=== PATIENT | female | born 1980 | race African-American/Black ===

== ENCOUNTER 2019-05-26 17:06 | Emergency (ER) | payer MEDICAID ==
[~2019-05-26] VITALS: Ht 160 cm; Wt 50.3 kg
[~2019-05-26 17:06] MED LIST: CLON0.2T PO; LORA-655 PO
[2019-05-26] MEDS ORDERED: cloNIDine HCL 0.1 MG TAB PO ONE ×2 (17:30→22:30)
[2019-05-26] MEDS ORDERED: ONDANSETRON ODT 4 MG TAB PO ONE (17:30)
[2019-05-26 18:54] LABS: Basophils # (auto) 0 10 ^3/uL (0-0.2); Basophils % (auto) 0.3 % (0.0-2.0); Eosinophils # (auto) 0 10 ^3/uL (0-0.8); Eosinophils % (auto) 0.4 % (0.0-7.0); Hematocrit 40.6 % (36.0-46.0); Hemoglobin 13.3 g/dL (12.2-16.2); Lymphocytes # (auto) 1.8 10 ^3/uL (0.4-5.4); Lymphocytes % (auto) 26.8 % (10.0-50.0); Mean Corpuscular Hemoglobin 29.6 pg (28.0-32.0); Mean Corpuscular Hgb Conc. 32.8 g/dL (32.0-36.0); Mean Corpuscular Volume 90.3 fL (80.0-100.0); Monocytes # (auto) 0.2 10 ^3/uL (0-1.3); Monocytes % (auto) 2.7 % (0.0-12.0); Neutrophils # (auto) 4.6 10 ^3/uL (1.6-8.6); Neutrophils % (auto) 69.8 % (37.0-80.0); Nucleated Red Blood Cells % 0.1 %; Platelet Count (auto) 307 10^3/uL (140-450); Red Cell Distribution Width 16.1 % (11.8-14.3); White Blood Cell 6.6 10^3/uL (4.4-10.8)
[2019-05-26] MEDS ORDERED: ONDANSETRON HCL 4 MG/2 ML VIAL IV ONE (19:00)
[2019-05-26] MEDS ORDERED: MORPHINE SULFATE 4 MG/ML SYR/VIAL IV ONE (19:00)
[2019-05-26 19:07] LABS: Albumin 3.1 g/dL (3.4-5.0); Calcium 8.1 mg/dL (8.5-10.1); Potassium 4.2 mmol/L (3.5-5.1)
[2019-05-26 19:10] LABS: BUN/Creatinine Ratio 13.3; Bilirubin, Total 0.2 mg/dL (0.2-1.0); Total Protein 7.5 g/dL (6.4-8.2)
[2019-05-26 19:19] LABS: Amylase 78 U/L (25-115); Lipase 270 U/L (73-393)
[2019-05-26] MEDS ORDERED: IOHEXOL 300 MG/ML 100ML BOTTLE IJ ONE (20:22)
[2019-05-26 21:39] VITALS: BP 175/117
[2019-05-26] MEDS ORDERED: MEPERIDINE HCL (25 MG/ML) 1ML VIAL IV ONE (22:45)
[2019-05-26] MEDS ORDERED: SODIUM CHLORIDE 0.9% 1,000 ML IV ONE (23:00)
== END 2019-05-26 23:29 | disposition home or self-care (01) ==
LOC: ER 17:06
DX: K86.1 Other chronic pancreatitis (principal); R11.2 Nausea with vomiting, unspecified; I10 Essential (primary) hypertension; F17.210 Nicotine dependence, cigarettes, uncomplicated
CPT/HCPCS: 36415; 74176; 74177; 80053; 82150; 82270; 83690; 84702; 85025; 96361; 96374; 96375; 99285; J2175; J2270; J2405; J7030; Q0162; Q9967

== ENCOUNTER → 2019-06-07 | Emergency (ER) | payer MEDICAID ==
[~2019-06-07] VITALS: Ht 160 cm; Wt 52.6 kg
[2019-06-07 07:39] VITALS: BP 211/135
[2019-06-07 08:01] LABS: Urine Bacteria NONE SEEN /hpf (None Seen); Urine Blood Negative /uL (Negative); Urine Mucus FEW (None Seen); Urine Specific Gravity 1.027 (1.001-1.035); Urine WBC 1 /hpf (0 - 5)
[2019-06-07 08:02] LABS: Basophils # (auto) 0 10 ^3/uL (0-0.2); Basophils % (auto) 0.5 % (0.0-2.0); Eosinophils # (auto) 0.1 10 ^3/uL (0-0.8); Eosinophils % (auto) 1.1 % (0.0-7.0); Hematocrit 34.8 % (36.0-46.0); Hemoglobin 11.6 g/dL (12.2-16.2); Lymphocytes # (auto) 1.3 10 ^3/uL (0.4-5.4); Lymphocytes % (auto) 24.4 % (10.0-50.0); Mean Corpuscular Hemoglobin 30.4 pg (28.0-32.0); Mean Corpuscular Hgb Conc. 33.3 g/dL (32.0-36.0); Mean Corpuscular Volume 91.4 fL (80.0-100.0); Monocytes # (auto) 0.3 10 ^3/uL (0-1.3); Monocytes % (auto) 5.2 % (0.0-12.0); Neutrophils # (auto) 3.7 10 ^3/uL (1.6-8.6); Neutrophils % (auto) 68.8 % (37.0-80.0); Platelet Count (auto) 254 10^3/uL (140-450); Red Blood Cells 3.81 10^6/uL (4.0-5.20); Red Cell Distribution Width 16.8 % (11.8-14.3); White Blood Cell 5.3 10^3/uL (4.4-10.8)
[2019-06-07 08:17] LABS: Albumin 2.7 g/dL (3.4-5.0); Calcium 8.1 mg/dL (8.5-10.1); Potassium 3.9 mmol/L (3.5-5.1)
[2019-06-07 08:21] LABS: BUN/Creatinine Ratio 14.5; Bilirubin, Total 0.4 mg/dL (0.2-1.0); Total Protein 7.5 g/dL (6.4-8.2)
== END | disposition home or self-care (01) ==
LOC: ER 07:10
DX: R10.13 Epigastric pain (principal); G89.4 Chronic pain syndrome; F17.210 Nicotine dependence, cigarettes, uncomplicated; I10 Essential (primary) hypertension; Z90.49 Acquired absence of other specified parts of digestive tract
CPT/HCPCS: 36415; 80053; 81001; 81025; 82150; 83690; 85025

== ENCOUNTER 2019-06-12 21:33 | Emergency (ER) | payer MEDICAID ==
[~2019-06-12] VITALS: Ht 160 cm; Wt 57.2 kg
[2019-06-12] MEDS ORDERED: LORazepam 2MG/ML-1ML VIAL IV ONE (22:30)
[2019-06-12] MEDS ORDERED: fentaNYL CITRATE 100 MCG/2 ML VL IV ONE (22:30)
[2019-06-12 22:44] LABS: Basophils # (auto) 0 10 ^3/uL (0-0.2); Basophils % (auto) 0.8 % (0.0-2.0); Eosinophils # (auto) 0 10 ^3/uL (0-0.8); Eosinophils % (auto) 0.7 % (0.0-7.0); Hematocrit 37.7 % (36.0-46.0); Hemoglobin 12.3 g/dL (12.2-16.2); Lymphocytes # (auto) 2.4 10 ^3/uL (0.4-5.4); Lymphocytes % (auto) 37.3 % (10.0-50.0); Mean Corpuscular Hemoglobin 29.9 pg (28.0-32.0); Mean Corpuscular Hgb Conc. 32.6 g/dL (32.0-36.0); Monocytes # (auto) 0.5 10 ^3/uL (0-1.3); Monocytes % (auto) 7.6 % (0.0-12.0); Neutrophils # (auto) 3.4 10 ^3/uL (1.6-8.6); Neutrophils % (auto) 53.6 % (37.0-80.0); Nucleated Red Blood Cells % 0.2 %; Platelet Count (auto) 295 10^3/uL (140-450); Red Cell Distribution Width 17.2 % (11.8-14.3); White Blood Cell 6.3 10^3/uL (4.4-10.8)
[2019-06-12 22:54] LABS: Albumin 3.1 g/dL (3.4-5.0); Calcium 8.6 mg/dL (8.5-10.1); Magnesium 2.3 mg/dL (1.6-2.6); Potassium 3.8 mmol/L (3.5-5.1)
[2019-06-12 22:57] LABS: Bilirubin, Total 0.2 mg/dL (0.2-1.0); Total Protein 7.8 g/dL (6.4-8.2)
[2019-06-12] MEDS ORDERED: IOHEXOL 300 MG/ML 100ML BOTTLE IJ ONE (23:16)
[2019-06-13 01:00] VITALS: BP 140/100
[2019-06-13] MEDS ORDERED: HYDROmorphone HCL 2 MG/ML VL IV ONE (01:30)
[2019-06-13] MEDS ORDERED: ONDANSETRON HCL 4 MG/2 ML VIAL IV ONE (01:30)
[2019-06-13] MEDS ORDERED: LORazepam 2MG/ML-1ML VIAL IV ONE (01:30)
== END 2019-06-13 01:45 | disposition home or self-care (01) ==
LOC: ER 21:33
DX: K57.32 Diverticulitis of large intestine without perforation or abscess without bleeding (principal); K86.1 Other chronic pancreatitis; R11.2 Nausea with vomiting, unspecified
CPT/HCPCS: 36415; 74177; 80053; 80320; 82150; 83690; 83735; 84702; 85025; 96374; 96375; 96376; 99284; J2060; J3010; Q9967

== ENCOUNTER 2019-10-19 17:16 | Emergency (ER) | payer MEDICAID ==
[~2019-10-19] VITALS: Ht 160 cm; Wt 52.2 kg
[2019-10-19] MEDS ORDERED: SODIUM CHLORIDE 0.9% 1,000 ML IVB ONE (17:29)
[2019-10-19] MEDS ORDERED: PANTOPRAZOLE 40 MG/10 ML VIAL INJ IV STA (17:29)
[2019-10-19] MEDS ORDERED: MORPHINE SULFATE 4 MG/ML SYR/VIAL IV ONE ×2 (17:30)
[2019-10-19 18:37] LABS: Basophils # (auto) 0 10 ^3/uL (0-0.2); Eosinophils # (auto) 0 10 ^3/uL (0-0.8); Lymphocytes # (auto) 1.8 10 ^3/uL (0.4-5.4); Monocytes # (auto) 0.6 10 ^3/uL (0-1.3); Nucleated Red Blood Cells % 0.1 %
[2019-10-19 18:39] LABS: Basophils % (auto) 0.3 % (0.0-2.0); Hematocrit 35.9 % (36.0-46.0); Hemoglobin 11.6 g/dL (12.2-16.2); Lymphocytes % (auto) 27.6 % (10.0-50.0); Mean Corpuscular Hemoglobin 27.6 pg (28.0-32.0); Mean Corpuscular Hgb Conc. 32.2 g/dL (32.0-36.0); Mean Corpuscular Volume 85.6 fL (80.0-100.0); Monocytes % (auto) 9.3 % (0.0-12.0); Neutrophils % (auto) 62.8 % (37.0-80.0); Platelet Count (auto) 305 10^3/uL (140-450); Red Cell Distribution Width 17.1 % (11.8-14.3); White Blood Cell 6.3 10^3/uL (4.4-10.8)
[2019-10-19] MEDS ORDERED: diphenhdrAMINE HCL 50 MG/1 ML VL IV ONE (18:45)
[2019-10-19] MEDS ORDERED: diphenhdrAMINE HCL 50 MG/1 ML VL ONE (18:47)
[2019-10-19 18:51] LABS: Albumin 3.7 g/dL (3.4-5.0); Calcium 9.2 mg/dL (8.5-10.1); Potassium 3.2 mmol/L (3.5-5.1)
[2019-10-19 18:55] LABS: BUN/Creatinine Ratio 15.3; Bilirubin, Total 0.2 mg/dL (0.2-1.0)
[2019-10-19 19:40] VITALS: BP 99/76
== END 2019-10-19 19:14 | disposition home or self-care (01) ==
LOC: EDBD 17:16 → ER 17:16
DX: G89.4 Chronic pain syndrome (principal); R11.2 Nausea with vomiting, unspecified; R10.13 Epigastric pain; I10 Essential (primary) hypertension; F17.210 Nicotine dependence, cigarettes, uncomplicated
CPT/HCPCS: 36415; 74176; 80053; 83690; 85025; 96361; 96374; 96375; 99284; C9113; J1200; J2270; J7030

== ENCOUNTER 2019-11-18 04:44 | Emergency (ER) | payer MEDICAID ==
[~2019-11-18] VITALS: Ht 160 cm; Wt 55.3 kg
[2019-11-18] MEDS ORDERED: cloNIDine HCL 0.1 MG TAB ONE (05:06)
[2019-11-18] MEDS ORDERED: ONDANSETRON ODT 4 MG TAB PO ONE ×2 (05:06→05:15)
[2019-11-18] MEDS ORDERED: cloNIDine HCL 0.1 MG TAB PO ONE (05:15)
[2019-11-18 07:23] LABS: Basophils # (auto) 0 10 ^3/uL (0-0.2); Basophils % (auto) 0.3 % (0.0-2.0); Eosinophils # (auto) 0.1 10 ^3/uL (0-0.8); Eosinophils % (auto) 1.5 % (0.0-7.0); Hemoglobin 11.1 g/dL (12.2-16.2); Lymphocytes # (auto) 0.8 10 ^3/uL (0.4-5.4); Lymphocytes % (auto) 12.2 % (10.0-50.0); Mean Corpuscular Hemoglobin 27.3 pg (28.0-32.0); Mean Corpuscular Hgb Conc. 31.8 g/dL (32.0-36.0); Mean Corpuscular Volume 85.6 fL (80.0-100.0); Monocytes # (auto) 0.2 10 ^3/uL (0-1.3); Monocytes % (auto) 2.8 % (0.0-12.0); Neutrophils # (auto) 5.5 10 ^3/uL (1.6-8.6); Neutrophils % (auto) 83.2 % (37.0-80.0); Platelet Count (auto) 186 10^3/uL (140-450); Red Blood Cells 4.09 10^6/uL (4.0-5.20); Red Cell Distribution Width 17.6 % (11.8-14.3); White Blood Cell 6.6 10^3/uL (4.4-10.8)
[2019-11-18] MEDS ORDERED: MORPHINE SULFATE 4 MG/ML SYR/VIAL IV ONE (07:30)
[2019-11-18] MEDS ORDERED: SODIUM CHLORIDE 0.9% 1,000 ML IV ONE ×2 (07:35)
[2019-11-18 07:36] LABS: Albumin 2.9 g/dL (3.4-5.0); BUN/Creatinine Ratio 24.6; Calcium 7.6 mg/dL (8.5-10.1); Potassium 3.5 mmol/L (3.5-5.1)
[2019-11-18 07:39] LABS: Bilirubin, Total 0.3 mg/dL (0.2-1.0); Total Protein 6.7 g/dL (6.4-8.2)
[2019-11-18] MEDS ORDERED: KETOROLAC TROMETH 30 MG/ML 1ML VIAL IV ONE (09:30)
[2019-11-18 09:31] VITALS: BP 141/79
[2019-11-18] MEDS ORDERED: MORPHINE SULF INJ 2 MG/ML SYRINGE 1ML IV ONE (09:45)
[2019-11-18] MEDS ORDERED: LABETALOL HCL 5 MG/ML 4ML SYRINGE IV ONE (10:30)
== END 2019-11-18 11:03 | disposition home or self-care (01) ==
LOC: ER 04:44
DX: K85.90 Acute pancreatitis without necrosis or infection, unspecified (principal); E86.0 Dehydration; I10 Essential (primary) hypertension
CPT/HCPCS: 36415; 71045; 74176; 80053; 82150; 83690; 85025; 96361; 96374; 96375; 96376; 99285; J2270; J3490; J7030; Q0162; J1885

== ENCOUNTER 2019-11-25 07:26 | Emergency (ER) | payer MEDICAID ==
[~2019-11-25] VITALS: Ht 160 cm; Wt 55.3 kg
[2019-11-25] MEDS ORDERED: LABETALOL HCL 5 MG/ML 4ML SYRINGE IV ONE (08:15)
[2019-11-25] MEDS ORDERED: KETOROLAC TROMETH 30 MG/ML 1ML VIAL IV ONE (08:15)
[2019-11-25] MEDS ORDERED: LORazepam 2MG/ML-1ML VIAL IV ONE (08:15)
[2019-11-25 08:36] LABS: Basophils # (auto) 0 10 ^3/uL (0-0.2); Basophils % (auto) 0.5 % (0.0-2.0); Eosinophils # (auto) 0 10 ^3/uL (0-0.8); Eosinophils % (auto) 0.9 % (0.0-7.0); Hematocrit 37.9 % (36.0-46.0); Hemoglobin 12.4 g/dL (12.2-16.2); Lymphocytes # (auto) 1.2 10 ^3/uL (0.4-5.4); Lymphocytes % (auto) 26.9 % (10.0-50.0); Mean Corpuscular Hemoglobin 27.6 pg (28.0-32.0); Mean Corpuscular Hgb Conc. 32.8 g/dL (32.0-36.0); Mean Corpuscular Volume 84.1 fL (80.0-100.0); Monocytes # (auto) 0.1 10 ^3/uL (0-1.3); Monocytes % (auto) 3.3 % (0.0-12.0); Neutrophils # (auto) 3.1 10 ^3/uL (1.6-8.6); Neutrophils % (auto) 68.4 % (37.0-80.0); Nucleated Red Blood Cells % 0.3 %; Platelet Count (auto) 222 10^3/uL (140-450); Red Blood Cells 4.51 10^6/uL (4.0-5.20); Red Cell Distribution Width 17.9 % (11.8-14.3); White Blood Cell 4.6 10^3/uL (4.4-10.8)
[2019-11-25 08:50] LABS: Albumin 3.4 g/dL (3.4-5.0); Amylase 42 U/L (25-115); Anion Gap 12 (5-15); Blood Urea Nitrogen 6 mg/dL (7-18); Calcium 8.9 mg/dL (8.5-10.1); Carbon Dioxide 18 mmol/L (21-32); Chloride 105 mmol/L (98-107); Glucose 69 mg/dL (74-106); Lipase 94 U/L (73-393); Potassium 3.1 mmol/L (3.5-5.1); Sodium 135 mmol/L (136-145)
[2019-11-25] MEDS ORDERED: diphenhdrAMINE HCL 50 MG/1 ML VL ONE (08:53)
[2019-11-25] MEDS ORDERED: amLODIPine BESYLATE 5 MG TAB ONE (08:53)
[2019-11-25 08:58] LABS: Alanine Aminotransferase 18 U/L (13-56); Alkaline Phosphatase 167 U/L (45-117); Aspartate Aminotransferase 31 U/L (15-37); Bilirubin, Total 0.8 mg/dL (0.2-1.0); GFR African American 176 mL/min; GFR Non-African American 145 mL/min; Total Protein 7.8 g/dL (6.4-8.2)
[2019-11-25] MEDS ORDERED: diphenhdrAMINE HCL 50 MG/1 ML VL IV ONE (09:00)
[2019-11-25] MEDS ORDERED: amLODIPine BESYLATE 5 MG TAB PO ONE (09:00)
[2019-11-25] MEDS ORDERED: POTASSIUM EFFERVESENT TAB 25 MEQ PO ONE (09:15)
[2019-11-25] MEDS ORDERED: MORPHINE SULFATE 4 MG/ML SYR/VIAL IV ONE (09:15)
[2019-11-25] MEDS ORDERED: PROMETHAZINE HCL 25 MG/ML 1ML IV ONE (09:15)
[2019-11-25] MEDS ORDERED: HYDR50TA15 PO (09:34)
[2019-11-25] MEDS ORDERED: PANT40T PO (09:34)
[2019-11-25] MEDS ORDERED: NIFE1TAB30 (09:34)
[2019-11-25 12:00] VITALS: BP 126/84
== END 2019-11-25 14:03 | disposition left against medical advice (07) ==
LOC: ER 07:26
DX: G89.4 Chronic pain syndrome (principal); I16.0 Hypertensive urgency; E87.6 Hypokalemia; F17.210 Nicotine dependence, cigarettes, uncomplicated; Z90.49 Acquired absence of other specified parts of digestive tract; Z53.29 Procedure and treatment not carried out because of patient's decision for other reasons
CPT/HCPCS: 36415; 70450; 74176; 80053; 80320; 82150; 83690; 83735; 84484; 84702; 85025; 93005; 96365; 96366; 96375; 99285; J1200; J1885; J2060; J2270; J2550; J3490; J7030; 36410; 96374

== ENCOUNTER 2020-04-01 02:22 | Emergency (ER) | payer MEDICAID ==
[~2020-04-01] VITALS: Ht 160 cm; Wt 50.3 kg
[~2020-04-01 02:22] MED LIST changes: +HYDR50TA15 PO; +NIFE1TAB30; +PANT40T PO
[2020-04-01] MEDS ORDERED: cloNIDine HCL 0.1 MG TAB ONE (03:25)
[2020-04-01] MEDS ORDERED: EPINEPHrine HCL 1 MG/1 ML AMP IM ONE (03:30)
[2020-04-01 04:00] LABS: Basophils # (auto) 0.1 10 ^3/uL (0-0.2); Basophils % (auto) 0.9 % (0.0-2.0); Eosinophils # (auto) 0.1 10 ^3/uL (0-0.8); Eosinophils % (auto) 1.9 % (0.0-7.0); Lymphocytes # (auto) 1.7 10 ^3/uL (0.4-5.4); Lymphocytes % (auto) 22.5 % (10.0-50.0); Mean Corpuscular Hemoglobin 28.2 pg (28.0-32.0); Mean Corpuscular Hgb Conc. 32.2 g/dL (32.0-36.0); Mean Corpuscular Volume 87.6 fL (80.0-100.0); Monocytes # (auto) 0.8 10 ^3/uL (0-1.3); Monocytes % (auto) 10.2 % (0.0-12.0); Neutrophils % (auto) 64.5 % (37.0-80.0); Nucleated Red Blood Cells % 0.1 %; Red Blood Cells 3.54 10^6/uL (4.0-5.20); White Blood Cell 7.8 10^3/uL (4.4-10.8)
[2020-04-01 04:01] LABS: Red Cell Distribution Width 21.1 % (11.8-14.3)
[2020-04-01 04:19] LABS: Albumin 3.6 g/dL (3.4-5.0); Calcium 8.2 mg/dL (8.5-10.1); Magnesium 2.4 mg/dL (1.6-2.6)
[2020-04-01 04:23] LABS: BUN/Creatinine Ratio 21.3; Bilirubin, Total 0.2 mg/dL (0.2-1.0); Total Protein 8.2 g/dL (6.4-8.2)
[2020-04-01 04:23] LABS: Lactic Acid w/Reflex 3.1 mmol/L (0.4-2.0)
[2020-04-01 04:26] LABS: INR 1.11 (0.9-1.15)
[2020-04-01] MEDS ORDERED: SODIUM CHLORIDE 0.9% 1,000 ML IV ONE (04:30)
[2020-04-01] MEDS ORDERED: HYDROmorphone HCL 2 MG/ML VL IV ONE ×2 (04:30→08:30)
[2020-04-01] MEDS ORDERED: ONDANSETRON HCL 4 MG/2 ML VIAL IV ONE (05:15)
[2020-04-01] MEDS ORDERED: IOHEXOL 300 MG/ML 100ML BOTTLE IJ ONE (07:57)
[2020-04-01] MEDS ORDERED: HYDROmorphone HCL 2 MG/ML VL ONE (07:58)
[2020-04-01 08:00] VITALS: BP 181/105
== END 2020-04-01 11:43 | disposition home or self-care (01) ==
LOC: EDBD 02:22 → ER 02:22
DX: K86.1 Other chronic pancreatitis (principal); G89.29 Other chronic pain; I10 Essential (primary) hypertension; F17.210 Nicotine dependence, cigarettes, uncomplicated; Z79.899 Other long term (current) drug therapy; Z90.49 Acquired absence of other specified parts of digestive tract
CPT/HCPCS: 36415; 74177; 80053; 83605; 83690; 83735; 84100; 85025; 85610; 96361; 96372; 96374; 96376; 99285; J0171; J1170; Q9967

== ENCOUNTER 2020-06-06 12:05 | Inpatient (IN) | payer MEDICAID ==
[~2020-06-06] VITALS: Ht 160 cm; Wt 38.1 kg
[2020-06-06] MEDS ORDERED: PANTOPRAZOLE 40 MG/10 ML VIAL INJ IV STA (12:08)
[2020-06-06] MEDS ORDERED: SODIUM CHLORIDE 0.9% 500 ML IVB ONE (12:15)
[2020-06-06] MEDS ORDERED: MORPHINE SULFATE 4 MG/ML SYR/VIAL IV ONE (12:15)
[2020-06-06] MEDS ORDERED: PROCHLORPERAZINE EDISYLATE 5 MG/ML 2ML VIAL IV ONE (12:15)
[2020-06-06 12:38] LABS: Basophils # (auto) 0.1 10 ^3/uL (0-0.2); Basophils % (auto) 1.1 % (0.0-2.0); Eosinophils # (auto) 0.1 10 ^3/uL (0-0.8); Eosinophils % (auto) 1.1 % (0.0-7.0); Hemoglobin 11.7 g/dL (12.2-16.2); Lymphocytes % (auto) 37.9 % (10.0-50.0); Mean Corpuscular Hemoglobin 27.3 pg (28.0-32.0); Mean Corpuscular Hgb Conc. 32.6 g/dL (32.0-36.0); Mean Corpuscular Volume 83.7 fL (80.0-100.0); Monocytes # (auto) 0.3 10 ^3/uL (0-1.3); Monocytes % (auto) 5.2 % (0.0-12.0); Neutrophils % (auto) 54.7 % (37.0-80.0); Nucleated Red Blood Cells % 0.1 %; Platelet Count (auto) 351 10^3/uL (140-450); Red Cell Distribution Width 20.5 % (11.8-14.3); White Blood Cell 5.4 10^3/uL (4.4-10.8)
[2020-06-06] MEDS ORDERED: cloNIDine HCL 0.1 MG TAB PO ONE ×2 (13:00→19:00)
[2020-06-06 13:09] LABS: Albumin 3.4 g/dL (3.4-5.0); Calcium 8.6 mg/dL (8.5-10.1); Potassium 3.3 mmol/L (3.5-5.1)
[2020-06-06 13:13] LABS: BUN/Creatinine Ratio 11.9; Bilirubin, Total 0.3 mg/dL (0.2-1.0); Total Protein 8.1 g/dL (6.4-8.2)
[2020-06-06] MEDS ORDERED: ONDANSETRON HCL 4 MG/2 ML VIAL IV PRN (13:45)
[2020-06-06] MEDS ORDERED: FOLIC ACID 1 MG, MULTIPLE VITAMIN 10 ML, MAGNESIUM SULF SDV 50% 8 MEQ, THIAMINE INJ 100... INJ SCH ×5 (13:45)
[2020-06-06] MEDS ORDERED: LABETALOL HCL 5 MG/ML 4ML SYRINGE IV PRN (13:45)
[2020-06-06] MEDS ORDERED: POTASSIUM CHLORIDE 40 MEQ, LIDOCAINE 1% (LOCAL ANESTH.) 4 ML in SODIUM CHL 0.9% 250 ML IV ONE (13:45)
[2020-06-06] MEDS ORDERED: diphenhdrAMINE HCL 50 MG/1 ML VL IV ONE (14:00)
[2020-06-06] MEDS ORDERED: diphenhdrAMINE-ZINC ACETATE 1 APPLIC APPL TOP PRN (14:00)
[2020-06-06] MEDS: MORPHINE SULF INJ 2 MG/ML SYRINGE 1ML IV PRN ×3 (16:59→23:21)
[2020-06-06 17:00] VITALS: BP 160/121
[2020-06-06 17:17] VITALS: BP 160/121
[2020-06-06] MEDS ORDERED: hydrALAZINE HCL 20 MG/ML VL IV ONE (19:00)
[2020-06-06 22:00] VITALS: BP_SYST 130; BP_SYST 171; BP_DIAS 108; BP_DIAS 81
[2020-06-07] MEDS: MORPHINE SULF INJ 2 MG/ML SYRINGE 1ML IV PRN ×3 (02:26→08:37)
[2020-06-07 05:00] VITALS: BP 160/107
[2020-06-07 07:35] LABS: Albumin 3.1 g/dL (3.4-5.0); Calcium 8.4 mg/dL (8.5-10.1); Potassium 3.3 mmol/L (3.5-5.1)
[2020-06-07 07:50] LABS: BUN/Creatinine Ratio 6.3; Bilirubin, Total 0.4 mg/dL (0.2-1.0); Total Protein 6.7 g/dL (6.4-8.2)
[2020-06-07] MEDS ORDERED: cefTRIAXone 1GM/50ML D5W 50 ML IV SCH (09:00)
[2020-06-07 09:06] VITALS: BP 201/131
[2020-06-07] MEDS ORDERED: LOSARTAN POTASSIUM 25 MG TAB PO ONE (09:15)
[2020-06-07] MEDS ORDERED: LABETALOL HCL 5 MG/ML 4ML SYRINGE IV ONE (09:15)
[2020-06-07] MEDS ORDERED: LOSARTAN POTASSIUM 25 MG TAB PO SCH (10:00)
[2020-06-07] MEDS ORDERED: PANTOPRAZOLE 40 MG TAB PO SCH (10:00)
[2020-06-07] MEDS ORDERED: amLODIPine BESYLATE 5 MG TAB PO SCH (10:00)
[2020-06-07] MEDS ORDERED: cloNIDine HCL 0.1 MG TAB PO SCH (14:00)
[2020-06-07] MEDS ORDERED: metroNIDAZOLE 500MG/100ML 100 ML IV SCH (14:00)
== END 2020-06-07 09:55 | disposition left against medical advice (07) | DRG 251 ==
LOC: ER 12:05 → TELE 12:06 → TELE-CENTR 16:07
PROVIDERS: ADMIT Nurse Practitioner Acute Care; ATTEND Internal Medicine Nephrology
DX: R10.9 Unspecified abdominal pain (principal); R64 Cachexia; K86.1 Other chronic pancreatitis; Z20.822 Contact with and (suspected) exposure to COVID-19; I10 Essential (primary) hypertension; G89.4 Chronic pain syndrome; F10.20 Alcohol dependence, uncomplicated; E87.6 Hypokalemia; Z72.0 Tobacco use; Z82.49 Family history of ischemic heart disease and other diseases of the circulatory system; Z83.3 Family history of diabetes mellitus; Z68.1 Body mass index [BMI] 19.9 or less, adult; Z90.49 Acquired absence of other specified parts of digestive tract; Z53.29 Procedure and treatment not carried out because of patient's decision for other reasons
CPT/HCPCS: 36415; 74176; 80053; 82150; 83690; 84702; 85025; 87426; 96361; 96365; 96375; C9113; G0378; J0696; J2001; J2405; J3490

== ENCOUNTER 2020-06-25 19:09 | Inpatient (IN) | payer MEDICAID ==
[~2020-06-25] VITALS: Ht 160 cm; Wt 38.4 kg
[2020-06-25 19:58] LABS: Basophils # (auto) 0.1 10 ^3/uL (0-0.2); Basophils % (auto) 1.6 % (0.0-2.0); Eosinophils # (auto) 0.1 10 ^3/uL (0-0.8); Eosinophils % (auto) 1.5 % (0.0-7.0); Hematocrit 34.8 % (36.0-46.0); Hemoglobin 11.2 g/dL (12.2-16.2); Lymphocytes # (auto) 1.4 10 ^3/uL (0.4-5.4); Lymphocytes % (auto) 26.4 % (10.0-50.0); Mean Corpuscular Hemoglobin 28.2 pg (28.0-32.0); Mean Corpuscular Hgb Conc. 32.2 g/dL (32.0-36.0); Mean Corpuscular Volume 87.7 fL (80.0-100.0); Monocytes # (auto) 0.3 10 ^3/uL (0-1.3); Monocytes % (auto) 5.5 % (0.0-12.0); Neutrophils # (auto) 3.4 10 ^3/uL (1.6-8.6); Nucleated Red Blood Cells % 0.1 %; Platelet Count (auto) 303 10^3/uL (140-450); Red Blood Cells 3.97 10^6/uL (4.0-5.20); Red Cell Distribution Width 23.3 % (11.8-14.3); White Blood Cell 5.3 10^3/uL (4.4-10.8)
[2020-06-25 20:16] LABS: Amylase 74 U/L (25-115); Anion Gap 12 (5-15); Blood Urea Nitrogen 6 mg/dL (7-18); Calcium 8.3 mg/dL (8.5-10.1); Carbon Dioxide 20 mmol/L (21-32); Chloride 110 mmol/L (98-107); Glucose 89 mg/dL (74-106); Lipase 187 U/L (73-393); Potassium 3.5 mmol/L (3.5-5.1); Sodium 142 mmol/L (136-145)
[2020-06-25 20:21] LABS: BUN/Creatinine Ratio 11.1; GFR African American 160 mL/min; GFR Non-African American 132 mL/min
[2020-06-25 22:07] LABS: Basophils # (auto) 0 10 ^3/uL (0-0.2); Basophils % (auto) 0.7 % (0.0-2.0); Eosinophils # (auto) 0.1 10 ^3/uL (0-0.8); Eosinophils % (auto) 1.7 % (0.0-7.0); Hematocrit 33.6 % (36.0-46.0); Hemoglobin 10.6 g/dL (12.2-16.2); Lymphocytes # (auto) 1.6 10 ^3/uL (0.4-5.4); Lymphocytes % (auto) 31.5 % (10.0-50.0); Mean Corpuscular Hgb Conc. 31.6 g/dL (32.0-36.0); Mean Corpuscular Volume 88.8 fL (80.0-100.0); Monocytes # (auto) 0.2 10 ^3/uL (0-1.3); Monocytes % (auto) 3.7 % (0.0-12.0); Neutrophils # (auto) 3.2 10 ^3/uL (1.6-8.6); Neutrophils % (auto) 62.4 % (37.0-80.0); Nucleated Red Blood Cells % 0.1 %; Platelet Count (auto) 299 10^3/uL (140-450); Red Blood Cells 3.78 10^6/uL (4.0-5.20); Red Cell Distribution Width 23.5 % (11.8-14.3); White Blood Cell 5.1 10^3/uL (4.4-10.8)
[2020-06-25 22:15] LABS: Albumin 2.9 g/dL (3.4-5.0); Anion Gap 12 (5-15); Blood Urea Nitrogen 7 mg/dL (7-18); Calcium 8.1 mg/dL (8.5-10.1); Carbon Dioxide 19 mmol/L (21-32); Chloride 111 mmol/L (98-107); Glucose 78 mg/dL (74-106); Potassium 3.6 mmol/L (3.5-5.1); Sodium 142 mmol/L (136-145)
[2020-06-25] MEDS ORDERED: HYDROmorphone HCL 2 MG/ML VL IV ONE (22:15)
[2020-06-25] MEDS ORDERED: SODIUM CHLORIDE 0.9% 1,000 ML IV ONE (22:15)
[2020-06-25] MEDS ORDERED: PANTOPRAZOLE 40 MG/10 ML VIAL INJ IV ONE (22:15)
[2020-06-25] MEDS ORDERED: ONDANSETRON HCL 4 MG/2 ML VIAL IV ONE (22:15)
[2020-06-25] MEDS ORDERED: IOHEXOL 300 MG/ML 100ML BOTTLE IJ ONE (22:23)
[2020-06-25 22:24] LABS: Alanine Aminotransferase 22 U/L (13-56); Alkaline Phosphatase 110 U/L (45-117); Aspartate Aminotransferase 43 U/L (15-37); Bilirubin, Total 0.2 mg/dL (0.2-1.0); GFR African American 160 mL/min; GFR Non-African American 132 mL/min; Total Protein 7.1 g/dL (6.4-8.2)
[2020-06-25] MEDS ORDERED: diphenhdrAMINE HCL 50 MG/1 ML VL ONE (23:51)
[2020-06-26] MEDS ORDERED: HYDROmorphone HCL 2 MG/ML VL IV ONE (00:45)
[2020-06-26] MEDS ORDERED: SODIUM CHLORIDE 0.9% 1,000 ML IV SCH (02:30)
[2020-06-26] MEDS ORDERED: MORPHINE SULF INJ 2 MG/ML SYRINGE 1ML IV PRN (02:30)
[2020-06-26] MEDS ORDERED: hydrALAZINE HCL 20 MG/ML VL IV PRN (02:30)
[2020-06-26] MEDS ORDERED: ONDANSETRON HCL 4 MG/2 ML VIAL IV PRN (02:30)
[2020-06-26] MEDS ORDERED: NITROGLYCERIN 0.4 MG SL TAB SL PRN (02:30)
[2020-06-26 02:49] LABS: Urine Bacteria FEW /hpf (None Seen); Urine Blood Negative /uL (Negative); Urine Specific Gravity > 1.050 (1.001-1.035); Urine WBC 4 /hpf (0 - 5)
[2020-06-26 03:14] LABS: INR 1.11 (0.9-1.15); Partial Thromboplastin Time 27.9 sec (23.0-31.2)
[2020-06-26] MEDS ORDERED: diphenhdrAMINE HCL 50 MG/1 ML VL ONE (03:19)
[2020-06-26] MEDS: MORPHINE SULFATE 4 MG/ML SYR/VIAL IV PRN ×4 (04:34→21:13)
[2020-06-26] MEDS ORDERED: HYDROcodone-ACET 10/325MG TAB PO ONE (06:00)
[2020-06-26] MEDS: LABETALOL HCL 5 MG/ML 4ML SYRINGE IV PRN (08:35)
[2020-06-26] MEDS: diphenhdrAMINE HCL 50 MG/1 ML VL IV PRN ×4 (08:35→23:44)
[2020-06-26] MEDS ORDERED: LORazepam 2MG/ML-1ML VIAL IV PRN ×2 (08:45→21:00)
[2020-06-26] MEDS: levoFLOXacin 500MG 100 ML IV SCH (10:16)
[2020-06-26] MEDS: PANTOPRAZOLE 40 MG/10 ML VIAL INJ IV SCH ×2 (10:16→21:37)
[2020-06-26 10:51] LABS: Amphetamine Screen, Urine NEGATIVE (NEGATIVE); Barbiturate Scree,Urine NEGATIVE (NEGATIVE); Benzodiazephine Screen, Urine NEGATIVE (NEGATIVE); Cannabinoid Screen, Urine NEGATIVE (NEGATIVE); Cocaine Screen, Urine NEGATIVE (NEGATIVE); Opiate Scree,Urine POSITIVE (NEGATIVE); Phencyclidine Screen, Urine NEGATIVE (NEGATIVE)
[2020-06-26] MEDS: FOLIC ACID 1 MG, MULTIPLE VITAMIN 10 ML, MAGNESIUM SULF SDV 50% 8 MEQ, THIAMINE INJ 100... INJ SCH ×5 (11:57)
[2020-06-26] MEDS: cloNIDine 0.1 mg/24hr 7 DAY PATCH TD SCH ×2 (12:45→20:36)
[2020-06-26] MEDS ORDERED: cloNIDine 0.1 mg/24hr 7 DAY PATCH TD ONE (12:45)
[2020-06-26] MEDS: metroNIDAZOLE 500MG/100ML 100 ML IV SCH ×2 (14:01→21:37)
[2020-06-26] MEDS: SUCRALFATE 1 GM/10 ML ORAL SUSP PO SCH ×2 (17:11→21:37)
[2020-06-26] MEDS ORDERED: chlordiazePOXIDE HCL 25 MG CAP PO PRN (21:00)
[2020-06-27] MEDS: MORPHINE SULFATE 4 MG/ML SYR/VIAL IV PRN ×2 (01:17→05:36)
[2020-06-27] MEDS: LABETALOL HCL 5 MG/ML 4ML SYRINGE IV PRN ×7 (01:23→21:03)
[2020-06-27] MEDS: diphenhdrAMINE HCL 50 MG/1 ML VL IV PRN ×3 (03:45→21:26)
[2020-06-27] MEDS: metroNIDAZOLE 500MG/100ML 100 ML IV SCH ×3 (05:36→21:02)
[2020-06-27] MEDS: SUCRALFATE 1 GM/10 ML ORAL SUSP PO SCH ×4 (06:48→21:02)
[2020-06-27 07:21] LABS: Basophils # (auto) 0 10 ^3/uL (0-0.2); Basophils % (auto) 0.7 % (0.0-2.0); Eosinophils # (auto) 0.1 10 ^3/uL (0-0.8); Eosinophils % (auto) 2.5 % (0.0-7.0); Hematocrit 30.6 % (36.0-46.0); Hemoglobin 9.8 g/dL (12.2-16.2); Lymphocytes # (auto) 0.8 10 ^3/uL (0.4-5.4); Lymphocytes % (auto) 22.2 % (10.0-50.0); Mean Corpuscular Hemoglobin 27.9 pg (28.0-32.0); Mean Corpuscular Volume 87.2 fL (80.0-100.0); Monocytes # (auto) 0.2 10 ^3/uL (0-1.3); Monocytes % (auto) 4.8 % (0.0-12.0); Neutrophils # (auto) 2.5 10 ^3/uL (1.6-8.6); Neutrophils % (auto) 69.8 % (37.0-80.0); Nucleated Red Blood Cells % 0.2 %; Platelet Count (auto) 233 10^3/uL (140-450); Red Blood Cells 3.51 10^6/uL (4.0-5.20); White Blood Cell 3.7 10^3/uL (4.4-10.8)
[2020-06-27 07:23] LABS: Red Cell Distribution Width 23.5 % (11.8-14.3)
[2020-06-27 07:40] LABS: Albumin 2.7 g/dL (3.4-5.0); Calcium 8.7 mg/dL (8.5-10.1); Potassium 3.2 mmol/L (3.5-5.1)
[2020-06-27 07:43] LABS: BUN/Creatinine Ratio 4.1; Bilirubin, Total 0.4 mg/dL (0.2-1.0); Total Protein 6.5 g/dL (6.4-8.2)
[2020-06-27] MEDS ORDERED: LIDOCAINE VISCOUS 2% 15ML UD ONE (08:55)
[2020-06-27] MEDS ORDERED: MIDAZOLAM HCL 5 MG/ML-1ML VIAL ONE (08:56)
[2020-06-27] MEDS ORDERED: fentaNYL CITRATE 100 MCG/2 ML VL ONE ×3 (08:56→12:19)
[2020-06-27] MEDS ORDERED: diphenhdrAMINE HCL 50 MG/1 ML VL ONE (08:56)
[2020-06-27 09:00] VITALS: BP 156/105
[2020-06-27] MEDS: levoFLOXacin 500MG 100 ML IV SCH (10:00)
[2020-06-27] MEDS ORDERED: MIDAZOLAM HCL 5 MG/ML-1ML VIAL IV ONE (10:24)
[2020-06-27] MEDS ORDERED: MIDAZOLAM HCL 1MG/1ML-2 ML VIAL ONE (11:01)
[2020-06-27] MEDS ORDERED: SODIUM CHLORIDE LOCK 10 ML ONE (11:01)
[2020-06-27] MEDS ORDERED: PROPOFOL 10 MG/ML 20 ML IV ONE ×2 (11:01→12:19)
[2020-06-27] MEDS: FOLIC ACID 1 MG, MULTIPLE VITAMIN 10 ML, MAGNESIUM SULF SDV 50% 8 MEQ, THIAMINE INJ 100... INJ SCH ×5 (12:00)
[2020-06-27] MEDS ORDERED: LIDOCAINE 2% (LOCAL ANESTH.) PF 5ml SDV ONE (12:19)
[2020-06-27] MEDS ORDERED: ONDANSETRON HCL 4 MG/2 ML VIAL IV PRN (13:00)
[2020-06-27] MEDS ORDERED: POTASSIUM CHL 20 Meq TABLET PO ONE (14:00)
[2020-06-27 14:34] VITALS: BP 163/113
[2020-06-27] MEDS: HCTZ 25 MG TAB PO SCH (14:50)
[2020-06-27] MEDS: amLODIPine BESYLATE 5 MG TAB PO SCH (14:51)
[2020-06-27 17:00] VITALS: BP 157/102
[2020-06-27] MEDS: MORPHINE SULF INJ 2 MG/ML SYRINGE 1ML IV PRN (20:42)
[2020-06-27] MEDS: PANTOPRAZOLE 40 MG TAB PO SCH (21:03)
[2020-06-27 21:15] VITALS: BP 181/102
[2020-06-27 22:00] VITALS: BP 171/107
[2020-06-27] MEDS ORDERED: hydrALAZINE HCL 20 MG/ML VL IV ONE (22:30)
[2020-06-27 23:45] VITALS: BP 140/83
[2020-06-28] MEDS: MORPHINE SULF INJ 2 MG/ML SYRINGE 1ML IV PRN ×2 (00:02→04:04)
[2020-06-28] MEDS: diphenhdrAMINE HCL 50 MG/1 ML VL IV PRN ×2 (01:26→05:37)
[2020-06-28 05:00] VITALS: BP 196/105
[2020-06-28] MEDS: metroNIDAZOLE 500MG/100ML 100 ML IV SCH (05:37)
[2020-06-28] MEDS: LABETALOL HCL 5 MG/ML 4ML SYRINGE IV PRN (05:39)
[2020-06-28] MEDS: SUCRALFATE 1 GM/10 ML ORAL SUSP PO SCH ×2 (05:53→11:30)
[2020-06-28 05:54] VITALS: BP 158/113
[2020-06-28 06:12] LABS: Basophils # (auto) 0 10 ^3/uL (0-0.2); Basophils % (auto) 0.6 % (0.0-2.0); Eosinophils # (auto) 0.1 10 ^3/uL (0-0.8); Eosinophils % (auto) 2.6 % (0.0-7.0); Hematocrit 32.3 % (36.0-46.0); Hemoglobin 10.1 g/dL (12.2-16.2); Lymphocytes # (auto) 0.9 10 ^3/uL (0.4-5.4); Lymphocytes % (auto) 20.8 % (10.0-50.0); Mean Corpuscular Hemoglobin 28.8 pg (28.0-32.0); Mean Corpuscular Hgb Conc. 31.4 g/dL (32.0-36.0); Mean Corpuscular Volume 91.9 fL (80.0-100.0); Monocytes # (auto) 0.2 10 ^3/uL (0-1.3); Monocytes % (auto) 4.7 % (0.0-12.0); Neutrophils # (auto) 3.2 10 ^3/uL (1.6-8.6); Neutrophils % (auto) 71.3 % (37.0-80.0); Nucleated Red Blood Cells % 0.3 %; Platelet Count (auto) 202 10^3/uL (140-450); Red Blood Cells 3.51 10^6/uL (4.0-5.20); Red Cell Distribution Width 23.8 % (11.8-14.3); White Blood Cell 4.6 10^3/uL (4.4-10.8)
[2020-06-28 06:34] LABS: Potassium 3.8 mmol/L (3.5-5.1)
[2020-06-28 06:42] LABS: BUN/Creatinine Ratio 5.9; Calcium 8.9 mg/dL (8.5-10.1)
[2020-06-28] MEDS ORDERED: MIDAZOLAM HCL 1MG/1ML-2 ML VIAL ONE ×2 (08:26→09:06)
[2020-06-28] MEDS ORDERED: fentaNYL CITRATE 100 MCG/2 ML VL ONE ×2 (08:26→09:06)
[2020-06-28] MEDS ORDERED: IOHEXOL 350 MG/ML 100ML IJ ONE (08:30)
[2020-06-28] MEDS ORDERED: LIDOCAINE 2%HCL (LOCAL ANESTH.) INJ 20ML MDV ONE (08:30)
[2020-06-28] MEDS ORDERED: diphenhdrAMINE HCL 50 MG/1 ML VL ONE (08:54)
[2020-06-28 08:55] LABS: INR 1.04 (0.9-1.15); Partial Thromboplastin Time 29.3 sec (23.0-31.2)
[2020-06-28 09:00] VITALS: BP 161/109
[2020-06-28] MEDS ORDERED: SODIUM CHL 0.9% 50 ML ONE (09:15)
[2020-06-28] MEDS ORDERED: ANGIOMAX 250 MG VIAL IV ONE (09:15)
[2020-06-28] MEDS ORDERED: CLOPIDOGREL 300 MG TAB ONE (09:27)
[2020-06-28] MEDS ORDERED: ASPirin 325 MG TAB ONE (09:27)
[2020-06-28] MEDS ORDERED: POTASSIUM CHL 20 Meq TABLET PO SCH (10:00)
[2020-06-28] MEDS ORDERED: LORazepam 2MG/ML-1ML VIAL IV ONE (10:15)
[2020-06-28] MEDS: HCTZ 25 MG TAB PO SCH (11:46)
[2020-06-28] MEDS: amLODIPine BESYLATE 5 MG TAB PO SCH (11:47)
[2020-06-28] MEDS: PANTOPRAZOLE 40 MG TAB PO SCH (11:47)
[2020-06-28] MEDS ORDERED: LORazepam 2MG/ML-1ML VIAL IV PRN (12:00)
[2020-06-28 13:00] VITALS: BP 140/72
[2020-06-28] MEDS ORDERED: ESOM40CA39 PO (13:33)
[2020-06-28] MEDS ORDERED: POTA10TA51 PO (13:33)
[2020-06-28] MEDS ORDERED: AML5T PO (13:33)
[2020-06-28] MEDS ORDERED: ASPI-543 PO (13:33)
[2020-06-28] MEDS ORDERED: HYDR25TA5 PO (13:33)
[2020-06-28] MEDS ORDERED: SUCR1TAB22 PO (13:33)
[2020-06-28 15:03] VITALS: BP 140/72
[2020-06-29] MEDS ORDERED: ASPirin-EC 81 mg tab PO SCH (10:00)
[2020-06-29] MEDS ORDERED: CLOPIDOGREL BISULFATE 75 MG TAB PO SCH (10:00)
== END 2020-06-28 16:00 | disposition home or self-care (01) | DRG 182 ==
LOC: EDBD 19:09 → ER 19:12 → TELE 06-26 02:29 → TELE-WESTW 06-27 09:15
PROVIDERS: ADMIT Nurse Practitioner; ATTEND Internal Medicine
PROC: 0DB68ZZ Excision of Stomach, Via Natural or Artificial Opening Endoscopic (ICD-10-PCS; principal; 2020-06-27 10:15)
PROC: 047A34Z Dilation of Left Renal Artery with Drug-eluting Intraluminal Device, Percutaneous Approach (ICD-10-PCS; 2020-06-28)
PROC: B4181ZZ Fluoroscopy of Bilateral Renal Arteries using Low Osmolar Contrast (ICD-10-PCS; 2020-06-28)
DX: I70.1 Atherosclerosis of renal artery (principal); I67.83 Posterior reversible encephalopathy syndrome; K29.71 Gastritis, unspecified, with bleeding; E44.0 Moderate protein-calorie malnutrition; I67.4 Hypertensive encephalopathy; K56.7 Ileus, unspecified; K86.1 Other chronic pancreatitis; F11.20 Opioid dependence, uncomplicated; I16.1 Hypertensive emergency; G40.909 Epilepsy, unspecified, not intractable, without status epilepticus; K52.9 Noninfective gastroenteritis and colitis, unspecified; E87.6 Hypokalemia; Z20.822 Contact with and (suspected) exposure to COVID-19; D64.9 Anemia, unspecified; F17.200 Nicotine dependence, unspecified, uncomplicated; G89.29 Other chronic pain; I10 Essential (primary) hypertension; Z79.899 Other long term (current) drug therapy; Z82.49 Family history of ischemic heart disease and other diseases of the circulatory system; Z83.3 Family history of diabetes mellitus; Z90.49 Acquired absence of other specified parts of digestive tract; Z68.1 Body mass index [BMI] 19.9 or less, adult
CPT/HCPCS: 36415; 37236; 43239; 70450; 70551; 71045; 74177; 80048; 80053; 80307; 81001; 82150; 82533; 83690; 83735; 83880; 84443; 84484; 84702; 85025; 85610; 85730; 86850; 86900; 86901; 87426; 93005; 93306; 93976; 96361; 96374; 96375; 99152; 99153; A4565; C1874; C9113; G0378; J1956; J2001; J2250; J2405; J2704; J3490

== ENCOUNTER 2020-06-30 07:58 | Inpatient (IN) | payer MEDICAID ==
[~2020-06-30] VITALS: Ht 160 cm; Wt 39.3 kg
[~2020-06-30 07:58] MED LIST changes: +AML5T PO; +ASPI-543 PO; +ESOM40CA39 PO; +HYDR25TA5 PO; -HYDR50TA15 PO; -NIFE1TAB30; -PANT40T PO; +POTA10TA51 PO; +SUCR1TAB22 PO
[2020-06-30] MEDS ORDERED: SODIUM CHLORIDE 0.9% 1,000 ML IV ONE ×2 (08:15)
[2020-06-30] MEDS ORDERED: KETOROLAC TROMETH 30 MG/ML 1ML VIAL IV ONE (08:15)
[2020-06-30] MEDS ORDERED: ONDANSETRON HCL 4 MG/2 ML VIAL IV ONE (08:15)
[2020-06-30] MEDS ORDERED: MORPHINE SULFATE 4 MG/ML SYR/VIAL IV ONE (09:00)
[2020-06-30] MEDS ORDERED: diphenhdrAMINE HCL 25 MG CAP PO ONE (09:15)
[2020-06-30] MEDS ORDERED: HYDROmorphone HCL 2 MG/ML VL IV ONE (10:30)
[2020-06-30 10:46] LABS: Basophils # (auto) 0 10 ^3/uL (0-0.2); Basophils % (auto) 0.5 % (0.0-2.0); Eosinophils # (auto) 0 10 ^3/uL (0-0.8); Eosinophils % (auto) 0.6 % (0.0-7.0); Hemoglobin 10.3 g/dL (12.2-16.2); Lymphocytes # (auto) 1.2 10 ^3/uL (0.4-5.4); Lymphocytes % (auto) 15.8 % (10.0-50.0); Mean Corpuscular Hemoglobin 28.5 pg (28.0-32.0); Mean Corpuscular Hgb Conc. 32.2 g/dL (32.0-36.0); Mean Corpuscular Volume 88.5 fL (80.0-100.0); Monocytes # (auto) 0.4 10 ^3/uL (0-1.3); Monocytes % (auto) 6.1 % (0.0-12.0); Neutrophils # (auto) 5.7 10 ^3/uL (1.6-8.6); Platelet Count (auto) 257 10^3/uL (140-450); Red Blood Cells 3.62 10^6/uL (4.0-5.20); White Blood Cell 7.4 10^3/uL (4.4-10.8)
[2020-06-30 10:50] LABS: Albumin 3.4 g/dL (3.4-5.0); Calcium 8.6 mg/dL (8.5-10.1); Potassium 3.7 mmol/L (3.5-5.1)
[2020-06-30 10:51] LABS: Red Cell Distribution Width 24.1 % (11.8-14.3)
[2020-06-30 10:53] LABS: BUN/Creatinine Ratio 11.1; Bilirubin, Total 0.3 mg/dL (0.2-1.0); Total Protein 7.6 g/dL (6.4-8.2)
[2020-06-30] MEDS ORDERED: NITROGLYCERIN 0.4 MG SL TAB SL PRN (15:00)
[2020-06-30] MEDS ORDERED: LABETALOL HCL 5 MG/ML 4ML SYRINGE IV PRN (15:00)
[2020-06-30] MEDS ORDERED: MORPHINE SULF INJ 2 MG/ML SYRINGE 1ML IV PRN (15:00)
[2020-06-30] MEDS ORDERED: GASTROGRAFIN 120 ML SOL ONE ×2 (15:21→16:20)
[2020-06-30] MEDS: HYDROmorphone HCL 2 MG/ML VL IV PRN ×2 (16:30→20:49)
[2020-06-30] MEDS: SODIUM CHLORIDE 0.9% 1,000 ML IV SCH ×2 (20:16→23:00)
[2020-06-30 20:36] LABS: Hemoglobin 9.1 g/dL (12.2-16.2)
[2020-06-30 21:27] VITALS: BP 186/107
[2020-06-30] MEDS ORDERED: HYDROcodone-ACET 5/325MG TAB PO ONE (21:30)
[2020-06-30] MEDS: hydrALAZINE HCL 20 MG/ML VL IV PRN (22:04)
[2020-06-30] MEDS: LORazepam 2MG/ML-1ML VIAL IV PRN (22:43)
[2020-06-30 22:56] LABS: Hematocrit 30.2 % (36.0-46.0); Hemoglobin 9.4 g/dL (12.2-16.2)
[2020-06-30 23:00] VITALS: BP 141/75
[2020-06-30 23:18] LABS: Urine Bacteria NONE SEEN /hpf (None Seen); Urine Blood Negative /uL (Negative); Urine Mucus FEW (None Seen); Urine Specific Gravity 1.032 (1.001-1.035); Urine WBC 1 /hpf (0 - 5)
[2020-06-30 23:39] VITALS: BP 145/75
[2020-06-30] MEDS ORDERED: DICY10CA12 PO (23:48)
[2020-07-01] MEDS: HYDROmorphone HCL 2 MG/ML VL IV PRN ×6 (00:44→22:42)
[2020-07-01] MEDS: SODIUM CHLORIDE 0.9% 1,000 ML IV SCH ×3 (00:44→23:04)
[2020-07-01] MEDS: ONDANSETRON HCL 4 MG/2 ML VIAL IV PRN ×2 (03:23→10:14)
[2020-07-01 04:39] LABS: Hemoglobin 8.4 g/dL (12.2-16.2)
[2020-07-01] MEDS: hydrALAZINE HCL 20 MG/ML VL IV PRN (05:52)
[2020-07-01 05:59] VITALS: BP 155/97
[2020-07-01 08:00] VITALS: BP 155/97
[2020-07-01 08:02] LABS: Basophils # (auto) 0 10 ^3/uL (0-0.2); Basophils % (auto) 0.5 % (0.0-2.0); Eosinophils # (auto) 0.1 10 ^3/uL (0-0.8); Hematocrit 27.3 % (36.0-46.0); Hemoglobin 8.7 g/dL (12.2-16.2); Lymphocytes % (auto) 23.7 % (10.0-50.0); Mean Corpuscular Hemoglobin 29.4 pg (28.0-32.0); Mean Corpuscular Hgb Conc. 31.9 g/dL (32.0-36.0); Monocytes # (auto) 0.3 10 ^3/uL (0-1.3); Monocytes % (auto) 6.5 % (0.0-12.0); Neutrophils # (auto) 2.7 10 ^3/uL (1.6-8.6); Neutrophils % (auto) 67.3 % (37.0-80.0); Platelet Count (auto) 199 10^3/uL (140-450); Red Blood Cells 2.97 10^6/uL (4.0-5.20); White Blood Cell 4.1 10^3/uL (4.4-10.8)
[2020-07-01] MEDS: diphenhdrAMINE HCL 50 MG/1 ML VL IV PRN ×3 (08:04→23:33)
[2020-07-01 08:09] LABS: Red Cell Distribution Width 23.9 % (11.8-14.3)
[2020-07-01 08:20] LABS: INR 1.14 (0.9-1.15)
[2020-07-01 08:34] LABS: Potassium 3.3 mmol/L (3.5-5.1)
[2020-07-01 08:41] LABS: Albumin 2.5 g/dL (3.4-5.0); BUN/Creatinine Ratio 15.4; Bilirubin, Total 0.4 mg/dL (0.2-1.0); Calcium 7.6 mg/dL (8.5-10.1); Total Protein 5.7 g/dL (6.4-8.2)
[2020-07-01 08:58] VITALS: BP 161/99
[2020-07-01] MEDS ORDERED: amLODIPine BESYLATE 5 MG TAB PO ONE (10:30)
[2020-07-01] MEDS ORDERED: HCTZ 25 MG TAB PO ONE (10:30)
[2020-07-01] MEDS: ESOMEPRAZOLE 40 MG/5ml VIAL INJ IV SCH (11:42)
[2020-07-01 13:00] VITALS: BP 159/96
[2020-07-01 15:17] LABS: Hemoglobin 8.2 g/dL (12.2-16.2)
[2020-07-01 17:00] VITALS: BP 167/101
[2020-07-01] MEDS: cloNIDine HCL 0.1 MG TAB PO PRN (17:45)
[2020-07-01] MEDS: LORazepam 2MG/ML-1ML VIAL IV PRN (20:51)
[2020-07-01 22:00] VITALS: BP 109/67
[2020-07-01 22:17] LABS: Hemoglobin 8.3 g/dL (12.2-16.2)
[2020-07-01 22:19] LABS: Hematocrit 25.9 % (36.0-46.0)
[2020-07-02] MEDS: HYDROmorphone HCL 2 MG/ML VL IV PRN ×6 (02:42→23:41)
[2020-07-02 04:52] VITALS: BP 121/79
[2020-07-02] MEDS: diphenhdrAMINE HCL 50 MG/1 ML VL IV PRN ×3 (06:02→18:46)
[2020-07-02] MEDS: SODIUM CHLORIDE 0.9% 1,000 ML IV SCH ×3 (06:31→23:03)
[2020-07-02 08:00] VITALS: BP 109/67
[2020-07-02] MEDS: HCTZ 25 MG TAB PO SCH (08:50)
[2020-07-02] MEDS: amLODIPine BESYLATE 5 MG TAB PO SCH (08:51)
[2020-07-02 09:07] VITALS: BP 149/51
[2020-07-02] MEDS: cloNIDine HCL 0.1 MG TAB PO PRN (09:07)
[2020-07-02] MEDS: ESOMEPRAZOLE 40 MG/5ml VIAL INJ IV SCH (09:51)
[2020-07-02 13:00] VITALS: BP 145/94
[2020-07-02 17:00] VITALS: BP 153/93
[2020-07-02] MEDS: LORazepam 2MG/ML-1ML VIAL IV PRN (20:40)
[2020-07-02 22:00] VITALS: BP 147/93
[2020-07-03] MEDS: diphenhdrAMINE HCL 50 MG/1 ML VL IV PRN ×3 (00:46→12:16)
[2020-07-03] MEDS: HYDROmorphone HCL 2 MG/ML VL IV PRN ×3 (03:43→12:17)
[2020-07-03 05:00] VITALS: BP 137/97
[2020-07-03] MEDS: SODIUM CHLORIDE 0.9% 1,000 ML IV SCH (06:26)
[2020-07-03 08:00] VITALS: BP 145/94
[2020-07-03 09:00] VITALS: BP 146/91
[2020-07-03] MEDS: amLODIPine BESYLATE 5 MG TAB PO SCH (10:00)
[2020-07-03] MEDS: HCTZ 25 MG TAB PO SCH (10:00)
[2020-07-03] MEDS: ESOMEPRAZOLE 40 MG/5ml VIAL INJ IV SCH (10:03)
[2020-07-03] MEDS: cloNIDine HCL 0.1 MG TAB PO PRN (10:04)
[2020-07-03 12:17] VITALS: BP 146/91
[2020-07-03 13:00] VITALS: BP 159/103
== END 2020-07-03 14:15 | disposition home or self-care (01) | DRG 241 ==
LOC: EDBD 07:58 → ER 07:58 → EDUNIT# 07:58 → TELE 14:58 → TELE-CENTR 20:15
PROVIDERS: ADMIT Family Medicine; ATTEND Family Medicine
DX: K29.70 Gastritis, unspecified, without bleeding (principal); R56.9 Unspecified convulsions; I70.1 Atherosclerosis of renal artery; K86.1 Other chronic pancreatitis; D64.9 Anemia, unspecified; I10 Essential (primary) hypertension; F17.210 Nicotine dependence, cigarettes, uncomplicated; G89.4 Chronic pain syndrome; F11.10 Opioid abuse, uncomplicated; Z20.822 Contact with and (suspected) exposure to COVID-19; Z82.49 Family history of ischemic heart disease and other diseases of the circulatory system; Z83.3 Family history of diabetes mellitus; Z90.49 Acquired absence of other specified parts of digestive tract; I16.9 Hypertensive crisis, unspecified
CPT/HCPCS: 36415; 71045; 74176; 74250; 80053; 81001; 82270; 83690; 84443; 85014; 85018; 85025; 85610; 87081; 87426; 93005; 96361; 96374; 96375; 96376; G0378; J1885; J2405; J3490

== ENCOUNTER 2020-07-22 01:22 | Emergency (ER) | payer MEDICAID ==
[~2020-07-22] VITALS: Ht 160 cm; Wt 53.5 kg
[~2020-07-22 01:22] MED LIST changes: +DICY10CA12 PO
[2020-07-22 01:37] VITALS: BP 160/100
== END 2020-07-22 02:28 | disposition left against medical advice (07) ==
LOC: EDBD 01:22 → ER 01:22
DX: R10.12 Left upper quadrant pain (principal); Z53.21 Procedure and treatment not carried out due to patient leaving prior to being seen by health care provider

== ENCOUNTER 2020-08-13 17:43 | Inpatient (IN) | payer MEDICAID ==
[~2020-08-13] VITALS: Ht 160 cm; Wt 40.7 kg
[2020-08-13 19:15] LABS: Basophils # (auto) 0.1 10 ^3/uL (0-0.2); Eosinophils # (auto) 0.1 10 ^3/uL (0-0.8); Hematocrit 30.4 % (36.0-46.0); Hemoglobin 9.8 g/dL (12.2-16.2); Lymphocytes # (auto) 1.5 10 ^3/uL (0.4-5.4); Lymphocytes % (auto) 21.8 % (10.0-50.0); Mean Corpuscular Hemoglobin 28.4 pg (28.0-32.0); Mean Corpuscular Hgb Conc. 32.2 g/dL (32.0-36.0); Mean Corpuscular Volume 88.1 fL (80.0-100.0); Monocytes # (auto) 0.6 10 ^3/uL (0-1.3); Monocytes % (auto) 8.6 % (0.0-12.0); Neutrophils # (auto) 4.6 10 ^3/uL (1.6-8.6); Neutrophils % (auto) 66.6 % (37.0-80.0); Nucleated Red Blood Cells % 0.1 %; Platelet Count (auto) 321 10^3/uL (140-450); Red Blood Cells 3.45 10^6/uL (4.0-5.20); Red Cell Distribution Width 17.3 % (11.8-14.3)
[2020-08-13 19:21] LABS: Urine Bacteria NONE SEEN /hpf (None Seen); Urine Blood Negative /uL (Negative); Urine Mucus FEW (None Seen); Urine Specific Gravity 1.024 (1.001-1.035); Urine WBC 7 /hpf (0 - 5)
[2020-08-13 19:23] LABS: Potassium 3.7 mmol/L (3.5-5.1)
[2020-08-13 19:24] LABS: Albumin 3.7 g/dL (3.4-5.0); BUN/Creatinine Ratio 12.1; Calcium 9.3 mg/dL (8.5-10.1)
[2020-08-13 19:28] LABS: Magnesium 2.3 mg/dL (1.6-2.6)
[2020-08-13 19:30] LABS: Bilirubin, Total 0.2 mg/dL (0.2-1.0); Total Protein 8.1 g/dL (6.4-8.2)
[2020-08-13] MEDS ORDERED: HYDROmorphone HCL 2 MG/ML VL IV ONE (20:45)
[2020-08-13] MEDS ORDERED: ONDANSETRON HCL 4 MG/2 ML VIAL IV ONE (20:45)
[2020-08-13] MEDS ORDERED: SODIUM CHLORIDE 0.9% 1,000 ML IV ONE (20:45)
[2020-08-13] MEDS ORDERED: diphenhdrAMINE HCL 50 MG/1 ML VL IV ONE (23:00)
[2020-08-14] VITALS (8 sets, daily range): BP systolic 138–164; BP diastolic 77–103
[2020-08-14] MEDS ORDERED: SODIUM CHLORIDE 0.9% 1,000 ML IV ONE (00:30)
[2020-08-14] MEDS ORDERED: SODIUM CHLORIDE 0.9% 1,000 ML IV SCH (01:00)
[2020-08-14] MEDS: MORPHINE SULFATE 4 MG/ML SYR/VIAL IV PRN ×6 (02:58→23:53)
[2020-08-14] MEDS: ONDANSETRON HCL 4 MG/2 ML VIAL IV PRN ×4 (02:58→14:41)
[2020-08-14] MEDS ORDERED: DIPH25CA66 PO (03:57)
[2020-08-14] MEDS ORDERED: diphenhdrAMINE HCL 25 MG CAP PO ONE (05:15)
[2020-08-14 10:30] LABS: Barbiturate Scree,Urine NEGATIVE (NEGATIVE); Benzodiazephine Screen, Urine NEGATIVE (NEGATIVE); Cannabinoid Screen, Urine NEGATIVE (NEGATIVE); Cocaine Screen, Urine NEGATIVE (NEGATIVE); Opiate Scree,Urine POSITIVE (NEGATIVE); Phencyclidine Screen, Urine NEGATIVE (NEGATIVE)
[2020-08-14 10:38] LABS: Amphetamine Screen, Urine NEGATIVE (NEGATIVE)
[2020-08-14] MEDS: LACTATED RINGER'S 1,000 ML IV SCH (11:18)
[2020-08-14] MEDS: PANTOPRAZOLE 40 MG/10 ML VIAL INJ IV SCH (11:18)
[2020-08-14] MEDS: hydrALAZINE HCL 20 MG/ML VL IV PRN (11:19)
[2020-08-14] MEDS: HYDROcodone-ACET 5/325MG TAB PO PRN ×3 (14:39→21:41)
[2020-08-14] MEDS: SUCRALFATE 1 GM/10 ML ORAL SUSP PO SCH ×2 (17:28→21:40)
[2020-08-14] MEDS ORDERED: ENALAPRILAT 1.25 MG/ML-1ML VIAL IV ONE (23:15)
[2020-08-15] MEDS: LACTATED RINGER'S 1,000 ML IV SCH ×2 (00:59→16:52)
[2020-08-15] MEDS: MORPHINE SULFATE 4 MG/ML SYR/VIAL IV PRN ×6 (02:10→23:20)
[2020-08-15 03:04] VITALS: BP 142/89
[2020-08-15] MEDS: HYDROcodone-ACET 5/325MG TAB PO PRN ×5 (03:04→21:44)
[2020-08-15 05:00] VITALS: BP 165/100
[2020-08-15] MEDS: hydrALAZINE HCL 20 MG/ML VL IV PRN (05:17)
[2020-08-15 05:30] LABS: Basophils # (auto) 0 10 ^3/uL (0-0.2); Basophils % (auto) 0.8 % (0.0-2.0); Eosinophils # (auto) 0.2 10 ^3/uL (0-0.8); Eosinophils % (auto) 4.1 % (0.0-7.0); Hemoglobin 9.6 g/dL (12.2-16.2); Lymphocytes % (auto) 37.4 % (10.0-50.0); Mean Corpuscular Hemoglobin 27.9 pg (28.0-32.0); Mean Corpuscular Volume 90.1 fL (80.0-100.0); Monocytes # (auto) 0.9 10 ^3/uL (0-1.3); Monocytes % (auto) 16.8 % (0.0-12.0); Neutrophils # (auto) 2.2 10 ^3/uL (1.6-8.6); Neutrophils % (auto) 40.9 % (37.0-80.0); Nucleated Red Blood Cells % 0.2 %; Platelet Count (auto) 296 10^3/uL (140-450); Red Blood Cells 3.45 10^6/uL (4.0-5.20); Red Cell Distribution Width 17.4 % (11.8-14.3); White Blood Cell 5.3 10^3/uL (4.4-10.8)
[2020-08-15 05:54] LABS: Potassium 4.2 mmol/L (3.5-5.1)
[2020-08-15 06:05] LABS: Albumin 2.9 g/dL (3.4-5.0); BUN/Creatinine Ratio 8.6; Bilirubin, Total 0.2 mg/dL (0.2-1.0); Phosphorus 4.8 mg/dL (2.5-4.90); Total Protein 6.9 g/dL (6.4-8.2)
[2020-08-15] MEDS: SUCRALFATE 1 GM/10 ML ORAL SUSP PO SCH ×4 (07:00→21:43)
[2020-08-15] MEDS ORDERED: ACETAMINOPHEN 325 MG TAB PO PRN (08:30)
[2020-08-15] MEDS: PANTOPRAZOLE 40 MG/10 ML VIAL INJ IV SCH (09:28)
[2020-08-15] MEDS: cloNIDine HCL 0.1 MG TAB PO SCH ×2 (11:44→21:44)
[2020-08-15 12:55] VITALS: BP 188/108
[2020-08-15 17:00] VITALS: BP 137/91
[2020-08-15] MEDS ORDERED: diphenhdrAMINE HCL 25 MG CAP PO ONE ×2 (21:00→21:23)
[2020-08-15 22:00] VITALS: BP 150/95
[2020-08-16] MEDS: LACTATED RINGER'S 1,000 ML IV SCH (02:00)
[2020-08-16 04:27] VITALS: BP 126/44
[2020-08-16 04:38] VITALS: BP 144/98
[2020-08-16] MEDS: MORPHINE SULFATE 4 MG/ML SYR/VIAL IV PRN (05:23)
[2020-08-16] MEDS: HYDROcodone-ACET 5/325MG TAB PO PRN (06:29)
[2020-08-16] MEDS: SUCRALFATE 1 GM/10 ML ORAL SUSP PO SCH (06:29)
[2020-08-16] MEDS ORDERED: PANCREATIC ENZYMES 4200 UNIT CAP PO SCH (08:00)
== END 2020-08-16 08:26 | disposition left against medical advice (07) | DRG 282 ==
LOC: ER 17:43 → OVERFLOW 08-14 00:56 → CENTRAL 08-14 02:14
PROVIDERS: ADMIT Nurse Practitioner; ATTEND Internal Medicine
DX: K85.90 Acute pancreatitis without necrosis or infection, unspecified (principal); K31.6 Fistula of stomach and duodenum; I10 Essential (primary) hypertension; F17.210 Nicotine dependence, cigarettes, uncomplicated; G89.4 Chronic pain syndrome; K86.1 Other chronic pancreatitis; K76.0 Fatty (change of) liver, not elsewhere classified; K76.89 Other specified diseases of liver; F41.9 Anxiety disorder, unspecified; K83.8 Other specified diseases of biliary tract; Z20.822 Contact with and (suspected) exposure to COVID-19; Z82.49 Family history of ischemic heart disease and other diseases of the circulatory system; Z83.3 Family history of diabetes mellitus; Z90.49 Acquired absence of other specified parts of digestive tract
CPT/HCPCS: 36415; 74177; 80053; 80307; 81001; 83036; 83605; 83690; 83735; 84100; 84484; 85025; 86301; 87040; 87081; 87426; 93005; 96361; 96374; 96375; 96376; C9113; G0378; J2405

== ENCOUNTER 2021-03-28 20:14 | Emergency (ER) | payer MEDICAID, OTHER ==
[~2021-03-28] VITALS: Ht 160 cm; Wt 55.8 kg
[~2021-03-28 20:14] MED LIST changes: -DICY10CA12 PO; +DIPH25CA66 PO; -LORA-655 PO
[2021-03-28 21:14] LABS: Basophils # (auto) 0 10 ^3/uL (0-0.2); Basophils % (auto) 0.3 % (0.0-2.0); Eosinophils # (auto) 0.1 10 ^3/uL (0-0.8); Eosinophils % (auto) 2.5 % (0.0-7.0); Hematocrit 32.1 % (36.0-46.0); Hemoglobin 10.4 g/dL (12.2-16.2); Lymphocytes # (auto) 1.6 10 ^3/uL (0.4-5.4); Mean Corpuscular Hemoglobin 27.2 pg (28.0-32.0); Mean Corpuscular Hgb Conc. 32.3 g/dL (32.0-36.0); Mean Corpuscular Volume 84.2 fL (80.0-100.0); Monocytes # (auto) 0.4 10 ^3/uL (0-1.3); Monocytes % (auto) 7.3 % (0.0-12.0); Neutrophils # (auto) 3.3 10 ^3/uL (1.6-8.6); Neutrophils % (auto) 60.9 % (37.0-80.0); Nucleated Red Blood Cells % 0.1 %; Red Blood Cells 3.81 10^6/uL (4.0-5.20); Red Cell Distribution Width 17.7 % (11.8-14.3); White Blood Cell 5.5 10^3/uL (4.4-10.8)
[2021-03-28 21:28] LABS: Albumin 3.3 g/dL (3.4-5.0); BUN/Creatinine Ratio 13.2; Calcium 8.7 mg/dL (8.5-10.1); Potassium 4.1 mmol/L (3.5-5.1)
[2021-03-28 21:31] LABS: Bilirubin, Total 0.2 mg/dL (0.2-1.0); Total Protein 6.9 g/dL (6.4-8.2)
[2021-03-28] MEDS ORDERED: MORPHINE SULFATE 4 MG/ML SYR/VIAL IV ONE (23:00)
[2021-03-28 23:22] LABS: Urine Bacteria NONE SEEN /hpf (None Seen); Urine Blood 2+ /uL (Negative); Urine Hyaline Cast FEW /lpf (0 - 2); Urine Mucus FEW (None Seen); Urine Specific Gravity 1.036 (1.001-1.035); Urine WBC 2 /hpf (0 - 5)
[2021-03-28] MEDS ORDERED: ONDANSETRON HCL 4 MG/2 ML VIAL IV ONE (23:45)
[2021-03-28] MEDS ORDERED: MORPHINE SULFATE INJECTION 2 MG/ML SYRG IV ONE (23:45)
[2021-03-29] MEDS ORDERED: LORazepam 2MG/ML-1ML VIAL IV ONE (02:00)
[2021-03-29 02:31] VITALS: BP 141/44
== END 2021-03-29 02:06 | disposition home or self-care (01) ==
LOC: ER 20:16
DX: R10.84 Generalized abdominal pain (principal); R11.2 Nausea with vomiting, unspecified; I10 Essential (primary) hypertension; F17.210 Nicotine dependence, cigarettes, uncomplicated; Z90.49 Acquired absence of other specified parts of digestive tract; Z79.82 Long term (current) use of aspirin; Z79.899 Other long term (current) drug therapy
CPT/HCPCS: 36415; 74176; 80053; 81001; 83605; 83690; 84702; 85025; 96374; 96375; 96376; 99284; J2060; J2270; J2405

== ENCOUNTER 2021-06-03 16:48 | Inpatient (IN) | payer OTHER ==
[~2021-06-03] VITALS: Ht 165.1 cm; Wt 49.5 kg
[2021-06-03] MEDS ORDERED: ONDANSETRON HCL 4 MG/2 ML VIAL IV ONE ×2 (17:15→20:45)
[2021-06-03] MEDS ORDERED: HYDROmorphone HCL 2 MG/ML VL IV ONE ×2 (17:15→20:45)
[2021-06-03] MEDS ORDERED: PANTOPRAZOLE 40 MG/10 ML VIAL INJ IV ONE (17:15)
[2021-06-03] MEDS ORDERED: SODIUM CHLORIDE 0.9% 500 ML IVB ONE (17:15)
[2021-06-03] MEDS ORDERED: hydrALAZINE HCL 20 MG/ML VL IV ONE (17:30)
[2021-06-03] MEDS ORDERED: diphenhdrAMINE HCL 50 MG/1 ML VL IV ONE ×2 (18:00→23:15)
[2021-06-03] MEDS ORDERED: diphenhdrAMINE HCL 50 MG/1 ML VL ONE (18:00)
[2021-06-03 18:25] LABS: Basophils # (auto) 0.1 10 ^3/uL (0-0.2); Basophils % (auto) 0.9 % (0.0-2.0); Eosinophils # (auto) 0 10 ^3/uL (0-0.8); Eosinophils % (auto) 0.8 % (0.0-7.0); Hemoglobin 13.2 g/dL (12.2-16.2); Lymphocytes # (auto) 1.6 10 ^3/uL (0.4-5.4); Mean Corpuscular Hemoglobin 27.9 pg (28.0-32.0); Mean Corpuscular Volume 84.6 fL (80.0-100.0); Monocytes # (auto) 0.4 10 ^3/uL (0-1.3); Monocytes % (auto) 6.1 % (0.0-12.0); Neutrophils % (auto) 66.2 % (37.0-80.0); Nucleated Red Blood Cells % 0.2 %; Red Blood Cells 4.73 10^6/uL (4.0-5.20); Red Cell Distribution Width 16.7 % (11.8-14.3); White Blood Cell 6.1 10^3/uL (4.4-10.8)
[2021-06-03 18:39] LABS: INR 1.2 (0.9-1.15); Partial Thromboplastin Time 32.5 sec (23.6-33.0)
[2021-06-03 18:41] LABS: Magnesium 2.1 mg/dL (1.6-2.6); Potassium 3.8 mmol/L (3.5-5.1)
[2021-06-03 18:47] LABS: Albumin 4.1 g/dL (3.4-5.0); BUN/Creatinine Ratio 12.2; Bilirubin, Total 0.4 mg/dL (0.2-1.0); Total Protein 8.3 g/dL (6.4-8.2)
[2021-06-03] MEDS ORDERED: cloNIDine HCL 0.1 MG TAB PO ONE (22:15)
[2021-06-03] MEDS ORDERED: ONDANSETRON HCL 4 MG/2 ML VIAL IV PRN (22:45)
[2021-06-03] MEDS ORDERED: hydrALAZINE HCL 20 MG/ML VL IV PRN (22:45)
[2021-06-03] MEDS ORDERED: ACETAMINOPHEN 325 MG TAB PO PRN (22:45)
[2021-06-03] MEDS: cloNIDine HCL 0.1 MG TAB PO SCH (22:45)
[2021-06-03] MEDS ORDERED: LACTATED RINGER'S 1,000 ML IV ONE (23:15)
[2021-06-03] MEDS: SODIUM CHLORIDE 0.9% 1,000 ML IV SCH (23:21)
[2021-06-03] MEDS ORDERED: ALUM & MAG HYDROX-SIMETH LIQ(MAALOX) 30 ML PO PRN (23:30)
[2021-06-03 23:44] LABS: Urine Bacteria NONE SEEN /hpf (None Seen); Urine Blood Negative /uL (Negative); Urine Hyaline Cast MOD /lpf (0 - 2); Urine Mucus FEW (None Seen); Urine WBC 4 /hpf (0 - 5)
[2021-06-03 23:53] LABS: Amphetamine Screen, Urine NEGATIVE (NEGATIVE); Barbiturate Scree,Urine NEGATIVE (NEGATIVE); Benzodiazephine Screen, Urine NEGATIVE (NEGATIVE); Cannabinoid Screen, Urine NEGATIVE (NEGATIVE); Cocaine Screen, Urine NEGATIVE (NEGATIVE); Opiate Scree,Urine POSITIVE (NEGATIVE); Phencyclidine Screen, Urine NEGATIVE (NEGATIVE)
[2021-06-04] VITALS (8 sets, daily range): BP systolic 116–144; BP diastolic 74–93
[2021-06-04] MEDS: HYDROcodone-ACET 5/325MG TAB PO PRN ×2 (00:48→06:39)
[2021-06-04] MEDS: MORPHINE SULFATE 4 MG/ML SYR/VIAL IV PRN ×2 (03:02→08:30)
[2021-06-04 04:41] LABS: Basophils # (auto) 0.1 10 ^3/uL (0-0.2); Basophils % (auto) 0.8 % (0.0-2.0); Eosinophils # (auto) 0.1 10 ^3/uL (0-0.8); Eosinophils % (auto) 1.7 % (0.0-7.0); Hemoglobin 10.4 g/dL (12.2-16.2); Lymphocytes % (auto) 31.6 % (10.0-50.0); Mean Corpuscular Hemoglobin 27.7 pg (28.0-32.0); Mean Corpuscular Hgb Conc. 32.6 g/dL (32.0-36.0); Monocytes # (auto) 0.3 10 ^3/uL (0-1.3); Monocytes % (auto) 5.3 % (0.0-12.0); Neutrophils # (auto) 3.8 10 ^3/uL (1.6-8.6); Neutrophils % (auto) 60.6 % (37.0-80.0); Nucleated Red Blood Cells % 0.2 %; Red Blood Cells 3.77 10^6/uL (4.0-5.20); Red Cell Distribution Width 16.8 % (11.8-14.3); White Blood Cell 6.3 10^3/uL (4.4-10.8)
[2021-06-04 05:03] LABS: Potassium 4.5 mmol/L (3.5-5.1)
[2021-06-04 05:08] LABS: Albumin 3.2 g/dL (3.4-5.0); Calcium 8.2 mg/dL (8.5-10.1)
[2021-06-04 05:10] LABS: Bilirubin, Total 0.5 mg/dL (0.2-1.0); Total Protein 6.3 g/dL (6.4-8.2)
[2021-06-04] MEDS: SODIUM CHLORIDE 0.9% 1,000 ML IV SCH ×4 (06:38→21:15)
[2021-06-04] MEDS ORDERED: PANTOPRAZOLE 40 MG TAB PO SCH (10:00)
[2021-06-04] MEDS ORDERED: ENOXAPARIN SOD 40 MG/0.4 ML SYRINGE SC SCH (10:00)
[2021-06-04] MEDS: cloNIDine HCL 0.1 MG TAB PO SCH ×4 (10:41→22:33)
[2021-06-04] MEDS: amLODIPine BESYLATE 5 MG TAB PO SCH (10:42)
[2021-06-04] MEDS: PANCREATIC ENZYMES 4200 UNIT CAP PO SCH ×3 (10:42→17:26)
[2021-06-04] MEDS: HYDROmorphone HCL 2 MG/ML VL IV PRN ×3 (12:35→22:36)
[2021-06-04] MEDS: HYDROcodone-ACET 7.5/325MG TAB PO PRN (15:05)
[2021-06-04 15:24] LABS: Basophils # (auto) 0 10 ^3/uL (0-0.2); Basophils % (auto) 0.5 % (0.0-2.0); Eosinophils # (auto) 0.2 10 ^3/uL (0-0.8); Eosinophils % (auto) 5.1 % (0.0-7.0); Hematocrit 30.8 % (36.0-46.0); Lymphocytes # (auto) 1.4 10 ^3/uL (0.4-5.4); Lymphocytes % (auto) 33.6 % (10.0-50.0); Mean Corpuscular Hemoglobin 28.1 pg (28.0-32.0); Mean Corpuscular Hgb Conc. 32.5 g/dL (32.0-36.0); Mean Corpuscular Volume 86.5 fL (80.0-100.0); Monocytes # (auto) 0.3 10 ^3/uL (0-1.3); Monocytes % (auto) 6.6 % (0.0-12.0); Neutrophils # (auto) 2.2 10 ^3/uL (1.6-8.6); Neutrophils % (auto) 54.2 % (37.0-80.0); Nucleated Red Blood Cells % 0.1 %; Red Blood Cells 3.56 10^6/uL (4.0-5.20); Red Cell Distribution Width 16.7 % (11.8-14.3); White Blood Cell 4.1 10^3/uL (4.4-10.8)
[2021-06-04] MEDS: SUCRALFATE 1 GM/10 ML ORAL SUSP PO SCH ×2 (17:26→22:34)
[2021-06-04] MEDS: PANTOPRAZOLE 40 MG/10 ML VIAL INJ IV SCH (22:34)
[2021-06-04 23:09] LABS: Basophils # (auto) 0.1 10 ^3/uL (0-0.2); Basophils % (auto) 1.5 % (0.0-2.0); Eosinophils # (auto) 0.2 10 ^3/uL (0-0.8); Eosinophils % (auto) 4.4 % (0.0-7.0); Hematocrit 30.5 % (36.0-46.0); Hemoglobin 9.9 g/dL (12.2-16.2); Lymphocytes # (auto) 1.8 10 ^3/uL (0.4-5.4); Lymphocytes % (auto) 41.1 % (10.0-50.0); Mean Corpuscular Hemoglobin 28.4 pg (28.0-32.0); Mean Corpuscular Hgb Conc. 32.5 g/dL (32.0-36.0); Mean Corpuscular Volume 87.3 fL (80.0-100.0); Monocytes # (auto) 0.2 10 ^3/uL (0-1.3); Monocytes % (auto) 5.1 % (0.0-12.0); Neutrophils # (auto) 2.1 10 ^3/uL (1.6-8.6); Neutrophils % (auto) 47.9 % (37.0-80.0); Nucleated Red Blood Cells % 0.2 %; Red Blood Cells 3.49 10^6/uL (4.0-5.20); Red Cell Distribution Width 16.9 % (11.8-14.3); White Blood Cell 4.3 10^3/uL (4.4-10.8)
[2021-06-05] MEDS: HYDROmorphone HCL 2 MG/ML VL IV PRN ×4 (02:39→16:54)
[2021-06-05] MEDS: SODIUM CHLORIDE 0.9% 1,000 ML IV SCH (02:40)
[2021-06-05 05:31] VITALS: BP 140/80
[2021-06-05] MEDS: cloNIDine HCL 0.1 MG TAB PO SCH ×3 (06:13→22:04)
[2021-06-05] MEDS: SUCRALFATE 1 GM/10 ML ORAL SUSP PO SCH ×4 (06:14→22:03)
[2021-06-05 06:40] LABS: Basophils # (auto) 0 10 ^3/uL (0-0.2); Basophils % (auto) 0.7 % (0.0-2.0); Eosinophils # (auto) 0.2 10 ^3/uL (0-0.8); Eosinophils % (auto) 5.8 % (0.0-7.0); Hematocrit 28.3 % (36.0-46.0); Hemoglobin 9.1 g/dL (12.2-16.2); Lymphocytes # (auto) 1.3 10 ^3/uL (0.4-5.4); Lymphocytes % (auto) 33.9 % (10.0-50.0); Mean Corpuscular Hgb Conc. 32.3 g/dL (32.0-36.0); Mean Corpuscular Volume 86.6 fL (80.0-100.0); Monocytes # (auto) 0.2 10 ^3/uL (0-1.3); Monocytes % (auto) 6.5 % (0.0-12.0); Neutrophils % (auto) 53.1 % (37.0-80.0); Nucleated Red Blood Cells % 0.1 %; Red Blood Cells 3.26 10^6/uL (4.0-5.20); Red Cell Distribution Width 16.8 % (11.8-14.3); White Blood Cell 3.8 10^3/uL (4.4-10.8)
[2021-06-05 07:01] LABS: Potassium 4.5 mmol/L (3.5-5.1)
[2021-06-05 07:25] LABS: Albumin 2.5 g/dL (3.4-5.0); BUN/Creatinine Ratio 3.4; Calcium 7.9 mg/dL (8.5-10.1); Total Protein 5.3 g/dL (6.4-8.2)
[2021-06-05 07:29] LABS: Bilirubin, Total 0.2 mg/dL (0.2-1.0)
[2021-06-05 09:00] VITALS: BP 130/97
[2021-06-05] MEDS ORDERED: fentaNYL CITRATE 100 MCG/2 ML VL IV PRN (09:30)
[2021-06-05] MEDS ORDERED: METOCLOPRAMIDE HCL 5MG/ml INJ 2ml VIAL IV PRN (09:30)
[2021-06-05] MEDS ORDERED: ONDANSETRON HCL 4 MG/2 ML VIAL IV PRN (09:30)
[2021-06-05] MEDS: amLODIPine BESYLATE 5 MG TAB PO SCH (10:00)
[2021-06-05] MEDS: PANCREATIC ENZYMES 4200 UNIT CAP PO SCH ×3 (10:41→16:52)
[2021-06-05] MEDS: LACTATED RINGER'S 1,000 ML IV SCH ×2 (10:41→16:52)
[2021-06-05] MEDS: PANTOPRAZOLE 40 MG/10 ML VIAL INJ IV SCH ×2 (10:42→22:03)
[2021-06-05 13:00] VITALS: BP 133/88
[2021-06-05] MEDS: HYDROcodone-ACET 7.5/325MG TAB PO PRN (13:46)
[2021-06-05] MEDS: ENSURE CLEAR Apple 8oz Carton PO SCH (16:52)
[2021-06-05 16:53] VITALS: BP 133/97
[2021-06-05] MEDS: LORazepam 2MG/ML-1ML VIAL IV PRN (20:09)
[2021-06-05 22:00] VITALS: BP 158/90
[2021-06-05] MEDS ORDERED: diphenhdrAMINE HCL 25 MG CAP PO ONE (22:00)
[2021-06-06] MEDS: HYDROmorphone HCL 2 MG/ML VL IV PRN ×4 (02:25→21:52)
[2021-06-06 05:00] VITALS: BP 160/97
[2021-06-06] MEDS: cloNIDine HCL 0.1 MG TAB PO SCH ×3 (05:05→22:04)
[2021-06-06] MEDS: HYDROcodone-ACET 7.5/325MG TAB PO PRN ×2 (05:06→18:03)
[2021-06-06 05:42] LABS: Basophils # (auto) 0 10 ^3/uL (0-0.2); Basophils % (auto) 0.4 % (0.0-2.0); Eosinophils # (auto) 0.2 10 ^3/uL (0-0.8); Eosinophils % (auto) 5.7 % (0.0-7.0); Hemoglobin 9.4 g/dL (12.2-16.2); Lymphocytes # (auto) 1.2 10 ^3/uL (0.4-5.4); Lymphocytes % (auto) 29.5 % (10.0-50.0); Mean Corpuscular Hemoglobin 28.8 pg (28.0-32.0); Mean Corpuscular Hgb Conc. 33.5 g/dL (32.0-36.0); Monocytes # (auto) 0.2 10 ^3/uL (0-1.3); Monocytes % (auto) 4.8 % (0.0-12.0); Neutrophils # (auto) 2.5 10 ^3/uL (1.6-8.6); Neutrophils % (auto) 59.6 % (37.0-80.0); Nucleated Red Blood Cells % 0.1 %; Red Blood Cells 3.25 10^6/uL (4.0-5.20); Red Cell Distribution Width 17.3 % (11.8-14.3); White Blood Cell 4.1 10^3/uL (4.4-10.8)
[2021-06-06 05:54] LABS: BUN/Creatinine Ratio 5.7; Calcium 8.3 mg/dL (8.5-10.1); Potassium 4.4 mmol/L (3.5-5.1)
[2021-06-06] MEDS: SUCRALFATE 1 GM/10 ML ORAL SUSP PO SCH ×4 (05:59→20:28)
[2021-06-06] MEDS: ENSURE CLEAR Apple 8oz Carton PO SCH ×2 (08:27→17:55)
[2021-06-06] MEDS: PANCREATIC ENZYMES 4200 UNIT CAP PO SCH ×3 (08:27→17:55)
[2021-06-06] MEDS: PANTOPRAZOLE 40 MG/10 ML VIAL INJ IV SCH ×2 (08:29→20:28)
[2021-06-06] MEDS: amLODIPine BESYLATE 5 MG TAB PO SCH (08:29)
[2021-06-06 09:17] VITALS: BP 140/101
[2021-06-06] MEDS: LORazepam 2MG/ML-1ML VIAL IV PRN ×2 (10:19→20:29)
[2021-06-06] MEDS ORDERED: POTASSIUM CHLORIDE 40 MEQ in SOD CHL 0.45% 1,000 ML IV SCH (11:00)
[2021-06-06] MEDS: ONDANSETRON HCL 4 MG/2 ML VIAL IV SCH ×3 (12:00→17:55)
[2021-06-06] MEDS: D5W/SOD CHL 0.45% 1,000 ML IV SCH (12:11)
[2021-06-06 13:00] VITALS: BP 140/101
[2021-06-06 16:41] VITALS: BP 159/103
[2021-06-06 20:00] VITALS: BP 152/72
[2021-06-06 22:40] VITALS: BP 171/103
[2021-06-07] MEDS: D5W/SOD CHL 0.45% 1,000 ML IV SCH ×2 (00:50→13:42)
[2021-06-07] MEDS: HYDROcodone-ACET 7.5/325MG TAB PO PRN ×3 (01:59→21:57)
[2021-06-07] MEDS: HYDROmorphone HCL 2 MG/ML VL IV PRN ×3 (03:10→18:43)
[2021-06-07 05:00] VITALS: BP 155/98
[2021-06-07] MEDS: SUCRALFATE 1 GM/10 ML ORAL SUSP PO SCH ×4 (06:28→22:00)
[2021-06-07] MEDS: ONDANSETRON HCL 4 MG/2 ML VIAL IV SCH ×4 (06:28→17:33)
[2021-06-07] MEDS: cloNIDine HCL 0.1 MG TAB PO SCH ×3 (06:30→23:51)
[2021-06-07] MEDS: ENSURE CLEAR Apple 8oz Carton PO SCH ×2 (08:00→17:25)
[2021-06-07] MEDS: PANCREATIC ENZYMES 4200 UNIT CAP PO SCH ×3 (08:00→17:25)
[2021-06-07] MEDS ORDERED: cloNIDine HCL 0.1 MG TAB PO ONE (09:15)
[2021-06-07] MEDS ORDERED: IOHEXOL 300 MG/ML 100ML BOTTLE IJ ONE (09:45)
[2021-06-07] MEDS: PANTOPRAZOLE 40 MG/10 ML VIAL INJ IV SCH ×2 (09:52→23:50)
[2021-06-07] MEDS: PROMETHAZINE HCL 25 MG/ML 1ML IV PRN ×2 (09:52)
[2021-06-07] MEDS: LORazepam 2MG/ML-1ML VIAL IV PRN ×3 (09:52→20:39)
[2021-06-07] MEDS: amLODIPine BESYLATE 5 MG TAB PO SCH (10:12)
[2021-06-07 17:00] VITALS: BP 191/100
[2021-06-07 17:50] VITALS: BP 156/103
[2021-06-07 22:00] VITALS: BP 186/107
[2021-06-07] MEDS: hydrALAZINE HCL 20 MG/ML VL IV PRN (23:51)
[2021-06-08] MEDS: HYDROmorphone HCL 2 MG/ML VL IV PRN ×4 (00:44→23:42)
[2021-06-08] MEDS: LORazepam 2MG/ML-1ML VIAL IV PRN ×2 (02:38→17:45)
[2021-06-08] MEDS: D5W/SOD CHL 0.45% 1,000 ML IV SCH ×3 (03:30→20:39)
[2021-06-08 05:00] VITALS: BP 127/78
[2021-06-08] MEDS: ONDANSETRON HCL 4 MG/2 ML VIAL IV SCH ×4 (06:09→18:42)
[2021-06-08] MEDS: cloNIDine HCL 0.1 MG TAB PO SCH ×3 (06:09→22:06)
[2021-06-08] MEDS: HYDROcodone-ACET 7.5/325MG TAB PO PRN ×3 (06:10→20:41)
[2021-06-08 06:52] LABS: Basophils # (auto) 0 10 ^3/uL (0-0.2); Basophils % (auto) 0.3 % (0.0-2.0); Eosinophils # (auto) 0.3 10 ^3/uL (0-0.8); Eosinophils % (auto) 6.2 % (0.0-7.0); Hematocrit 29.7 % (36.0-46.0); Hemoglobin 9.7 g/dL (12.2-16.2); Lymphocytes % (auto) 24.2 % (10.0-50.0); Mean Corpuscular Hemoglobin 28.6 pg (28.0-32.0); Mean Corpuscular Hgb Conc. 32.8 g/dL (32.0-36.0); Mean Corpuscular Volume 87.4 fL (80.0-100.0); Monocytes # (auto) 0.3 10 ^3/uL (0-1.3); Monocytes % (auto) 7.9 % (0.0-12.0); Neutrophils # (auto) 2.5 10 ^3/uL (1.6-8.6); Neutrophils % (auto) 61.4 % (37.0-80.0); Red Cell Distribution Width 16.9 % (11.8-14.3); White Blood Cell 4.1 10^3/uL (4.4-10.8)
[2021-06-08] MEDS: SUCRALFATE 1 GM/10 ML ORAL SUSP PO SCH ×4 (07:00→22:15)
[2021-06-08 07:05] LABS: Albumin 2.7 g/dL (3.4-5.0); Calcium 8.5 mg/dL (8.5-10.1); Potassium 4.1 mmol/L (3.5-5.1)
[2021-06-08 07:07] LABS: BUN/Creatinine Ratio 3.7
[2021-06-08 07:11] LABS: Bilirubin, Total 0.2 mg/dL (0.2-1.0); Total Protein 6.1 g/dL (6.4-8.2)
[2021-06-08] MEDS: PANCREATIC ENZYMES 4200 UNIT CAP PO SCH ×3 (08:00→18:42)
[2021-06-08] MEDS: ENSURE CLEAR Apple 8oz Carton PO SCH ×2 (08:00→18:42)
[2021-06-08 08:20] VITALS: BP 133/83
[2021-06-08] MEDS: PANTOPRAZOLE 40 MG/10 ML VIAL INJ IV SCH ×2 (08:29→22:16)
[2021-06-08] MEDS: amLODIPine BESYLATE 5 MG TAB PO SCH (08:40)
[2021-06-08 12:15] VITALS: BP 187/103
[2021-06-08 16:20] VITALS: BP 158/98
[2021-06-08 22:00] VITALS: BP 165/97
[2021-06-09] MEDS: ONDANSETRON HCL 4 MG/2 ML VIAL IV SCH ×4 (00:30→17:36)
[2021-06-09] MEDS: LORazepam 2MG/ML-1ML VIAL IV PRN ×3 (02:57→22:15)
[2021-06-09] MEDS: hydrALAZINE HCL 20 MG/ML VL IV PRN (04:40)
[2021-06-09 04:43] VITALS: BP 180/103
[2021-06-09] MEDS: cloNIDine HCL 0.1 MG TAB PO SCH ×3 (06:31→22:11)
[2021-06-09] MEDS: SUCRALFATE 1 GM/10 ML ORAL SUSP PO SCH ×4 (06:32→22:00)
[2021-06-09] MEDS: HYDROcodone-ACET 7.5/325MG TAB PO PRN ×3 (07:02→22:14)
[2021-06-09 09:00] VITALS: BP 127/78
[2021-06-09] MEDS: PANCREATIC ENZYMES 4200 UNIT CAP PO SCH ×3 (09:13→17:36)
[2021-06-09] MEDS: amLODIPine BESYLATE 5 MG TAB PO SCH (09:13)
[2021-06-09] MEDS: PANTOPRAZOLE 40 MG/10 ML VIAL INJ IV SCH ×2 (09:13→22:00)
[2021-06-09] MEDS: HYDROmorphone HCL 2 MG/ML VL IV PRN ×2 (09:15→17:39)
[2021-06-09] MEDS: ENSURE CLEAR Apple 8oz Carton PO SCH ×2 (09:15→17:36)
[2021-06-09] MEDS: D5W/SOD CHL 0.45% 1,000 ML IV SCH (11:32)
[2021-06-09] MEDS: NICOTINE 21MG/24 HR TOPICAL PATCH TD SCH (11:35)
[2021-06-09] MEDS: HCTZ 25 MG TAB PO SCH (11:35)
[2021-06-09 12:52] VITALS: BP 143/85
[2021-06-09 17:25] VITALS: BP 151/95
[2021-06-09 22:00] VITALS: BP 164/97
[2021-06-10] MEDS: HYDROmorphone HCL 2 MG/ML VL IV PRN ×3 (02:06→18:06)
[2021-06-10 04:56] VITALS: BP 134/83
[2021-06-10] MEDS: D5W/SOD CHL 0.45% 1,000 ML IV SCH (05:15)
[2021-06-10 05:21] LABS: Basophils # (auto) 0 10 ^3/uL (0-0.2); Basophils % (auto) 0.3 % (0.0-2.0); Eosinophils # (auto) 0.2 10 ^3/uL (0-0.8); Eosinophils % (auto) 7.7 % (0.0-7.0); Hematocrit 28.5 % (36.0-46.0); Hemoglobin 9.3 g/dL (12.2-16.2); Lymphocytes # (auto) 0.9 10 ^3/uL (0.4-5.4); Lymphocytes % (auto) 29.1 % (10.0-50.0); Mean Corpuscular Hemoglobin 28.4 pg (28.0-32.0); Mean Corpuscular Hgb Conc. 32.4 g/dL (32.0-36.0); Mean Corpuscular Volume 87.8 fL (80.0-100.0); Monocytes # (auto) 0.4 10 ^3/uL (0-1.3); Neutrophils # (auto) 1.7 10 ^3/uL (1.6-8.6); Neutrophils % (auto) 51.9 % (37.0-80.0); Nucleated Red Blood Cells % 0.2 %; Red Blood Cells 3.25 10^6/uL (4.0-5.20); Red Cell Distribution Width 17.2 % (11.8-14.3); White Blood Cell 3.2 10^3/uL (4.4-10.8)
[2021-06-10 05:35] LABS: Albumin 2.6 g/dL (3.4-5.0); Calcium 8.3 mg/dL (8.5-10.1); Potassium 4.5 mmol/L (3.5-5.1)
[2021-06-10 05:38] LABS: BUN/Creatinine Ratio 4.7
[2021-06-10 05:40] LABS: Bilirubin, Total 0.2 mg/dL (0.2-1.0); Total Protein 6.1 g/dL (6.4-8.2)
[2021-06-10] MEDS: ONDANSETRON HCL 4 MG/2 ML VIAL IV SCH ×4 (06:00→17:48)
[2021-06-10] MEDS: cloNIDine HCL 0.1 MG TAB PO SCH ×3 (06:00→22:34)
[2021-06-10] MEDS: LORazepam 2MG/ML-1ML VIAL IV PRN ×3 (06:43→22:41)
[2021-06-10] MEDS: SUCRALFATE 1 GM/10 ML ORAL SUSP PO SCH ×4 (07:00→22:32)
[2021-06-10] MEDS: PANCREATIC ENZYMES 4200 UNIT CAP PO SCH ×3 (08:00→18:28)
[2021-06-10] MEDS: ENSURE CLEAR Apple 8oz Carton PO SCH ×2 (08:00→17:49)
[2021-06-10 09:00] VITALS: BP 161/97
[2021-06-10] MEDS: HCTZ 25 MG TAB PO SCH (10:00)
[2021-06-10] MEDS: amLODIPine BESYLATE 5 MG TAB PO SCH (10:00)
[2021-06-10] MEDS: NICOTINE 21MG/24 HR TOPICAL PATCH TD SCH (10:00)
[2021-06-10] MEDS: PANTOPRAZOLE 40 MG/10 ML VIAL INJ IV SCH ×2 (10:00→22:34)
[2021-06-10] MEDS: diphenhdrAMINE HCL 50 MG/1 ML VL IV PRN ×2 (11:31→19:53)
[2021-06-10] MEDS: HYDROcodone-ACET 7.5/325MG TAB PO PRN ×3 (11:32→23:48)
[2021-06-10 13:00] VITALS: BP 156/100
[2021-06-10 17:00] VITALS: BP 159/108
[2021-06-10 20:00] VITALS: BP 140/93
[2021-06-10 22:00] VITALS: BP 140/93
[2021-06-11] MEDS: HYDROmorphone HCL 2 MG/ML VL IV PRN ×2 (02:04→11:23)
[2021-06-11] MEDS: diphenhdrAMINE HCL 50 MG/1 ML VL IV PRN ×2 (03:25→11:24)
[2021-06-11 05:00] VITALS: BP 133/80
[2021-06-11] MEDS: cloNIDine HCL 0.1 MG TAB PO SCH (06:28)
[2021-06-11] MEDS: ONDANSETRON HCL 4 MG/2 ML VIAL IV SCH ×2 (06:28)
[2021-06-11] MEDS: SUCRALFATE 1 GM/10 ML ORAL SUSP PO SCH (06:29)
[2021-06-11] MEDS: HYDROcodone-ACET 7.5/325MG TAB PO PRN ×2 (06:39→07:17)
[2021-06-11] MEDS: ENSURE CLEAR Apple 8oz Carton PO SCH (08:00)
[2021-06-11] MEDS: LORazepam 2MG/ML-1ML VIAL IV PRN (08:25)
[2021-06-11] MEDS: PANCREATIC ENZYMES 4200 UNIT CAP PO SCH (09:59)
[2021-06-11] MEDS: HCTZ 25 MG TAB PO SCH (09:59)
[2021-06-11] MEDS: amLODIPine BESYLATE 5 MG TAB PO SCH (10:00)
[2021-06-11] MEDS: PANTOPRAZOLE 40 MG/10 ML VIAL INJ IV SCH (10:00)
[2021-06-11] MEDS: NICOTINE 21MG/24 HR TOPICAL PATCH TD SCH (10:00)
[2021-06-11 12:19] VITALS: BP 151/93
[2021-06-11 12:25] VITALS: BP 150/94
[2021-06-11] MEDS ORDERED: FAMOTIDINE 20 MG TAB PO SCH (18:00)
== END 2021-06-11 13:40 | disposition home or self-care (01) | DRG 281 ==
LOC: ER 16:48 → EDBD 16:48 → OVERFLOW 22:34 → WEST WING 23:32
PROVIDERS: ADMIT Internal Medicine; ATTEND Internal Medicine Pulmonary Disease
PROC: 0DJ08ZZ Inspection of Upper Intestinal Tract, Via Natural or Artificial Opening Endoscopic (ICD-10-PCS; principal; 2021-06-05 09:04)
DX: C25.9 Malignant neoplasm of pancreas, unspecified (principal); K85.90 Acute pancreatitis without necrosis or infection, unspecified; K29.71 Gastritis, unspecified, with bleeding; N17.9 Acute kidney failure, unspecified; E86.0 Dehydration; F17.210 Nicotine dependence, cigarettes, uncomplicated; G89.29 Other chronic pain; K86.3 Pseudocyst of pancreas; I10 Essential (primary) hypertension; K29.50 Unspecified chronic gastritis without bleeding; Z88.0 Allergy status to penicillin; Z90.49 Acquired absence of other specified parts of digestive tract; Z88.8 Allergy status to other drugs, medicaments and biological substances; Z20.822 Contact with and (suspected) exposure to COVID-19; K86.1 Other chronic pancreatitis
CPT/HCPCS: 36415; 74176; 74177; 74181; 80048; 80053; 80307; 81001; 82150; 82270; 82378; 83690; 83735; 84702; 85025; 85610; 85730; 86300; 86301; 86304; 86850; 86900; 86901; 93005; 96361; 96374; 96375; 96376; C9113; G0378; J2405

== ENCOUNTER 2021-07-11 18:28 | Inpatient (IN) | payer OTHER ==
[~2021-07-11] VITALS: Ht 160 cm; Wt 47.5 kg
[2021-07-11] MEDS ORDERED: cloNIDine HCL 0.1 MG TAB PO ONE (19:30)
[2021-07-11] MEDS ORDERED: SODIUM CHLORIDE 0.9% 1,000 ML IV ONE (19:30)
[2021-07-11] MEDS ORDERED: HYDROmorphone HCL 2 MG/ML VL/or syr IV ONE ×2 (19:30→23:15)
[2021-07-11] MEDS ORDERED: METOCLOPRAMIDE HCL 5MG/ml INJ 2ml VIAL IV ONE (19:30)
[2021-07-11] MEDS ORDERED: IOHEXOL 300 MG/ML 100ML BOTTLE IJ ONE (20:29)
[2021-07-11 21:54] LABS: Basophils # (auto) 0.1 10 ^3/uL (0-0.2); Basophils % (auto) 0.8 % (0.0-2.0); Eosinophils # (auto) 0 10 ^3/uL (0-0.8); Eosinophils % (auto) 0.6 % (0.0-7.0); Hematocrit 33.2 % (36.0-46.0); Hemoglobin 10.8 g/dL (12.2-16.2); Lymphocytes # (auto) 1.6 10 ^3/uL (0.4-5.4); Lymphocytes % (auto) 21.6 % (10.0-50.0); Mean Corpuscular Hemoglobin 27.9 pg (28.0-32.0); Mean Corpuscular Hgb Conc. 32.4 g/dL (32.0-36.0); Mean Corpuscular Volume 85.9 fL (80.0-100.0); Monocytes # (auto) 0.4 10 ^3/uL (0-1.3); Monocytes % (auto) 5.9 % (0.0-12.0); Neutrophils # (auto) 5.3 10 ^3/uL (1.6-8.6); Neutrophils % (auto) 71.1 % (37.0-80.0); Nucleated Red Blood Cells % 0.1 %; Red Blood Cells 3.86 10^6/uL (4.0-5.20); Red Cell Distribution Width 16.1 % (11.8-14.3); White Blood Cell 7.5 10^3/uL (4.4-10.8)
[2021-07-11 22:12] LABS: Albumin 3.6 g/dL (3.4-5.0); BUN/Creatinine Ratio 11.4; Calcium 8.4 mg/dL (8.5-10.1); INR 1.12 (0.9-1.15); Magnesium 2.2 mg/dL (1.6-2.6); Partial Thromboplastin Time 28.5 sec (23.6-33.0); Potassium 3.8 mmol/L (3.5-5.1)
[2021-07-11 22:14] LABS: Bilirubin, Total 0.3 mg/dL (0.2-1.0); Total Protein 7.3 g/dL (6.4-8.2)
[2021-07-11 22:56] LABS: Urine Bacteria NONE SEEN /hpf (None Seen); Urine Blood 3+ /uL (Negative); Urine WBC 1 /hpf (0 - 5)
[2021-07-11 23:05] LABS: Urine Specific Gravity > 1.050 (1.001-1.035)
[2021-07-12] VITALS (7 sets, daily range): BP systolic 132–191; BP diastolic 76–117
[2021-07-12] MEDS ORDERED: hydrALAZINE HCL 20 MG/ML VL IV ONE (01:15)
[2021-07-12] MEDS ORDERED: MORPHINE SULFATE INJECTION 2 MG/ML SYRG IV ONE (02:45)
[2021-07-12] MEDS ORDERED: DEXTROSE (50%) 50ML SYRG IV PRN (03:00)
[2021-07-12] MEDS ORDERED: ACETAMINOPHEN 325 MG TAB PO PRN (03:00)
[2021-07-12] MEDS ORDERED: DOCUSATE SOD 100 MG CAP PO PRN (03:00)
[2021-07-12] MEDS ORDERED: ONDANSETRON HCL 4 MG/2 ML VIAL IV PRN (03:00)
[2021-07-12] MEDS: MORPHINE SULFATE INJECTION 2 MG/ML SYRG IV PRN ×4 (05:36→14:17)
[2021-07-12] MEDS: hydrALAZINE HCL 20 MG/ML VL IV PRN ×3 (05:39→23:52)
[2021-07-12] MEDS: SODIUM CHLOR 0.9% PF (SALINE LOCK) 10ML VIAL/SYR IV SCH ×3 (06:00→22:31)
[2021-07-12] MEDS: ACCU-CHEK COMFORT CURVE STRIP VI SCH ×2 (06:56→11:30)
[2021-07-12] MEDS: InsuLIN REG 1unit/0.01ml Soln (100units/ml) SC SCH ×2 (06:57→11:30)
[2021-07-12 09:36] LABS: % Iron Saturation 10.8 % (15-50)
[2021-07-12] MEDS: HYDROcodone-ACET 5/325MG TAB PO PRN ×2 (11:41→20:52)
[2021-07-12] MEDS ORDERED: cloNIDine HCL 0.1 MG TAB PO ONE (15:00)
[2021-07-12] MEDS ORDERED: amLODIPine BESYLATE 5 MG TAB PO ONE (15:00)
[2021-07-12] MEDS ORDERED: LORazepam 0.5 MG TAB PO PRN (15:00)
[2021-07-12 16:01] LABS: Follicle Stimulating Hormone 10.38 IU/L (SEE BELOW); Leuteinizing Hormone 1.5 IU/L
[2021-07-12] MEDS: cloNIDine HCL 0.1 MG TAB PO SCH (22:30)
[2021-07-12] MEDS: HYDROmorphone HCL 2 MG/ML VL/or syr IV PRN (23:06)
[2021-07-13] MEDS ORDERED: LABETALOL HCL 5 MG/ML 4ML SYRINGE IV ONE (00:30)
[2021-07-13] MEDS: HYDROcodone-ACET 5/325MG TAB PO PRN ×5 (00:58→23:26)
[2021-07-13] MEDS: HYDROmorphone HCL 2 MG/ML VL/or syr IV PRN ×5 (03:12→22:06)
[2021-07-13 05:00] VITALS: BP 141/89
[2021-07-13] MEDS: SODIUM CHLOR 0.9% PF (SALINE LOCK) 10ML VIAL/SYR IV SCH ×3 (05:43→22:05)
[2021-07-13 08:00] VITALS: BP 172/103
[2021-07-13] MEDS ORDERED: amLODIPine BESYLATE 5 MG TAB PO SCH (10:00)
[2021-07-13] MEDS ORDERED: HCTZ 25 MG TAB PO SCH (10:00)
[2021-07-13] MEDS: cloNIDine HCL 0.1 MG TAB PO SCH ×3 (11:08→22:06)
[2021-07-13] MEDS: diphenhdrAMINE HCL 50 MG/1 ML VL IV PRN ×2 (11:28→19:52)
[2021-07-13 12:00] VITALS: BP 199/120
[2021-07-13 16:56] VITALS: BP 120/86
[2021-07-13 22:00] VITALS: BP 122/78
[2021-07-14] MEDS: diphenhdrAMINE HCL 50 MG/1 ML VL IV PRN ×4 (01:57→20:31)
[2021-07-14] MEDS: HYDROmorphone HCL 2 MG/ML VL/or syr IV PRN ×5 (01:58→20:25)
[2021-07-14 04:53] VITALS: BP 131/82
[2021-07-14] MEDS: SODIUM CHLOR 0.9% PF (SALINE LOCK) 10ML VIAL/SYR IV SCH ×3 (06:02→22:13)
[2021-07-14] MEDS: cloNIDine HCL 0.1 MG TAB PO SCH ×3 (06:04→22:14)
[2021-07-14] MEDS: HYDROcodone-ACET 5/325MG TAB PO PRN ×4 (08:05→22:19)
[2021-07-14 09:00] VITALS: BP 137/86
[2021-07-14 13:00] VITALS: BP 139/94
[2021-07-14 17:00] VITALS: BP 125/88
[2021-07-14 22:00] VITALS: BP 153/96
[2021-07-15] MEDS: HYDROmorphone HCL 2 MG/ML VL/or syr IV PRN ×4 (00:16→13:31)
[2021-07-15] MEDS: HYDROcodone-ACET 5/325MG TAB PO PRN ×3 (02:27→11:41)
[2021-07-15] MEDS: diphenhdrAMINE HCL 50 MG/1 ML VL IV PRN ×2 (02:28→09:24)
[2021-07-15 05:00] VITALS: BP 145/86
[2021-07-15] MEDS: SODIUM CHLOR 0.9% PF (SALINE LOCK) 10ML VIAL/SYR IV SCH ×2 (05:00→13:31)
[2021-07-15] MEDS: cloNIDine HCL 0.1 MG TAB PO SCH ×2 (05:01→11:41)
[2021-07-15 08:05] VITALS: BP 155/85
[2021-07-15 12:15] VITALS: BP 153/98
[2021-07-15 13:31] VITALS: BP 153/98
== END 2021-07-15 13:57 | disposition short-term general hospital (02) | DRG 282 ==
LOC: EDBD 18:28 → ER 18:31 → OVERFLOW 07-12 02:49 → WEST WING 07-12 04:01
PROVIDERS: ADMIT Internal Medicine; ATTEND Internal Medicine
DX: K86.1 Other chronic pancreatitis (principal); K76.89 Other specified diseases of liver; I50.9 Heart failure, unspecified; D25.9 Leiomyoma of uterus, unspecified; F11.20 Opioid dependence, uncomplicated; F17.210 Nicotine dependence, cigarettes, uncomplicated; D50.9 Iron deficiency anemia, unspecified; I11.0 Hypertensive heart disease with heart failure; N93.9 Abnormal uterine and vaginal bleeding, unspecified; G89.4 Chronic pain syndrome; I16.1 Hypertensive emergency; Z20.822 Contact with and (suspected) exposure to COVID-19; F41.9 Anxiety disorder, unspecified; K21.9 Gastro-esophageal reflux disease without esophagitis; Z82.49 Family history of ischemic heart disease and other diseases of the circulatory system; Z87.11 Personal history of peptic ulcer disease; Z87.19 Personal history of other diseases of the digestive system; Z88.0 Allergy status to penicillin; Z88.8 Allergy status to other drugs, medicaments and biological substances; Z90.49 Acquired absence of other specified parts of digestive tract
CPT/HCPCS: 36415; 71045; 74177; 76856; 80053; 81001; 82271; 82670; 82728; 82962; 83001; 83002; 83540; 83550; 83735; 84702; 85025; 85610; 85730; 93005; 96361; 96374; 96375; 96376; G0378

== ENCOUNTER 2021-08-10 05:33 | Inpatient (IN) | payer OTHER ==
[~2021-08-10] VITALS: Ht 160 cm; Wt 45.0 kg
[2021-08-10] MEDS ORDERED: MORPHINE SULFATE INJ 2 MG/ml SYRG IV ONE (05:45)
[2021-08-10] MEDS ORDERED: LABETALOL HCL 5 MG/ML 4ML SYRINGE IV ONE (05:45)
[2021-08-10] MEDS ORDERED: diphenhdrAMINE HCL 50 MG/1 ML VL ONE (06:09)
[2021-08-10] MEDS ORDERED: diphenhdrAMINE HCL 50 MG/1 ML VL IV ONE ×3 (06:15→20:15)
[2021-08-10] MEDS ORDERED: hydrALAZINE HCL 20 MG/ML VL IV ONE (06:45)
[2021-08-10] MEDS ORDERED: ONDANSETRON HCL 4 MG/2 ML VIAL IV ONE (06:45)
[2021-08-10] MEDS ORDERED: HYDROmorphone HCL 2 MG/ML VL/or syr IV ONE ×3 (06:45→12:00)
[2021-08-10 07:08] LABS: Basophils # (auto) 0 10 ^3/uL (0-0.2); Basophils % (auto) 0.8 % (0.0-2.0); Eosinophils # (auto) 0.1 10 ^3/uL (0-0.8); Eosinophils % (auto) 2.6 % (0.0-7.0); Hematocrit 36.1 % (36.0-46.0); Hemoglobin 11.9 g/dL (12.2-16.2); Lymphocytes # (auto) 1.4 10 ^3/uL (0.4-5.4); Mean Corpuscular Hgb Conc. 32.8 g/dL (32.0-36.0); Mean Corpuscular Volume 85.2 fL (80.0-100.0); Monocytes # (auto) 0.3 10 ^3/uL (0-1.3); Monocytes % (auto) 7.1 % (0.0-12.0); Neutrophils # (auto) 2.5 10 ^3/uL (1.6-8.6); Neutrophils % (auto) 57.5 % (37.0-80.0); Nucleated Red Blood Cells % 0.1 %; Red Blood Cells 4.24 10^6/uL (4.0-5.20); Red Cell Distribution Width 16.4 % (11.8-14.3); White Blood Cell 4.3 10^3/uL (4.4-10.8)
[2021-08-10 07:22] LABS: Albumin 3.2 g/dL (3.4-5.0); Calcium 8.3 mg/dL (8.5-10.1); Magnesium 2.3 mg/dL (1.6-2.6); Potassium 3.8 mmol/L (3.5-5.1)
[2021-08-10 07:22] LABS: Urine Bacteria NONE SEEN /hpf (None Seen); Urine Blood Negative /uL (Negative); Urine Mucus FEW (None Seen); Urine Specific Gravity 1.014 (1.001-1.035); Urine WBC <1 /hpf (0 - 5)
[2021-08-10 07:28] LABS: BUN/Creatinine Ratio 17.1; Bilirubin, Total 0.4 mg/dL (0.2-1.0); Total Protein 7.6 g/dL (6.4-8.2)
[2021-08-10] MEDS ORDERED: ONDANSETRON HCL 4 MG/2 ML VIAL IV PRN (10:45)
[2021-08-10] MEDS ORDERED: cloNIDine HCL 0.1 MG TAB PO ONE (10:45)
[2021-08-10] MEDS ORDERED: MORPHINE SULFATE INJ 2 MG/ml SYRG IV PRN (10:45)
[2021-08-10] MEDS ORDERED: NICOTINE 7MG/24HR TOPICAL PATCH TD ONE (11:00)
[2021-08-10 11:52] LABS: Cholesterol 134 mg/dL (< 200); Triglycerides 551 mg/dL (< 150)
[2021-08-10 11:55] LABS: HDL Cholesterol 32 mg/dL (40-59)
[2021-08-10] MEDS: hydrALAZINE HCL 20 MG/ML VL IV PRN (12:18)
[2021-08-10] MEDS ORDERED: LACTATED RINGER'S 1,000 ML IV ONE (15:15)
[2021-08-10] MEDS ORDERED: GOLYTELY 4L KIT PO ONE (17:00)
[2021-08-10] MEDS ORDERED: HYDROmorphone HCL 2 MG/ML VL/or syr ONE (17:51)
[2021-08-10 20:31] LABS: Albumin 2.9 g/dL (3.4-5.0); Calcium 8.1 mg/dL (8.5-10.1); Potassium 3.6 mmol/L (3.5-5.1)
[2021-08-10 20:37] LABS: BUN/Creatinine Ratio 6.7; Bilirubin, Total 0.3 mg/dL (0.2-1.0)
[2021-08-10] MEDS: HYDROmorphone HCL 2 MG/ML VL/or syr IV PRN (20:51)
[2021-08-10 20:57] VITALS: BP 169/107
[2021-08-10 21:49] VITALS: BP 169/107
[2021-08-10 22:12] LABS: Hematocrit 33.3 % (36.0-46.0)
[2021-08-10] MEDS: cloNIDine HCL 0.1 MG TAB PO SCH (22:32)
[2021-08-11] VITALS (7 sets, daily range): BP systolic 108–177; BP diastolic 67–96
[2021-08-11] MEDS: HYDROmorphone HCL 2 MG/ML VL/or syr IV PRN ×5 (01:44→20:53)
[2021-08-11] MEDS: HCTZ 25 MG TAB PO SCH ×2 (10:00→10:28)
[2021-08-11] MEDS: NICOTINE 7MG/24HR TOPICAL PATCH TD SCH (10:00)
[2021-08-11] MEDS ORDERED: amLODIPine BESYLATE 5 MG TAB PO SCH (10:00)
[2021-08-11] MEDS: cloNIDine HCL 0.1 MG TAB PO SCH ×2 (10:28→22:21)
[2021-08-11 11:37] LABS: Basophils # (auto) 0 10 ^3/uL (0-0.2); Basophils % (auto) 0.5 % (0.0-2.0); Eosinophils # (auto) 0.1 10 ^3/uL (0-0.8); Eosinophils % (auto) 3.9 % (0.0-7.0); Hematocrit 31.6 % (36.0-46.0); Hemoglobin 10.3 g/dL (12.2-16.2); Lymphocytes # (auto) 1.2 10 ^3/uL (0.4-5.4); Mean Corpuscular Hemoglobin 27.4 pg (28.0-32.0); Mean Corpuscular Hgb Conc. 32.6 g/dL (32.0-36.0); Mean Corpuscular Volume 84.1 fL (80.0-100.0); Monocytes # (auto) 0.3 10 ^3/uL (0-1.3); Monocytes % (auto) 7.8 % (0.0-12.0); Neutrophils # (auto) 1.9 10 ^3/uL (1.6-8.6); Neutrophils % (auto) 53.8 % (37.0-80.0); Nucleated Red Blood Cells % 0.1 %; Red Blood Cells 3.76 10^6/uL (4.0-5.20); Red Cell Distribution Width 16.1 % (11.8-14.3); White Blood Cell 3.6 10^3/uL (4.4-10.8)
[2021-08-11 11:57] LABS: Albumin 2.7 g/dL (3.4-5.0); Calcium 8.2 mg/dL (8.5-10.1)
[2021-08-11 12:01] LABS: BUN/Creatinine Ratio 8.7; Bilirubin, Total 0.4 mg/dL (0.2-1.0); Total Protein 6.2 g/dL (6.4-8.2)
[2021-08-11 12:04] LABS: INR 1.08 (0.9-1.15); Partial Thromboplastin Time 28.1 sec (23.6-33.0)
[2021-08-11] MEDS ORDERED: SUCCINYLCHOLINE CHLORIDE 20 MG/ML 10ML VIAL IV ONE (14:19)
[2021-08-11] MEDS ORDERED: METOCLOPRAMIDE HCL 5MG/ml INJ 2ml VIAL IV PRN (15:15)
[2021-08-11] MEDS ORDERED: fentaNYL CITRATE 100 MCG/2 ML VL IV PRN (15:15)
[2021-08-11] MEDS ORDERED: ONDANSETRON HCL 4 MG/2 ML VIAL IV PRN (15:15)
[2021-08-11] MEDS ORDERED: diphenhdrAMINE HCL 50 MG/1 ML VL IV ONE (18:45)
[2021-08-12] VITALS (7 sets, daily range): BP systolic 138–171; BP diastolic 72–97
[2021-08-12] MEDS: HYDROmorphone HCL 2 MG/ML VL/or syr IV PRN ×5 (03:06→20:04)
[2021-08-12] MEDS: diphenhdrAMINE HCL 50 MG/1 ML VL IV PRN ×3 (05:38→18:08)
[2021-08-12] MEDS: NICOTINE 7MG/24HR TOPICAL PATCH TD SCH (10:00)
[2021-08-12 11:12] LABS: Basophils # (auto) 0.1 10 ^3/uL (0-0.2); Basophils % (auto) 2.8 % (0.0-2.0); Eosinophils # (auto) 0.2 10 ^3/uL (0-0.8); Eosinophils % (auto) 4.3 % (0.0-7.0); Hematocrit 30.5 % (36.0-46.0); Hemoglobin 9.6 g/dL (12.2-16.2); Lymphocytes % (auto) 27.5 % (10.0-50.0); Mean Corpuscular Hemoglobin 27.5 pg (28.0-32.0); Mean Corpuscular Hgb Conc. 31.5 g/dL (32.0-36.0); Mean Corpuscular Volume 87.5 fL (80.0-100.0); Monocytes # (auto) 0.2 10 ^3/uL (0-1.3); Monocytes % (auto) 5.6 % (0.0-12.0); Neutrophils # (auto) 2.2 10 ^3/uL (1.6-8.6); Neutrophils % (auto) 59.8 % (37.0-80.0); Nucleated Red Blood Cells % 0.1 %; Red Blood Cells 3.48 10^6/uL (4.0-5.20); Red Cell Distribution Width 16.4 % (11.8-14.3); White Blood Cell 3.7 10^3/uL (4.4-10.8)
[2021-08-12] MEDS ORDERED: HYDROCORTISONE ACET 25 MG RECTAL SUPP PR ONE (11:15)
[2021-08-12] MEDS: cloNIDine HCL 0.1 MG TAB PO SCH ×2 (11:17→22:29)
[2021-08-12] MEDS: hydrALAZINE HCL 20 MG/ML VL IV PRN (16:47)
[2021-08-12] MEDS: HYDROCORTISONE ACET 25 MG RECTAL SUPP PR SCH ×2 (22:00→22:28)
[2021-08-13] MEDS: HYDROmorphone HCL 2 MG/ML VL/or syr IV PRN ×3 (00:05→09:01)
[2021-08-13] MEDS: diphenhdrAMINE HCL 50 MG/1 ML VL IV PRN ×2 (00:45→09:01)
[2021-08-13 05:00] VITALS: BP 152/92
[2021-08-13 05:11] LABS: Basophils # (auto) 0 10 ^3/uL (0-0.2); Basophils % (auto) 0.4 % (0.0-2.0); Eosinophils # (auto) 0.1 10 ^3/uL (0-0.8); Eosinophils % (auto) 4.1 % (0.0-7.0); Hematocrit 29.7 % (36.0-46.0); Hemoglobin 9.3 g/dL (12.2-16.2); Lymphocytes # (auto) 1.3 10 ^3/uL (0.4-5.4); Mean Corpuscular Hgb Conc. 31.2 g/dL (32.0-36.0); Mean Corpuscular Volume 86.5 fL (80.0-100.0); Monocytes # (auto) 0.4 10 ^3/uL (0-1.3); Neutrophils # (auto) 1.8 10 ^3/uL (1.6-8.6); Neutrophils % (auto) 50.5 % (37.0-80.0); Red Blood Cells 3.44 10^6/uL (4.0-5.20); Red Cell Distribution Width 16.4 % (11.8-14.3); White Blood Cell 3.7 10^3/uL (4.4-10.8)
[2021-08-13 09:00] VITALS: BP 177/103
[2021-08-13] MEDS: HYDROCORTISONE ACET 25 MG RECTAL SUPP PR SCH (09:02)
[2021-08-13] MEDS: NICOTINE 7MG/24HR TOPICAL PATCH TD SCH (09:02)
[2021-08-13] MEDS: cloNIDine HCL 0.1 MG TAB PO SCH (09:02)
[2021-08-13 09:31] VITALS: BP 177/103
[2021-08-13] MEDS ORDERED: HYDR2.5C39 TOP (10:41)
== END 2021-08-13 11:30 | disposition left against medical advice (07) | DRG 244 ==
LOC: ER 05:33 → TELE 10:35 → TELE-WESTW 20:10
PROVIDERS: ADMIT Registered Nurse; ATTEND Family Medicine
PROC: 0DJD8ZZ Inspection of Lower Intestinal Tract, Via Natural or Artificial Opening Endoscopic (ICD-10-PCS; principal; 2021-08-11 14:20)
DX: K57.91 Diverticulosis of intestine, part unspecified, without perforation or abscess with bleeding (principal); I11.0 Hypertensive heart disease with heart failure; I50.9 Heart failure, unspecified; G89.29 Other chronic pain; I16.1 Hypertensive emergency; K86.1 Other chronic pancreatitis; K21.9 Gastro-esophageal reflux disease without esophagitis; Z53.29 Procedure and treatment not carried out because of patient's decision for other reasons; K27.9 Peptic ulcer, site unspecified, unspecified as acute or chronic, without hemorrhage or perforation; Z96.89 Presence of other specified functional implants; K64.8 Other hemorrhoids; Z88.0 Allergy status to penicillin; Z88.8 Allergy status to other drugs, medicaments and biological substances; Z87.11 Personal history of peptic ulcer disease; Z90.49 Acquired absence of other specified parts of digestive tract; Z72.0 Tobacco use; Z71.6 Tobacco abuse counseling
CPT/HCPCS: 36415; 74176; 80053; 80061; 81001; 81025; 83036; 83690; 83735; 83880; 84484; 85014; 85018; 85025; 85610; 85730; 86850; 86900; 86901; 87081; 93005; 96374; 96375; 99291; G0378; J0330; J2405; J3490

== ENCOUNTER 2021-10-29 07:28 | Emergency (ER) | payer OTHER ==
[~2021-10-29] VITALS: Ht 160 cm; Wt 49.5 kg
[~2021-10-29 07:28] MED LIST changes: +HYDR2.5C39 TOP
[2021-10-29 08:11] LABS: Urine Bacteria FEW /hpf (None Seen); Urine Blood Negative /uL (Negative); Urine Mucus FEW (None Seen); Urine Specific Gravity 1.017 (1.001-1.035); Urine WBC 20 /hpf (0 - 5)
[2021-10-29] MEDS ORDERED: cloNIDine HCL 0.1 MG TAB PO ONE (08:30)
[2021-10-29] MEDS ORDERED: KETOROLAC TROMETH 30 MG/ML 1ML VIAL IV ONE (08:45)
[2021-10-29] MEDS ORDERED: SODIUM CHLORIDE 0.9% 1,000 ML IV ONE ×2 (08:45)
[2021-10-29] MEDS ORDERED: MORPHINE SULFATE 4 MG/ML SYR/VIAL IV ONE (11:00)
[2021-10-29] MEDS ORDERED: ONDANSETRON HCL 4 MG/2 ML VIAL IV ONE (11:00)
[2021-10-29 11:03] VITALS: BP 149/102
[2021-10-29 11:38] LABS: Basophils # (auto) 0 10 ^3/uL (0-0.2); Basophils % (auto) 0.4 % (0.0-2.0); Eosinophils # (auto) 0 10 ^3/uL (0-0.8); Eosinophils % (auto) 0.7 % (0.0-7.0); Hematocrit 39.7 % (36.0-46.0); Hemoglobin 12.6 g/dL (12.2-16.2); Lymphocytes # (auto) 1.1 10 ^3/uL (0.4-5.4); Lymphocytes % (auto) 23.3 % (10.0-50.0); Mean Corpuscular Hemoglobin 28.3 pg (28.0-32.0); Mean Corpuscular Hgb Conc. 31.8 g/dL (32.0-36.0); Mean Corpuscular Volume 88.9 fL (80.0-100.0); Monocytes # (auto) 0.2 10 ^3/uL (0-1.3); Monocytes % (auto) 4.7 % (0.0-12.0); Neutrophils # (auto) 3.4 10 ^3/uL (1.6-8.6); Neutrophils % (auto) 70.9 % (37.0-80.0); Nucleated Red Blood Cells % 0.1 %; Red Blood Cells 4.47 10^6/uL (4.0-5.20); Red Cell Distribution Width 16.4 % (11.8-14.3); White Blood Cell 4.8 10^3/uL (4.4-10.8)
[2021-10-29 11:39] LABS: Calcium 8.2 mg/dL (8.5-10.1); Potassium 3.6 mmol/L (3.5-5.1)
[2021-10-29 11:42] LABS: BUN/Creatinine Ratio 10.6; Bilirubin, Total 0.3 mg/dL (0.2-1.0); Total Protein 6.2 g/dL (6.4-8.2)
[2021-10-29] MEDS ORDERED: diphenhdrAMINE HCL 50 MG/1 ML VL ONE (11:54)
== END 2021-10-29 14:03 | disposition left against medical advice (07) ==
LOC: ER 07:28
DX: N39.0 Urinary tract infection, site not specified (principal); I16.1 Hypertensive emergency; I11.0 Hypertensive heart disease with heart failure; K21.9 Gastro-esophageal reflux disease without esophagitis; Z90.49 Acquired absence of other specified parts of digestive tract; Z88.0 Allergy status to penicillin; Z88.8 Allergy status to other drugs, medicaments and biological substances
CPT/HCPCS: 36415; 74176; 80053; 81001; 83690; 84702; 85025; 96361; 96374; 96375; 99284; J1200; J2270; J2405; J7030; J1885

== ENCOUNTER 2021-11-21 18:00 | Emergency (ER) | payer OTHER ==
[~2021-11-21] VITALS: Ht 160 cm; Wt 52.6 kg
[~2021-11-21 18:00] MED LIST changes: +HYDR-4902 PO; +ONDA-144 PO
[2021-11-21] MEDS ORDERED: SODIUM CHLORIDE 0.9% 1,000 ML IV ONE (18:45)
[2021-11-21] MEDS: HALOPERIDOL LACTATE 5 MG/ML INJ VIAL IM ONE ×2 (19:03→19:10)
[2021-11-21 19:34] LABS: Basophils # (auto) 0 10 ^3/uL (0-0.2); Basophils % (auto) 0.7 % (0.0-2.0); Eosinophils # (auto) 0 10 ^3/uL (0-0.8); Eosinophils % (auto) 0.8 % (0.0-7.0); Hematocrit 37.5 % (36.0-46.0); Hemoglobin 11.9 g/dL (12.2-16.2); Lymphocytes # (auto) 1.6 10 ^3/uL (0.4-5.4); Lymphocytes % (auto) 35.9 % (10.0-50.0); Mean Corpuscular Hemoglobin 28.3 pg (28.0-32.0); Mean Corpuscular Hgb Conc. 31.7 g/dL (32.0-36.0); Mean Corpuscular Volume 89.4 fL (80.0-100.0); Monocytes # (auto) 0.2 10 ^3/uL (0-1.3); Monocytes % (auto) 4.7 % (0.0-12.0); Neutrophils # (auto) 2.7 10 ^3/uL (1.6-8.6); Neutrophils % (auto) 57.9 % (37.0-80.0); Nucleated Red Blood Cells % 0.2 %; Red Cell Distribution Width 14.9 % (11.8-14.3); White Blood Cell 4.6 10^3/uL (4.4-10.8)
[2021-11-21 19:48] LABS: Albumin 3.3 g/dL (3.4-5.0); BUN/Creatinine Ratio 7.1; Calcium 8.6 mg/dL (8.5-10.1); Potassium 3.4 mmol/L (3.5-5.1)
[2021-11-21 19:51] LABS: Bilirubin, Total 0.3 mg/dL (0.2-1.0); Total Protein 6.5 g/dL (6.4-8.2)
[2021-11-21] MEDS ORDERED: MORPHINE SULFATE 4 MG/ML SYR/VIAL IV ONE (20:00)
[2021-11-21] MEDS ORDERED: ONDANSETRON HCL 4 MG/2 ML VIAL IV ONE (20:00)
[2021-11-21] MEDS ORDERED: diphenhdrAMINE HCL 25 MG CAP PO ONE (20:15)
[2021-11-21] MEDS ORDERED: IODIXANOL 320MG/ML 100ML BTL IV ONE (20:55)
[2021-11-21] MEDS ORDERED: HYDROcodone-ACET 5/325MG TAB PO ONE (22:15)
[2021-11-21] MEDS ORDERED: MORPHINE SULFATE INJ 2 MG/ml SYRG IV PRN (22:15)
[2021-11-21 23:14] VITALS: BP 192/132
== END 2021-11-21 23:30 | disposition short-term general hospital (02) ==
LOC: ER 18:00
DX: K86.1 Other chronic pancreatitis (principal); J69.8 Pneumonitis due to inhalation of other solids and liquids; I11.0 Hypertensive heart disease with heart failure; I50.9 Heart failure, unspecified; K21.9 Gastro-esophageal reflux disease without esophagitis; F17.210 Nicotine dependence, cigarettes, uncomplicated; Z90.49 Acquired absence of other specified parts of digestive tract; Z79.899 Other long term (current) drug therapy; Z79.82 Long term (current) use of aspirin; Z88.0 Allergy status to penicillin; Z88.8 Allergy status to other drugs, medicaments and biological substances
CPT/HCPCS: 36415; 74177; 80053; 83605; 83690; 83735; 84702; 85025; 87040; 96361; 96374; 96375; 96376; 99285; J1630; J2270; J2405; J7030; Q9967; 80307; 81001

== ENCOUNTER 2021-11-30 14:25 | Inpatient (IN) | payer OTHER ==
[~2021-11-30] VITALS: Ht 160 cm; Wt 42.5 kg
[2021-11-30 15:20] LABS: Basophils # (auto) 0 10 ^3/uL (0-0.2); Basophils % (auto) 0.4 % (0.0-2.0); Eosinophils # (auto) 0 10 ^3/uL (0-0.8); Hematocrit 36.7 % (36.0-46.0); Hemoglobin 11.8 g/dL (12.2-16.2); Lymphocytes % (auto) 24.5 % (10.0-50.0); Mean Corpuscular Hemoglobin 29.5 pg (28.0-32.0); Mean Corpuscular Hgb Conc. 32.2 g/dL (32.0-36.0); Mean Corpuscular Volume 91.6 fL (80.0-100.0); Monocytes # (auto) 0.3 10 ^3/uL (0-1.3); Monocytes % (auto) 7.3 % (0.0-12.0); Neutrophils # (auto) 2.8 10 ^3/uL (1.6-8.6); Neutrophils % (auto) 66.8 % (37.0-80.0); Red Blood Cells 4.01 10^6/uL (4.0-5.20); Red Cell Distribution Width 14.9 % (11.8-14.3); White Blood Cell 4.2 10^3/uL (4.4-10.8)
[2021-11-30 15:35] LABS: Albumin 3.4 g/dL (3.4-5.0); BUN/Creatinine Ratio 12.8; Calcium 8.5 mg/dL (8.5-10.1); Potassium 4.4 mmol/L (3.5-5.1)
[2021-11-30 15:39] LABS: Bilirubin, Total 0.2 mg/dL (0.2-1.0)
[2021-11-30] MEDS ORDERED: MORPHINE SULFATE 4 MG/ML SYR/VIAL IV ONE (16:30)
[2021-11-30] MEDS ORDERED: SODIUM CHLORIDE 0.9% 1,000 ML IV ONE ×2 (16:30)
[2021-11-30] MEDS ORDERED: ONDANSETRON HCL 4 MG/2 ML VIAL IV ONE (16:30)
[2021-11-30] MEDS ORDERED: GASTROGRAFIN 120 ML SOL ONE (16:31)
[2021-11-30] MEDS ORDERED: DOCUSATE SOD 100 MG CAP PO PRN (17:30)
[2021-11-30] MEDS: hydrALAZINE HCL 20 MG/ML VL IV SCH ×2 (21:30→22:27)
[2021-11-30] MEDS: SODIUM CHLORIDE 0.9% 1,000 ML IV SCH (22:27)
[2021-11-30] MEDS ORDERED: diphenhdrAMINE HCL 50 MG/1 ML VL IV PRN (23:15)
[2021-12-01] MEDS ORDERED: HYDROmorphone HCL 2 MG/ML VL/or syr IV ONE (01:30)
[2021-12-01] MEDS: SODIUM CHLORIDE 0.9% 1,000 ML IV SCH ×3 (01:50→20:16)
[2021-12-01 02:46] LABS: Urine Bacteria NONE SEEN /hpf (None Seen); Urine Blood Negative /uL (Negative); Urine Hyaline Cast MOD /lpf (0 - 2); Urine Mucus FEW (None Seen); Urine Specific Gravity 1.029 (1.001-1.035); Urine WBC 6 /hpf (0 - 5)
[2021-12-01] MEDS: hydrALAZINE HCL 20 MG/ML VL IV SCH ×5 (02:49→20:08)
[2021-12-01 03:00] LABS: Alcohol, Urine < 3.0 mg/dL (0-10); Amphetamine Screen, Urine NEGATIVE (NEGATIVE); Barbiturate Scree,Urine NEGATIVE (NEGATIVE); Benzodiazephine Screen, Urine NEGATIVE (NEGATIVE); Cannabinoid Screen, Urine NEGATIVE (NEGATIVE); Cocaine Screen, Urine NEGATIVE (NEGATIVE); Opiate Scree,Urine POSITIVE (NEGATIVE); Phencyclidine Screen, Urine NEGATIVE (NEGATIVE)
[2021-12-01] MEDS: MORPHINE SULFATE INJ 2 MG/ml SYRG IV PRN ×2 (04:07→09:41)
[2021-12-01] MEDS: diphenhdrAMINE HCL 50 MG/1 ML VL IV PRN ×3 (05:11→22:11)
[2021-12-01] MEDS ORDERED: LORazepam 2MG/ML-1ML VIAL IV ONE (07:15)
[2021-12-01 08:51] LABS: Basophils # (auto) 0 10 ^3/uL (0-0.2); Basophils % (auto) 0.5 % (0.0-2.0); Eosinophils # (auto) 0.1 10 ^3/uL (0-0.8); Eosinophils % (auto) 1.5 % (0.0-7.0); Hematocrit 35.1 % (36.0-46.0); Hemoglobin 11.5 g/dL (12.2-16.2); Lymphocytes # (auto) 1.6 10 ^3/uL (0.4-5.4); Lymphocytes % (auto) 31.5 % (10.0-50.0); Mean Corpuscular Hemoglobin 30.4 pg (28.0-32.0); Mean Corpuscular Hgb Conc. 32.9 g/dL (32.0-36.0); Mean Corpuscular Volume 92.5 fL (80.0-100.0); Monocytes # (auto) 0.5 10 ^3/uL (0-1.3); Monocytes % (auto) 9.3 % (0.0-12.0); Neutrophils # (auto) 2.9 10 ^3/uL (1.6-8.6); Neutrophils % (auto) 57.2 % (37.0-80.0); Nucleated Red Blood Cells % 0.2 %; Red Cell Distribution Width 14.7 % (11.8-14.3); White Blood Cell 5.1 10^3/uL (4.4-10.8)
[2021-12-01 09:05] LABS: BUN/Creatinine Ratio 12.2; Bilirubin, Total 0.4 mg/dL (0.2-1.0); Calcium 8.3 mg/dL (8.5-10.1); Total Protein 6.4 g/dL (6.4-8.2)
[2021-12-01] MEDS ORDERED: ENOXAPARIN SOD 40 MG/0.4 ML SYRINGE SC SCH (10:00)
[2021-12-01 22:00] VITALS: BP 162/90
[2021-12-01] MEDS: HYDROcodone-ACET 5/325MG TAB PO PRN (23:28)
[2021-12-02] MEDS: hydrALAZINE HCL 20 MG/ML VL IV SCH ×4 (00:51→08:00)
[2021-12-02] MEDS: diphenhdrAMINE HCL 50 MG/1 ML VL IV PRN ×2 (02:49→06:50)
[2021-12-02 05:00] VITALS: BP 190/115
[2021-12-02] MEDS: SODIUM CHLORIDE 0.9% 1,000 ML IV SCH (06:20)
[2021-12-02] MEDS: HYDROcodone-ACET 5/325MG TAB PO PRN (06:42)
[2021-12-02 08:00] VITALS: BP 184/111
== END 2021-12-02 09:15 | disposition left against medical advice (07) | DRG 247 ==
LOC: ER 14:25 → OVERFLOW 17:28 → WEST WING 12-01 16:33
PROVIDERS: ADMIT Internal Medicine; ATTEND Family Medicine
DX: K56.609 Unspecified intestinal obstruction, unspecified as to partial versus complete obstruction (principal); I11.0 Hypertensive heart disease with heart failure; I50.9 Heart failure, unspecified; D72.819 Decreased white blood cell count, unspecified; Z20.822 Contact with and (suspected) exposure to COVID-19; F17.210 Nicotine dependence, cigarettes, uncomplicated; K21.9 Gastro-esophageal reflux disease without esophagitis; Z53.29 Procedure and treatment not carried out because of patient's decision for other reasons; I16.0 Hypertensive urgency; E86.0 Dehydration; K86.1 Other chronic pancreatitis; Z79.899 Other long term (current) drug therapy; Z88.0 Allergy status to penicillin; Z88.8 Allergy status to other drugs, medicaments and biological substances; Z87.11 Personal history of peptic ulcer disease; Z91.19 Patient's noncompliance with other medical treatment and regimen
CPT/HCPCS: 36415; 71045; 74018; 74176; 74250; 80053; 80307; 81001; 81025; 83690; 85025; 87081; 96361; 96372; 96374; 96375; 96376; G0378; J2405

== ENCOUNTER 2022-01-20 11:36 | Inpatient (IN) | payer OTHER ==
[~2022-01-20] VITALS: Ht 160 cm; Wt 46.4 kg
[2022-01-20] MEDS ORDERED: SODIUM CHLORIDE 0.9% 1,000 ML IV ONE (12:15)
[2022-01-20] MEDS ORDERED: METOCLOPRAMIDE HCL 5MG/ml INJ 2ml VIAL IV ONE (12:15)
[2022-01-20] MEDS ORDERED: SODIUM CHLORIDE 0.9% 500 ML IVB ONE (12:15)
[2022-01-20] MEDS ORDERED: HYDROmorphone HCL 2 MG/ML VL/or syr IV ONE (12:15)
[2022-01-20 12:43] LABS: Basophils # (auto) 0 10 ^3/uL (0-0.2); Basophils % (auto) 0.7 % (0.0-2.0); Eosinophils # (auto) 0.1 10 ^3/uL (0-0.8); Eosinophils % (auto) 1.4 % (0.0-7.0); Hematocrit 40.4 % (36.0-46.0); Hemoglobin 13.1 g/dL (12.2-16.2); Lymphocytes # (auto) 1.7 10 ^3/uL (0.4-5.4); Lymphocytes % (auto) 28.7 % (10.0-50.0); Mean Corpuscular Hemoglobin 29.9 pg (28.0-32.0); Mean Corpuscular Hgb Conc. 32.4 g/dL (32.0-36.0); Mean Corpuscular Volume 92.2 fL (80.0-100.0); Monocytes # (auto) 0.3 10 ^3/uL (0-1.3); Monocytes % (auto) 5.3 % (0.0-12.0); Neutrophils # (auto) 3.8 10 ^3/uL (1.6-8.6); Neutrophils % (auto) 63.9 % (37.0-80.0); Nucleated Red Blood Cells % 0.2 %; Red Blood Cells 4.39 10^6/uL (4.0-5.20); Red Cell Distribution Width 13.1 % (11.8-14.3); White Blood Cell 5.9 10^3/uL (4.4-10.8)
[2022-01-20 13:03] LABS: Albumin 3.7 g/dL (3.4-5.0); Magnesium 2.4 mg/dL (1.6-2.6); Potassium 3.9 mmol/L (3.5-5.1)
[2022-01-20 13:06] LABS: BUN/Creatinine Ratio 16.5; Bilirubin, Total 0.3 mg/dL (0.2-1.0)
[2022-01-20 14:52] LABS: Urine Bacteria NONE SEEN /hpf (None Seen); Urine Blood Negative /uL (Negative); Urine Specific Gravity 1.041 (1.001-1.035); Urine WBC 2 /hpf (0 - 5)
[2022-01-20] MEDS ORDERED: NITROGLYCERIN 0.4 MG SL TAB SL PRN (18:30)
[2022-01-20] MEDS ORDERED: diphenhdrAMINE HCL 50 MG/1 ML VL IV ONE (18:30)
[2022-01-20] MEDS ORDERED: hydrALAZINE HCL 20 MG/ML VL IV ONE (18:45)
[2022-01-20] MEDS ORDERED: cloNIDine HCL 0.1 MG TAB PO ONE (18:45)
[2022-01-20] MEDS ORDERED: amLODIPine BESYLATE 5 MG TAB PO ONE (19:00)
[2022-01-20] MEDS ORDERED: diphenhdrAMINE HCL 50 MG/1 ML VL ONE (19:02)
[2022-01-20] MEDS: MORPHINE SULFATE INJ 2 MG/ml SYRG IV PRN ×2 (19:49→22:52)
[2022-01-20 20:29] LABS: Cholesterol 120 mg/dL (< 200); Triglycerides 277 mg/dL (< 150)
[2022-01-20 20:30] LABS: HDL Cholesterol 37 mg/dL (40-59); LDL Cholesterol 50 mg/dL (< 100)
[2022-01-20] MEDS: metroNIDAZOLE 500MG/100ML 100 ML IV SCH (21:41)
[2022-01-20] MEDS: PANTOPRAZOLE 40 MG/10 ML VIAL INJ IV SCH (21:41)
[2022-01-20] MEDS ORDERED: SUCRALFATE 1 GM/10 ML ORAL SUSP ONE (21:51)
[2022-01-20] MEDS: cloNIDine HCL 0.1 MG TAB PO SCH (21:51)
[2022-01-20] MEDS ORDERED: SUCRALFATE 1 GM TAB PO SCH (22:00)
[2022-01-20] MEDS: SUCRALFATE 1 GM TAB PO SCH (22:00)
[2022-01-21] MEDS ORDERED: KETOROLAC TROMETH 30 MG/ML 1ML VIAL IV ONE (01:30)
[2022-01-21] MEDS ORDERED: HYDROcodone-ACET 7.5/325MG TAB PO PRN (01:30)
[2022-01-21] MEDS: MORPHINE SULFATE INJ 2 MG/ml SYRG IV PRN ×4 (03:18→13:37)
[2022-01-21] MEDS ORDERED: diphenhdrAMINE HCL 50 MG/1 ML VL IV ONE ×2 (03:30→16:30)
[2022-01-21] MEDS: metroNIDAZOLE 500MG/100ML 100 ML IV SCH ×2 (06:06→14:37)
[2022-01-21] MEDS: cloNIDine HCL 0.1 MG TAB PO SCH ×3 (06:08→22:00)
[2022-01-21] MEDS: SUCRALFATE 1 GM TAB PO SCH ×4 (07:15→22:00)
[2022-01-21 07:39] LABS: Basophils # (auto) 0 10 ^3/uL (0-0.2); Basophils % (auto) 0.9 % (0.0-2.0); Eosinophils # (auto) 0.1 10 ^3/uL (0-0.8); Eosinophils % (auto) 3.1 % (0.0-7.0); Hematocrit 31.3 % (36.0-46.0); Hemoglobin 10.2 g/dL (12.2-16.2); Lymphocytes # (auto) 1.1 10 ^3/uL (0.4-5.4); Lymphocytes % (auto) 28.9 % (10.0-50.0); Mean Corpuscular Hemoglobin 30.9 pg (28.0-32.0); Mean Corpuscular Hgb Conc. 32.6 g/dL (32.0-36.0); Mean Corpuscular Volume 94.8 fL (80.0-100.0); Monocytes # (auto) 0.3 10 ^3/uL (0-1.3); Monocytes % (auto) 6.7 % (0.0-12.0); Neutrophils # (auto) 2.3 10 ^3/uL (1.6-8.6); Neutrophils % (auto) 60.4 % (37.0-80.0); Nucleated Red Blood Cells % 0.1 %; Red Cell Distribution Width 13.2 % (11.8-14.3); White Blood Cell 3.8 10^3/uL (4.4-10.8)
[2022-01-21 08:41] LABS: BUN/Creatinine Ratio 12.8; Potassium 3.8 mmol/L (3.5-5.1)
[2022-01-21] MEDS ORDERED: amLODIPine BESYLATE 5 MG TAB PO SCH (10:00)
[2022-01-21] MEDS: NICOTINE 7MG/24HR TOPICAL PATCH TD SCH (10:00)
[2022-01-21] MEDS: amLODIPine BESYLATE 5 MG TAB PO SCH (10:07)
[2022-01-21] MEDS: PANTOPRAZOLE 40 MG/10 ML VIAL INJ IV SCH ×2 (10:07→22:24)
[2022-01-21] MEDS ORDERED: diphenhdrAMINE HCL 25 MG CAP PO ONE (10:30)
[2022-01-21] MEDS: ONDANSETRON HCL 4 MG/2 ML VIAL IV PRN ×3 (12:29→23:33)
[2022-01-21 16:15] VITALS: BP 121/95
[2022-01-21 17:00] VITALS: BP 139/85
[2022-01-21] MEDS: HYDROmorphone HCL 2 MG/ML VL/or syr IV PRN ×3 (17:23→23:33)
[2022-01-21] MEDS: LACTATED RINGER'S 1,000 ML IV SCH (17:51)
[2022-01-21 19:39] LABS: Urine Bacteria NONE SEEN /hpf (None Seen); Urine Blood Negative /uL (Negative); Urine Specific Gravity 1.018 (1.001-1.035); Urine WBC 5 /hpf (0 - 5)
[2022-01-21 19:53] LABS: Alcohol, Urine < 3.0 mg/dL (0-10); Amphetamine Screen, Urine NEGATIVE (NEGATIVE); Barbiturate Scree,Urine NEGATIVE (NEGATIVE); Benzodiazephine Screen, Urine NEGATIVE (NEGATIVE); Cannabinoid Screen, Urine NEGATIVE (NEGATIVE); Cocaine Screen, Urine NEGATIVE (NEGATIVE); Opiate Scree,Urine POSITIVE (NEGATIVE); Phencyclidine Screen, Urine NEGATIVE (NEGATIVE)
[2022-01-21 23:28] VITALS: BP 131/80
[2022-01-22] MEDS: LACTATED RINGER'S 1,000 ML IV SCH ×3 (01:45→17:00)
[2022-01-22] MEDS: ONDANSETRON HCL 4 MG/2 ML VIAL IV PRN ×2 (03:05→06:59)
[2022-01-22] MEDS: HYDROmorphone HCL 2 MG/ML VL/or syr IV PRN ×7 (03:06→21:48)
[2022-01-22] MEDS ORDERED: diphenhdrAMINE HCL 25 MG CAP PO ONE ×2 (03:15→10:15)
[2022-01-22 05:00] VITALS: BP 139/88
[2022-01-22] MEDS: cloNIDine HCL 0.1 MG TAB PO SCH ×3 (06:05→21:47)
[2022-01-22] MEDS: SUCRALFATE 1 GM TAB PO SCH ×4 (06:31→21:47)
[2022-01-22 08:00] VITALS: BP 160/96
[2022-01-22 08:22] LABS: Albumin 3.2 g/dL (3.4-5.0); BUN/Creatinine Ratio 6.6; Bilirubin, Total 0.3 mg/dL (0.2-1.0); Calcium 8.5 mg/dL (8.5-10.1); Potassium 4.4 mmol/L (3.5-5.1); Total Protein 6.7 g/dL (6.4-8.2)
[2022-01-22] MEDS: NICOTINE 7MG/24HR TOPICAL PATCH TD SCH (09:06)
[2022-01-22 09:18] LABS: Basophils # (auto) 0 10 ^3/uL (0-0.2); Basophils % (auto) 0.5 % (0.0-2.0); Eosinophils # (auto) 0.2 10 ^3/uL (0-0.8); Eosinophils % (auto) 5.4 % (0.0-7.0); Hematocrit 34.3 % (36.0-46.0); Hemoglobin 10.9 g/dL (12.2-16.2); Lymphocytes # (auto) 1.5 10 ^3/uL (0.4-5.4); Lymphocytes % (auto) 35.6 % (10.0-50.0); Mean Corpuscular Hemoglobin 31.3 pg (28.0-32.0); Mean Corpuscular Hgb Conc. 31.9 g/dL (32.0-36.0); Mean Corpuscular Volume 98.4 fL (80.0-100.0); Monocytes # (auto) 0.3 10 ^3/uL (0-1.3); Monocytes % (auto) 8.5 % (0.0-12.0); Nucleated Red Blood Cells % 0.2 %; Red Blood Cells 3.48 10^6/uL (4.0-5.20); Red Cell Distribution Width 13.4 % (11.8-14.3); White Blood Cell 4.1 10^3/uL (4.4-10.8)
[2022-01-22] MEDS: PANTOPRAZOLE 40 MG/10 ML VIAL INJ IV SCH (09:23)
[2022-01-22] MEDS: amLODIPine BESYLATE 5 MG TAB PO SCH (09:25)
[2022-01-22] MEDS ORDERED: CLON0.1T PO (10:40)
[2022-01-22] MEDS ORDERED: CLON0.2T TD (10:40)
[2022-01-22 12:00] VITALS: BP 139/83
[2022-01-22 16:45] VITALS: BP 182/110
[2022-01-22] MEDS: cloNIDine HCL 0.1 MG TAB PO PRN (17:13)
[2022-01-22 22:00] VITALS: BP 149/90
[2022-01-23] MEDS: HYDROmorphone HCL 2 MG/ML VL/or syr IV PRN ×7 (00:55→23:22)
[2022-01-23] MEDS: LACTATED RINGER'S 1,000 ML IV SCH ×2 (01:00→03:00)
[2022-01-23 05:00] VITALS: BP 168/97
[2022-01-23] MEDS: cloNIDine HCL 0.1 MG TAB PO SCH ×3 (05:47→22:01)
[2022-01-23 07:25] LABS: Hematocrit 36.2 % (36.0-46.0); Hemoglobin 11.8 g/dL (12.2-16.2); Mean Corpuscular Hemoglobin 30.1 pg (28.0-32.0); Mean Corpuscular Hgb Conc. 32.5 g/dL (32.0-36.0); Mean Corpuscular Volume 92.9 fL (80.0-100.0); Red Cell Distribution Width 12.9 % (11.8-14.3)
[2022-01-23 07:34] LABS: White Blood Cell 1.7 10^3/uL (4.4-10.8)
[2022-01-23 07:35] LABS: Basophils % (manual) 0 (0.0-2.0); Blast Cells 0; Metamyelocytes % 0; Monocytes % (manual) 0 (0-12); Myelocytes % 0; Promyelocytes % 0; Reactive Lymphocytes 0
[2022-01-23] MEDS: SUCRALFATE 1 GM TAB PO SCH ×4 (08:28→22:00)
[2022-01-23] MEDS: cloNIDine HCL 0.1 MG TAB PO PRN (08:33)
[2022-01-23 08:51] LABS: Band Neutrophils % (manual) 1; Eosinophils % (manual) 13 (0-7); Lymphocytes % (manual) 66 (10.0-50.0)
[2022-01-23 09:00] VITALS: BP 152/103
[2022-01-23] MEDS ORDERED: LOSARTAN POTASSIUM 50 MG TAB PO ONE (09:45)
[2022-01-23 09:46] LABS: Potassium 4.9 mmol/L (3.5-5.1)
[2022-01-23 09:47] LABS: Albumin 2.8 g/dL (3.4-5.0); BUN/Creatinine Ratio 10.7; Bilirubin, Total 0.3 mg/dL (0.2-1.0); Calcium 8.2 mg/dL (8.5-10.1); Total Protein 6.1 g/dL (6.4-8.2)
[2022-01-23] MEDS: NICOTINE 7MG/24HR TOPICAL PATCH TD SCH (10:00)
[2022-01-23 10:36] LABS: INR 1.1 (0.9-1.15)
[2022-01-23] MEDS: LOSARTAN POTASSIUM 50 MG TAB PO SCH ×2 (10:39→22:00)
[2022-01-23 13:00] VITALS: BP 150/90
[2022-01-23] MEDS ORDERED: DOCUSATE SOD 100 MG CAP PO PRN (16:45)
[2022-01-23 17:00] VITALS: BP 155/88
[2022-01-23] MEDS ORDERED: HYDROcodone-ACET 7.5/325MG TAB PO PRN (17:15)
[2022-01-23] MEDS: ACETAMINOPHEN 325 MG TAB PO PRN (17:49)
[2022-01-23 22:00] VITALS: BP 112/68
[2022-01-24] MEDS: HYDROmorphone HCL 2 MG/ML VL/or syr IV PRN ×2 (02:53→06:27)
[2022-01-24 04:58] VITALS: BP 100/62
[2022-01-24] MEDS: SUCRALFATE 1 GM TAB PO SCH ×4 (06:27→21:42)
[2022-01-24] MEDS: cloNIDine HCL 0.1 MG TAB PO SCH ×3 (06:27→22:00)
[2022-01-24 08:30] VITALS: BP 139/81
[2022-01-24 08:49] LABS: Hematocrit 34.4 % (36.0-46.0); Hemoglobin 11.2 g/dL (12.2-16.2); Mean Corpuscular Hgb Conc. 32.5 g/dL (32.0-36.0); Mean Corpuscular Volume 92.4 fL (80.0-100.0); Red Blood Cells 3.72 10^6/uL (4.0-5.20); White Blood Cell 3.8 10^3/uL (4.4-10.8)
[2022-01-24 08:51] LABS: Basophils % (manual) 0 (0.0-2.0); Blast Cells 0; Eosinophils % (manual) 0 (0-7); Metamyelocytes % 0; Myelocytes % 0; Promyelocytes % 0; Reactive Lymphocytes 0
[2022-01-24 09:07] LABS: Albumin 2.8 g/dL (3.4-5.0); Calcium 8.2 mg/dL (8.5-10.1); Potassium 4.1 mmol/L (3.5-5.1)
[2022-01-24 09:10] LABS: BUN/Creatinine Ratio 14.9; Bilirubin, Total 0.3 mg/dL (0.2-1.0); Total Protein 6.1 g/dL (6.4-8.2)
[2022-01-24] MEDS: NICOTINE 7MG/24HR TOPICAL PATCH TD SCH (09:28)
[2022-01-24] MEDS: ONDANSETRON HCL 4 MG/2 ML VIAL IV PRN (09:28)
[2022-01-24] MEDS ORDERED: cefTRIAXone 1GM/50ML D5W 50 ML IV ONE (10:00)
[2022-01-24] MEDS ORDERED: LOSARTAN POTASSIUM 50 MG TAB PO SCH (10:00)
[2022-01-24] MEDS: HYDROcodone-ACET 7.5/325MG TAB PO PRN ×2 (11:09→15:17)
[2022-01-24 12:30] VITALS: BP 150/88
[2022-01-24] MEDS: MORPHINE SULFATE INJ 2 MG/ml SYRG IV PRN ×2 (12:45→22:06)
[2022-01-24 13:20] LABS: Band Neutrophils % (manual) 3; Lymphocytes % (manual) 7 (10.0-50.0); Monocytes % (manual) 6 (0-12)
[2022-01-24] MEDS: ACETAMINOPHEN 325 MG TAB PO PRN (17:00)
[2022-01-24] MEDS: Ensure Enlive Strawberry 8oz Bottle PO SCH (17:07)
[2022-01-24] MEDS ORDERED: LORazepam 2MG/ML-1ML VIAL IV ONE (17:15)
[2022-01-24] MEDS ORDERED: VANCOMYCIN PER PHARMACY 0 MG IV SCH (17:45)
[2022-01-24 18:03] VITALS: BP 170/99
[2022-01-24] MEDS: cloNIDine HCL 0.1 MG TAB PO PRN (18:21)
[2022-01-24 20:00] VITALS: BP 100/66
[2022-01-24] MEDS: VANCOMYCIN 750mg/250ml 250 ML IV SCH ×3 (21:42→23:18)
[2022-01-24] MEDS: CEFEPIME 2 GM in SODIUM CHL 0.9% 50 ML IV SCH (23:18)
[2022-01-25] VITALS (7 sets, daily range): BP systolic 96–124; BP diastolic 61–78
[2022-01-25] MEDS: cloNIDine HCL 0.1 MG TAB PO PRN (00:23)
[2022-01-25] MEDS ORDERED: LORazepam 2MG/ML-1ML VIAL IV ONE (01:00)
[2022-01-25] MEDS: diphenhdrAMINE HCL 25 MG CAP PO PRN ×3 (01:15→22:08)
[2022-01-25] MEDS: MORPHINE SULFATE INJ 2 MG/ml SYRG IV PRN ×5 (03:15→22:40)
[2022-01-25] MEDS: cloNIDine HCL 0.1 MG TAB PO SCH ×4 (06:00→22:00)
[2022-01-25] MEDS: CEFEPIME 2 GM in SODIUM CHL 0.9% 50 ML IV SCH (06:06)
[2022-01-25] MEDS: SUCRALFATE 1 GM TAB PO SCH ×4 (06:06→22:06)
[2022-01-25] MEDS ORDERED: cefTRIAXone 1GM/50ML D5W 50 ML IV SCH (09:00)
[2022-01-25] MEDS: Ensure Enlive Strawberry 8oz Bottle PO SCH ×2 (09:38→17:56)
[2022-01-25] MEDS: NICOTINE 7MG/24HR TOPICAL PATCH TD SCH (09:39)
[2022-01-25 10:23] LABS: Hematocrit 32.5 % (36.0-46.0); Hemoglobin 10.6 g/dL (12.2-16.2); Mean Corpuscular Hemoglobin 30.3 pg (28.0-32.0); Mean Corpuscular Hgb Conc. 32.5 g/dL (32.0-36.0); Mean Corpuscular Volume 93.3 fL (80.0-100.0); Red Blood Cells 3.48 10^6/uL (4.0-5.20); Red Cell Distribution Width 13.1 % (11.8-14.3); White Blood Cell 8.1 10^3/uL (4.4-10.8)
[2022-01-25 10:44] LABS: Albumin 2.4 g/dL (3.4-5.0); Calcium 7.8 mg/dL (8.5-10.1); Potassium 4.3 mmol/L (3.5-5.1)
[2022-01-25 10:50] LABS: Bilirubin, Total 0.4 mg/dL (0.2-1.0); Total Protein 5.9 g/dL (6.4-8.2)
[2022-01-25 10:55] LABS: Basophils % (manual) 0 (0.0-2.0); Blast Cells 0; Eosinophils % (manual) 0 (0-7); Metamyelocytes % 0; Promyelocytes % 0; Reactive Lymphocytes 0
[2022-01-25] MEDS: LORazepam 0.5 MG TAB PO PRN ×2 (11:45→22:41)
[2022-01-25 14:39] LABS: Band Neutrophils % (manual) 6; Lymphocytes % (manual) 9 (10.0-50.0); Monocytes % (manual) 2 (0-12); Myelocytes % 1
[2022-01-26] MEDS: HYDROcodone-ACET 7.5/325MG TAB PO PRN (01:03)
[2022-01-26] MEDS: MORPHINE SULFATE INJ 2 MG/ml SYRG IV PRN ×2 (03:40→09:50)
[2022-01-26 05:00] VITALS: BP 109/65
[2022-01-26] MEDS: cloNIDine HCL 0.1 MG TAB PO SCH (06:00)
[2022-01-26] MEDS: SUCRALFATE 1 GM TAB PO SCH (06:37)
[2022-01-26 06:48] LABS: Hematocrit 33.9 % (36.0-46.0); Hemoglobin 11.3 g/dL (12.2-16.2); Mean Corpuscular Hemoglobin 30.4 pg (28.0-32.0); Mean Corpuscular Hgb Conc. 33.2 g/dL (32.0-36.0); Mean Corpuscular Volume 91.7 fL (80.0-100.0); White Blood Cell 5.6 10^3/uL (4.4-10.8)
[2022-01-26 06:54] LABS: Basophils % (manual) 0 (0.0-2.0); Blast Cells 0; Metamyelocytes % 0; Myelocytes % 0; Promyelocytes % 0; Reactive Lymphocytes 0
[2022-01-26 07:02] LABS: Albumin 2.7 g/dL (3.4-5.0); BUN/Creatinine Ratio 20.3; Bilirubin, Total 0.4 mg/dL (0.2-1.0); Calcium 8.5 mg/dL (8.5-10.1); Potassium 4.8 mmol/L (3.5-5.1); Total Protein 6.2 g/dL (6.4-8.2)
[2022-01-26] MEDS: Ensure Enlive Strawberry 8oz Bottle PO SCH (07:57)
[2022-01-26 08:00] VITALS: BP 142/89
[2022-01-26 08:06] LABS: Band Neutrophils % (manual) 1; Eosinophils % (manual) 8 (0-7); Lymphocytes % (manual) 27 (10.0-50.0); Monocytes % (manual) 7 (0-12)
[2022-01-26] MEDS ORDERED: cefTRIAXone 1GM/50ML D5W 50 ML IV SCH (09:00)
[2022-01-26 09:50] VITALS: BP 142/89
[2022-01-26] MEDS: NICOTINE 7MG/24HR TOPICAL PATCH TD SCH (09:50)
== END 2022-01-26 10:02 | disposition left against medical advice (07) | DRG 253 ==
LOC: ER 11:36 → TELE 18:59 → TELE-WESTW 01-21 21:46
PROVIDERS: ADMIT Registered Nurse; ATTEND Student in an Organized Health Care Education/Training Program
PROC: 05HA33Z Insertion of Infusion Device into Left Brachial Vein, Percutaneous Approach (ICD-10-PCS; principal; 2022-01-21)
PROC: B54NZZA Ultrasonography of Left Upper Extremity Veins, Guidance (ICD-10-PCS; 2022-01-21)
DX: K92.2 Gastrointestinal hemorrhage, unspecified (principal); I11.0 Hypertensive heart disease with heart failure; I50.9 Heart failure, unspecified; I95.9 Hypotension, unspecified; F17.210 Nicotine dependence, cigarettes, uncomplicated; K86.1 Other chronic pancreatitis; I16.0 Hypertensive urgency; F41.9 Anxiety disorder, unspecified; Z20.822 Contact with and (suspected) exposure to COVID-19; K21.9 Gastro-esophageal reflux disease without esophagitis; Z88.8 Allergy status to other drugs, medicaments and biological substances; Z53.29 Procedure and treatment not carried out because of patient's decision for other reasons; G89.4 Chronic pain syndrome; K64.8 Other hemorrhoids; Z87.11 Personal history of peptic ulcer disease; K64.4 Residual hemorrhoidal skin tags; Z82.49 Family history of ischemic heart disease and other diseases of the circulatory system; Z90.49 Acquired absence of other specified parts of digestive tract; Z88.0 Allergy status to penicillin
CPT/HCPCS: 36415; 71046; 74176; 78278; 80048; 80053; 80061; 80307; 80320; 81001; 82270; 82962; 83036; 83690; 83735; 83880; 84443; 85007; 85025; 85027; 85610; 86141; 86606; 86612; 86635; 86698; 87040; 87045; 87077; 87086; 87186; 87426; 87427; 87493; 87804; 93005; 96361; 96374; 96375; A9560; C9113; G0378; J0696; J2405; J3490

== ENCOUNTER 2022-02-21 13:07 | Emergency (ER) | payer OTHER ==
[~2022-02-21] VITALS: Ht 160 cm; Wt 40.4 kg
[~2022-02-21 13:07] MED LIST changes: -AML5T PO; +CLON0.1T PO; +CLON0.2T TD
[2022-02-21 13:16] VITALS: BP 171/125
[2022-02-21 13:49] LABS: Basophils # (auto) 0 10 ^3/uL (0-0.2); Basophils % (auto) 0.6 % (0.0-2.0); Eosinophils # (auto) 0.1 10 ^3/uL (0-0.8); Eosinophils % (auto) 1.4 % (0.0-7.0); Hematocrit 44.3 % (36.0-46.0); Hemoglobin 14.7 g/dL (12.2-16.2); Lymphocytes # (auto) 0.9 10 ^3/uL (0.4-5.4); Lymphocytes % (auto) 23.6 % (10.0-50.0); Mean Corpuscular Hemoglobin 30.2 pg (28.0-32.0); Mean Corpuscular Hgb Conc. 33.2 g/dL (32.0-36.0); Mean Corpuscular Volume 90.9 fL (80.0-100.0); Monocytes # (auto) 0.3 10 ^3/uL (0-1.3); Monocytes % (auto) 7.1 % (0.0-12.0); Neutrophils # (auto) 2.4 10 ^3/uL (1.6-8.6); Neutrophils % (auto) 67.3 % (37.0-80.0); Nucleated Red Blood Cells % 0.2 %; Red Blood Cells 4.87 10^6/uL (4.0-5.20); Red Cell Distribution Width 13.7 % (11.8-14.3); White Blood Cell 3.6 10^3/uL (4.4-10.8)
[2022-02-21 14:05] LABS: Albumin 3.2 g/dL (3.4-5.0); Calcium 8.7 mg/dL (8.5-10.1)
[2022-02-21 14:08] LABS: BUN/Creatinine Ratio 6.9; Bilirubin, Total 0.4 mg/dL (0.2-1.0); Total Protein 7.5 g/dL (6.4-8.2)
[2022-02-21] MEDS ORDERED: HYDROcodone-ACET 10/325MG TAB PO ONE (14:45)
[2022-02-21] MEDS ORDERED: ONDA-144 PO (16:21)
[2022-02-21] MEDS ORDERED: TRAM-297 PO (16:21)
== END 2022-02-21 16:43 | disposition home or self-care (01) ==
LOC: ER 13:07
DX: K86.1 Other chronic pancreatitis (principal); R10.30 Lower abdominal pain, unspecified; I11.0 Hypertensive heart disease with heart failure; I50.9 Heart failure, unspecified; K21.9 Gastro-esophageal reflux disease without esophagitis; F17.210 Nicotine dependence, cigarettes, uncomplicated; Z90.49 Acquired absence of other specified parts of digestive tract; Z88.0 Allergy status to penicillin; Z88.8 Allergy status to other drugs, medicaments and biological substances; Z79.899 Other long term (current) drug therapy; Z98.890 Other specified postprocedural states
CPT/HCPCS: 36415; 74176; 80053; 82150; 83690; 83735; 85025; 93005

== ENCOUNTER 2022-03-10 21:04 | Emergency (ER) | payer OTHER ==
[~2022-03-10] VITALS: Ht 160 cm; Wt 50.4 kg
[~2022-03-10 21:04] MED LIST changes: +TRAM-297 PO
[2022-03-10 23:06] LABS: Basophils # (auto) 0 10 ^3/uL (0-0.2); Basophils % (auto) 0.3 % (0.0-2.0); Eosinophils # (auto) 0 10 ^3/uL (0-0.8); Eosinophils % (auto) 0.5 % (0.0-7.0); Hematocrit 46.6 % (36.0-46.0); Hemoglobin 15.4 g/dL (12.2-16.2); Lymphocytes # (auto) 1.4 10 ^3/uL (0.4-5.4); Lymphocytes % (auto) 16.2 % (10.0-50.0); Mean Corpuscular Hemoglobin 29.9 pg (28.0-32.0); Mean Corpuscular Hgb Conc. 33.1 g/dL (32.0-36.0); Mean Corpuscular Volume 90.6 fL (80.0-100.0); Monocytes # (auto) 0.4 10 ^3/uL (0-1.3); Monocytes % (auto) 4.6 % (0.0-12.0); Neutrophils % (auto) 78.4 % (37.0-80.0); Nucleated Red Blood Cells % 0.2 %; Red Blood Cells 5.15 10^6/uL (4.0-5.20); Red Cell Distribution Width 13.9 % (11.8-14.3); White Blood Cell 8.9 10^3/uL (4.4-10.8)
[2022-03-10 23:21] LABS: Albumin 3.9 g/dL (3.4-5.0); BUN/Creatinine Ratio 7.6; Calcium 9.5 mg/dL (8.5-10.1); Potassium 3.6 mmol/L (3.5-5.1)
[2022-03-10 23:24] LABS: Bilirubin, Total 0.4 mg/dL (0.2-1.0); Total Protein 8.9 g/dL (6.4-8.2)
[2022-03-11] MEDS ORDERED: PROCHLORPERAZINE MALEATE 10 MG TAB PO ONE (01:15)
[2022-03-11] MEDS ORDERED: SODIUM CHLORIDE 0.9% 1,000 ML IV ONE (01:45)
[2022-03-11] MEDS ORDERED: diphenhdrAMINE HCL 50 MG/1 ML VL IV ONE (04:45)
[2022-03-11] MEDS ORDERED: KETOROLAC TROMETH 30 MG/ML 1ML VIAL IV ONE (06:00)
[2022-03-11 06:09] VITALS: BP 160/79
== END 2022-03-11 06:23 | disposition home or self-care (01) ==
LOC: EDBD 21:04 → ER 21:08
DX: K64.4 Residual hemorrhoidal skin tags (principal); K64.8 Other hemorrhoids; I11.0 Hypertensive heart disease with heart failure; I50.9 Heart failure, unspecified; K21.9 Gastro-esophageal reflux disease without esophagitis; F17.210 Nicotine dependence, cigarettes, uncomplicated; Z90.49 Acquired absence of other specified parts of digestive tract; Z88.0 Allergy status to penicillin; Z88.6 Allergy status to analgesic agent
CPT/HCPCS: 36415; 74176; 80053; 83690; 84702; 85025; 96361; 96374; 96375; 99284; J1200; J1885; J7030; Q0164

== ENCOUNTER 2022-03-23 07:43 | Inpatient (IN) | payer OTHER ==
[~2022-03-23] VITALS: Ht 160 cm; Wt 42.2 kg
[2022-03-23] MEDS ORDERED: cloNIDine HCL 0.1 MG TAB PO ONE (08:15)
[2022-03-23] MEDS ORDERED: ASPirin 81 mg TAB PO ONE (08:15)
[2022-03-23] MEDS ORDERED: HYDROmorphone HCL 2 MG/ML VL/or syr IV ONE ×3 (08:30→19:45)
[2022-03-23] MEDS ORDERED: METOCLOPRAMIDE HCL 5MG/ml INJ 2ml VIAL IV ONE (08:30)
[2022-03-23] MEDS ORDERED: SODIUM CHLORIDE 0.9% 1,000 ML IV ONE (08:30)
[2022-03-23 09:13] LABS: Albumin 3.5 g/dL (3.4-5.0); Calcium 8.9 mg/dL (8.5-10.1); Magnesium 2.4 mg/dL (1.6-2.6); Potassium 3.7 mmol/L (3.5-5.1)
[2022-03-23 09:14] LABS: Basophils # (auto) 0 10 ^3/uL (0-0.2); Basophils % (auto) 0.3 % (0.0-2.0); Eosinophils # (auto) 0.1 10 ^3/uL (0-0.8); Eosinophils % (auto) 0.9 % (0.0-7.0); Hematocrit 43.9 % (36.0-46.0); Hemoglobin 14.4 g/dL (12.2-16.2); Lymphocytes # (auto) 1.2 10 ^3/uL (0.4-5.4); Lymphocytes % (auto) 17.7 % (10.0-50.0); Mean Corpuscular Hemoglobin 30.2 pg (28.0-32.0); Mean Corpuscular Hgb Conc. 32.9 g/dL (32.0-36.0); Mean Corpuscular Volume 91.6 fL (80.0-100.0); Monocytes # (auto) 0.2 10 ^3/uL (0-1.3); Monocytes % (auto) 3.2 % (0.0-12.0); Neutrophils # (auto) 5.5 10 ^3/uL (1.6-8.6); Neutrophils % (auto) 77.9 % (37.0-80.0); Nucleated Red Blood Cells % 0.1 %; Red Blood Cells 4.79 10^6/uL (4.0-5.20); Red Cell Distribution Width 14.6 % (11.8-14.3)
[2022-03-23 09:16] LABS: BUN/Creatinine Ratio 9.1; Bilirubin, Total 0.2 mg/dL (0.2-1.0); Total Protein 7.2 g/dL (6.4-8.2)
[2022-03-23 09:20] LABS: INR 0.99 (0.9-1.15); Partial Thromboplastin Time 28.8 sec (24.6-33.4)
[2022-03-23] MEDS ORDERED: diphenhdrAMINE HCL 50 MG/1 ML VL IV ONE ×2 (10:00→16:30)
[2022-03-23 15:36] LABS: Urine Bacteria NONE SEEN /hpf (None Seen); Urine Blood Negative /uL (Negative); Urine Mucus FEW (None Seen); Urine Specific Gravity 1.026 (1.001-1.035); Urine WBC 2 /hpf (0 - 5)
[2022-03-23 16:27] LABS: Alcohol, Urine < 3.0 mg/dL (0-10); Amphetamine Screen, Urine NEGATIVE (NEGATIVE); Barbiturate Scree,Urine NEGATIVE (NEGATIVE); Benzodiazephine Screen, Urine NEGATIVE (NEGATIVE); Cannabinoid Screen, Urine NEGATIVE (NEGATIVE); Cocaine Screen, Urine NEGATIVE (NEGATIVE); Opiate Scree,Urine POSITIVE (NEGATIVE); Phencyclidine Screen, Urine NEGATIVE (NEGATIVE)
[2022-03-23] MEDS ORDERED: ONDANSETRON HCL 4 MG/2 ML VIAL IV PRN (19:45)
[2022-03-23] MEDS ORDERED: ACETAMINOPHEN 325 MG TAB PO PRN (19:45)
[2022-03-23] MEDS ORDERED: DOCUSATE SOD 100 MG CAP PO PRN (19:45)
[2022-03-23 20:12] LABS: Cholesterol 127 mg/dL (< 200)
[2022-03-23 20:15] LABS: HDL Cholesterol 66 mg/dL (40-59); LDL Cholesterol 52 mg/dL (< 100); Triglycerides 140 mg/dL (< 150)
[2022-03-23] MEDS: cefTRIAXone 1GM/50ML D5W 50 ML IV SCH (20:45)
[2022-03-23] MEDS: SODIUM CHLOR 0.9% PF (SALINE LOCK) 10ML VIAL/SYR IV SCH (22:05)
[2022-03-23] MEDS: PANTOPRAZOLE 40 MG/10 ML VIAL INJ IV SCH (22:05)
[2022-03-23] MEDS: diphenhdrAMINE HCL 50 MG/1 ML VL IV PRN (22:34)
[2022-03-24] VITALS (7 sets, daily range): BP systolic 132–198; BP diastolic 90–121
[2022-03-24] MEDS: HYDROmorphone HCL 2 MG/ML VL/or syr IV PRN ×6 (00:01→21:29)
[2022-03-24] MEDS ORDERED: cloNIDine HCL 0.1 MG TAB PO PRN (01:15)
[2022-03-24] MEDS: HYDROcodone-ACET 5/325MG TAB PO PRN ×2 (03:14→18:16)
[2022-03-24] MEDS: diphenhdrAMINE HCL 50 MG/1 ML VL IV PRN ×4 (04:59→21:28)
[2022-03-24] MEDS: SODIUM CHLOR 0.9% PF (SALINE LOCK) 10ML VIAL/SYR IV SCH ×3 (05:32→21:27)
[2022-03-24] MEDS: PANTOPRAZOLE 40 MG/10 ML VIAL INJ IV SCH ×2 (08:19→21:26)
[2022-03-24] MEDS ORDERED: hydrALAZINE HCL 20 MG/ML VL IV PRN (11:15)
[2022-03-24] MEDS: SODIUM CHLORIDE 0.9% 1,000 ML IV SCH ×2 (12:13→21:27)
[2022-03-24] MEDS ORDERED: LISINOPRIL 20 MG TAB PO ONE (20:15)
[2022-03-24] MEDS ORDERED: amLODIPine BESYLATE 5 MG TAB PO ONE (20:30)
[2022-03-24] MEDS: cefTRIAXone 1GM/50ML D5W 50 ML IV SCH (21:26)
[2022-03-24] MEDS: hydrALAZINE HCL 20 MG/ML VL IV PRN (21:27)
[2022-03-24] MEDS ORDERED: cloNIDine HCL 0.1 MG TAB PO SCH (22:00)
[2022-03-25] MEDS: HYDROcodone-ACET 5/325MG TAB PO PRN ×6 (00:38→23:42)
[2022-03-25] MEDS: HYDROmorphone HCL 2 MG/ML VL/or syr IV PRN ×6 (01:06→19:50)
[2022-03-25] MEDS: diphenhdrAMINE HCL 50 MG/1 ML VL IV PRN ×4 (04:38→22:59)
[2022-03-25 05:00] VITALS: BP 152/93
[2022-03-25] MEDS: SODIUM CHLOR 0.9% PF (SALINE LOCK) 10ML VIAL/SYR IV SCH ×3 (06:22→22:04)
[2022-03-25 06:24] LABS: Basophils # (auto) 0 10 ^3/uL (0-0.2); Basophils % (auto) 0.4 % (0.0-2.0); Eosinophils # (auto) 0.1 10 ^3/uL (0-0.8); Eosinophils % (auto) 3.3 % (0.0-7.0); Hematocrit 36.1 % (36.0-46.0); Hemoglobin 11.7 g/dL (12.2-16.2); Lymphocytes % (auto) 26.5 % (10.0-50.0); Mean Corpuscular Hgb Conc. 32.5 g/dL (32.0-36.0); Mean Corpuscular Volume 92.3 fL (80.0-100.0); Monocytes # (auto) 0.3 10 ^3/uL (0-1.3); Neutrophils # (auto) 2.3 10 ^3/uL (1.6-8.6); Neutrophils % (auto) 62.8 % (37.0-80.0); Nucleated Red Blood Cells % 0.2 %; Red Blood Cells 3.91 10^6/uL (4.0-5.20); Red Cell Distribution Width 14.7 % (11.8-14.3); White Blood Cell 3.7 10^3/uL (4.4-10.8)
[2022-03-25 06:25] LABS: Albumin 2.5 g/dL (3.4-5.0); Calcium 8.1 mg/dL (8.5-10.1); Potassium 4.1 mmol/L (3.5-5.1)
[2022-03-25 06:28] LABS: BUN/Creatinine Ratio 8.2
[2022-03-25 06:31] LABS: Bilirubin, Total 0.3 mg/dL (0.2-1.0); Total Protein 5.5 g/dL (6.4-8.2)
[2022-03-25 09:41] VITALS: BP 164/96
[2022-03-25] MEDS ORDERED: LISINOPRIL 20 MG TAB PO SCH (10:00)
[2022-03-25] MEDS ORDERED: amLODIPine BESYLATE 5 MG TAB PO SCH (10:00)
[2022-03-25] MEDS: PANTOPRAZOLE 40 MG/10 ML VIAL INJ IV SCH ×2 (10:38→22:00)
[2022-03-25 12:39] VITALS: BP 167/94
[2022-03-25] MEDS: hydrALAZINE HCL 20 MG/ML VL IV PRN (15:22)
[2022-03-25 16:40] VITALS: BP 157/114
[2022-03-25 22:00] VITALS: BP 173/94
[2022-03-25] MEDS: cefTRIAXone 1GM/50ML D5W 50 ML IV SCH (22:00)
[2022-03-25] MEDS: cloNIDine HCL 0.1 MG TAB PO SCH (22:03)
[2022-03-25] MEDS ORDERED: LORazepam 2MG/ML-1ML VIAL IV ONE (23:00)
[2022-03-26] MEDS: HYDROmorphone HCL 2 MG/ML VL/or syr IV PRN ×5 (02:45→21:54)
[2022-03-26] MEDS: SODIUM CHLORIDE 0.9% 1,000 ML IV SCH ×2 (03:15→21:59)
[2022-03-26 05:00] VITALS: BP 143/92
[2022-03-26] MEDS: SODIUM CHLOR 0.9% PF (SALINE LOCK) 10ML VIAL/SYR IV SCH ×3 (06:22→21:58)
[2022-03-26 06:23] LABS: Basophils # (auto) 0 10 ^3/uL (0-0.2); Basophils % (auto) 0.7 % (0.0-2.0); Eosinophils # (auto) 0.2 10 ^3/uL (0-0.8); Eosinophils % (auto) 5.7 % (0.0-7.0); Hematocrit 34.7 % (36.0-46.0); Hemoglobin 11.3 g/dL (12.2-16.2); Lymphocytes # (auto) 1.2 10 ^3/uL (0.4-5.4); Mean Corpuscular Hemoglobin 30.1 pg (28.0-32.0); Mean Corpuscular Hgb Conc. 32.6 g/dL (32.0-36.0); Mean Corpuscular Volume 92.3 fL (80.0-100.0); Monocytes # (auto) 0.4 10 ^3/uL (0-1.3); Monocytes % (auto) 12.4 % (0.0-12.0); Neutrophils # (auto) 1.2 10 ^3/uL (1.6-8.6); Neutrophils % (auto) 41.2 % (37.0-80.0); Nucleated Red Blood Cells % 0.5 %; Red Blood Cells 3.76 10^6/uL (4.0-5.20); Red Cell Distribution Width 14.7 % (11.8-14.3); White Blood Cell 2.9 10^3/uL (4.4-10.8)
[2022-03-26 06:46] LABS: Potassium 4.4 mmol/L (3.5-5.1)
[2022-03-26 06:55] LABS: Albumin 2.5 g/dL (3.4-5.0); BUN/Creatinine Ratio 9.1; Bilirubin, Total 0.4 mg/dL (0.2-1.0); Calcium 8.3 mg/dL (8.5-10.1); Total Protein 5.2 g/dL (6.4-8.2)
[2022-03-26] MEDS: diphenhdrAMINE HCL 50 MG/1 ML VL IV PRN ×3 (07:27→19:58)
[2022-03-26] MEDS: PANTOPRAZOLE 40 MG/10 ML VIAL INJ IV SCH ×2 (09:07→21:44)
[2022-03-26] MEDS: cloNIDine HCL 0.1 MG TAB PO SCH ×2 (09:07→21:44)
[2022-03-26 09:32] VITALS: BP 149/95
[2022-03-26] MEDS ORDERED: LIDOCAINE VISCOUS 2% 15ML UD ONE (11:30)
[2022-03-26] MEDS ORDERED: fentaNYL CITRATE 100 MCG/2 ML VL ONE (11:42)
[2022-03-26] MEDS ORDERED: MIDAZOLAM HCL 2MG/2ML 2ml VIAL (1mg/ml) ONE (11:42)
[2022-03-26] MEDS ORDERED: PROPOFOL 10 MG/ML 20 ML IV ONE (11:51)
[2022-03-26] MEDS ORDERED: DexAMETHasone SOD PHOS 10MG/1ML VIAL INJ ONE (11:51)
[2022-03-26] MEDS: hydrALAZINE HCL 20 MG/ML VL IV PRN (16:06)
[2022-03-26 16:39] VITALS: BP 184/105
[2022-03-26] MEDS: HYDROcodone-ACET 5/325MG TAB PO PRN (19:58)
[2022-03-26] MEDS: cefTRIAXone 1GM/50ML D5W 50 ML IV SCH (21:59)
[2022-03-26 22:00] VITALS: BP 138/79
[2022-03-27] MEDS: HYDROmorphone HCL 2 MG/ML VL/or syr IV PRN ×5 (02:52→21:00)
[2022-03-27] MEDS: diphenhdrAMINE HCL 50 MG/1 ML VL IV PRN ×4 (02:53→22:24)
[2022-03-27] MEDS: HYDROcodone-ACET 5/325MG TAB PO PRN ×4 (04:07→23:57)
[2022-03-27 05:00] VITALS: BP 195/100
[2022-03-27] MEDS: SODIUM CHLOR 0.9% PF (SALINE LOCK) 10ML VIAL/SYR IV SCH ×3 (05:46→21:47)
[2022-03-27 06:18] LABS: Basophils # (auto) 0 10 ^3/uL (0-0.2); Basophils % (auto) 0.3 % (0.0-2.0); Eosinophils # (auto) 0 10 ^3/uL (0-0.8); Eosinophils % (auto) 0.1 % (0.0-7.0); Hematocrit 33.3 % (36.0-46.0); Hemoglobin 11.1 g/dL (12.2-16.2); Lymphocytes # (auto) 0.7 10 ^3/uL (0.4-5.4); Lymphocytes % (auto) 15.2 % (10.0-50.0); Mean Corpuscular Hemoglobin 30.7 pg (28.0-32.0); Mean Corpuscular Hgb Conc. 33.3 g/dL (32.0-36.0); Mean Corpuscular Volume 92.2 fL (80.0-100.0); Monocytes # (auto) 0.4 10 ^3/uL (0-1.3); Monocytes % (auto) 9.8 % (0.0-12.0); Neutrophils # (auto) 3.4 10 ^3/uL (1.6-8.6); Neutrophils % (auto) 74.6 % (37.0-80.0); Nucleated Red Blood Cells % 0.1 %; Red Blood Cells 3.61 10^6/uL (4.0-5.20); Red Cell Distribution Width 14.7 % (11.8-14.3); White Blood Cell 4.6 10^3/uL (4.4-10.8)
[2022-03-27 06:34] LABS: Albumin 2.6 g/dL (3.4-5.0); BUN/Creatinine Ratio 11.5; Bilirubin, Total 0.2 mg/dL (0.2-1.0); Calcium 8.4 mg/dL (8.5-10.1); Total Protein 5.5 g/dL (6.4-8.2)
[2022-03-27] MEDS: hydrALAZINE HCL 20 MG/ML VL IV PRN (06:37)
[2022-03-27 09:00] VITALS: BP 131/75
[2022-03-27] MEDS: PANTOPRAZOLE 40 MG/10 ML VIAL INJ IV SCH ×2 (10:31→21:47)
[2022-03-27] MEDS: cloNIDine HCL 0.1 MG TAB PO SCH ×2 (10:31→21:46)
[2022-03-27 13:00] VITALS: BP 112/71
[2022-03-27 16:48] VITALS: BP 124/75
[2022-03-27] MEDS: SODIUM CHLORIDE 0.9% 1,000 ML IV SCH (19:15)
[2022-03-27] MEDS: cefTRIAXone 1GM/50ML D5W 50 ML IV SCH (21:53)
[2022-03-28 00:13] VITALS: BP 129/84
[2022-03-28] MEDS: HYDROmorphone HCL 2 MG/ML VL/or syr IV PRN ×3 (01:44→09:36)
[2022-03-28] MEDS: diphenhdrAMINE HCL 50 MG/1 ML VL IV PRN (04:27)
[2022-03-28 05:00] VITALS: BP 115/73
[2022-03-28] MEDS: SODIUM CHLOR 0.9% PF (SALINE LOCK) 10ML VIAL/SYR IV SCH (05:45)
[2022-03-28 06:11] LABS: Basophils # (auto) 0.1 10 ^3/uL (0-0.2); Basophils % (auto) 1.2 % (0.0-2.0); Eosinophils # (auto) 0.1 10 ^3/uL (0-0.8); Eosinophils % (auto) 3.2 % (0.0-7.0); Hematocrit 33.2 % (36.0-46.0); Hemoglobin 10.8 g/dL (12.2-16.2); Lymphocytes # (auto) 1.8 10 ^3/uL (0.4-5.4); Lymphocytes % (auto) 39.7 % (10.0-50.0); Mean Corpuscular Hgb Conc. 32.4 g/dL (32.0-36.0); Mean Corpuscular Volume 92.6 fL (80.0-100.0); Monocytes # (auto) 0.4 10 ^3/uL (0-1.3); Monocytes % (auto) 8.6 % (0.0-12.0); Neutrophils # (auto) 2.1 10 ^3/uL (1.6-8.6); Neutrophils % (auto) 47.3 % (37.0-80.0); Nucleated Red Blood Cells % 0.3 %; Red Blood Cells 3.59 10^6/uL (4.0-5.20); Red Cell Distribution Width 14.5 % (11.8-14.3); White Blood Cell 4.5 10^3/uL (4.4-10.8)
[2022-03-28 06:31] LABS: Potassium 4.6 mmol/L (3.5-5.1)
[2022-03-28 06:38] LABS: Albumin 2.4 g/dL (3.4-5.0); BUN/Creatinine Ratio 12.7; Bilirubin, Total 1.2 mg/dL (0.2-1.0); Calcium 7.8 mg/dL (8.5-10.1)
[2022-03-28] MEDS: HYDROcodone-ACET 5/325MG TAB PO PRN (06:54)
[2022-03-28] MEDS ORDERED: PANT40T PO (08:47)
[2022-03-28] MEDS ORDERED: HYDR-4902 PO (08:47)
[2022-03-28 09:00] VITALS: BP 153/95
[2022-03-28] MEDS: PANTOPRAZOLE 40 MG/10 ML VIAL INJ IV SCH (09:34)
[2022-03-28] MEDS: cloNIDine HCL 0.1 MG TAB PO SCH (09:35)
[2022-03-28 11:07] VITALS: BP 137/85
== END 2022-03-28 11:50 | disposition home or self-care (01) | DRG 813 ==
LOC: ER 07:43 → TELE 19:40 → TELE-EAST 03-24 07:49
PROVIDERS: ADMIT Internal Medicine; ATTEND Family Medicine
PROC: 0DB68ZX Excision of Stomach, Via Natural or Artificial Opening Endoscopic, Diagnostic (ICD-10-PCS; 2022-03-26)
PROC: 0DB98ZX Excision of Duodenum, Via Natural or Artificial Opening Endoscopic, Diagnostic (ICD-10-PCS; principal; 2022-03-26 11:34)
DX: T85.590A Other mechanical complication of bile duct prosthesis, initial encounter (principal); K85.90 Acute pancreatitis without necrosis or infection, unspecified; K29.61 Other gastritis with bleeding; I50.9 Heart failure, unspecified; I11.0 Hypertensive heart disease with heart failure; G89.4 Chronic pain syndrome; K86.1 Other chronic pancreatitis; K21.9 Gastro-esophageal reflux disease without esophagitis; Z20.822 Contact with and (suspected) exposure to COVID-19; F41.9 Anxiety disorder, unspecified; R07.9 Chest pain, unspecified; M54.50 Low back pain, unspecified; E87.5 Hyperkalemia; F17.210 Nicotine dependence, cigarettes, uncomplicated; Z82.49 Family history of ischemic heart disease and other diseases of the circulatory system; Z83.3 Family history of diabetes mellitus; Z87.11 Personal history of peptic ulcer disease; Z87.442 Personal history of urinary calculi; Z88.0 Allergy status to penicillin; Z90.49 Acquired absence of other specified parts of digestive tract
CPT/HCPCS: 36415; 71045; 74176; 80053; 80061; 80307; 80320; 81001; 83690; 83735; 84484; 84702; 85025; 85610; 85730; 87426; 93005; 96361; 96374; 96375; 96376; C9113; G0378; J0696; J1100; J2250; J2405; J2704

== ENCOUNTER 2022-04-07 11:22 | Emergency (ER) | payer OTHER ==
[~2022-04-07] VITALS: Ht 160 cm; Wt 50.3 kg
[~2022-04-07 11:22] MED LIST changes: +PANT40T PO
[2022-04-07] MEDS ORDERED: PANTOPRAZOLE 40 MG/10 ML VIAL INJ IV ONE (11:45)
[2022-04-07] MEDS ORDERED: MORPHINE SULFATE 4 MG/ML SYR/VIAL IV ONE ×2 (11:45→17:30)
[2022-04-07] MEDS ORDERED: ONDANSETRON HCL 4 MG/2 ML VIAL IV ONE (11:45)
[2022-04-07] MEDS ORDERED: SODIUM CHLORIDE 0.9% 1,000 ML IVB ONE (11:45)
[2022-04-07] MEDS ORDERED: IOHEXOL 300 MG/ML 100ML BOTTLE IJ ONE (12:26)
[2022-04-07 12:30] LABS: Basophils # (auto) 0 10 ^3/uL (0-0.2); Basophils % (auto) 0.3 % (0.0-2.0); Eosinophils # (auto) 0.2 10 ^3/uL (0-0.8); Eosinophils % (auto) 3.4 % (0.0-7.0); Hematocrit 43.3 % (36.0-46.0); Hemoglobin 13.6 g/dL (12.2-16.2); Lymphocytes # (auto) 0.9 10 ^3/uL (0.4-5.4); Lymphocytes % (auto) 16.3 % (10.0-50.0); Mean Corpuscular Hemoglobin 29.2 pg (28.0-32.0); Mean Corpuscular Hgb Conc. 31.5 g/dL (32.0-36.0); Mean Corpuscular Volume 92.9 fL (80.0-100.0); Monocytes # (auto) 0.3 10 ^3/uL (0-1.3); Monocytes % (auto) 6.3 % (0.0-12.0); Neutrophils % (auto) 73.7 % (37.0-80.0); Nucleated Red Blood Cells % 0.1 %; Red Blood Cells 4.66 10^6/uL (4.0-5.20); Red Cell Distribution Width 14.9 % (11.8-14.3); White Blood Cell 5.4 10^3/uL (4.4-10.8)
[2022-04-07 12:33] LABS: Urine Bacteria None Seen /hpf (None Seen); Urine WBC None Seen /hpf (0 - 5)
[2022-04-07 12:50] LABS: Albumin 3.2 g/dL (3.4-5.0); Magnesium 2.4 mg/dL (1.6-2.6); Potassium 4.2 mmol/L (3.5-5.1)
[2022-04-07 12:54] LABS: BUN/Creatinine Ratio 13.6; Bilirubin, Total 0.4 mg/dL (0.2-1.0); Total Protein 7.7 g/dL (6.4-8.2)
[2022-04-07 13:33] LABS: Urine Blood Negative /uL (Negative); Urine Specific Gravity 1.018 (1.001-1.035)
[2022-04-07] MEDS ORDERED: diphenhdrAMINE HCL 50 MG/1 ML VL IV ONE (15:30)
[2022-04-07] MEDS ORDERED: PROCHLORPERAZINE EDISYLATE 5 MG/ML 2ML VIAL IV ONE (17:30)
[2022-04-07 22:40] VITALS: BP 159/70
== END 2022-04-07 22:46 | disposition home or self-care (01) ==
LOC: ER 11:22
DX: G89.4 Chronic pain syndrome (principal); K86.9 Disease of pancreas, unspecified; I11.0 Hypertensive heart disease with heart failure; I50.9 Heart failure, unspecified; K21.9 Gastro-esophageal reflux disease without esophagitis; F17.210 Nicotine dependence, cigarettes, uncomplicated; Z90.49 Acquired absence of other specified parts of digestive tract; Z79.82 Long term (current) use of aspirin; Z79.899 Other long term (current) drug therapy; Z88.8 Allergy status to other drugs, medicaments and biological substances; Z88.0 Allergy status to penicillin; Z20.822 Contact with and (suspected) exposure to COVID-19
CPT/HCPCS: 36415; 74177; 80053; 81001; 83690; 83735; 85025; 87426; 96361; 96374; 96375; 96376; 99285; C9113; J0780; J1200; J2270; J2405; J7030; Q9967

== ENCOUNTER 2022-05-10 10:57 | Emergency (ER) | payer OTHER ==
[~2022-05-10] VITALS: Ht 160 cm; Wt 40.8 kg
[2022-05-10] MEDS ORDERED: ONDANSETRON HCL 4 MG/2 ML VIAL IM ONE (11:30)
[2022-05-10] MEDS ORDERED: HYDROmorphone HCL 2 MG/ML VL/or syr IM ONE (11:30)
[2022-05-10 12:13] LABS: Basophils # (auto) 0 10 ^3/uL (0-0.2); Basophils % (auto) 0.8 % (0.0-2.0); Eosinophils # (auto) 0.2 10 ^3/uL (0-0.8); Eosinophils % (auto) 2.8 % (0.0-7.0); Hematocrit 37.7 % (36.0-46.0); Hemoglobin 12.2 g/dL (12.2-16.2); Lymphocytes # (auto) 1.4 10 ^3/uL (0.4-5.4); Mean Corpuscular Hemoglobin 30.1 pg (28.0-32.0); Mean Corpuscular Hgb Conc. 32.4 g/dL (32.0-36.0); Mean Corpuscular Volume 93.1 fL (80.0-100.0); Monocytes # (auto) 0.4 10 ^3/uL (0-1.3); Monocytes % (auto) 6.9 % (0.0-12.0); Neutrophils # (auto) 3.5 10 ^3/uL (1.6-8.6); Neutrophils % (auto) 63.5 % (37.0-80.0); Nucleated Red Blood Cells % 0.2 %; Red Blood Cells 4.05 10^6/uL (4.0-5.20); Red Cell Distribution Width 14.5 % (11.8-14.3); White Blood Cell 5.5 10^3/uL (4.4-10.8)
[2022-05-10 12:19] LABS: Albumin 3.1 g/dL (3.4-5.0); Calcium 8.5 mg/dL (8.5-10.1)
[2022-05-10 12:19] LABS: Urine WBC None Seen /hpf (0 - 5)
[2022-05-10 12:24] LABS: BUN/Creatinine Ratio 11.9; Bilirubin, Total 0.1 mg/dL (0.2-1.0); Total Protein 7.4 g/dL (6.4-8.2)
[2022-05-10 12:49] LABS: Urine Bacteria FEW /hpf (None Seen); Urine Blood Negative /uL (Negative); Urine Specific Gravity 1.021 (1.001-1.035)
[2022-05-10 13:54] VITALS: BP 166/115
== END 2022-05-10 13:55 | disposition home or self-care (01) ==
LOC: ER 10:57
DX: R10.11 Right upper quadrant pain (principal); F17.210 Nicotine dependence, cigarettes, uncomplicated; K21.9 Gastro-esophageal reflux disease without esophagitis; I11.0 Hypertensive heart disease with heart failure; I50.9 Heart failure, unspecified; Z88.0 Allergy status to penicillin; Z88.8 Allergy status to other drugs, medicaments and biological substances; Z79.899 Other long term (current) drug therapy; Z79.82 Long term (current) use of aspirin; Z87.442 Personal history of urinary calculi; Z90.49 Acquired absence of other specified parts of digestive tract; Z98.890 Other specified postprocedural states
CPT/HCPCS: 36415; 80053; 81001; 83690; 85025; 96372; 99284; J1170; J2405

== ENCOUNTER 2022-05-18 13:11 | Emergency (ER) | payer OTHER ==
[~2022-05-18] VITALS: Ht 157.5 cm; Wt 42.2 kg
[2022-05-18 13:52] LABS: Basophils # (auto) 0 10 ^3/uL (0-0.2); Basophils % (auto) 0.8 % (0.0-2.0); Eosinophils # (auto) 0.2 10 ^3/uL (0-0.8); Eosinophils % (auto) 5.1 % (0.0-7.0); Hematocrit 41.4 % (36.0-46.0); Hemoglobin 13.4 g/dL (12.2-16.2); Lymphocytes # (auto) 1.9 10 ^3/uL (0.4-5.4); Lymphocytes % (auto) 42.1 % (10.0-50.0); Mean Corpuscular Hemoglobin 29.5 pg (28.0-32.0); Mean Corpuscular Hgb Conc. 32.5 g/dL (32.0-36.0); Mean Corpuscular Volume 90.7 fL (80.0-100.0); Monocytes # (auto) 0.4 10 ^3/uL (0-1.3); Monocytes % (auto) 7.9 % (0.0-12.0); Neutrophils % (auto) 44.1 % (37.0-80.0); Nucleated Red Blood Cells % 0.3 %; Red Blood Cells 4.56 10^6/uL (4.0-5.20); Red Cell Distribution Width 14.2 % (11.8-14.3); White Blood Cell 4.5 10^3/uL (4.4-10.8)
[2022-05-18] MEDS ORDERED: LACTATED RINGER'S 1,000 ML IV ONE (14:00)
[2022-05-18] MEDS ORDERED: diphenhdrAMINE HCL 50 MG/1 ML VL IV ONE (14:00)
[2022-05-18] MEDS ORDERED: ONDANSETRON HCL 4 MG/2 ML VIAL IV ONE (14:00)
[2022-05-18 14:08] LABS: Potassium 3.8 mmol/L (3.5-5.1)
[2022-05-18 14:09] LABS: Albumin 3.2 g/dL (3.4-5.0); BUN/Creatinine Ratio 10.2; Calcium 8.7 mg/dL (8.5-10.1)
[2022-05-18 14:12] LABS: Bilirubin, Total 0.2 mg/dL (0.2-1.0); Total Protein 7.7 g/dL (6.4-8.2)
[2022-05-18 14:42] LABS: Urine WBC None Seen /hpf (0 - 5)
[2022-05-18 14:59] LABS: Urine Bacteria NONE SEEN /hpf (None Seen); Urine Blood Negative /uL (Negative); Urine Specific Gravity 1.022 (1.001-1.035)
[2022-05-18] MEDS ORDERED: HYDROcodone-ACET 5/325MG TAB PO ONE (16:45)
[2022-05-18 17:09] VITALS: BP 176/113
== END 2022-05-18 17:38 | disposition left against medical advice (07) ==
LOC: ER 13:11
DX: L30.8 Other specified dermatitis (principal); R11.2 Nausea with vomiting, unspecified; R19.7 Diarrhea, unspecified; R10.11 Right upper quadrant pain; I11.0 Hypertensive heart disease with heart failure; I50.9 Heart failure, unspecified; K21.9 Gastro-esophageal reflux disease without esophagitis; F17.210 Nicotine dependence, cigarettes, uncomplicated; Z90.49 Acquired absence of other specified parts of digestive tract; Z79.899 Other long term (current) drug therapy; Z79.82 Long term (current) use of aspirin; Z88.0 Allergy status to penicillin; Z88.8 Allergy status to other drugs, medicaments and biological substances
CPT/HCPCS: 36415; 80053; 81001; 81025; 83690; 85025; 96361; 96374; 96375; 99284; J1200; J2405

== ENCOUNTER 2022-05-23 10:16 | Emergency (ER) | payer OTHER ==
[~2022-05-23] VITALS: Ht 160 cm; Wt 57.2 kg
[2022-05-23 10:27] VITALS: BP 155/55
== END 2022-05-23 14:35 | disposition left against medical advice (07) ==
LOC: ER 10:16
DX: R10.12 Left upper quadrant pain (principal); R19.7 Diarrhea, unspecified; Z53.21 Procedure and treatment not carried out due to patient leaving prior to being seen by health care provider

== ENCOUNTER 2022-06-18 12:40 | Emergency (ER) | payer OTHER ==
[~2022-06-18] VITALS: Ht 157.5 cm; Wt 42.3 kg
[2022-06-18] MEDS ORDERED: amLODIPine BESYLATE 5 MG TAB PO ONE (13:00)
[2022-06-18] MEDS ORDERED: ONDANSETRON HCL 4 MG/2 ML VIAL IM ONE (13:00)
[2022-06-18 13:08] LABS: Basophils # (auto) 0.1 10 ^3/uL (0-0.2); Basophils % (auto) 0.8 % (0.0-2.0); Eosinophils # (auto) 0.2 10 ^3/uL (0-0.8); Eosinophils % (auto) 3.1 % (0.0-7.0); Hematocrit 40.5 % (36.0-46.0); Hemoglobin 13.4 g/dL (12.2-16.2); Lymphocytes # (auto) 2.4 10 ^3/uL (0.4-5.4); Lymphocytes % (auto) 35.9 % (10.0-50.0); Mean Corpuscular Hgb Conc. 33.1 g/dL (32.0-36.0); Mean Corpuscular Volume 87.5 fL (80.0-100.0); Monocytes # (auto) 0.4 10 ^3/uL (0-1.3); Monocytes % (auto) 5.4 % (0.0-12.0); Neutrophils # (auto) 3.7 10 ^3/uL (1.6-8.6); Neutrophils % (auto) 54.8 % (37.0-80.0); Nucleated Red Blood Cells % 0.1 %; Red Blood Cells 4.63 10^6/uL (4.0-5.20); Red Cell Distribution Width 13.9 % (11.8-14.3); White Blood Cell 6.7 10^3/uL (4.4-10.8)
[2022-06-18 13:42] LABS: Albumin 3.5 g/dL (3.4-5.0); Potassium 4.3 mmol/L (3.5-5.1)
[2022-06-18 13:46] LABS: BUN/Creatinine Ratio 9.4 (10.0-20.0); Bilirubin, Total 0.2 mg/dL (0.2-1.0); Total Protein 7.5 g/dL (6.4-8.2)
[2022-06-18 14:40] LABS: Urine Bacteria NONE SEEN /hpf (None Seen); Urine Blood Negative /uL (Negative); Urine Hyaline Cast FEW /lpf (0 - 2); Urine Mucus FEW (None Seen); Urine Specific Gravity 1.023 (1.001-1.035); Urine WBC 1 /hpf (0 - 5)
[2022-06-18] MEDS ORDERED: SODIUM CHLORIDE 0.9% 1,000 ML IVB ONE (15:15)
[2022-06-18] MEDS ORDERED: PROMETHAZINE HCL 25 MG/ML 1ML IV ONE (15:15)
[2022-06-18 16:02] LABS: Amphetamine Screen, Urine NEGATIVE (NEGATIVE); Barbiturate Scree,Urine NEGATIVE (NEGATIVE); Benzodiazephine Screen, Urine NEGATIVE (NEGATIVE); Cannabinoid Screen, Urine NEGATIVE (NEGATIVE); Cocaine Screen, Urine NEGATIVE (NEGATIVE); Opiate Scree,Urine POSITIVE (NEGATIVE); Phencyclidine Screen, Urine NEGATIVE (NEGATIVE)
[2022-06-18] MEDS ORDERED: ONDA-144 PO (16:38)
[2022-06-18] MEDS ORDERED: THIAMINE 100mg/ml INJ (200mg/2ml VIAL) IV ONE (16:45)
[2022-06-18 17:10] VITALS: BP 133/90
== END 2022-06-18 17:41 | disposition home or self-care (01) ==
LOC: ER 12:40
DX: K29.70 Gastritis, unspecified, without bleeding (principal); I11.0 Hypertensive heart disease with heart failure; I50.9 Heart failure, unspecified; K21.9 Gastro-esophageal reflux disease without esophagitis; F17.210 Nicotine dependence, cigarettes, uncomplicated; Z90.49 Acquired absence of other specified parts of digestive tract; Z79.01 Long term (current) use of anticoagulants; Z79.82 Long term (current) use of aspirin; Z79.899 Other long term (current) drug therapy; Z88.0 Allergy status to penicillin; Z88.8 Allergy status to other drugs, medicaments and biological substances
CPT/HCPCS: 36415; 80053; 80307; 81001; 83690; 85025; 96361; 96372; 96374; 96375; 99284; J2405; J2550; J3411

== ENCOUNTER 2022-07-10 10:11 | Inpatient (IN) | payer OTHER ==
[~2022-07-10] VITALS: Ht 160 cm; Wt 43.9 kg
[2022-07-10 10:57] LABS: Urine Bacteria FEW /hpf (None Seen); Urine Blood 3+ /uL (Negative); Urine Mucus FEW (None Seen); Urine Specific Gravity 1.022 (1.001-1.035); Urine WBC 3 /hpf (0 - 5)
[2022-07-10 11:21] LABS: Basophils # (auto) 0 10 ^3/uL (0-0.2); Basophils % (auto) 0.6 % (0.0-2.0); Eosinophils # (auto) 0.1 10 ^3/uL (0-0.8); Eosinophils % (auto) 1.3 % (0.0-7.0); Hematocrit 34.4 % (36.0-46.0); Hemoglobin 11.1 g/dL (12.2-16.2); Lymphocytes % (auto) 19.3 % (10.0-50.0); Mean Corpuscular Hemoglobin 28.9 pg (28.0-32.0); Mean Corpuscular Hgb Conc. 32.1 g/dL (32.0-36.0); Mean Corpuscular Volume 89.9 fL (80.0-100.0); Monocytes # (auto) 0.3 10 ^3/uL (0-1.3); Monocytes % (auto) 5.6 % (0.0-12.0); Neutrophils # (auto) 3.8 10 ^3/uL (1.6-8.6); Neutrophils % (auto) 73.2 % (37.0-80.0); Nucleated Red Blood Cells % 0.1 %; Red Blood Cells 3.83 10^6/uL (4.0-5.20); Red Cell Distribution Width 14.3 % (11.8-14.3); White Blood Cell 5.1 10^3/uL (4.4-10.8)
[2022-07-10 11:24] LABS: Calcium 8.5 mg/dL (8.5-10.1); Potassium 3.8 mmol/L (3.5-5.1)
[2022-07-10 11:28] LABS: BUN/Creatinine Ratio 7.4 (10.0-20.0); Bilirubin, Total 0.2 mg/dL (0.2-1.0); Total Protein 6.6 g/dL (6.4-8.2)
[2022-07-10] MEDS ORDERED: SODIUM CHLORIDE 0.9% 1,000 ML IV ONE (11:30)
[2022-07-10] MEDS ORDERED: PANTOPRAZOLE 40 MG/10 ML VIAL INJ IV ONE ×2 (11:30→15:30)
[2022-07-10 13:44] LABS: Partial Thromboplastin Time 30.7 sec (24.6-33.4)
[2022-07-10] MEDS ORDERED: fentaNYL CITRATE 100 MCG/2 ML VL IM ONE (14:00)
[2022-07-10 14:31] LABS: Basophils # (auto) 0 10 ^3/uL (0-0.2); Basophils % (auto) 0.4 % (0.0-2.0); Eosinophils # (auto) 0.1 10 ^3/uL (0-0.8); Eosinophils % (auto) 1.4 % (0.0-7.0); Hematocrit 32.8 % (36.0-46.0); Hemoglobin 10.4 g/dL (12.2-16.2); Lymphocytes # (auto) 1.1 10 ^3/uL (0.4-5.4); Mean Corpuscular Hemoglobin 28.6 pg (28.0-32.0); Mean Corpuscular Hgb Conc. 31.8 g/dL (32.0-36.0); Mean Corpuscular Volume 89.7 fL (80.0-100.0); Monocytes # (auto) 0.4 10 ^3/uL (0-1.3); Monocytes % (auto) 6.9 % (0.0-12.0); Neutrophils # (auto) 4.7 10 ^3/uL (1.6-8.6); Neutrophils % (auto) 74.3 % (37.0-80.0); Nucleated Red Blood Cells % 0.1 %; Red Blood Cells 3.65 10^6/uL (4.0-5.20); Red Cell Distribution Width 14.1 % (11.8-14.3); White Blood Cell 6.3 10^3/uL (4.4-10.8)
[2022-07-10] MEDS ORDERED: cloNIDine HCL 0.1 MG TAB PO ONE (15:30)
[2022-07-10] MEDS ORDERED: NITROGLYCERIN 0.4 MG SL TAB SL PRN (15:30)
[2022-07-10] MEDS ORDERED: ACETAMINOPHEN 325 MG TAB PO PRN (15:30)
[2022-07-10] MEDS ORDERED: LISINOPRIL 10 MG TAB PO ONE (16:00)
[2022-07-10 16:55] LABS: Barbiturate Scree,Urine NEGATIVE (NEGATIVE); Benzodiazephine Screen, Urine NEGATIVE (NEGATIVE); Cannabinoid Screen, Urine NEGATIVE (NEGATIVE)
[2022-07-10 17:03] LABS: Amphetamine Screen, Urine NEGATIVE (NEGATIVE); Cocaine Screen, Urine NEGATIVE (NEGATIVE); Opiate Scree,Urine POSITIVE (NEGATIVE); Phencyclidine Screen, Urine NEGATIVE (NEGATIVE)
[2022-07-10] MEDS: ONDANSETRON HCL 4 MG/2 ML VIAL IV PRN (18:27)
[2022-07-10] MEDS: MORPHINE SULFATE INJ 2 MG/ml SYRG IV PRN (18:28)
[2022-07-11] MEDS: MORPHINE SULFATE INJ 2 MG/ml SYRG IV PRN ×5 (00:40→19:04)
[2022-07-11] MEDS: ONDANSETRON HCL 4 MG/2 ML VIAL IV PRN (00:41)
[2022-07-11] MEDS: PANTOPRAZOLE 40 MG/10 ML VIAL INJ IV SCH ×2 (00:42→10:28)
[2022-07-11] MEDS: LACTATED RINGER'S 1,000 ML IV SCH ×2 (02:34→02:41)
[2022-07-11] MEDS: ACETAMINOPHEN 325 MG TAB PO PRN ×2 (05:26→16:36)
[2022-07-11] MEDS: cloNIDine HCL 0.1 MG TAB PO PRN ×2 (05:26→11:30)
[2022-07-11 05:36] VITALS: BP 165/96
[2022-07-11 05:54] LABS: Basophils # (auto) 0 10 ^3/uL (0-0.2); Basophils % (auto) 0.5 % (0.0-2.0); Eosinophils # (auto) 0.1 10 ^3/uL (0-0.8); Eosinophils % (auto) 0.8 % (0.0-7.0); Hematocrit 31.6 % (36.0-46.0); Hemoglobin 10.1 g/dL (12.2-16.2); Lymphocytes % (auto) 14.9 % (10.0-50.0); Mean Corpuscular Hemoglobin 29.4 pg (28.0-32.0); Mean Corpuscular Volume 91.8 fL (80.0-100.0); Monocytes # (auto) 0.5 10 ^3/uL (0-1.3); Monocytes % (auto) 7.2 % (0.0-12.0); Neutrophils # (auto) 4.9 10 ^3/uL (1.6-8.6); Neutrophils % (auto) 76.6 % (37.0-80.0); Nucleated Red Blood Cells % 0.1 %; Red Blood Cells 3.44 10^6/uL (4.0-5.20); Red Cell Distribution Width 14.2 % (11.8-14.3); White Blood Cell 6.4 10^3/uL (4.4-10.8)
[2022-07-11 06:15] LABS: Potassium 3.9 mmol/L (3.5-5.1)
[2022-07-11 06:27] LABS: Albumin 2.5 g/dL (3.4-5.0); BUN/Creatinine Ratio 8.8 (10.0-20.0); Bilirubin, Total 0.2 mg/dL (0.2-1.0); Total Protein 5.9 g/dL (6.4-8.2)
[2022-07-11 08:59] VITALS: BP 127/69
[2022-07-11 17:11] VITALS: BP 190/112
[2022-07-11] MEDS ORDERED: hydrALAZINE HCL 20 MG/ML VL IV PRN (17:15)
[2022-07-11 19:04] VITALS: BP 142/90
== END 2022-07-11 19:18 | disposition left against medical advice (07) | DRG 861 ==
LOC: ER 10:11 → TELE 15:51 → TELE-WESTW 07-11 04:50
PROVIDERS: ADMIT Nurse Practitioner Family; ATTEND Internal Medicine
PROC: 05HB33Z Insertion of Infusion Device into Right Basilic Vein, Percutaneous Approach (ICD-10-PCS; principal; 2022-07-10)
PROC: B54MZZA Ultrasonography of Right Upper Extremity Veins, Guidance (ICD-10-PCS; 2022-07-10)
DX: G89.4 Chronic pain syndrome (principal); I11.0 Hypertensive heart disease with heart failure; E44.0 Moderate protein-calorie malnutrition; I50.9 Heart failure, unspecified; R71.0 Precipitous drop in hematocrit; K92.1 Melena; F17.210 Nicotine dependence, cigarettes, uncomplicated; K86.1 Other chronic pancreatitis; K21.9 Gastro-esophageal reflux disease without esophagitis; Z53.29 Procedure and treatment not carried out because of patient's decision for other reasons; R31.9 Hematuria, unspecified; Z87.11 Personal history of peptic ulcer disease; Z87.442 Personal history of urinary calculi; Z88.0 Allergy status to penicillin; Z90.49 Acquired absence of other specified parts of digestive tract; Z88.8 Allergy status to other drugs, medicaments and biological substances; Z83.3 Family history of diabetes mellitus; Z82.49 Family history of ischemic heart disease and other diseases of the circulatory system; Z68.1 Body mass index [BMI] 19.9 or less, adult; Z76.5 Malingerer [conscious simulation]
CPT/HCPCS: 36415; 74176; 76856; 80053; 80307; 81001; 81025; 83605; 85025; 85610; 85730; 86850; 86900; 86901; 87040; 96372; C9113; G0378; J2405

== ENCOUNTER 2022-08-21 22:05 | Inpatient (IN) | payer OTHER ==
[~2022-08-21] VITALS: Ht 160 cm; Wt 46.3 kg
[2022-08-22 00:06] LABS: Basophils # (auto) 0 10 ^3/uL (0-0.2); Basophils % (auto) 0.5 % (0.0-2.0); Eosinophils # (auto) 0.1 10 ^3/uL (0-0.8); Hematocrit 41.9 % (36.0-46.0); Hemoglobin 13.7 g/dL (12.2-16.2); Lymphocytes # (auto) 2.6 10 ^3/uL (0.4-5.4); Lymphocytes % (auto) 37.4 % (10.0-50.0); Mean Corpuscular Hemoglobin 30.1 pg (28.0-32.0); Mean Corpuscular Hgb Conc. 32.7 g/dL (32.0-36.0); Mean Corpuscular Volume 92.2 fL (80.0-100.0); Monocytes # (auto) 0.2 10 ^3/uL (0-1.3); Monocytes % (auto) 3.3 % (0.0-12.0); Neutrophils # (auto) 3.9 10 ^3/uL (1.6-8.6); Neutrophils % (auto) 56.8 % (37.0-80.0); Nucleated Red Blood Cells % 0.1 %; Red Blood Cells 4.54 10^6/uL (4.0-5.20); Red Cell Distribution Width 17.4 % (11.8-14.3); White Blood Cell 6.9 10^3/uL (4.4-10.8)
[2022-08-22 00:12] LABS: Albumin 3.9 g/dL (3.4-5.0); BUN/Creatinine Ratio 12.5 (10.0-20.0); Calcium 9.4 mg/dL (8.5-10.1); Potassium 3.9 mmol/L (3.5-5.1)
[2022-08-22 00:15] LABS: Bilirubin, Total 0.4 mg/dL (0.2-1.0); Total Protein 8.7 g/dL (6.4-8.2)
[2022-08-22] MEDS ORDERED: amLODIPine BESYLATE 5 MG TAB PO ONE (01:00)
[2022-08-22] MEDS ORDERED: HYDROmorphone HCL 2 MG/ML VL/or syr IV ONE ×2 (01:15→05:15)
[2022-08-22] MEDS ORDERED: hydrALAZINE HCL 20 MG/ML VL IV ONE (01:15)
[2022-08-22] MEDS ORDERED: ONDANSETRON HCL 4 MG/2 ML VIAL IV ONE ×2 (01:15→05:15)
[2022-08-22] MEDS ORDERED: diphenhdrAMINE HCL 50 MG/1 ML VL IV ONE ×2 (03:00→07:15)
[2022-08-22] MEDS ORDERED: SODIUM CHLORIDE 0.9% 500 ML IV ONE (05:00)
[2022-08-22] MEDS ORDERED: CIPROFLOXACIN 400MG/200ML 200 ML IV ONE (05:00)
[2022-08-22] MEDS ORDERED: metroNIDAZOLE 500MG/100ML 100 ML IV ONE (05:00)
[2022-08-22] MEDS ORDERED: hydrALAZINE HCL 20 MG/ML VL IV PRN (08:15)
[2022-08-22] MEDS ORDERED: MORPHINE SULFATE INJ 2 MG/ml SYRG IV PRN (08:15)
[2022-08-22] MEDS ORDERED: ONDANSETRON HCL 4 MG/2 ML VIAL IV PRN (08:15)
[2022-08-22] MEDS ORDERED: NITROGLYCERIN 0.4 MG SL TAB SL PRN (08:15)
[2022-08-22] MEDS: ATORVASTATIN 20 MG TAB PO SCH (10:00)
[2022-08-22] MEDS: METOPROLOL TARTRATE 50 MG TAB PO SCH ×2 (10:00→22:00)
[2022-08-22] MEDS: SUCRALFATE 1 GM TAB PO SCH ×2 (10:07→22:00)
[2022-08-22] MEDS: PANTOPRAZOLE 40 MG/10 ML VIAL INJ IV SCH ×2 (10:07→23:27)
[2022-08-22] MEDS: amLODIPine BESYLATE 5 MG TAB PO SCH (10:09)
[2022-08-22] MEDS: MORPHINE SULFATE INJ 2 MG/ml SYRG IV PRN ×3 (10:12→20:10)
[2022-08-22] MEDS: diphenhdrAMINE HCL 50 MG/1 ML VL IV PRN ×2 (15:32→23:28)
[2022-08-22] MEDS: SODIUM CHLORIDE 0.9% 1,000 ML IV SCH ×2 (15:37→22:45)
[2022-08-22] MEDS: PIPERACILLIN-TAZOB 3.375GM 100 ML IV SCH (15:39)
[2022-08-23] VITALS (8 sets, daily range): BP systolic 100–168; BP diastolic 64–111
[2022-08-23] MEDS ORDERED: cloNIDine HCL 0.1 MG TAB PO ONE (00:15)
[2022-08-23] MEDS: MORPHINE SULFATE INJ 2 MG/ml SYRG IV PRN (00:18)
[2022-08-23] MEDS: PIPERACILLIN-TAZOB 3.375GM 100 ML IV SCH ×4 (00:19→22:00)
[2022-08-23] MEDS: HYDROmorphone HCL 2 MG/ML VL/or syr IV PRN ×4 (04:00→19:05)
[2022-08-23] MEDS: diphenhdrAMINE HCL 50 MG/1 ML VL IV PRN ×4 (05:33→23:30)
[2022-08-23 05:55] LABS: Albumin 2.9 g/dL (3.4-5.0); Potassium 3.8 mmol/L (3.5-5.1)
[2022-08-23 06:00] LABS: Bilirubin, Total 0.3 mg/dL (0.2-1.0)
[2022-08-23] MEDS ORDERED: PANC3000 PO (06:11)
[2022-08-23 06:18] LABS: Basophils # (auto) 0 10 ^3/uL (0-0.2); Basophils % (auto) 0.4 % (0.0-2.0); Eosinophils # (auto) 0.1 10 ^3/uL (0-0.8); Eosinophils % (auto) 2.4 % (0.0-7.0); Hematocrit 33.8 % (36.0-46.0); Hemoglobin 11.1 g/dL (12.2-16.2); Lymphocytes # (auto) 0.9 10 ^3/uL (0.4-5.4); Lymphocytes % (auto) 22.2 % (10.0-50.0); Mean Corpuscular Hemoglobin 29.8 pg (28.0-32.0); Mean Corpuscular Hgb Conc. 32.8 g/dL (32.0-36.0); Mean Corpuscular Volume 90.8 fL (80.0-100.0); Monocytes # (auto) 0.2 10 ^3/uL (0-1.3); Neutrophils # (auto) 2.9 10 ^3/uL (1.6-8.6); Nucleated Red Blood Cells % 0.2 %; Red Blood Cells 3.72 10^6/uL (4.0-5.20); Red Cell Distribution Width 17.7 % (11.8-14.3); White Blood Cell 4.2 10^3/uL (4.4-10.8)
[2022-08-23] MEDS: SODIUM CHLORIDE 0.9% 1,000 ML IV SCH ×3 (06:45→22:45)
[2022-08-23] MEDS: cloNIDine HCL 0.1 MG TAB PO SCH ×3 (06:56→22:39)
[2022-08-23] MEDS: SUCRALFATE 1 GM TAB PO SCH ×2 (10:00→22:00)
[2022-08-23] MEDS: METOPROLOL TARTRATE 50 MG TAB PO SCH ×2 (10:00→22:00)
[2022-08-23] MEDS: LACTULOSE 20Gm/30ML SOLN PO SCH (10:00)
[2022-08-23] MEDS: amLODIPine BESYLATE 5 MG TAB PO SCH (10:00)
[2022-08-23] MEDS: ATORVASTATIN 20 MG TAB PO SCH (10:00)
[2022-08-23] MEDS: PANTOPRAZOLE 40 MG/10 ML VIAL INJ IV SCH ×2 (11:06→22:38)
[2022-08-23] MEDS ORDERED: PROMETHAZINE HCL 25 MG/ML 1ML IV PRN ×3 (13:15→13:30)
[2022-08-23] MEDS: METOCLOPRAMIDE HCL 5MG/ml INJ 2ml VIAL IV SCH ×2 (14:00→22:00)
[2022-08-23] MEDS: HYDROcodone-ACET 10/325MG TAB PO PRN ×2 (15:20→21:02)
[2022-08-23] MEDS: PANCREATIC ENZYMES 4200 UNIT CAP PO SCH (18:00)
[2022-08-24] MEDS: HYDROmorphone HCL 2 MG/ML VL/or syr IV PRN ×4 (01:16→21:38)
[2022-08-24] MEDS: HYDROcodone-ACET 10/325MG TAB PO PRN ×3 (03:44→17:31)
[2022-08-24 05:00] VITALS: BP 129/85
[2022-08-24] MEDS: cloNIDine HCL 0.1 MG TAB PO SCH ×3 (05:33→22:54)
[2022-08-24] MEDS: diphenhdrAMINE HCL 50 MG/1 ML VL IV PRN ×3 (05:34→18:12)
[2022-08-24] MEDS: METOCLOPRAMIDE HCL 5MG/ml INJ 2ml VIAL IV SCH ×3 (06:00→22:00)
[2022-08-24] MEDS: PIPERACILLIN-TAZOB 3.375GM 100 ML IV SCH ×3 (06:00→22:54)
[2022-08-24] MEDS: SODIUM CHLORIDE 0.9% 1,000 ML IV SCH ×3 (06:45→22:45)
[2022-08-24] MEDS: PANCREATIC ENZYMES 4200 UNIT CAP PO SCH ×3 (08:33→18:19)
[2022-08-24 09:00] VITALS: BP 141/83
[2022-08-24] MEDS: ATORVASTATIN 20 MG TAB PO SCH (09:43)
[2022-08-24] MEDS: METOPROLOL TARTRATE 50 MG TAB PO SCH ×2 (09:43→22:00)
[2022-08-24] MEDS: PANTOPRAZOLE 40 MG/10 ML VIAL INJ IV SCH ×2 (09:47→22:54)
[2022-08-24] MEDS: SUCRALFATE 1 GM TAB PO SCH ×3 (09:49→23:11)
[2022-08-24] MEDS: LACTULOSE 20Gm/30ML SOLN PO SCH (09:50)
[2022-08-24] MEDS: amLODIPine BESYLATE 5 MG TAB PO SCH (09:50)
[2022-08-24 13:00] VITALS: BP 177/108
[2022-08-24 17:00] VITALS: BP 134/87
[2022-08-24 22:00] VITALS: BP 129/84
[2022-08-25] MEDS: diphenhdrAMINE HCL 50 MG/1 ML VL IV PRN ×2 (01:32→07:53)
[2022-08-25] MEDS: HYDROcodone-ACET 10/325MG TAB PO PRN ×2 (01:33→07:53)
[2022-08-25] MEDS: HYDROmorphone HCL 2 MG/ML VL/or syr IV PRN (04:48)
[2022-08-25] MEDS: METOCLOPRAMIDE HCL 5MG/ml INJ 2ml VIAL IV SCH (06:00)
[2022-08-25] MEDS: SODIUM CHLORIDE 0.9% 1,000 ML IV SCH (06:45)
[2022-08-25] MEDS: cloNIDine HCL 0.1 MG TAB PO SCH (07:52)
[2022-08-25] MEDS: PIPERACILLIN-TAZOB 3.375GM 100 ML IV SCH (07:53)
[2022-08-25] MEDS: PANCREATIC ENZYMES 4200 UNIT CAP PO SCH (07:59)
[2022-08-25 08:00] VITALS: BP 148/85
[2022-08-25] MEDS ORDERED: MET50T PO (08:42)
[2022-08-25] MEDS ORDERED: PANC1CAP48 PO (08:42)
[2022-08-25] MEDS ORDERED: AML5T PO ×2 (08:42)
[2022-08-25] MEDS ORDERED: PANT40TA2 PO (08:42)
[2022-08-25 09:00] VITALS: BP 148/85
[2022-08-25] MEDS: amLODIPine BESYLATE 5 MG TAB PO SCH (10:00)
[2022-08-25] MEDS: ATORVASTATIN 20 MG TAB PO SCH (10:00)
[2022-08-25] MEDS: METOPROLOL TARTRATE 50 MG TAB PO SCH (10:00)
[2022-08-25] MEDS: LACTULOSE 20Gm/30ML SOLN PO SCH (10:00)
[2022-08-25] MEDS: PANTOPRAZOLE 40 MG/10 ML VIAL INJ IV SCH (10:46)
[2022-08-26 09:11] LABS: Hepatitis B Surface Antibody Positive (Negative)
[2022-08-26 09:26] LABS: Hepatitis A Total Antibody Negative (Negative)
[2022-08-26 12:36] LABS: Hepatitis C Antibody Negative (Negative)
== END 2022-08-25 12:00 | disposition home or self-care (01) | DRG 199 ==
LOC: ER 22:09 → TELE 08-22 08:13 → TELE-EAST 08-22 21:57
PROVIDERS: ADMIT Nurse Practitioner; ATTEND Nurse Practitioner
DX: I16.0 Hypertensive urgency (principal); I50.9 Heart failure, unspecified; F17.210 Nicotine dependence, cigarettes, uncomplicated; K64.8 Other hemorrhoids; I11.0 Hypertensive heart disease with heart failure; K64.4 Residual hemorrhoidal skin tags; K57.32 Diverticulitis of large intestine without perforation or abscess without bleeding; K27.9 Peptic ulcer, site unspecified, unspecified as acute or chronic, without hemorrhage or perforation; K86.1 Other chronic pancreatitis; G89.4 Chronic pain syndrome; K21.9 Gastro-esophageal reflux disease without esophagitis; Z82.49 Family history of ischemic heart disease and other diseases of the circulatory system; Z83.3 Family history of diabetes mellitus; Z87.442 Personal history of urinary calculi; Z88.0 Allergy status to penicillin; Z90.49 Acquired absence of other specified parts of digestive tract; Z88.8 Allergy status to other drugs, medicaments and biological substances; K29.50 Unspecified chronic gastritis without bleeding
CPT/HCPCS: 36415; 74176; 80053; 82140; 83690; 84702; 85025; 86704; 86706; 86708; 86803; 86850; 86900; 86901; 87081; 87340; 96365; 96375; 99291; C9113; G0378; J2405; J2543; J3490

== ENCOUNTER 2022-09-07 19:04 | Emergency (ER) | payer OTHER ==
[~2022-09-07] VITALS: Ht 160 cm; Wt 46.8 kg
[~2022-09-07 19:04] MED LIST changes: -CLON0.1T PO; -CLON0.2T TD; -HYDR-4902 PO; +MET50T PO; +PANC1CAP48 PO; -PANT40T PO; +PANT40TA2 PO
[2022-09-07 19:25] VITALS: BP 195/103
[2022-09-07] MEDS ORDERED: diphenhdrAMINE HCL 50 MG/1 ML VL IM ONE (19:45)
== END 2022-09-08 03:37 | disposition left against medical advice (07) ==
LOC: ER 19:04
DX: R10.12 Left upper quadrant pain (principal); R11.2 Nausea with vomiting, unspecified; Z53.21 Procedure and treatment not carried out due to patient leaving prior to being seen by health care provider
CPT/HCPCS: 96372; 99281; J1200

== ENCOUNTER 2022-09-09 16:04 | Emergency (ER) | payer OTHER ==
[~2022-09-09] VITALS: Ht 160 cm; Wt 41.0 kg
[2022-09-09 17:25] LABS: Basophils # (auto) 0 10 ^3/uL (0-0.2); Basophils % (auto) 0.4 % (0.0-2.0); Eosinophils # (auto) 0.1 10 ^3/uL (0-0.8); Eosinophils % (auto) 1.5 % (0.0-7.0); Hematocrit 39.2 % (36.0-46.0); Hemoglobin 12.5 g/dL (12.2-16.2); Lymphocytes # (auto) 1.6 10 ^3/uL (0.4-5.4); Lymphocytes % (auto) 31.8 % (10.0-50.0); Mean Corpuscular Hemoglobin 29.4 pg (28.0-32.0); Mean Corpuscular Hgb Conc. 31.9 g/dL (32.0-36.0); Mean Corpuscular Volume 92.1 fL (80.0-100.0); Monocytes # (auto) 0.4 10 ^3/uL (0-1.3); Monocytes % (auto) 7.3 % (0.0-12.0); Nucleated Red Blood Cells % 0.1 %; Red Blood Cells 4.25 10^6/uL (4.0-5.20); Red Cell Distribution Width 17.4 % (11.8-14.3); White Blood Cell 5.2 10^3/uL (4.4-10.8)
[2022-09-09] MEDS ORDERED: SODIUM CHLORIDE 0.9% 1,000 ML IVB ONE (17:30)
[2022-09-09] MEDS ORDERED: HYDROmorphone HCL 2 MG/ML VL/or syr IV ONE (17:30)
[2022-09-09] MEDS ORDERED: ONDANSETRON HCL 4 MG/2 ML VIAL IV ONE (17:30)
[2022-09-09] MEDS ORDERED: PANTOPRAZOLE 40 MG/10 ML VIAL INJ IV ONE (17:30)
[2022-09-09 17:42] LABS: Albumin 3.7 g/dL (3.4-5.0); Calcium 8.9 mg/dL (8.5-10.1)
[2022-09-09 17:54] LABS: BUN/Creatinine Ratio 11.1 (10.0-20.0); Bilirubin, Total 0.2 mg/dL (0.2-1.0); Total Protein 8.1 g/dL (6.4-8.2)
[2022-09-09] MEDS ORDERED: diphenhdrAMINE HCL 50 MG/1 ML VL ONE (22:18)
[2022-09-09 22:26] VITALS: BP 170/101
[2022-09-09] MEDS ORDERED: diphenhdrAMINE HCL 50 MG/1 ML VL IV ONE (22:30)
== END 2022-09-09 22:26 | disposition home or self-care (01) ==
LOC: ER 16:04
DX: K86.1 Other chronic pancreatitis (principal); I11.0 Hypertensive heart disease with heart failure; I50.9 Heart failure, unspecified; K21.9 Gastro-esophageal reflux disease without esophagitis; F17.210 Nicotine dependence, cigarettes, uncomplicated; Z90.49 Acquired absence of other specified parts of digestive tract; Z87.442 Personal history of urinary calculi; Z88.0 Allergy status to penicillin; Z88.6 Allergy status to analgesic agent
CPT/HCPCS: 36415; 74176; 80053; 83690; 85025; 96361; 96374; 96375; 99285; C9113; J1170; J1200; J2405; J7030

== ENCOUNTER 2022-09-20 02:17 | Inpatient (IN) | payer OTHER ==
[~2022-09-20] VITALS: Ht 162.6 cm; Wt 51.0 kg
[2022-09-20 02:30] VITALS: PULSE 68; RESP 16; O2SAT 100
[2022-09-20] MEDS ORDERED: HYDROmorphone HCL 2 MG/ML VL/or syr IV ONE ×2 (02:30→06:15)
[2022-09-20] MEDS ORDERED: SODIUM CHLORIDE 0.9% 500 ML IV ONE (02:30)
[2022-09-20] MEDS ORDERED: ONDANSETRON HCL 4 MG/2 ML VIAL IV ONE ×2 (02:30→06:15)
[2022-09-20 03:04] LABS: Basophils # (auto) 0 10 ^3/uL (0-0.2); Basophils % (auto) 0.6 % (0.0-2.0); Eosinophils # (auto) 0.2 10 ^3/uL (0-0.8); Eosinophils % (auto) 2.1 % (0.0-7.0); Hematocrit 34.4 % (36.0-46.0); Hemoglobin 11.3 g/dL (12.2-16.2); Lymphocytes # (auto) 1.8 10 ^3/uL (0.4-5.4); Lymphocytes % (auto) 20.3 % (10.0-50.0); Mean Corpuscular Hemoglobin 29.7 pg (28.0-32.0); Mean Corpuscular Hgb Conc. 32.9 g/dL (32.0-36.0); Mean Corpuscular Volume 90.4 fL (80.0-100.0); Monocytes # (auto) 0.9 10 ^3/uL (0-1.3); Monocytes % (auto) 10.1 % (0.0-12.0); Neutrophils % (auto) 66.9 % (37.0-80.0); Red Blood Cells 3.81 10^6/uL (4.0-5.20); Red Cell Distribution Width 16.9 % (11.8-14.3); White Blood Cell 8.9 10^3/uL (4.4-10.8)
[2022-09-20 03:06] LABS: Albumin 2.8 g/dL (3.4-5.0); Calcium 8.2 mg/dL (8.5-10.1)
[2022-09-20 03:07] LABS: BUN/Creatinine Ratio 12.8 (10.0-20.0)
[2022-09-20 03:10] LABS: Bilirubin, Total 0.2 mg/dL (0.2-1.0); Total Protein 6.7 g/dL (6.4-8.2)
[2022-09-20] MEDS ORDERED: diphenhdrAMINE HCL 50 MG/1 ML VL IV ONE (04:00)
[2022-09-20] MEDS ORDERED: PANTOPRAZOLE 40 MG/10 ML VIAL INJ IV ONE (04:30)
[2022-09-20] MEDS ORDERED: ACETAMINOPHEN 325 MG TAB PO PRN (07:00)
[2022-09-20] MEDS ORDERED: hydrALAZINE HCL 20 MG/ML VL IV PRN (07:00)
[2022-09-20] MEDS ORDERED: DOCUSATE SOD 100 MG CAP PO PRN (07:00)
[2022-09-20] MEDS ORDERED: ONDANSETRON HCL 4 MG/2 ML VIAL IV PRN (07:00)
[2022-09-20] MEDS ORDERED: MORPHINE SULFATE INJ 2 MG/ml SYRG IV PRN (07:30)
[2022-09-20] MEDS ORDERED: NITROGLYCERIN 0.4 MG SL TAB SL PRN (07:30)
[2022-09-20 07:59] VITALS: PULSE 67; RESP 14; O2SAT 97
[2022-09-20] MEDS: HYDROcodone-ACET 5/325MG TAB PO PRN ×3 (08:28→22:24)
[2022-09-20 08:37] LABS: Potassium 4.6 mmol/L (3.5-5.1)
[2022-09-20 08:38] LABS: BUN/Creatinine Ratio 10.1 (10.0-20.0); Bilirubin, Total 0.3 mg/dL (0.2-1.0); Calcium 8.1 mg/dL (8.5-10.1); Total Protein 6.5 g/dL (6.4-8.2)
[2022-09-20 08:39] LABS: Albumin 2.6 g/dL (3.4-5.0)
[2022-09-20 08:54] LABS: Urine Bacteria NONE SEEN /hpf (None Seen); Urine Blood Negative /uL (Negative); Urine Specific Gravity 1.014 (1.001-1.035); Urine WBC <1 /hpf (0 - 5)
[2022-09-20] MEDS ORDERED: cloNIDine HCL 0.1 MG TAB PO ONE (09:00)
[2022-09-20] MEDS: PANTOPRAZOLE 40 MG/10 ML VIAL INJ IV SCH ×2 (10:20→21:11)
[2022-09-20] MEDS: HYDROmorphone HCL 2 MG/ML VL/or syr IV PRN ×3 (10:27→19:55)
[2022-09-20 13:42] LABS: Basophils # (auto) 0 10 ^3/uL (0-0.2); Basophils % (auto) 0.5 % (0.0-2.0); Eosinophils # (auto) 0.1 10 ^3/uL (0-0.8); Eosinophils % (auto) 2.1 % (0.0-7.0); Hematocrit 33.2 % (36.0-46.0); Hemoglobin 10.4 g/dL (12.2-16.2); Lymphocytes # (auto) 1.5 10 ^3/uL (0.4-5.4); Lymphocytes % (auto) 31.6 % (10.0-50.0); Mean Corpuscular Hemoglobin 29.3 pg (28.0-32.0); Mean Corpuscular Hgb Conc. 31.4 g/dL (32.0-36.0); Mean Corpuscular Volume 93.3 fL (80.0-100.0); Monocytes # (auto) 0.5 10 ^3/uL (0-1.3); Monocytes % (auto) 10.4 % (0.0-12.0); Neutrophils # (auto) 2.7 10 ^3/uL (1.6-8.6); Neutrophils % (auto) 55.4 % (37.0-80.0); Nucleated Red Blood Cells % 0.3 %; Red Blood Cells 3.56 10^6/uL (4.0-5.20); Red Cell Distribution Width 17.2 % (11.8-14.3); White Blood Cell 4.8 10^3/uL (4.4-10.8)
[2022-09-20 13:59] LABS: INR 1.06 (0.9-1.15)
[2022-09-20] MEDS: SODIUM CHLOR 0.9% PF (SALINE LOCK) 10ML VIAL/SYR IV SCH ×2 (14:04→21:11)
[2022-09-20 15:22] VITALS: BP 180/116; PULSE 61; RESP 20; TEMP 98.1; O2SAT 100
[2022-09-20 17:00] VITALS: BP 180/116; PULSE 61; RESP 16; TEMP 98.1; O2SAT 100
[2022-09-20 20:00] VITALS: PULSE 81
[2022-09-20] MEDS: cloNIDine HCL 0.1 MG TAB PO SCH (21:15)
[2022-09-20 22:00] VITALS: BP 167/88; PULSE 67; RESP 17; TEMP 98.3; O2SAT 99
[2022-09-21] VITALS (7 sets, daily range): BP systolic 113–172; BP diastolic 68–104; PULSE 51–87; RESP 16–18; TEMP 36.5; O2SAT 99–100
[2022-09-21] MEDS: HYDROmorphone HCL 2 MG/ML VL/or syr IV PRN ×6 (00:03→23:43)
[2022-09-21] MEDS: HYDROcodone-ACET 5/325MG TAB PO PRN ×2 (03:05→10:51)
[2022-09-21] MEDS: SODIUM CHLOR 0.9% PF (SALINE LOCK) 10ML VIAL/SYR IV SCH ×3 (05:20→21:51)
[2022-09-21] MEDS: diphenhdrAMINE HCL 50 MG/1 ML VL IV PRN ×3 (05:20→20:43)
[2022-09-21 06:04] LABS: Basophils # (auto) 0 10 ^3/uL (0-0.2); Basophils % (auto) 0.3 % (0.0-2.0); Eosinophils # (auto) 0.2 10 ^3/uL (0-0.8); Eosinophils % (auto) 3.1 % (0.0-7.0); Hematocrit 33.5 % (36.0-46.0); Hemoglobin 10.9 g/dL (12.2-16.2); Lymphocytes # (auto) 1.7 10 ^3/uL (0.4-5.4); Lymphocytes % (auto) 33.5 % (10.0-50.0); Mean Corpuscular Hemoglobin 29.5 pg (28.0-32.0); Mean Corpuscular Hgb Conc. 32.4 g/dL (32.0-36.0); Mean Corpuscular Volume 91.1 fL (80.0-100.0); Monocytes # (auto) 0.4 10 ^3/uL (0-1.3); Monocytes % (auto) 8.6 % (0.0-12.0); Neutrophils # (auto) 2.8 10 ^3/uL (1.6-8.6); Neutrophils % (auto) 54.5 % (37.0-80.0); Nucleated Red Blood Cells % 0.1 %; Red Blood Cells 3.68 10^6/uL (4.0-5.20); Red Cell Distribution Width 16.7 % (11.8-14.3); White Blood Cell 5.2 10^3/uL (4.4-10.8)
[2022-09-21 06:18] LABS: Albumin 2.8 g/dL (3.4-5.0); Calcium 8.4 mg/dL (8.5-10.1); Magnesium 2.2 mg/dL (1.6-2.6); Potassium 4.6 mmol/L (3.5-5.1)
[2022-09-21 06:22] LABS: BUN/Creatinine Ratio 11.7 (10.0-20.0); Bilirubin, Total 0.4 mg/dL (0.2-1.0); Total Protein 6.7 g/dL (6.4-8.2)
[2022-09-21] MEDS: PANTOPRAZOLE 40 MG/10 ML VIAL INJ IV SCH ×2 (08:31→21:50)
[2022-09-21] MEDS: cloNIDine HCL 0.1 MG TAB PO SCH ×2 (08:32→21:52)
[2022-09-22] VITALS (7 sets, daily range): BP systolic 134–157; BP diastolic 76–92; PULSE 57–63; RESP 17–22; TEMP 97.9–98.5; O2SAT 98–100
[2022-09-22] MEDS: diphenhdrAMINE HCL 50 MG/1 ML VL IV PRN ×4 (03:12→20:40)
[2022-09-22] MEDS: HYDROmorphone HCL 2 MG/ML VL/or syr IV PRN ×5 (04:04→20:47)
[2022-09-22] MEDS: SODIUM CHLOR 0.9% PF (SALINE LOCK) 10ML VIAL/SYR IV SCH ×3 (06:00→21:43)
[2022-09-22] MEDS: cloNIDine HCL 0.1 MG TAB PO SCH ×2 (08:22→21:43)
[2022-09-22] MEDS: PANTOPRAZOLE 40 MG/10 ML VIAL INJ IV SCH ×2 (08:22→21:42)
[2022-09-23] VITALS (8 sets, daily range): BP systolic 136–158; BP diastolic 78–92; PULSE 51–75; RESP 17–18; TEMP 97.8–98.3; O2SAT 96–100
[2022-09-23] MEDS: diphenhdrAMINE HCL 50 MG/1 ML VL IV PRN ×4 (00:36→21:01)
[2022-09-23] MEDS: HYDROmorphone HCL 2 MG/ML VL/or syr IV PRN ×6 (00:42→22:39)
[2022-09-23] MEDS: HYDROcodone-ACET 5/325MG TAB PO PRN ×3 (03:00→16:59)
[2022-09-23] MEDS: SODIUM CHLOR 0.9% PF (SALINE LOCK) 10ML VIAL/SYR IV SCH ×3 (04:56→21:03)
[2022-09-23 09:46] LABS: Basophils # (auto) 0 10 ^3/uL (0-0.2); Basophils % (auto) 0.6 % (0.0-2.0); Eosinophils # (auto) 0.2 10 ^3/uL (0-0.8); Eosinophils % (auto) 5.2 % (0.0-7.0); Hematocrit 33.5 % (36.0-46.0); Hemoglobin 10.8 g/dL (12.2-16.2); Lymphocytes # (auto) 1.3 10 ^3/uL (0.4-5.4); Lymphocytes % (auto) 33.5 % (10.0-50.0); Mean Corpuscular Hemoglobin 29.4 pg (28.0-32.0); Mean Corpuscular Hgb Conc. 32.1 g/dL (32.0-36.0); Mean Corpuscular Volume 91.5 fL (80.0-100.0); Monocytes # (auto) 0.5 10 ^3/uL (0-1.3); Monocytes % (auto) 11.8 % (0.0-12.0); Neutrophils % (auto) 48.9 % (37.0-80.0); Red Blood Cells 3.66 10^6/uL (4.0-5.20); Red Cell Distribution Width 16.7 % (11.8-14.3)
[2022-09-23] MEDS ORDERED: DEXTROSE 10% IV ONE (10:15)
[2022-09-23] MEDS: cloNIDine HCL 0.1 MG TAB PO SCH ×3 (10:16→21:02)
[2022-09-23] MEDS: PANTOPRAZOLE 40 MG/10 ML VIAL INJ IV SCH (10:16)
[2022-09-23 10:36] LABS: Potassium 5.1 mmol/L (3.5-5.1)
[2022-09-23 10:59] LABS: Albumin 2.8 g/dL (3.4-5.0); BUN/Creatinine Ratio 11.1 (10.0-20.0); Bilirubin, Total 0.2 mg/dL (0.2-1.0); Total Protein 6.2 g/dL (6.4-8.2)
[2022-09-23] MEDS: D5W/SOD CHLO 0.9% 1,000 ML IV SCH (16:49)
[2022-09-24] MEDS: HYDROmorphone HCL 2 MG/ML VL/or syr IV PRN ×5 (02:38→23:49)
[2022-09-24] MEDS: diphenhdrAMINE HCL 50 MG/1 ML VL IV PRN ×3 (03:11→19:51)
[2022-09-24] MEDS: D5W/SOD CHLO 0.9% 1,000 ML IV SCH ×2 (03:15→17:06)
[2022-09-24 05:00] VITALS: BP 134/77; PULSE 56; RESP 18; TEMP 97.9; O2SAT 97
[2022-09-24] MEDS: HYDROcodone-ACET 5/325MG TAB PO PRN ×3 (05:12→22:11)
[2022-09-24] MEDS: cloNIDine HCL 0.1 MG TAB PO SCH ×3 (05:12→22:11)
[2022-09-24] MEDS: SODIUM CHLOR 0.9% PF (SALINE LOCK) 10ML VIAL/SYR IV SCH ×3 (05:13→22:14)
[2022-09-24 05:54] LABS: Potassium 4.5 mmol/L (3.5-5.1)
[2022-09-24 05:57] LABS: Basophils # (auto) 0 10 ^3/uL (0-0.2); Basophils % (auto) 0.7 % (0.0-2.0); Eosinophils # (auto) 0.2 10 ^3/uL (0-0.8); Eosinophils % (auto) 5.7 % (0.0-7.0); Hematocrit 33.8 % (36.0-46.0); Hemoglobin 10.9 g/dL (12.2-16.2); Lymphocytes # (auto) 1.5 10 ^3/uL (0.4-5.4); Lymphocytes % (auto) 38.1 % (10.0-50.0); Mean Corpuscular Hemoglobin 29.5 pg (28.0-32.0); Mean Corpuscular Hgb Conc. 32.3 g/dL (32.0-36.0); Mean Corpuscular Volume 91.3 fL (80.0-100.0); Monocytes # (auto) 0.4 10 ^3/uL (0-1.3); Monocytes % (auto) 9.9 % (0.0-12.0); Neutrophils # (auto) 1.7 10 ^3/uL (1.6-8.6); Neutrophils % (auto) 45.6 % (37.0-80.0); Nucleated Red Blood Cells % 0.1 %; Red Blood Cells 3.71 10^6/uL (4.0-5.20); Red Cell Distribution Width 16.2 % (11.8-14.3); White Blood Cell 3.8 10^3/uL (4.4-10.8)
[2022-09-24 06:03] LABS: Albumin 2.7 g/dL (3.4-5.0); BUN/Creatinine Ratio 16.2 (10.0-20.0); Bilirubin, Total 0.2 mg/dL (0.2-1.0); Calcium 8.6 mg/dL (8.5-10.1); Total Protein 6.6 g/dL (6.4-8.2)
[2022-09-24 08:00] VITALS: BP 149/82; PULSE 48; PULSE 56; PULSE 60; RESP 16; RESP 19; TEMP 97.8; O2SAT 100; O2SAT 96
[2022-09-24] MEDS: PANTOPRAZOLE 40 MG/10 ML VIAL INJ IV SCH (09:40)
[2022-09-24 12:00] VITALS: BP 118/82; PULSE 59; RESP 15; TEMP 98.5; O2SAT 99
[2022-09-24] MEDS: PANCREATIC ENZYMES 4200 UNIT CAP PO SCH ×2 (14:15→18:04)
[2022-09-24 16:00] VITALS: BP 157/91; PULSE 56; RESP 14; TEMP 97.9; O2SAT 97
[2022-09-24 20:00] VITALS: PULSE 66; RESP 19
[2022-09-24 22:00] VITALS: BP 157/96; PULSE 60; RESP 20; TEMP 98.7; O2SAT 100
[2022-09-25] VITALS (7 sets, daily range): BP systolic 157–182; BP diastolic 67–100; PULSE 50–64; RESP 15–18; TEMP 97.9–98.5; O2SAT 98–100
[2022-09-25] MEDS: diphenhdrAMINE HCL 50 MG/1 ML VL IV PRN ×3 (01:55→21:30)
[2022-09-25] MEDS: D5W/SOD CHLO 0.9% 1,000 ML IV SCH (02:08)
[2022-09-25] MEDS: HYDROcodone-ACET 5/325MG TAB PO PRN ×4 (03:13→20:07)
[2022-09-25] MEDS: HYDROmorphone HCL 2 MG/ML VL/or syr IV PRN ×4 (04:46→23:18)
[2022-09-25 06:06] LABS: Basophils # (auto) 0 10 ^3/uL (0-0.2); Basophils % (auto) 0.8 % (0.0-2.0); Eosinophils # (auto) 0.2 10 ^3/uL (0-0.8); Eosinophils % (auto) 5.4 % (0.0-7.0); Hematocrit 31.3 % (36.0-46.0); Lymphocytes # (auto) 1.4 10 ^3/uL (0.4-5.4); Lymphocytes % (auto) 33.7 % (10.0-50.0); Mean Corpuscular Hemoglobin 29.4 pg (28.0-32.0); Mean Corpuscular Hgb Conc. 31.9 g/dL (32.0-36.0); Monocytes # (auto) 0.4 10 ^3/uL (0-1.3); Monocytes % (auto) 9.7 % (0.0-12.0); Neutrophils # (auto) 2.1 10 ^3/uL (1.6-8.6); Neutrophils % (auto) 50.4 % (37.0-80.0); Nucleated Red Blood Cells % 0.2 %; Red Blood Cells 3.41 10^6/uL (4.0-5.20); Red Cell Distribution Width 16.4 % (11.8-14.3); White Blood Cell 4.2 10^3/uL (4.4-10.8)
[2022-09-25 06:17] LABS: Potassium 4.3 mmol/L (3.5-5.1)
[2022-09-25 06:25] LABS: Albumin 2.3 g/dL (3.4-5.0); Bilirubin, Total 0.2 mg/dL (0.2-1.0); Calcium 7.9 mg/dL (8.5-10.1); Total Protein 5.8 g/dL (6.4-8.2)
[2022-09-25] MEDS: SODIUM CHLOR 0.9% PF (SALINE LOCK) 10ML VIAL/SYR IV SCH ×3 (07:02→22:00)
[2022-09-25] MEDS: cloNIDine HCL 0.1 MG TAB PO SCH ×3 (07:05→21:30)
[2022-09-25] MEDS: PANTOPRAZOLE 40 MG/10 ML VIAL INJ IV SCH (09:25)
[2022-09-25] MEDS: PANCREATIC ENZYMES 4200 UNIT CAP PO SCH ×3 (09:26→18:21)
[2022-09-25] MEDS ORDERED: ENALAPRIL MALEATE 2.5 MG TAB PO SCH (10:00)
[2022-09-25] MEDS ORDERED: CLON0.2T PO ×2 (11:40)
[2022-09-25] MEDS ORDERED: ENAL2.5T11 PO ×2 (11:40)
[2022-09-25] MEDS: ENALAPRIL MALEATE 2.5 MG TAB PO SCH ×2 (14:33→21:29)
[2022-09-26] MEDS: HYDROcodone-ACET 5/325MG TAB PO PRN ×3 (02:03→14:47)
[2022-09-26] MEDS: HYDROmorphone HCL 2 MG/ML VL/or syr IV PRN ×2 (04:44→11:08)
[2022-09-26 05:00] VITALS: BP 126/74; PULSE 50; RESP 18; TEMP 97.8; O2SAT 100
[2022-09-26] MEDS: diphenhdrAMINE HCL 50 MG/1 ML VL IV PRN ×2 (06:20→12:40)
[2022-09-26] MEDS: SODIUM CHLOR 0.9% PF (SALINE LOCK) 10ML VIAL/SYR IV SCH ×2 (06:23→14:00)
[2022-09-26] MEDS: cloNIDine HCL 0.1 MG TAB PO SCH ×2 (06:23→14:49)
[2022-09-26] MEDS ORDERED: LORazepam 0.5 MG TAB PO PRN (07:30)
[2022-09-26 08:00] VITALS: PULSE 101; PULSE 70; RESP 16
[2022-09-26 09:00] VITALS: BP 158/74; PULSE 54; RESP 16; TEMP 98.2; O2SAT 99
[2022-09-26] MEDS: PANTOPRAZOLE 40 MG/10 ML VIAL INJ IV SCH (09:04)
[2022-09-26] MEDS: PANCREATIC ENZYMES 4200 UNIT CAP PO SCH ×3 (09:05→18:00)
[2022-09-26] MEDS: ENALAPRIL MALEATE 2.5 MG TAB PO SCH (09:06)
[2022-09-26 13:00] VITALS: BP 133/79; PULSE 48; RESP 16; TEMP 97.5; O2SAT 100
[2022-09-26] MEDS ORDERED: ENAL5TAB85 PO ×2 (16:27)
[2022-09-26] MEDS ORDERED: HYDR-4902 PO ×3 (16:27→16:50)
[2022-09-26] MEDS ORDERED: HYDR5CRE3 PR (16:50)
[2022-09-26] MEDS ORDERED: ENAL5TAB22 PO (16:50)
[2022-09-26] MEDS ORDERED: CLON0.2T PO (16:52)
[2022-09-26 17:25] VITALS: BP 140/81; TEMP 36.4
[2022-09-26] MEDS ORDERED: HYDROCORTISONE 100 MG/60 ML RECT ENEMA PR SCH (22:00)
== END 2022-09-26 19:30 | disposition home or self-care (01) | DRG 241 ==
LOC: ER 02:17 → EDBD 02:17 → TELE 07:26 → TELE-CENTR 16:38
PROVIDERS: ADMIT Internal Medicine Geriatric Medicine; ATTEND Internal Medicine Geriatric Medicine
DX: K27.4 Chronic or unspecified peptic ulcer, site unspecified, with hemorrhage (principal); N17.0 Acute kidney failure with tubular necrosis; K83.1 Obstruction of bile duct; E44.0 Moderate protein-calorie malnutrition; K86.3 Pseudocyst of pancreas; I50.9 Heart failure, unspecified; I11.0 Hypertensive heart disease with heart failure; I16.0 Hypertensive urgency; K86.1 Other chronic pancreatitis; K21.9 Gastro-esophageal reflux disease without esophagitis; D64.9 Anemia, unspecified; K64.8 Other hemorrhoids; F41.9 Anxiety disorder, unspecified; G89.29 Other chronic pain; K63.5 Polyp of colon; K64.9 Unspecified hemorrhoids; F17.210 Nicotine dependence, cigarettes, uncomplicated; I70.1 Atherosclerosis of renal artery; Z88.0 Allergy status to penicillin; Z90.49 Acquired absence of other specified parts of digestive tract; Z88.8 Allergy status to other drugs, medicaments and biological substances; Z87.11 Personal history of peptic ulcer disease; Z87.442 Personal history of urinary calculi; Z83.3 Family history of diabetes mellitus; Z82.49 Family history of ischemic heart disease and other diseases of the circulatory system; Z68.1 Body mass index [BMI] 19.9 or less, adult
CPT/HCPCS: 36415; 71045; 74176; 80053; 81001; 82270; 82550; 83605; 83615; 83690; 83735; 85025; 85610; 85730; 87081; 93005; 93975; 96361; 96374; 96375; 96376; C9113; G0378; J2405

== ENCOUNTER 2022-11-13 08:52 | Emergency (ER) | payer OTHER ==
[~2022-11-13] VITALS: Ht 160 cm; Wt 41.8 kg
[~2022-11-13 08:52] MED LIST changes: -ASPI-543 PO; +ENAL5TAB22 PO; -ESOM40CA39 PO; +HYDR-4902 PO; +HYDR5CRE3 PR
[2022-11-13] MEDS ORDERED: MORPHINE SULFATE 4 MG/ML SYR/VIAL IV ONE (09:15)
[2022-11-13] MEDS ORDERED: MORPHINE SULFATE 4 MG/ML SYR/VIAL IM ONE (09:30)
[2022-11-13] MEDS ORDERED: ONDANSETRON HCL 4 MG/2 ML VIAL IM ONE (09:30)
[2022-11-13 09:38] VITALS: TEMP 98.2; O2SAT 99
[2022-11-13 10:00] VITALS: BP 159/110; PULSE 84; RESP 16
[2022-11-13 10:00] LABS: Basophils # (auto) 0 10 ^3/uL (0-0.2); Basophils % (auto) 0.5 % (0.0-2.0); Eosinophils # (auto) 0.2 10 ^3/uL (0-0.8); Hematocrit 38.9 % (36.0-46.0); Hemoglobin 12.2 g/dL (12.2-16.2); Lymphocytes # (auto) 1.2 10 ^3/uL (0.4-5.4); Lymphocytes % (auto) 19.7 % (10.0-50.0); Mean Corpuscular Hemoglobin 28.7 pg (28.0-32.0); Mean Corpuscular Hgb Conc. 31.4 g/dL (32.0-36.0); Mean Corpuscular Volume 91.5 fL (80.0-100.0); Monocytes # (auto) 0.3 10 ^3/uL (0-1.3); Monocytes % (auto) 5.9 % (0.0-12.0); Neutrophils # (auto) 4.1 10 ^3/uL (1.6-8.6); Neutrophils % (auto) 69.9 % (37.0-80.0); Red Blood Cells 4.25 10^6/uL (4.0-5.20); Red Cell Distribution Width 14.9 % (11.8-14.3); White Blood Cell 5.9 10^3/uL (4.4-10.8)
[2022-11-13] MEDS ORDERED: SODIUM CHLORIDE 0.9% 1,000 ML IV ONE (10:30)
[2022-11-13] MEDS ORDERED: metroNIDAZOLE 500MG/100ML 100 ML IV ONE (10:30)
[2022-11-13 13:09] LABS: Alanine Aminotransferase 11 U/L (7-40); Albumin 4.3 g/dL (3.2-4.8); Alkaline Phosphatase 71 U/L (46-116); Amylase 110 U/L (30-118); Anion Gap 5.7 (5-15); Aspartate Aminotransferase 14 U/L (13-40); BUN/Creatinine Ratio 7.2 (10.0-20.0); Blood Urea Nitrogen 6 mg/dL (9-23); Calcium 9.2 mg/dL (8.7-10.4); Carbon Dioxide 19.3 mmol/L (20-30); Chloride 115 mmol/L (98-107); Glucose 83 mg/dL (74-106); Lipase 35 U/L (12-53); Potassium 3.8 mmol/L (3.5-5.1); Sodium 140 mmol/L (136-145)
[2022-11-13 13:10] LABS: Bilirubin, Total < 0.2 mg/dL (0.2-1.0); Total Protein 7.4 g/dL (5.7-8.2)
== END 2022-11-13 12:50 | disposition left against medical advice (07) ==
LOC: ER 08:52
DX: R10.9 Unspecified abdominal pain (principal); Z53.21 Procedure and treatment not carried out due to patient leaving prior to being seen by health care provider
CPT/HCPCS: 36415; 74176; 80053; 82150; 83690; 85025; 96372; 99281; J2270; J2405

== ENCOUNTER 2022-12-04 21:45 | Emergency (ER) | payer OTHER ==
[~2022-12-04] VITALS: Ht 160 cm; Wt 42.0 kg
[2022-12-04] MEDS ORDERED: fentaNYL CITRATE 100 MCG/2 ML VL IV ONE (22:45)
[2022-12-04 22:46] LABS: Basophils # (auto) 0.1 10 ^3/uL (0-0.2); Eosinophils # (auto) 0.3 10 ^3/uL (0-0.8); Eosinophils % (auto) 4.7 % (0.0-7.0); Hematocrit 37.7 % (36.0-46.0); Hemoglobin 12.3 g/dL (12.2-16.2); Mean Corpuscular Hgb Conc. 32.6 g/dL (32.0-36.0); Mean Corpuscular Volume 88.8 fL (80.0-100.0); Monocytes # (auto) 0.4 10 ^3/uL (0-1.3); Monocytes % (auto) 6.1 % (0.0-12.0); Neutrophils # (auto) 3.3 10 ^3/uL (1.6-8.6); Neutrophils % (auto) 55.2 % (37.0-80.0); Red Blood Cells 4.25 10^6/uL (4.0-5.20); Red Cell Distribution Width 14.5 % (11.8-14.3); White Blood Cell 5.9 10^3/uL (4.4-10.8)
[2022-12-04 22:51] LABS: Alanine Aminotransferase 14 U/L (7-40); Albumin 4.8 g/dL (3.2-4.8); Alkaline Phosphatase 82 U/L (46-116); Anion Gap 6 (5-15); Aspartate Aminotransferase 16 U/L (13-40); BUN/Creatinine Ratio 7.1 (10.0-20.0); Blood Urea Nitrogen 6 mg/dL (9-23); Calcium 9.5 mg/dL (8.7-10.4); Carbon Dioxide 24 mmol/L (20-30); Chloride 108 mmol/L (98-107); Glucose 155 mg/dL (74-106); Lipase 28 U/L (12-53); Potassium 3.9 mmol/L (3.5-5.1); Sodium 138 mmol/L (136-145)
[2022-12-04 22:52] LABS: Bilirubin, Total 0.3 mg/dL (0.2-1.0); Total Protein 7.2 g/dL (5.7-8.2)
[2022-12-04 23:01] VITALS: TEMP 98.3
[2022-12-04 23:04] VITALS: PULSE 76; RESP 21; O2SAT 93
[2022-12-04] MEDS ORDERED: HYDROmorphone HCL 2 MG/ML VL/or syr IV ONE (23:30)
[2022-12-05 00:17] VITALS: RESP 24
[2022-12-05] MEDS ORDERED: diphenhdrAMINE HCL 50 MG/1 ML VL IV ONE (00:30)
[2022-12-05] MEDS ORDERED: NITROGLYCERIN 0.4 MG SL TAB SL ONE (00:45)
[2022-12-05 00:57] LABS: Urine WBC None Seen /hpf (0 - 5)
[2022-12-05 01:12] LABS: Urine Bacteria NONE SEEN /hpf (None Seen); Urine Blood Negative /uL (Negative); Urine Clarity Clear (Clear); Urine Mucus FEW (None Seen); Urine Protein, UAD Negative (Negative); Urine Specific Gravity 1.005 (1.001-1.035); Urine Urobilinogen Normal (Negative)
[2022-12-05 01:13] LABS: Urine Color Straw (Yellow)
[2022-12-05] MEDS ORDERED: ONDANSETRON HCL 4 MG/2 ML VIAL IV ONE (01:30)
[2022-12-05] MEDS ORDERED: HYDROcodone-ACET 5/325MG TAB PO ONE (02:15)
[2022-12-05] MEDS ORDERED: metroNIDAZOLE 500MG/100ML 100 ML IV ONE (02:45)
[2022-12-05] MEDS ORDERED: CIPROFLOXACIN HCL 500 MG TAB PO ONE (02:45)
[2022-12-05] MEDS ORDERED: ZOFR4T PO (04:32)
[2022-12-05] MEDS ORDERED: METR-344 PO (04:32)
[2022-12-05] MEDS ORDERED: HYDR1TAB97 PO (04:32)
[2022-12-05] MEDS ORDERED: CIPR-173 PO (04:32)
[2022-12-05 04:51] VITALS: BP 142/95; PULSE 62; O2SAT 96
[2022-12-05] MEDS ORDERED: SODIUM CHLORIDE 0.9% 1,000 ML IV ONE (05:00)
== END 2022-12-05 06:46 | disposition home or self-care (01) ==
LOC: EDBD 21:45 → ER 21:50
DX: K76.89 Other specified diseases of liver (principal); R10.2 Pelvic and perineal pain; K52.9 Noninfective gastroenteritis and colitis, unspecified; R10.84 Generalized abdominal pain; I11.0 Hypertensive heart disease with heart failure; I50.9 Heart failure, unspecified; K21.9 Gastro-esophageal reflux disease without esophagitis; F17.210 Nicotine dependence, cigarettes, uncomplicated; Z90.49 Acquired absence of other specified parts of digestive tract; Z98.890 Other specified postprocedural states; Z88.8 Allergy status to other drugs, medicaments and biological substances; Z79.899 Other long term (current) drug therapy
CPT/HCPCS: 36415; 74176; 80053; 81001; 83690; 84702; 85025; 96365; 96375; 99285; J1170; J1200; J2405; J3490; 99291

== ENCOUNTER 2023-03-13 07:29 | Emergency (ER) | payer OTHER ==
[~2023-03-13] VITALS: Ht 160 cm; Wt 49.0 kg
[~2023-03-13 07:29] MED LIST changes: +CIPR-173 PO; +HYDR1TAB97 PO; +METR-344 PO; +ZOFR4T PO
[2023-03-13 08:12] VITALS: PULSE 70; RESP 16; O2SAT 99
[2023-03-13] MEDS ORDERED: LACTATED RINGER'S 2,000 ML IV ONE (08:15)
[2023-03-13] MEDS ORDERED: ONDANSETRON HCL 4 MG/2 ML VIAL IV ONE (08:15)
[2023-03-13] MEDS ORDERED: MORPHINE SULFATE 4 MG/ML SYR/VIAL IV ONE (08:15)
[2023-03-13] MEDS ORDERED: IOHEXOL 300 MG/ML 100ML BOTTLE IJ ONE ×2 (08:26→09:13)
[2023-03-13 08:42] LABS: Basophils # (auto) 0 10 ^3/uL (0-0.2); Basophils % (auto) 0.5 % (0.0-2.0); Eosinophils # (auto) 0.2 10 ^3/uL (0-0.8); Eosinophils % (auto) 4.4 % (0.0-7.0); Hematocrit 36.7 % (36.0-46.0); Hemoglobin 11.5 g/dL (12.2-16.2); Lymphocytes # (auto) 1.1 10 ^3/uL (0.4-5.4); Lymphocytes % (auto) 19.8 % (10.0-50.0); Mean Corpuscular Hemoglobin 28.2 pg (28.0-32.0); Mean Corpuscular Hgb Conc. 31.3 g/dL (32.0-36.0); Mean Corpuscular Volume 90.2 fL (80.0-100.0); Monocytes # (auto) 0.3 10 ^3/uL (0-1.3); Monocytes % (auto) 5.8 % (0.0-12.0); Neutrophils # (auto) 3.8 10 ^3/uL (1.6-8.6); Neutrophils % (auto) 69.5 % (37.0-80.0); Nucleated Red Blood Cells % 0.1 %; Red Blood Cells 4.07 10^6/uL (4.0-5.20); Red Cell Distribution Width 14.5 % (11.8-14.3); White Blood Cell 5.5 10^3/uL (4.4-10.8)
[2023-03-13] MEDS ORDERED: amLODIPine BESYLATE 5 MG TAB PO ONE (08:45)
[2023-03-13] MEDS ORDERED: diphenhdrAMINE HCL 50 MG/1 ML VL IV ONE (08:45)
[2023-03-13 08:58] LABS: Urine Bacteria NONE SEEN /hpf (None Seen); Urine Blood 3+ /uL (Negative); Urine Budding Yeast FEW /hpf (None Seen); Urine Clarity Clear (Clear); Urine Protein, UAD 1+ (Negative); Urine Specific Gravity 1.019 (1.001-1.035); Urine Urobilinogen Normal (Negative); Urine WBC 47 /hpf (0 - 5)
[2023-03-13 08:59] LABS: Urine Color Yellow (Yellow)
[2023-03-13 09:00] LABS: Alanine Aminotransferase 10 U/L (7-40); Alkaline Phosphatase 90 U/L (46-116); Anion Gap 9 (5-15); Aspartate Aminotransferase 17 U/L (13-40); BUN/Creatinine Ratio 6.5 (10.0-20.0); Bilirubin, Total 0.3 mg/dL (0.2-1.0); Blood Urea Nitrogen 5 mg/dL (9-23); Calcium 9.1 mg/dL (8.5-10.1); Carbon Dioxide 21 mmol/L (20-30); Chloride 110 mmol/L (98-107); Glucose 130 mg/dL (74-106); Potassium 3.7 mmol/L (3.5-5.1); Sodium 140 mmol/L (136-145); Total Protein 6.8 g/dL (5.7-8.2)
[2023-03-13 10:00] VITALS: TEMP 97.6
[2023-03-13] MEDS ORDERED: KETOROLAC TROMETH 30 MG/ML 1ML VIAL IV ONE (10:45)
[2023-03-13] MEDS ORDERED: metroNIDAZOLE 500MG/100ML 100 ML IV ONE (10:45)
[2023-03-13] MEDS ORDERED: CIPROFLOXACIN 400MG/200ML 200 ML IV ONE (10:45)
[2023-03-13 11:22] LABS: Lipase 25 U/L (12-53)
[2023-03-13] MEDS ORDERED: DICY10CA PO (11:58)
[2023-03-13] MEDS ORDERED: CIPR-173 PO (11:58)
[2023-03-13] MEDS ORDERED: METR-344 PO (11:58)
[2023-03-13 12:00] VITALS: BP 187/100; PULSE 80; RESP 14; O2SAT 99
== END 2023-03-13 12:22 | disposition home or self-care (01) ==
LOC: ER 07:29
DX: K52.9 Noninfective gastroenteritis and colitis, unspecified (principal); R10.2 Pelvic and perineal pain; I11.0 Hypertensive heart disease with heart failure; I50.9 Heart failure, unspecified; K21.9 Gastro-esophageal reflux disease without esophagitis; F17.210 Nicotine dependence, cigarettes, uncomplicated; Z90.49 Acquired absence of other specified parts of digestive tract; Z79.899 Other long term (current) drug therapy; Z79.2 Long term (current) use of antibiotics; Z88.0 Allergy status to penicillin; Z88.8 Allergy status to other drugs, medicaments and biological substances
CPT/HCPCS: 36415; 74177; 80053; 81001; 83690; 84702; 85025; 86850; 86900; 86901; 96361; 96365; 96367; 96375; 99285; J0744; J1200; J1885; J2270; J2405; J3490; Q9967

== ENCOUNTER 2023-04-03 03:32 | Emergency (ER) | payer OTHER ==
[~2023-04-03] VITALS: Ht 160 cm; Wt 49.5 kg
[~2023-04-03 03:32] MED LIST changes: +DICY10CA PO
[2023-04-03 04:05] LABS: Urine Epithelial Cast None Seen /hpf (<5)
[2023-04-03 04:12] LABS: Urine Bacteria FEW /hpf (None Seen); Urine Blood Negative /uL (Negative); Urine Clarity Clear (Clear); Urine Color Colorless (Yellow); Urine Protein, UAD Negative (Negative); Urine Specific Gravity 1.014 (1.001-1.035); Urine Urobilinogen Normal (Negative); Urine WBC <1 /hpf (0 - 5); Urine pH 5.5 (5.0-8.0)
[2023-04-03] MEDS ORDERED: diphenhdrAMINE HCL 50 MG/1 ML VL IM ONE (06:30)
[2023-04-03] MEDS ORDERED: ONDANSETRON ODT 4 MG TAB PO ONE (06:30)
[2023-04-03] MEDS ORDERED: cloNIDine HCL 0.1 MG TAB PO ONE (06:30)
[2023-04-03] MEDS ORDERED: HYDROmorphone HCL 2 MG/ML VL/or syr IM ONE (06:30)
[2023-04-03 07:05] LABS: Alanine Aminotransferase 19 U/L (7-40); Albumin 4.2 g/dL (3.2-4.8); Alkaline Phosphatase 87 U/L (46-116); Anion Gap 7 (5-15); Aspartate Aminotransferase 29 U/L (13-40); BUN/Creatinine Ratio 6.7 (10.0-20.0); Blood Urea Nitrogen 6 mg/dL (9-23); Calcium 9.1 mg/dL (8.7-10.4); Carbon Dioxide 21 mmol/L (20-30); Chloride 109 mmol/L (98-107); Glucose 89 mg/dL (74-106); Lipase 29 U/L (12-53); Potassium 4.2 mmol/L (3.5-5.1); Sodium 137 mmol/L (136-145)
[2023-04-03 07:06] LABS: Basophils # (auto) 0 10 ^3/uL (0-0.2); Basophils % (auto) 0.6 % (0.0-2.0); Bilirubin, Total 0.2 mg/dL (0.2-1.0); Eosinophils # (auto) 0.2 10 ^3/uL (0-0.8); Hematocrit 36.2 % (36.0-46.0); Hemoglobin 11.2 g/dL (12.2-16.2); Lymphocytes # (auto) 1.4 10 ^3/uL (0.4-5.4); Lymphocytes % (auto) 26.9 % (10.0-50.0); Mean Corpuscular Hemoglobin 28.4 pg (28.0-32.0); Mean Corpuscular Volume 91.7 fL (80.0-100.0); Monocytes # (auto) 0.4 10 ^3/uL (0-1.3); Monocytes % (auto) 8.3 % (0.0-12.0); Neutrophils # (auto) 3.1 10 ^3/uL (1.6-8.6); Neutrophils % (auto) 60.2 % (37.0-80.0); Nucleated Red Blood Cells % 0.1 %; Red Blood Cells 3.95 10^6/uL (4.0-5.20); Red Cell Distribution Width 14.6 % (11.8-14.3); White Blood Cell 5.1 10^3/uL (4.4-10.8)
[2023-04-03] MEDS ORDERED: diphenhdrAMINE HCL 50 MG/1 ML VL IV ONE (07:30)
[2023-04-03] MEDS ORDERED: HYDROmorphone HCL 2 MG/ML VL/or syr IV ONE (07:30)
[2023-04-03 07:54] VITALS: TEMP 98.2
[2023-04-03 07:55] VITALS: PULSE 74; RESP 18; O2SAT 97
[2023-04-03 08:13] VITALS: O2SAT 98
[2023-04-03 08:14] VITALS: BP 123/104; PULSE 82; RESP 17
== END 2023-04-03 08:23 | disposition home or self-care (01) ==
LOC: ER 03:32
DX: K86.1 Other chronic pancreatitis (principal); G89.4 Chronic pain syndrome; I16.0 Hypertensive urgency; I11.0 Hypertensive heart disease with heart failure; I50.9 Heart failure, unspecified; K21.9 Gastro-esophageal reflux disease without esophagitis; F17.210 Nicotine dependence, cigarettes, uncomplicated; Z90.49 Acquired absence of other specified parts of digestive tract; Z88.6 Allergy status to analgesic agent; Z88.0 Allergy status to penicillin
CPT/HCPCS: 36415; 74176; 80053; 81001; 83690; 85025; 96374; 96375; 99285; J1170; J1200; Q0162

== ENCOUNTER 2023-04-15 07:19 | Inpatient (IN) | payer OTHER ==
[~2023-04-15] VITALS: Ht 160 cm; Wt 43.5 kg
[2023-04-15 08:15] LABS: Basophils # (auto) 0 10 ^3/uL (0-0.2); Basophils % (auto) 0.4 % (0.0-2.0); Eosinophils # (auto) 0.2 10 ^3/uL (0-0.8); Eosinophils % (auto) 3.3 % (0.0-7.0); Hematocrit 38.3 % (36.0-46.0); Lymphocytes % (auto) 19.2 % (10.0-50.0); Mean Corpuscular Hemoglobin 27.8 pg (28.0-32.0); Mean Corpuscular Hgb Conc. 31.2 g/dL (32.0-36.0); Monocytes # (auto) 0.2 10 ^3/uL (0-1.3); Monocytes % (auto) 4.1 % (0.0-12.0); Neutrophils # (auto) 3.7 10 ^3/uL (1.6-8.6); Red Cell Distribution Width 14.3 % (11.8-14.3); White Blood Cell 5.1 10^3/uL (4.4-10.8)
[2023-04-15] MEDS: diphenhdrAMINE HCL 50 MG/1 ML VL IV ONE (08:16)
[2023-04-15] MEDS: ONDANSETRON HCL 4 MG/2 ML VIAL IV ONE (08:16)
[2023-04-15] MEDS: MORPHINE SULFATE 4 MG/ML SYR/VIAL IV ONE ×2 (08:21→09:35)
[2023-04-15] MEDS: cloNIDine HCL 0.1 MG TAB PO ONE (08:21)
[2023-04-15 08:22] VITALS: PULSE 64; RESP 18; O2SAT 100
[2023-04-15 08:29] LABS: INR 1.11 (0.9-1.15); Prothrombin Time 11.6 sec (9.3-11.8)
[2023-04-15 08:33] LABS: Alanine Aminotransferase 21 U/L (7-40); Albumin 4.5 g/dL (3.2-4.8); Alkaline Phosphatase 105 U/L (46-116); Anion Gap 5 (5-15); Aspartate Aminotransferase 26 U/L (13-40); BUN/Creatinine Ratio 7.8 (10.0-20.0); Bilirubin, Total 0.3 mg/dL (0.2-1.0); Blood Urea Nitrogen 6 mg/dL (9-23); Calcium 9.2 mg/dL (8.7-10.4); Carbon Dioxide 22 mmol/L (20-30); Chloride 114 mmol/L (98-107); Glucose 105 mg/dL (74-106); Lipase 21 U/L (12-53); Sodium 141 mmol/L (136-145); Total Protein 7.5 g/dL (5.7-8.2)
[2023-04-15 09:15] LABS: Platelet Estimate Adequate
[2023-04-15 09:18] LABS: Giant Platelets Few
[2023-04-15] MEDS ORDERED: HYDROcodone-ACET 5/325MG TAB PO PRN (10:30)
[2023-04-15] MEDS ORDERED: HYDROCORTISONE 2.5% PR PRN (10:30)
[2023-04-15] MEDS ORDERED: DICYCLOMINE HCL 10 MG CAP PO PRN (10:30)
[2023-04-15] MEDS ORDERED: ACETAMINOPHEN 325 MG TAB PO PRN (10:45)
[2023-04-15] MEDS ORDERED: NITROGLYCERIN 0.4 MG SL TAB SL PRN (10:45)
[2023-04-15] MEDS: SUCRALFATE 1 GM TAB PO SCH (11:31)
[2023-04-15] MEDS: SODIUM CHLORIDE 0.9% 1,000 ML IV SCH (11:32)
[2023-04-15] MEDS: traMADol HCL 50 MG TAB PO SCH (11:37)
[2023-04-15] MEDS ORDERED: PANCREATIC ENZYMES PO SCH (12:00)
[2023-04-15] MEDS: PANCREATIC ENZYMES 4200 UNIT CAP PO SCH (12:16)
[2023-04-15] MEDS: diphenhdrAMINE HCL 25 MG CAP PO SCH (14:03)
[2023-04-15] MEDS: cloNIDine HCL 0.1 MG TAB PO SCH (14:05)
[2023-04-15] MEDS: HYDROcodone-ACET 5/325MG TAB PO PRN (14:53)
[2023-04-15 16:09] LABS: Urine Bacteria FEW /hpf (None Seen); Urine Blood 3+ /uL (Negative); Urine Clarity HAZY (Clear); Urine Color Yellow (Yellow); Urine Protein, UAD 1+ (Negative); Urine Specific Gravity 1.011 (1.001-1.035); Urine Urobilinogen Normal (Negative); Urine WBC 8 /hpf (0 - 5); Urine pH 5.5 (5.0-8.0)
[2023-04-15] MEDS: MORPHINE SULFATE INJ 2 MG/ml SYRG IV PRN (17:06)
[2023-04-15 19:55] VITALS: PULSE 55; RESP 15; O2SAT 94
[2023-04-15] MEDS ORDERED: HYDROCORTISONE TOP SCH (22:00)
[2023-04-15] MEDS ORDERED: ENALAPRIL MALEATE 5 MG PO SCH (22:00)
[2023-04-15] MEDS: METOPROLOL TARTRATE 50 MG TAB PO SCH (22:00)
[2023-04-15] MEDS: HYDROCORTISONE 2.5% TOPICAL CREAM 30GM TUBE TOP SCH (22:00)
[2023-04-15 22:03] VITALS: PULSE 54; RESP 16
[2023-04-15] MEDS: ONDANSETRON HCL 4 MG/2 ML VIAL IV PRN (22:50)
[2023-04-15 22:51] VITALS: BP 145/78; PULSE 52; RESP 18; TEMP 97.8; O2SAT 98
[2023-04-15] MEDS: PANTOPRAZOLE 40 MG TAB PO SCH (23:02)
[2023-04-15] MEDS: ENALAPRIL MALEATE 2.5 MG TAB PO SCH (23:51)
[2023-04-16] MEDS ORDERED: diphenhdrAMINE HCL 25 MG CAP PO PRN (00:15)
[2023-04-16 05:00] VITALS: BP 139/84; PULSE 52; RESP 17; TEMP 97.9; O2SAT 97
[2023-04-16 05:11] LABS: Basophils # (auto) 0 10 ^3/uL (0-0.2); Basophils % (auto) 0.6 % (0.0-2.0); Eosinophils # (auto) 0.1 10 ^3/uL (0-0.8); Eosinophils % (auto) 3.7 % (0.0-7.0); Hematocrit 31.1 % (36.0-46.0); Hemoglobin 9.7 g/dL (12.2-16.2); Lymphocytes # (auto) 1.6 10 ^3/uL (0.4-5.4); Mean Corpuscular Hemoglobin 28.4 pg (28.0-32.0); Mean Corpuscular Hgb Conc. 31.3 g/dL (32.0-36.0); Mean Corpuscular Volume 90.7 fL (80.0-100.0); Monocytes # (auto) 0.3 10 ^3/uL (0-1.3); Neutrophils # (auto) 1.9 10 ^3/uL (1.6-8.6); Neutrophils % (auto) 47.7 % (37.0-80.0); Nucleated Red Blood Cells % 0.1 %; Red Blood Cells 3.43 10^6/uL (4.0-5.20); Red Cell Distribution Width 14.6 % (11.8-14.3)
[2023-04-16 05:20] LABS: Alanine Aminotransferase 20 U/L (7-40); Albumin 3.3 g/dL (3.2-4.8); Alkaline Phosphatase 79 U/L (46-116); Anion Gap 5 (5-15); Aspartate Aminotransferase 32 U/L (13-40); Bilirubin, Total 0.2 mg/dL (0.2-1.0); Calcium 8.2 mg/dL (8.5-10.1); Carbon Dioxide 21 mmol/L (20-30); Chloride 115 mmol/L (98-107); Glucose 128 mg/dL (74-106); Potassium 4.2 mmol/L (3.5-5.1); Sodium 141 mmol/L (136-145); Total Protein 5.9 g/dL (5.7-8.2)
[2023-04-16 05:25] LABS: BUN/Creatinine Ratio 5.3 (10.0-20.0); Blood Urea Nitrogen < 5 mg/dL (9-23)
[2023-04-16 08:30] VITALS: BP 191/97; PULSE 51; RESP 17; TEMP 98.5; O2SAT 100
[2023-04-16] MEDS: hydroCHLOROthiazide 25 MG TAB PO SCH (08:38)
[2023-04-16] MEDS ORDERED: HCTZ 25 MG PO SCH (10:00)
[2023-04-16 12:30] VITALS: BP 180/87; PULSE 68; RESP 17; TEMP 98.3; O2SAT 99
[2023-04-16] MEDS ORDERED: hydrALAZINE HCL 20 MG/ML VL IV PRN (14:30)
[2023-04-16] MEDS: D5W/SOD CHL 0.45% 1,000 ML IV ONE (15:21)
[2023-04-16] MEDS: PANTOPRAZOLE 40mg/50ML NS AE 50 ML IV SCH (15:21)
[2023-04-16] MEDS: diphenhdrAMINE HCL 50 MG/1 ML VL IV PRN (15:25)
[2023-04-16 16:45] VITALS: BP 178/94; PULSE 55; RESP 18; TEMP 98.1; O2SAT 100
[2023-04-16 20:00] VITALS: PULSE 53
[2023-04-16] MEDS: OCTREOTIDE ACETATE 100 MCG in SODIUM CHL 0.9% 50 ML IV ONE (20:25)
[2023-04-16] MEDS: OCTREOTIDE ACETATE 500 MCG in SODIUM CHL 0.9% 99 ML IV SCH (20:44)
[2023-04-16 22:00] VITALS: BP 160/97; PULSE 54; RESP 17; TEMP 98.4; O2SAT 100
[2023-04-16] MEDS ORDERED: PANTOPRAZOLE 40 MG/10 ML VIAL INJ IV SCH (22:00)
[2023-04-17] VITALS (11 sets, daily range): BP systolic 143–215; BP diastolic 75–112; PULSE 51–85; RESP 16–20; TEMP 97.5–98.7; O2SAT 96–100
[2023-04-17] MEDS: hydrALAZINE HCL 20 MG/ML VL IV PRN (03:46)
[2023-04-17 05:41] LABS: Basophils # (auto) 0 10 ^3/uL (0-0.2); Eosinophils # (auto) 0.2 10 ^3/uL (0-0.8); Hematocrit 33.5 % (36.0-46.0); Hemoglobin 10.7 g/dL (12.2-16.2); Lymphocytes # (auto) 1.3 10 ^3/uL (0.4-5.4); Lymphocytes % (auto) 41.1 % (10.0-50.0); Mean Corpuscular Hemoglobin 28.7 pg (28.0-32.0); Mean Corpuscular Volume 89.7 fL (80.0-100.0); Monocytes # (auto) 0.3 10 ^3/uL (0-1.3); Monocytes % (auto) 9.1 % (0.0-12.0); Neutrophils # (auto) 1.3 10 ^3/uL (1.6-8.6); Neutrophils % (auto) 43.8 % (37.0-80.0); Nucleated Red Blood Cells % 0.1 %; Red Blood Cells 3.74 10^6/uL (4.0-5.20); Red Cell Distribution Width 14.3 % (11.8-14.3); White Blood Cell 3.1 10^3/uL (4.4-10.8)
[2023-04-17] MEDS: MORPHINE SULFATE INJ 2 MG/ml SYRG IV PRN (11:23)
[2023-04-17] MEDS ORDERED: PANT40TA2 (13:08)
[2023-04-17] MEDS ORDERED: HYDR-4902 PO (13:24)
[2023-04-17] MEDS ORDERED: METO-159 PO (13:29)
[2023-04-17] MEDS: cloNIDine HCL 0.1 MG TAB PO SCH (14:21)
[2023-04-17] MEDS: HYDROmorphone HCL 2 MG/ML VL/or syr IV PRN (15:36)
[2023-04-17] MEDS ORDERED: LABETALOL HCL 5 MG/ML 4ML SYRINGE IV PRN (16:30)
[2023-04-17 18:02] LABS: Follicle Stimulating Hormone 14.98 IU/L (SEE BELOW); Leuteinizing Hormone 5.1 IU/L; Thyroid Stimulating Hormone 0.5 uIU/mL (0.55-4.78)
[2023-04-17 18:03] LABS: Prolactin 6.56 ng/mL (2.8-29.2)
[2023-04-17 18:04] LABS: Beta HCG, Quantitative 0.9 mIU/mL (1.5-4.2)
[2023-04-17] MEDS: diphenhdrAMINE HCL 50 MG/1 ML VL ONE (20:59)
[2023-04-18 05:00] VITALS: BP 136/101; PULSE 59; RESP 20; TEMP 98.7; O2SAT 96
[2023-04-18 08:00] VITALS: BP 145/88; PULSE 57; RESP 16; TEMP 97.9; O2SAT 98
[2023-04-18 08:06] VITALS: PULSE 59
[2023-04-18] MEDS: PANTOPRAZOLE 40 MG/10 ML VIAL INJ IV SCH (08:57)
[2023-04-18 10:53] LABS: Hematocrit 29.4 % (36.0-46.0); Hemoglobin 9.4 g/dL (12.2-16.2)
[2023-04-18 11:11] LABS: Free T3 2.15 pg/mL (2.3-4.2); Free T4 (Free Thyroxine) 0.76 ng/dL (0.89-1.76)
[2023-04-18 12:00] VITALS: BP 185/92; PULSE 55; RESP 18; TEMP 98.5; O2SAT 100
[2023-04-18 14:05] VITALS: BP 144/86; PULSE 61; RESP 18
[2023-04-18] MEDS ORDERED: MEDR5TAB28 PO (23:46)
[2023-04-19] MEDS ORDERED: medroxyPROGESTERone ACETATE 5 MG TAB PO SCH (10:00)
== END 2023-04-18 15:16 | disposition home or self-care (01) | DRG 253 ==
LOC: ER 07:19 → EDBD 07:19 → TELE 10:43 → TELE-EAST 10:45
PROVIDERS: ADMIT Nurse Practitioner Family; ATTEND Nurse Practitioner
DX: K92.2 Gastrointestinal hemorrhage, unspecified (principal); I11.0 Hypertensive heart disease with heart failure; I50.9 Heart failure, unspecified; R71.0 Precipitous drop in hematocrit; F10.10 Alcohol abuse, uncomplicated; N95.0 Postmenopausal bleeding; K21.9 Gastro-esophageal reflux disease without esophagitis; Y90.9 Presence of alcohol in blood, level not specified; F17.210 Nicotine dependence, cigarettes, uncomplicated; R00.1 Bradycardia, unspecified; I16.0 Hypertensive urgency; Z88.0 Allergy status to penicillin; Z88.8 Allergy status to other drugs, medicaments and biological substances; Z79.891 Long term (current) use of opiate analgesic; Z79.899 Other long term (current) drug therapy; Z87.11 Personal history of peptic ulcer disease; Z87.442 Personal history of urinary calculi; Z82.49 Family history of ischemic heart disease and other diseases of the circulatory system; Z83.3 Family history of diabetes mellitus
CPT/HCPCS: 36415; 76705; 76830; 76856; 80053; 81001; 82270; 82670; 83001; 83002; 83690; 84146; 84439; 84443; 84481; 84484; 84702; 85014; 85018; 85025; 85610; 86850; 86900; 86901; 96374; 96375; 96376; 99291; C9113; G0378; J2405

== ENCOUNTER 2023-07-02 23:11 | Inpatient (IN) | payer OTHER ==
[~2023-07-02] VITALS: Ht 157.5 cm; Wt 45.3 kg
[~2023-07-02 23:11] MED LIST changes: -CIPR-173 PO; -DICY10CA PO; -ENAL5TAB22 PO; -HYDR1TAB97 PO; -HYDR25TA5 PO; -HYDR5CRE3 PR; +LOSA-534 PO; +MEDR5TAB28 PO; -ONDA-144 PO; -PANC1CAP48 PO; +PANT40TA2; -PANT40TA2 PO; -POTA10TA51 PO; -SUCR1TAB22 PO; +SUCR1TAB31 PO; -TRAM-297 PO
[2023-07-03 00:49] LABS: Basophils # (auto) 0 10 ^3/uL (0-0.2); Basophils % (auto) 0.8 % (0.0-2.0); Eosinophils # (auto) 0.3 10 ^3/uL (0-0.8); Eosinophils % (auto) 6.1 % (0.0-7.0); Hematocrit 28.7 % (36.0-46.0); Hemoglobin 8.9 g/dL (12.2-16.2); Lymphocytes # (auto) 1.5 10 ^3/uL (0.4-5.4); Lymphocytes % (auto) 28.5 % (10.0-50.0); Mean Corpuscular Hemoglobin 24.9 pg (28.0-32.0); Mean Corpuscular Hgb Conc. 31.1 g/dL (32.0-36.0); Mean Corpuscular Volume 80.1 fL (80.0-100.0); Monocytes # (auto) 0.4 10 ^3/uL (0-1.3); Monocytes % (auto) 8.1 % (0.0-12.0); Neutrophils % (auto) 56.5 % (37.0-80.0); Nucleated Red Blood Cells % 0.1 %; Red Blood Cells 3.59 10^6/uL (4.0-5.20); Red Cell Distribution Width 16.2 % (11.8-14.3); White Blood Cell 5.3 10^3/uL (4.4-10.8)
[2023-07-03 00:50] LABS: INR 1.11 (0.9-1.15); Partial Thromboplastin Time 29.3 SEC (24.5-34.5); Prothrombin Time 11.6 sec (9.3-11.8)
[2023-07-03 00:56] LABS: Alanine Aminotransferase 13 U/L (7-40); Albumin 3.9 g/dL (3.2-4.8); Alkaline Phosphatase 98 U/L (46-116); Anion Gap 1 (5-15); Aspartate Aminotransferase 16 U/L (13-40); BUN/Creatinine Ratio 10.2 (10.0-20.0); Bilirubin, Total < 0.2 mg/dL (0.2-1.0); Blood Urea Nitrogen 10 mg/dL (9-23); Calcium 9.1 mg/dL (8.7-10.4); Carbon Dioxide 20 mmol/L (20-30); Chloride 117 mmol/L (98-107); Glucose 124 mg/dL (74-106); Lipase 23 U/L (12-53); Potassium 4.3 mmol/L (3.5-5.1); Sodium 138 mmol/L (136-145); Total Protein 6.8 g/dL (5.7-8.2)
[2023-07-03] MEDS: MORPHINE SULFATE 4 MG/ML SYR/VIAL IM ONE (05:58)
[2023-07-03 06:00] VITALS: PULSE 75; RESP 18; O2SAT 97
[2023-07-03] MEDS: ONDANSETRON HCL 4 MG/2 ML VIAL IV ONE (06:09)
[2023-07-03] MEDS: PANTOPRAZOLE 40 MG/10 ML VIAL INJ IV ONE (06:09)
[2023-07-03] MEDS: SODIUM CHLORIDE 0.9% 1,000 ML IV ONE (06:09)
[2023-07-03] MEDS: MORPHINE SULFATE 4 MG/ML SYR/VIAL IV ONE (06:13)
[2023-07-03] MEDS ORDERED: TEMAZEPAM 15 MG CAP PO PRN (07:45)
[2023-07-03] MEDS ORDERED: NITROGLYCERIN 0.4 MG SL TAB SL PRN (07:45)
[2023-07-03] MEDS ORDERED: MORPHINE SULFATE INJ 2 MG/ml SYRG IV PRN (07:45)
[2023-07-03] MEDS ORDERED: ACETAMINOPHEN 325 MG TAB PO PRN (07:45)
[2023-07-03] MEDS: HYDROcodone-ACET 5/325MG TAB PO PRN (09:51)
[2023-07-03] MEDS: SODIUM CHLORIDE 0.9% 1,000 ML IV SCH (11:33)
[2023-07-03] MEDS: cloNIDine HCL 0.1 MG TAB PO SCH (13:29)
[2023-07-03] MEDS: METOPROLOL TARTRATE 50 MG TAB PO SCH (13:30)
[2023-07-03] MEDS: LOSARTAN POTASSIUM 50 MG TAB PO SCH (13:30)
[2023-07-03] MEDS: PANTOPRAZOLE 40 MG/10 ML VIAL INJ IV SCH (13:33)
[2023-07-03] MEDS: PANCREATIC ENZYMES 4200 UNIT CAP PO SCH (13:33)
[2023-07-03] MEDS: ONDANSETRON HCL 4 MG/2 ML VIAL IV PRN (13:35)
[2023-07-03] MEDS: MORPHINE SULFATE INJ 2 MG/ml SYRG IV PRN (13:38)
[2023-07-03] MEDS: SUCRALFATE 1 GM TAB PO SCH (13:50)
[2023-07-03 23:39] VITALS: BP 134/75; PULSE 60; RESP 17; TEMP 97.5; O2SAT 99
[2023-07-04] VITALS (7 sets, daily range): BP systolic 139–183; BP diastolic 64–90; PULSE 60–83; RESP 16–18; TEMP 97.5–98.2; O2SAT 94–99
[2023-07-04] MEDS: diphenhdrAMINE HCL 50 MG/1 ML VL IV PRN (05:45)
[2023-07-04 10:35] LABS: Alanine Aminotransferase 10 U/L (7-40); Albumin 3.3 g/dL (3.2-4.8); Alkaline Phosphatase 83 U/L (46-116); Anion Gap 8 (5-15); Aspartate Aminotransferase 20 U/L (13-40); Bilirubin, Total 0.2 mg/dL (0.2-1.0); Calcium 8.4 mg/dL (8.5-10.1); Carbon Dioxide 17 mmol/L (20-30); Chloride 117 mmol/L (98-107); Glucose 93 mg/dL (74-106); Potassium 4.2 mmol/L (3.5-5.1); Sodium 142 mmol/L (136-145); Total Protein 5.6 g/dL (5.7-8.2)
[2023-07-04 10:39] LABS: BUN/Creatinine Ratio 6.6 (10.0-20.0); Blood Urea Nitrogen < 5 mg/dL (9-23)
[2023-07-04 11:07] LABS: Basophils # (auto) 0 10 ^3/uL (0-0.2); Basophils % (auto) 0.7 % (0.0-2.0); Eosinophils # (auto) 0.2 10 ^3/uL (0-0.8); Hemoglobin 8.1 g/dL (12.2-16.2); Lymphocytes # (auto) 1.1 10 ^3/uL (0.4-5.4); Mean Corpuscular Hemoglobin 24.9 pg (28.0-32.0); Monocytes # (auto) 0.3 10 ^3/uL (0-1.3); Monocytes % (auto) 6.7 % (0.0-12.0); Neutrophils # (auto) 2.8 10 ^3/uL (1.6-8.6)
[2023-07-04 11:57] LABS: Eosinophils % (auto) 3.8 % (0.0-7.0); Hematocrit 27.8 % (36.0-46.0); Lymphocytes % (auto) 25.1 % (10.0-50.0); Mean Corpuscular Volume 85.9 fL (80.0-100.0); Neutrophils % (auto) 63.7 % (37.0-80.0); Red Blood Cells 3.24 10^6/uL (4.0-5.20); Red Cell Distribution Width 16.4 % (11.8-14.3); White Blood Cell 4.5 10^3/uL (4.4-10.8)
[2023-07-04 12:26] LABS: Hypochromia Slight; Platelet Estimate Adequate
[2023-07-04 12:27] LABS: Tear Drop Cells FEW
[2023-07-04] MEDS: HYDROmorphone HCL 2 MG/ML VL/or syr IV PRN (14:25)
[2023-07-05 01:00] VITALS: BP 156/83; PULSE 65; RESP 18; TEMP 97.7; O2SAT 97
[2023-07-05 05:00] VITALS: BP 152/80; PULSE 59; RESP 18; TEMP 98.5; O2SAT 95
[2023-07-05 13:00] VITALS: BP 143/82; PULSE 56; RESP 18; TEMP 98.1; O2SAT 96
[2023-07-05 17:00] VITALS: BP 165/85; PULSE 72; RESP 18; TEMP 98.2; O2SAT 99
[2023-07-05 20:00] VITALS: BP 143/82; RESP 16; TEMP 36.8
[2023-07-05 21:00] VITALS: BP 138/73; PULSE 69; RESP 20; TEMP 98.6; O2SAT 100
[2023-07-05] MEDS: DOCUSATE SOD 100 MG CAP PO PRN (22:18)
[2023-07-06] VITALS (9 sets, daily range): BP systolic 125–169; BP diastolic 74–89; PULSE 55–69; RESP 18–20; TEMP 36.8; O2SAT 96–99
[2023-07-06 11:53] LABS: Urine Bacteria None Seen /hpf (None Seen)
[2023-07-06 12:10] LABS: Urine Blood Negative /uL (Negative); Urine Clarity Clear (Clear); Urine Color Light-Yellow (Yellow); Urine Protein, UAD Negative (Negative); Urine Specific Gravity 1.016 (1.001-1.035); Urine Urobilinogen Normal (Negative); Urine WBC <1 /hpf (0 - 5); Urine pH 6.5 (5.0-9.0)
[2023-07-07 01:00] VITALS: BP_SYST 116; BP_SYST 133; BP_DIAS 60; BP_DIAS 61; PULSE 53; PULSE 62; RESP 20; TEMP 98.1; TEMP 98.2; O2SAT 94; O2SAT 97
[2023-07-07 05:00] VITALS: BP 101/57; PULSE 54; RESP 20; TEMP 98.2; O2SAT 99
[2023-07-07 07:17] LABS: Anion Gap 9 (5-15); Calcium 9.3 mg/dL (8.5-10.1); Carbon Dioxide 21 mmol/L (20-30); Chloride 107 mmol/L (98-107); Potassium 4.1 mmol/L (3.5-5.1); Sodium 137 mmol/L (136-145)
[2023-07-07 07:23] LABS: BUN/Creatinine Ratio 9.3 (10.0-20.0); Blood Urea Nitrogen 9 mg/dL (9-23); Glucose 126 mg/dL (74-106)
[2023-07-07 07:29] LABS: Basophils # (auto) 0 10 ^3/uL (0-0.2); Eosinophils # (auto) 0.3 10 ^3/uL (0-0.8); Hemoglobin 9.1 g/dL (12.2-16.2); Lymphocytes # (auto) 1.4 10 ^3/uL (0.4-5.4); Mean Corpuscular Hgb Conc. 30.3 g/dL (32.0-36.0); Monocytes # (auto) 0.5 10 ^3/uL (0-1.3); Red Blood Cells 3.68 10^6/uL (4.0-5.20); White Blood Cell 4.1 10^3/uL (4.4-10.8)
[2023-07-07 07:30] LABS: Basophils % (auto) 0.8 % (0.0-2.0); Eosinophils % (auto) 6.2 % (0.0-7.0); Hematocrit 30.2 % (36.0-46.0); Lymphocytes % (auto) 33.2 % (10.0-50.0); Mean Corpuscular Hemoglobin 24.8 pg (28.0-32.0); Monocytes % (auto) 11.6 % (0.0-12.0); Neutrophils % (auto) 48.2 % (37.0-80.0); Nucleated Red Blood Cells % 0.3 %
[2023-07-07 08:00] VITALS: BP 128/68; PULSE 64; RESP 18; TEMP 98.4; O2SAT 98
[2023-07-07 09:00] VITALS: BP 108/60; PULSE 54; RESP 20; TEMP 98.1; O2SAT 92
[2023-07-07] MEDS ORDERED: PROMETHAZINE HCL 6.25 MG/5 ML ORAL SYRUP PO ONE (11:45)
[2023-07-07 13:00] VITALS: BP 126/74; PULSE 61; RESP 17; TEMP 98.2; O2SAT 100
[2023-07-07] MEDS: METOCLOPRAMIDE HCL 10 MG TAB PO ONE (13:22)
== END 2023-07-07 16:40 | disposition home or self-care (01) | DRG 282 ==
LOC: ER 23:11 → OVERFLOW 07-03 07:43 → CENTRAL 07-03 07:43
PROVIDERS: ADMIT Nurse Practitioner; ATTEND Nurse Practitioner
DX: K85.90 Acute pancreatitis without necrosis or infection, unspecified (principal); D63.8 Anemia in other chronic diseases classified elsewhere; I16.0 Hypertensive urgency; K86.1 Other chronic pancreatitis; F11.20 Opioid dependence, uncomplicated; K21.9 Gastro-esophageal reflux disease without esophagitis; F17.210 Nicotine dependence, cigarettes, uncomplicated; K86.3 Pseudocyst of pancreas; K92.2 Gastrointestinal hemorrhage, unspecified; Z87.11 Personal history of peptic ulcer disease; Z87.442 Personal history of urinary calculi; Z88.0 Allergy status to penicillin; Z88.8 Allergy status to other drugs, medicaments and biological substances; Z90.49 Acquired absence of other specified parts of digestive tract; Z82.49 Family history of ischemic heart disease and other diseases of the circulatory system; Z83.3 Family history of diabetes mellitus
CPT/HCPCS: 36415; 74176; 76705; 80048; 80053; 81001; 83690; 85025; 85610; 85730; 96361; 96374; 96375; C9113; G0378; J2405

== ENCOUNTER 2023-07-14 08:51 | Emergency (ER) | payer OTHER ==
[~2023-07-14] VITALS: Ht 152.4 cm; Wt 44.3 kg
[~2023-07-14 08:51] MED LIST changes: -MEDR5TAB28 PO; -METR-344 PO
[2023-07-14 09:46] VITALS: BP 149/94; PULSE 75; RESP 16; TEMP 97.4; O2SAT 100
[2023-07-14] MEDS ORDERED: ACET500T58 PO (10:23)
[2023-07-14] MEDS ORDERED: PRED20TA2 PO (10:23)
[2023-07-14] MEDS ORDERED: BENZ100C97 PO (10:23)
[2023-07-14] MEDS: PROMETHAZINE W/CODEINE 5 ML ORAL SYRUP PO ONE (10:58)
== END 2023-07-14 11:27 | disposition home or self-care (01) ==
LOC: ER 08:51
DX: J40 Bronchitis, not specified as acute or chronic (principal); K21.9 Gastro-esophageal reflux disease without esophagitis; I10 Essential (primary) hypertension; Z87.442 Personal history of urinary calculi; Z90.49 Acquired absence of other specified parts of digestive tract; F17.210 Nicotine dependence, cigarettes, uncomplicated

== ENCOUNTER 2023-07-19 02:21 | Inpatient (IN) | payer OTHER ==
[~2023-07-19] VITALS: Ht 157.5 cm; Wt 47.1 kg
[~2023-07-19 02:21] MED LIST changes: +ACET500T58 PO; +BENZ100C97 PO; +PRED20TA2 PO
[2023-07-19 03:05] LABS: Basophils # (auto) 0 10 ^3/uL (0-0.2); Hemoglobin 9.4 g/dL (12.2-16.2); Monocytes # (auto) 0.5 10 ^3/uL (0-1.3)
[2023-07-19 03:07] LABS: Basophils % (auto) 0.3 % (0.0-2.0); Eosinophils # (auto) 0 10 ^3/uL (0-0.8); Eosinophils % (auto) 0.5 % (0.0-7.0); Hematocrit 30.8 % (36.0-46.0); Lymphocytes # (auto) 1.6 10 ^3/uL (0.4-5.4); Lymphocytes % (auto) 18.2 % (10.0-50.0); Mean Corpuscular Hemoglobin 24.8 pg (28.0-32.0); Mean Corpuscular Hgb Conc. 30.6 g/dL (32.0-36.0); Mean Corpuscular Volume 81.2 fL (80.0-100.0); Monocytes % (auto) 5.8 % (0.0-12.0); Neutrophils # (auto) 6.6 10 ^3/uL (1.6-8.6); Neutrophils % (auto) 75.2 % (37.0-80.0); Nucleated Red Blood Cells % 0.1 %; Red Cell Distribution Width 16.7 % (11.8-14.3); White Blood Cell 8.8 10^3/uL (4.4-10.8)
[2023-07-19 03:23] LABS: Alanine Aminotransferase < 9 U/L (7-40); Albumin 4.5 g/dL (3.2-4.8); Alkaline Phosphatase 104 U/L (46-116); Anion Gap 8 (5-15); Aspartate Aminotransferase 23 U/L (13-40); BUN/Creatinine Ratio 6.7 (10.0-20.0); Bilirubin, Total < 0.2 mg/dL (0.2-1.0); Blood Urea Nitrogen 7 mg/dL (9-23); Calcium 9.7 mg/dL (8.5-10.1); Carbon Dioxide 20 mmol/L (20-30); Chloride 110 mmol/L (98-107); Glucose 117 mg/dL (74-106); Potassium 3.8 mmol/L (3.5-5.1); Sodium 138 mmol/L (136-145); Total Protein 7.8 g/dL (5.7-8.2)
[2023-07-19] MEDS: SODIUM CHLORIDE 0.9% 1,000 ML IV ONE (03:32)
[2023-07-19] MEDS: MORPHINE SULFATE 4 MG/ML SYR/VIAL IV ONE ×2 (03:32→04:24)
[2023-07-19] MEDS: ONDANSETRON HCL 4 MG/2 ML VIAL IV ONE (03:33)
[2023-07-19 03:39] VITALS: PULSE 71; RESP 14; O2SAT 100
[2023-07-19 04:07] LABS: Lipase 29 U/L (12-53)
[2023-07-19] MEDS ORDERED: ONDANSETRON HCL 4 MG/2 ML VIAL IV PRN (04:15)
[2023-07-19] MEDS ORDERED: DOCUSATE SOD 100 MG CAP PO PRN (04:15)
[2023-07-19] MEDS ORDERED: ACETAMINOPHEN 325 MG TAB PO PRN (04:15)
[2023-07-19] MEDS: SODIUM CHLORIDE 0.9% 1,000 ML IV SCH (05:14)
[2023-07-19] MEDS ORDERED: MORPHINE SULFATE INJ 2 MG/ml SYRG IV PRN (05:15)
[2023-07-19] MEDS ORDERED: NITROGLYCERIN 0.4 MG SL TAB SL PRN (05:15)
[2023-07-19] MEDS: cloNIDine HCL 0.1 MG TAB PO PRN (05:17)
[2023-07-19 07:30] VITALS: PULSE 63; RESP 12; O2SAT 100
[2023-07-19] MEDS: MORPHINE SULFATE INJ 2 MG/ml SYRG IV PRN (08:47)
[2023-07-19] MEDS: LOSARTAN POTASSIUM 50 MG TAB PO SCH (09:52)
[2023-07-19] MEDS: PANTOPRAZOLE 40 MG/10 ML VIAL INJ IV SCH (09:53)
[2023-07-19] MEDS: diphenhdrAMINE HCL 50 MG/1 ML VL IV ONE (12:51)
[2023-07-19 20:00] VITALS: BP 176/102; PULSE 63; RESP 18; TEMP 98; O2SAT 96
[2023-07-19 21:00] VITALS: BP 176/102; PULSE 63; RESP 18; TEMP 98; O2SAT 96
[2023-07-19] MEDS: diphenhdrAMINE HCL 50 MG/1 ML VL IV PRN (21:49)
[2023-07-20 01:00] VITALS: BP 183/94; PULSE 70; RESP 16; TEMP 97.9; O2SAT 100
[2023-07-20 05:00] VITALS: BP 186/94; PULSE 61; RESP 18; TEMP 98.4; O2SAT 98
[2023-07-20 08:00] VITALS: BP 187/101; PULSE 63; RESP 21; TEMP 98.1; O2SAT 96
[2023-07-20] MEDS: HYDROcodone-ACET 5/325MG TAB PO PRN (08:32)
[2023-07-20] MEDS: NIFEdipine ER 30 MG TAB PO SCH (08:32)
[2023-07-20 10:00] VITALS: BP 178/93; PULSE 60
[2023-07-20] MEDS: LACTULOSE 20Gm/30ML SOLN PO ONE (11:51)
[2023-07-20 12:00] VITALS: BP 171/98; PULSE 62; RESP 18; TEMP 97.5; O2SAT 99
[2023-07-20] MEDS ORDERED: SPIRONOLACTONE 25 MG TAB PO ONE (14:00)
[2023-07-20] MEDS: cloNIDine HCL 0.1 MG TAB PO ONE (14:11)
[2023-07-20] MEDS ORDERED: NIFEdipine ER 30 MG TAB PO ONE (16:00)
[2023-07-20] MEDS ORDERED: AZITHROMYCIN 500MG/ 250ML 250 ML IV ONE (16:00)
[2023-07-21] MEDS ORDERED: NIFEdipine ER 30 MG TAB PO SCH (10:00)
[2023-07-21] MEDS ORDERED: AZITHROMYCIN 500MG/ 250ML 250 ML IV SCH (10:00)
== END 2023-07-20 16:24 | disposition left against medical advice (07) | DRG 199 ==
LOC: ER 02:21 → OVERFLOW 05:05 → ER 05:08 → WEST WING 16:30
PROVIDERS: ADMIT Nurse Practitioner Family; ATTEND Nurse Practitioner Family
DX: I16.1 Hypertensive emergency (principal); D64.9 Anemia, unspecified; F17.210 Nicotine dependence, cigarettes, uncomplicated; K21.9 Gastro-esophageal reflux disease without esophagitis; K59.00 Constipation, unspecified; G89.4 Chronic pain syndrome; Z88.0 Allergy status to penicillin; Z83.3 Family history of diabetes mellitus; Z82.49 Family history of ischemic heart disease and other diseases of the circulatory system; Z87.11 Personal history of peptic ulcer disease; Z87.442 Personal history of urinary calculi; Z90.49 Acquired absence of other specified parts of digestive tract; Z78.0 Asymptomatic menopausal state
CPT/HCPCS: 36415; 74176; 80053; 83690; 84702; 85025; 86850; 86900; 86901; 87081; 96361; 96374; 96375; 96376; C9113; G0378; J2405

== ENCOUNTER 2023-07-30 18:41 | Emergency (ER) | payer OTHER ==
[~2023-07-30] VITALS: Ht 160 cm; Wt 44.0 kg
[2023-07-30 19:25] VITALS: BP 149/115; PULSE 74; RESP 18; O2SAT 97
== END 2023-07-30 21:57 | disposition left against medical advice (07) ==
LOC: ER 18:41
DX: R10.9 Unspecified abdominal pain (principal); M54.9 Dorsalgia, unspecified; R11.10 Vomiting, unspecified; K92.1 Melena; Z53.21 Procedure and treatment not carried out due to patient leaving prior to being seen by health care provider

== ENCOUNTER 2023-08-19 00:08 | Emergency (ER) | payer OTHER ==
[~2023-08-19] VITALS: Ht 160 cm; Wt 48.0 kg
[2023-08-19 01:59] LABS: Basophils # (auto) 0 10 ^3/uL (0-0.2); Eosinophils # (auto) 0.3 10 ^3/uL (0-0.8); Hemoglobin 10.3 g/dL (12.2-16.2); Mean Corpuscular Hgb Conc. 30.9 g/dL (32.0-36.0); Monocytes # (auto) 0.3 10 ^3/uL (0-1.3); Neutrophils # (auto) 2.1 10 ^3/uL (1.6-8.6); Nucleated Red Blood Cells % 0.1 %
[2023-08-19 02:01] LABS: Eosinophils % (auto) 5.3 % (0.0-7.0); Hematocrit 33.3 % (36.0-46.0); Lymphocytes # (auto) 2.1 10 ^3/uL (0.4-5.4); Lymphocytes % (auto) 44.4 % (10.0-50.0); Mean Corpuscular Hemoglobin 24.5 pg (28.0-32.0); Mean Corpuscular Volume 79.3 fL (80.0-100.0); Neutrophils % (auto) 42.3 % (37.0-80.0); Red Blood Cells 4.19 10^6/uL (4.0-5.20); White Blood Cell 4.8 10^3/uL (4.4-10.8)
[2023-08-19 02:13] LABS: Alanine Aminotransferase 12 U/L (7-40); Albumin 4.5 g/dL (3.2-4.8); Alkaline Phosphatase 105 U/L (46-116); Anion Gap 8 (5-15); Aspartate Aminotransferase 14 U/L (13-40); BUN/Creatinine Ratio 11.1 (10.0-20.0); Blood Urea Nitrogen 10 mg/dL (9-23); Calcium 9.5 mg/dL (8.7-10.4); Carbon Dioxide 21 mmol/L (20-30); Chloride 107 mmol/L (98-107); Glucose 98 mg/dL (74-106); Lipase 21 U/L (12-53); Potassium 3.7 mmol/L (3.5-5.1); Sodium 136 mmol/L (136-145)
[2023-08-19 02:14] LABS: Bilirubin, Total < 0.2 mg/dL (0.2-1.0); Total Protein 7.9 g/dL (5.7-8.2)
[2023-08-19 02:45] LABS: Urine Bacteria FEW /hpf (None Seen); Urine Blood Negative /uL (Negative); Urine Clarity Turbid (Clear); Urine Color Light-Yellow (Yellow); Urine Protein, UAD Negative (Negative); Urine Specific Gravity 1.011 (1.001-1.035); Urine Urobilinogen Normal (Negative); Urine WBC 2 /hpf (0 - 5); Urine pH 5.5 (5.0-9.0)
[2023-08-19] MEDS: PANTOPRAZOLE 40 MG/10 ML VIAL INJ IV ONE (02:52)
[2023-08-19] MEDS: SUCRALFATE 1 GM/10 ML ORAL SUSP GT ONE (02:52)
[2023-08-19] MEDS: SODIUM CHLORIDE 0.9% 1,000 ML IV ONE (02:52)
[2023-08-19] MEDS: ONDANSETRON HCL 4 MG/2 ML VIAL IV ONE (02:52)
[2023-08-19] MEDS: HYDROmorphone HCL 2 MG/ML VL/or syr IV ONE (02:53)
[2023-08-19] MEDS ORDERED: levoFLOXacin 500MG 100 ML IV ONE (04:00)
[2023-08-19] MEDS ORDERED: metroNIDAZOLE 500MG/100ML 100 ML IV ONE (04:00)
[2023-08-19] MEDS: diphenhdrAMINE HCL 50 MG/1 ML VL IV ONE (04:01)
[2023-08-19 04:15] VITALS: BP 170/98; PULSE 80; RESP 12; TEMP 98.2; O2SAT 98
[2023-08-19 04:21] LABS: Amphetamine Screen, Urine Neg (NEGATIVE); Barbiturate Scree,Urine Neg (NEGATIVE); Benzodiazephine Screen, Urine Neg (NEGATIVE); Cannabinoid Screen, Urine Neg (NEGATIVE); Cocaine Screen, Urine Neg (NEGATIVE); Opiate Scree,Urine Pos (NEGATIVE); Phencyclidine Screen, Urine Neg (NEGATIVE)
[2023-08-19] MEDS: levoFLOXacin 500 MG TAB PO ONE (04:34)
[2023-08-19] MEDS: metroNIDAZOLE 500 MG TAB PO ONE (04:35)
== END 2023-08-19 04:35 | disposition home or self-care (01) ==
LOC: ER 00:08
DX: K52.9 Noninfective gastroenteritis and colitis, unspecified (principal); R10.2 Pelvic and perineal pain; K86.1 Other chronic pancreatitis; K76.89 Other specified diseases of liver; K31.9 Disease of stomach and duodenum, unspecified; K21.9 Gastro-esophageal reflux disease without esophagitis; I10 Essential (primary) hypertension; F17.210 Nicotine dependence, cigarettes, uncomplicated; Z90.49 Acquired absence of other specified parts of digestive tract; Z79.899 Other long term (current) drug therapy
CPT/HCPCS: 36415; 74176; 76700; 80053; 80307; 81001; 83605; 83690; 84702; 85025; 96361; 96374; 96375; 99285; C9113; J1170; J1200; J2405; J7030

== ENCOUNTER 2023-08-22 20:07 | Emergency (ER) | payer OTHER ==
[~2023-08-22] VITALS: Ht 160 cm; Wt 47.1 kg
[2023-08-22] MEDS: HYDROmorphone HCL 2 MG/ML VL/or syr IM ONE (00:37)
[2023-08-22] MEDS: ONDANSETRON ODT 4 MG TAB PO ONE (00:37)
[2023-08-22 21:40] VITALS: O2SAT 100
[2023-08-22 23:10] LABS: Alanine Aminotransferase 12 U/L (7-40); Alkaline Phosphatase 86 U/L (46-116); Anion Gap 8 (5-15); Aspartate Aminotransferase 14 U/L (13-40); BUN/Creatinine Ratio 9.3 (10.0-20.0); Bilirubin, Total < 0.2 mg/dL (0.2-1.0); Blood Urea Nitrogen 9 mg/dL (9-23); Calcium 9.3 mg/dL (8.7-10.4); Carbon Dioxide 18 mmol/L (20-30); Chloride 115 mmol/L (98-107); Glucose 131 mg/dL (74-106); Lipase 17 U/L (12-53); Potassium 3.9 mmol/L (3.5-5.1); Sodium 141 mmol/L (136-145)
[2023-08-22 23:27] LABS: Basophils # (auto) 0 10 ^3/uL (0-0.2); Eosinophils # (auto) 0 10 ^3/uL (0-0.8); Hematocrit 29.9 % (36.0-46.0); Hemoglobin 9.2 g/dL (12.2-16.2); Monocytes # (auto) 0.3 10 ^3/uL (0-1.3); Monocytes % (auto) 5.4 % (0.0-12.0); Red Blood Cells 3.71 10^6/uL (4.0-5.20)
[2023-08-22 23:29] LABS: Basophils % (auto) 0.2 % (0.0-2.0); Eosinophils % (auto) 0.5 % (0.0-7.0); Lymphocytes # (auto) 1.8 10 ^3/uL (0.4-5.4); Lymphocytes % (auto) 27.7 % (10.0-50.0); Mean Corpuscular Hemoglobin 24.9 pg (28.0-32.0); Mean Corpuscular Hgb Conc. 30.8 g/dL (32.0-36.0); Mean Corpuscular Volume 80.7 fL (80.0-100.0); Neutrophils # (auto) 4.3 10 ^3/uL (1.6-8.6); Neutrophils % (auto) 66.2 % (37.0-80.0); Red Cell Distribution Width 18.9 % (11.8-14.3); White Blood Cell 6.5 10^3/uL (4.4-10.8)
[2023-08-23 01:10] VITALS: BP 139/94; PULSE 83; RESP 18; TEMP 97.8
[2023-08-23] MEDS: diphenhdrAMINE HCL 25 MG CAP PO ONE (01:41)
[2023-08-23] MEDS ORDERED: DICY10CA PO (01:56)
[2023-08-23] MEDS ORDERED: ZOFR4T PO (01:56)
== END 2023-08-23 01:57 | disposition left against medical advice (07) ==
LOC: ER 20:07
DX: R10.12 Left upper quadrant pain (principal); I10 Essential (primary) hypertension; K21.9 Gastro-esophageal reflux disease without esophagitis; F17.210 Nicotine dependence, cigarettes, uncomplicated; Z98.890 Other specified postprocedural states; Z88.8 Allergy status to other drugs, medicaments and biological substances; Z79.899 Other long term (current) drug therapy
CPT/HCPCS: 36415; 74176; 80053; 83690; 84484; 85025; 96372; 99285; J1170; Q0162

== ENCOUNTER 2023-08-27 10:03 | Emergency (ER) | payer MEDICAID, OTHER ==
[~2023-08-27] VITALS: Ht 160 cm; Wt 42.5 kg
[~2023-08-27 10:03] MED LIST changes: +DICY10CA PO
[2023-08-27 11:43] LABS: Urine Bacteria FEW /hpf (None Seen); Urine Blood Negative /uL (Negative); Urine Clarity Turbid (Clear); Urine Color Yellow (Yellow); Urine Protein, UAD Negative (Negative); Urine Specific Gravity 1.024 (1.001-1.035); Urine Urobilinogen Normal (Negative); Urine WBC 1 /hpf (0 - 5); Urine pH 5.5 (5.0-9.0)
[2023-08-27 12:15] LABS: Basophils # (auto) 0 10 ^3/uL (0-0.2); Basophils % (auto) 0.8 % (0.0-2.0); Eosinophils # (auto) 0.3 10 ^3/uL (0-0.8); Hematocrit 33.9 % (36.0-46.0); Hemoglobin 10.3 g/dL (12.2-16.2); Lymphocytes # (auto) 1.5 10 ^3/uL (0.4-5.4); Lymphocytes % (auto) 28.1 % (10.0-50.0); Mean Corpuscular Hemoglobin 24.4 pg (28.0-32.0); Mean Corpuscular Hgb Conc. 30.3 g/dL (32.0-36.0); Mean Corpuscular Volume 80.5 fL (80.0-100.0); Monocytes # (auto) 0.3 10 ^3/uL (0-1.3); Monocytes % (auto) 5.5 % (0.0-12.0); Neutrophils # (auto) 3.2 10 ^3/uL (1.6-8.6); Neutrophils % (auto) 60.6 % (37.0-80.0); Red Blood Cells 4.21 10^6/uL (4.0-5.20); Red Cell Distribution Width 18.4 % (11.8-14.3); White Blood Cell 5.3 10^3/uL (4.4-10.8)
[2023-08-27 12:26] LABS: Alanine Aminotransferase 25 U/L (7-40); Albumin 4.2 g/dL (3.2-4.8); Alkaline Phosphatase 88 U/L (46-116); Anion Gap 7 (5-15); Aspartate Aminotransferase 34 U/L (13-40); BUN/Creatinine Ratio 9.4 (10.0-20.0); Blood Urea Nitrogen 8 mg/dL (9-23); Calcium 9.4 mg/dL (8.7-10.4); Carbon Dioxide 17 mmol/L (20-30); Chloride 117 mmol/L (98-107); Glucose 170 mg/dL (74-106); Lipase 22 U/L (12-53); Sodium 141 mmol/L (136-145)
[2023-08-27 12:27] LABS: Bilirubin, Total 0.2 mg/dL (0.2-1.0); Total Protein 7.3 g/dL (5.7-8.2)
[2023-08-27 12:55] VITALS: PULSE 68; RESP 19; TEMP 98.3; O2SAT 100
[2023-08-27] MEDS: METOCLOPRAMIDE HCL 5MG/ml INJ 2ml VIAL IV ONE (14:17)
[2023-08-27] MEDS: HYDROmorphone HCL 2 MG/ML VL/or syr IV ONE (14:19)
[2023-08-27] MEDS: SODIUM CHLORIDE 0.9% 500 ML IVB ONE (14:24)
[2023-08-27] MEDS: IOHEXOL 300 MG/ML 100ML BOTTLE IJ ONE (14:44)
[2023-08-27] MEDS: SODIUM CHLORIDE 0.9% 1,000 ML IV ONE (15:23)
[2023-08-27] MEDS ORDERED: OMEP20TA PO (15:44)
[2023-08-27] MEDS ORDERED: METO-281 PO (15:44)
[2023-08-27] MEDS: diphenhdrAMINE HCL 50 MG/1 ML VL IV ONE (16:00)
[2023-08-27 16:08] VITALS: BP 183/94; PULSE 62; RESP 20; O2SAT 100
== END 2023-08-27 16:15 | disposition home or self-care (01) ==
LOC: ER 10:03
DX: K56.7 Ileus, unspecified (principal); R10.2 Pelvic and perineal pain; K86.1 Other chronic pancreatitis; D64.9 Anemia, unspecified; K21.9 Gastro-esophageal reflux disease without esophagitis; I10 Essential (primary) hypertension; F17.210 Nicotine dependence, cigarettes, uncomplicated; Z90.49 Acquired absence of other specified parts of digestive tract; Z88.0 Allergy status to penicillin; Z88.6 Allergy status to analgesic agent
CPT/HCPCS: 36415; 71046; 74177; 80053; 81001; 83690; 83735; 84702; 85025; 96361; 96374; 96375; 99285; J1170; J1200; J2765; J7030; J7040; Q9967

== ENCOUNTER 2023-09-03 23:40 | Emergency (ER) | payer OTHER ==
[~2023-09-03 23:40] MED LIST changes: +METO-281 PO; +OMEP20TA PO
[2023-09-04 00:02] VITALS: BP 209/116; PULSE 82; RESP 1; O2SAT 98
[2023-09-04] MEDS: cloNIDine HCL 0.1 MG TAB PO ONE (00:14)
[2023-09-04] MEDS ORDERED: diphenhdrAMINE HCL 50 MG/1 ML VL IV ONE (01:45)
[2023-09-04] MEDS ORDERED: FAMOTIDINE (10MG/ML) 2ML VL IV ONE (01:45)
[2023-09-04] MEDS ORDERED: DexAMETHasone SOD PHOS 10MG/1ML VIAL INJ IV ONE (01:45)
[2023-09-04] MEDS: IPRATROPIUM BROM 0.5 MG/2.5ML INH SOL NEB ONE (05:15)
[2023-09-04] MEDS: ALBUTEROL SULF 2.5 MG/0.5ML(0.5%) NEB SOLN NEB ONE (05:15)
[2023-09-04] MEDS ORDERED: FAMO20TA10 PO (05:17)
[2023-09-04] MEDS ORDERED: ZOFR4T PO (05:17)
[2023-09-04] MEDS ORDERED: DIPH25CA66 PO (05:17)
[2023-09-04] MEDS: DexAMETHasone SOD PHOS 10MG/1ML VIAL INJ IM ONE (05:26)
[2023-09-04] MEDS: FAMOTIDINE 20 MG TAB PO ONE (05:26)
[2023-09-04] MEDS: ONDANSETRON ODT 4 MG TAB PO ONE (05:27)
[2023-09-04] MEDS: diphenhdrAMINE HCL 50 MG/1 ML VL IM ONE (05:38)
== END 2023-09-04 05:39 | disposition home or self-care (01) ==
LOC: ER 23:40
DX: R06.02 Shortness of breath (principal); R11.2 Nausea with vomiting, unspecified; K21.9 Gastro-esophageal reflux disease without esophagitis; I10 Essential (primary) hypertension; K86.1 Other chronic pancreatitis; F17.210 Nicotine dependence, cigarettes, uncomplicated; Z88.8 Allergy status to other drugs, medicaments and biological substances; Z88.0 Allergy status to penicillin; Z87.442 Personal history of urinary calculi; Z90.49 Acquired absence of other specified parts of digestive tract; Z79.899 Other long term (current) drug therapy
CPT/HCPCS: 96372; 99283; J1200

== ENCOUNTER 2023-09-11 11:19 | Inpatient (IN) | payer OTHER ==
[~2023-09-11] VITALS: Ht 160 cm; Wt 42.8 kg
[~2023-09-11 11:19] MED LIST changes: +FAMO20TA10 PO
[2023-09-11 13:26] LABS: Basophils # (auto) 0 10 ^3/uL (0-0.2); Basophils % (auto) 0.6 % (0.0-2.0); Eosinophils # (auto) 0.3 10 ^3/uL (0-0.8); Eosinophils % (auto) 4.3 % (0.0-7.0); Hematocrit 32.4 % (36.0-46.0); Lymphocytes # (auto) 1.7 10 ^3/uL (0.4-5.4); Lymphocytes % (auto) 25.5 % (10.0-50.0); Mean Corpuscular Hemoglobin 24.8 pg (28.0-32.0); Mean Corpuscular Hgb Conc. 30.7 g/dL (32.0-36.0); Mean Corpuscular Volume 80.9 fL (80.0-100.0); Monocytes # (auto) 0.5 10 ^3/uL (0-1.3); Monocytes % (auto) 7.5 % (0.0-12.0); Neutrophils % (auto) 62.1 % (37.0-80.0); Nucleated Red Blood Cells % 0.1 %; Red Blood Cells 4.01 10^6/uL (4.0-5.20); Red Cell Distribution Width 20.2 % (11.8-14.3); White Blood Cell 6.5 10^3/uL (4.4-10.8)
[2023-09-11 13:42] LABS: Alanine Aminotransferase 17 U/L (7-40); Albumin 4.4 g/dL (3.2-4.8); Alkaline Phosphatase 105 U/L (46-116); Anion Gap 6 (5-15); Aspartate Aminotransferase 13 U/L (13-40); Bilirubin, Total 0.2 mg/dL (0.2-1.0); Blood Urea Nitrogen 16 mg/dL (9-23); Calcium 9.5 mg/dL (8.5-10.1); Carbon Dioxide 26 mmol/L (20-30); Chloride 105 mmol/L (98-107); Glucose 87 mg/dL (74-106); Potassium 5.2 mmol/L (3.5-5.1); Sodium 137 mmol/L (136-145); Total Protein 7.1 g/dL (5.7-8.2)
[2023-09-11] MEDS ORDERED: SODIUM ZIRCONIUM CYCL 10 GM PAK PO ONE (15:15)
[2023-09-11] MEDS ORDERED: DEXTROSE (50%) 50ML SYRG IV ONE (15:15)
[2023-09-11] MEDS ORDERED: InsuLIN REG 1unit/0.01ml Soln (100units/ml) IV ONE (15:15)
[2023-09-11] MEDS: ALBUTEROL SULF 2.5 MG/0.5ML(0.5%) NEB SOLN NEB ONE (15:49)
[2023-09-11 15:50] VITALS: PULSE 85; RESP 12; O2SAT 96
[2023-09-11] MEDS ORDERED: HYDROcodone-ACET 5/325MG TAB PO PRN (16:15)
[2023-09-11] MEDS ORDERED: NITROGLYCERIN 0.4 MG SL TAB SL PRN (16:15)
[2023-09-11] MEDS ORDERED: ACETAMINOPHEN 325 MG TAB PO PRN (16:15)
[2023-09-11] MEDS ORDERED: NIFE1TAB31 PO (16:23)
[2023-09-11] MEDS ORDERED: hydrALAZINE HCL 20 MG/ML VL IV PRN (16:30)
[2023-09-11] MEDS: MORPHINE SULFATE INJ 2 MG/ml SYRG IV PRN (17:04)
[2023-09-11] MEDS: ONDANSETRON HCL 4 MG/2 ML VIAL IV PRN (17:05)
[2023-09-11] MEDS: CALCIUM GLUC 1,000mg/50ml-NS 50 ML IV ONE (17:10)
[2023-09-11] MEDS: SODIUM CHLORIDE 0.9% 1,000 ML IV ONE (17:10)
[2023-09-11] MEDS: SODIUM BICARB 8.4% 50Meq/50ml SYR INJ IV ONE (17:53)
[2023-09-11 18:53] VITALS: BP 154/79; PULSE 90; RESP 18; TEMP 97.8; O2SAT 100
[2023-09-11] MEDS ORDERED: SODIUM CHLOR 0.9% PF (SALINE LOCK) 10ML VIAL/SYR IV SCH (22:00)
[2023-09-11] MEDS ORDERED: cloNIDine HCL 0.1 MG TAB PO SCH (22:00)
[2023-09-12] MEDS ORDERED: NIFEdipine ER 30 MG TAB PO SCH (10:00)
== END 2023-09-11 20:15 | disposition left against medical advice (07) | DRG 425 ==
LOC: ER 11:19 → TELE 16:23 → TELE-WESTW 18:26
PROVIDERS: ADMIT Nurse Practitioner Family; ATTEND Nurse Practitioner Family
DX: E87.5 Hyperkalemia (principal); K92.2 Gastrointestinal hemorrhage, unspecified; I16.0 Hypertensive urgency; K21.9 Gastro-esophageal reflux disease without esophagitis; Z53.29 Procedure and treatment not carried out because of patient's decision for other reasons; F17.210 Nicotine dependence, cigarettes, uncomplicated; Z88.0 Allergy status to penicillin; Z88.8 Allergy status to other drugs, medicaments and biological substances; Z79.899 Other long term (current) drug therapy; Z82.49 Family history of ischemic heart disease and other diseases of the circulatory system; Z83.3 Family history of diabetes mellitus; Z90.49 Acquired absence of other specified parts of digestive tract; Z87.11 Personal history of peptic ulcer disease; Z87.442 Personal history of urinary calculi
CPT/HCPCS: 36415; 80053; 85025; 93005; 94640; 99291; G0378; J2405

== ENCOUNTER 2023-09-27 18:46 | Emergency (ER) | payer OTHER ==
[~2023-09-27] VITALS: Ht 160 cm; Wt 42.1 kg
[~2023-09-27 18:46] MED LIST changes: +NIFE1TAB31 PO; -OMEP20TA PO; -PRED20TA2 PO
[2023-09-27 21:13] VITALS: TEMP 98.4; O2SAT 99
[2023-09-27] MEDS: HYDROmorphone HCL 2 MG/ML VL/or syr IM ONE (21:23)
[2023-09-27] MEDS: cloNIDine HCL 0.1 MG TAB PO ONE (21:45)
[2023-09-27 21:53] VITALS: BP 185/103; PULSE 75; RESP 18
[2023-09-27] MEDS: diphenhdrAMINE HCL 50 MG/1 ML VL IM ONE (22:28)
[2023-09-28] MEDS: cloNIDine 0.2 mg/24hr 7DAY PATCH TD ONE (00:34)
== END 2023-09-28 00:38 | disposition left against medical advice (07) ==
LOC: ER 18:46
DX: K86.1 Other chronic pancreatitis (principal); K21.9 Gastro-esophageal reflux disease without esophagitis; I10 Essential (primary) hypertension; F17.210 Nicotine dependence, cigarettes, uncomplicated; Z90.49 Acquired absence of other specified parts of digestive tract; Z87.442 Personal history of urinary calculi; Z88.0 Allergy status to penicillin; Z88.6 Allergy status to analgesic agent
CPT/HCPCS: 96372; 99284; J1170; J1200

== ENCOUNTER 2023-10-05 03:46 | Inpatient (IN) | payer OTHER ==
[~2023-10-05] VITALS: Ht 160 cm; Wt 46.7 kg
[2023-10-05 04:26] LABS: Urine Bacteria FEW /hpf (None Seen); Urine Blood 3+ /uL (Negative); Urine Clarity Turbid (Clear); Urine Color Yellow (Yellow); Urine Protein, UAD Negative (Negative); Urine Specific Gravity 1.018 (1.001-1.035); Urine Urobilinogen Normal (Negative); Urine WBC 7 /hpf (0 - 5); Urine pH 5.5 (5.0-9.0)
[2023-10-05] MEDS ORDERED: ONDANSETRON ODT 4 MG TAB PO ONE (04:30)
[2023-10-05] MEDS: MORPHINE SULFATE 4 MG/ML SYR/VIAL IV ONE (05:15)
[2023-10-05] MEDS: ONDANSETRON HCL 4 MG/2 ML VIAL IV ONE (06:00)
[2023-10-05] MEDS: cloNIDine HCL 0.1 MG TAB PO ONE (06:35)
[2023-10-05] MEDS: MORPHINE SULFATE INJ 2 MG/ml SYRG IM ONE (07:22)
[2023-10-05 07:37] LABS: Basophils # (auto) 0 10 ^3/uL (0-0.2); Eosinophils # (auto) 0.5 10 ^3/uL (0-0.8); Eosinophils % (auto) 7.5 % (0.0-7.0); Hemoglobin 9.9 g/dL (12.2-16.2); Lymphocytes # (auto) 1.7 10 ^3/uL (0.4-5.4)
[2023-10-05 07:38] LABS: Basophils % (auto) 0.5 % (0.0-2.0); Hematocrit 31.2 % (36.0-46.0); Mean Corpuscular Hemoglobin 25.9 pg (28.0-32.0); Mean Corpuscular Hgb Conc. 31.6 g/dL (32.0-36.0); Mean Corpuscular Volume 81.8 fL (80.0-100.0); Monocytes # (auto) 0.4 10 ^3/uL (0-1.3); Monocytes % (auto) 6.2 % (0.0-12.0); Neutrophils # (auto) 3.5 10 ^3/uL (1.6-8.6); Neutrophils % (auto) 57.8 % (37.0-80.0); Red Blood Cells 3.81 10^6/uL (4.0-5.20); White Blood Cell 6.1 10^3/uL (4.4-10.8)
[2023-10-05 07:43] LABS: Red Cell Distribution Width 20.3 % (11.8-14.3)
[2023-10-05 07:48] LABS: Alanine Aminotransferase 13 U/L (7-40); Albumin 4.5 g/dL (3.2-4.8); Alkaline Phosphatase 93 U/L (46-116); Anion Gap 7 (5-15); Aspartate Aminotransferase 15 U/L (13-40); BUN/Creatinine Ratio 6.3 (10.0-20.0); Blood Urea Nitrogen 6 mg/dL (9-23); Calcium 9.2 mg/dL (8.7-10.4); Carbon Dioxide 19 mmol/L (20-30); Chloride 114 mmol/L (98-107); Glucose 102 mg/dL (74-106); Lipase 25 U/L (12-53); Potassium 4.3 mmol/L (3.5-5.1); Sodium 140 mmol/L (136-145)
[2023-10-05 07:49] LABS: Bilirubin, Total < 0.2 mg/dL (0.2-1.0); Total Protein 7.9 g/dL (5.7-8.2)
[2023-10-05] MEDS: diphenhdrAMINE HCL 25 MG CAP PO ONE (08:30)
[2023-10-05 08:33] VITALS: PULSE 68; RESP 16; O2SAT 100
[2023-10-05] MEDS: SODIUM CHLORIDE 0.9% 1,000 ML IV ONE (09:07)
[2023-10-05] MEDS: diphenhdrAMINE HCL 50 MG/1 ML VL IV ONE (09:39)
[2023-10-05] MEDS ORDERED: ENOXAPARIN SOD 40 MG/0.4 ML SYRINGE SC SCH (10:00)
[2023-10-05] MEDS ORDERED: MORPHINE SULFATE INJ 2 MG/ml SYRG IV PRN (10:15)
[2023-10-05] MEDS ORDERED: ACETAMINOPHEN 325 MG TAB PO PRN (10:15)
[2023-10-05] MEDS ORDERED: NITROGLYCERIN 0.4 MG SL TAB SL PRN (10:15)
[2023-10-05] MEDS ORDERED: diphenhdrAMINE HCL 50 MG/1 ML VL IV PRN (10:15)
[2023-10-05] MEDS: SODIUM CHLORIDE 0.9% 1,000 ML IV SCH (11:24)
[2023-10-05] MEDS: SUCRALFATE 1 GM/10 ML ORAL SUSP PO SCH (11:25)
[2023-10-05] MEDS: MORPHINE SULFATE INJ 2 MG/ml SYRG IV PRN (11:25)
[2023-10-05 13:41] VITALS: BP 141/90; PULSE 59; RESP 15; TEMP 98.2; O2SAT 99
[2023-10-05] MEDS ORDERED: cefTRIAXone 1GM/50ML D5W 50 ML IV ONE (13:45)
[2023-10-05 14:24] LABS: Amphetamine Screen, Urine Neg (NEGATIVE)
[2023-10-05 14:25] LABS: Barbiturate Scree,Urine Neg (NEGATIVE); Benzodiazephine Screen, Urine Neg (NEGATIVE); Cannabinoid Screen, Urine Neg (NEGATIVE); Cocaine Screen, Urine Neg (NEGATIVE); Opiate Scree,Urine Pos (NEGATIVE); Phencyclidine Screen, Urine Neg (NEGATIVE)
[2023-10-05 14:48] VITALS: PULSE 59; RESP 15; O2SAT 100
[2023-10-05 16:00] VITALS: BP 134/80; PULSE 66; RESP 20; TEMP 98.1; O2SAT 100
[2023-10-05] MEDS: diphenhdrAMINE HCL 50 MG/1 ML VL IV PRN (16:29)
[2023-10-05] MEDS ORDERED: LORazepam 2MG/ML-1ML VIAL IV PRN (18:30)
[2023-10-05] MEDS ORDERED: HYDROmorphone HCL 2 MG/ML VL/or syr IV PRN (18:30)
[2023-10-05] MEDS ORDERED: CLON0.1T PO (18:57)
[2023-10-05] MEDS ORDERED: hydrALAZINE HCL 20 MG/ML VL IV PRN (20:15)
[2023-10-05 20:24] VITALS: PULSE 64; RESP 18; O2SAT 100
[2023-10-05] MEDS: D5W/SOD CHLO 0.9% 1,000 ML IV SCH (20:59)
[2023-10-05 21:00] VITALS: BP 134/86; PULSE 64; RESP 18; TEMP 98.3; O2SAT 100
[2023-10-06] VITALS (8 sets, daily range): BP systolic 162–201; BP diastolic 92–105; PULSE 59–74; RESP 16–20; TEMP 98–98.6; O2SAT 97–100
[2023-10-06] MEDS ORDERED: cloNIDine HCL 0.1 MG TAB PO SCH ×2 (05:55→10:00)
[2023-10-06] MEDS: cloNIDine HCL 0.1 MG TAB PO SCH (06:03)
[2023-10-06 07:35] LABS: Albumin 3.3 g/dL (3.2-4.8); Alkaline Phosphatase 67 U/L (46-116); Anion Gap 6 (5-15); Aspartate Aminotransferase 15 U/L (13-40); Bilirubin, Total 0.2 mg/dL (0.2-1.0); Calcium 8.3 mg/dL (8.7-10.4); Carbon Dioxide 17 mmol/L (20-30); Chloride 119 mmol/L (98-107); Glucose 103 mg/dL (74-106); Potassium 3.6 mmol/L (3.5-5.1); Sodium 142 mmol/L (136-145); Total Protein 5.5 g/dL (5.7-8.2)
[2023-10-06 07:43] LABS: Alanine Aminotransferase < 9 U/L (7-40); BUN/Creatinine Ratio 7.6 (10.0-20.0); Blood Urea Nitrogen < 5 mg/dL (9-23)
[2023-10-06 07:52] LABS: Lipase 19 U/L (12-53)
[2023-10-06] MEDS: PANTOPRAZOLE 40 MG/10 ML VIAL INJ IV SCH (09:25)
[2023-10-06] MEDS: LABETALOL HCL 20 MG/4 ML VL IV PRN (09:35)
[2023-10-06] MEDS: OMNIPAQUE 12mg/ml 500ml ORAL SOLUTION PO ONE (12:06)
[2023-10-07 01:00] VITALS: BP 163/90; PULSE 70; RESP 18; TEMP 98.2; O2SAT 100
[2023-10-07 05:00] VITALS: BP 143/80; PULSE 60; RESP 18; TEMP 98.2; O2SAT 100
[2023-10-07] MEDS: HYDROcodone-ACET 5/325MG TAB PO PRN (07:55)
[2023-10-07 08:00] VITALS: PULSE 65; RESP 16; O2SAT 98
[2023-10-07 08:37] VITALS: BP 163/101; PULSE 65; RESP 16; TEMP 98.2; O2SAT 98
[2023-10-07 12:40] VITALS: BP 154/93; PULSE 58; RESP 17; TEMP 98.1; O2SAT 96
[2023-10-07] MEDS ORDERED: SUCR1TAB31 OR (13:14)
[2023-10-07] MEDS ORDERED: HYDR-4902 PO (13:39)
[2023-10-07 14:23] VITALS: BP 154/93; PULSE 58; RESP 17; TEMP 98.1; O2SAT 96
[2023-10-07] MEDS ORDERED: PERCOT PO (14:44)
== END 2023-10-07 15:22 | disposition home or self-care (01) | DRG 463 ==
LOC: ER 03:46 → OVERFLOW 10:04 → WEST WING 10:06
PROVIDERS: ADMIT Nurse Practitioner Family; ATTEND Nurse Practitioner Family
DX: N30.00 Acute cystitis without hematuria (principal); D63.8 Anemia in other chronic diseases classified elsewhere; K86.1 Other chronic pancreatitis; K21.9 Gastro-esophageal reflux disease without esophagitis; K27.9 Peptic ulcer, site unspecified, unspecified as acute or chronic, without hemorrhage or perforation; I10 Essential (primary) hypertension; F11.20 Opioid dependence, uncomplicated; K59.00 Constipation, unspecified; F17.210 Nicotine dependence, cigarettes, uncomplicated; Z88.0 Allergy status to penicillin; Z90.49 Acquired absence of other specified parts of digestive tract; Z83.3 Family history of diabetes mellitus; Z82.49 Family history of ischemic heart disease and other diseases of the circulatory system; Z87.442 Personal history of urinary calculi
CPT/HCPCS: 36415; 74018; 74177; 80053; 80307; 81001; 83690; 85025; 87081; 96361; 96372; 96374; 96375; G0378; J2405; J2470; Q0162

== ENCOUNTER 2023-10-11 13:26 | Inpatient (IN) | payer OTHER ==
[~2023-10-11] VITALS: Ht 160 cm; Wt 42.8 kg
[2023-10-11] VITALS (8 sets, daily range): BP systolic 122–144; BP diastolic 84–93; PULSE 69–98; RESP 11–20; TEMP 98.2–98.5; O2SAT 94–100
[~2023-10-11 13:26] MED LIST changes: -ACET500T58 PO; -BENZ100C97 PO; +CLON0.1T PO; -CLON0.2T PO; -DICY10CA PO; -FAMO20TA10 PO; -HYDR2.5C39 TOP; -LOSA-534 PO; -MET50T PO; -METO-281 PO; -NIFE1TAB31 PO; +PERCOT PO; +SUCR1TAB31 OR; -SUCR1TAB31 PO
[2023-10-11] MEDS: SODIUM CHLORIDE 0.9% 1,000 ML IV ONE (15:45)
[2023-10-11 16:07] LABS: Basophils # (auto) 0 10 ^3/uL (0-0.2); Eosinophils # (auto) 0.1 10 ^3/uL (0-0.8); Eosinophils % (auto) 1.7 % (0.0-7.0); Hemoglobin 11.2 g/dL (12.2-16.2); Neutrophils # (auto) 4.9 10 ^3/uL (1.6-8.6); Red Blood Cells 4.41 10^6/uL (4.0-5.20); White Blood Cell 6.9 10^3/uL (4.4-10.8)
[2023-10-11 16:09] LABS: Basophils % (auto) 0.4 % (0.0-2.0); Lymphocytes # (auto) 1.4 10 ^3/uL (0.4-5.4); Lymphocytes % (auto) 20.8 % (10.0-50.0); Mean Corpuscular Hemoglobin 25.3 pg (28.0-32.0); Mean Corpuscular Volume 81.6 fL (80.0-100.0); Monocytes # (auto) 0.4 10 ^3/uL (0-1.3); Monocytes % (auto) 6.4 % (0.0-12.0); Neutrophils % (auto) 70.7 % (37.0-80.0)
[2023-10-11 16:21] LABS: Red Cell Distribution Width 20.4 % (11.8-14.3)
[2023-10-11 16:33] LABS: Alanine Aminotransferase 13 U/L (7-40); Albumin 4.3 g/dL (3.2-4.8); Alkaline Phosphatase 95 U/L (46-116); Anion Gap 11 (5-15); Aspartate Aminotransferase 17 U/L (13-40); BUN/Creatinine Ratio 10.3 (10.0-20.0); Blood Urea Nitrogen 9 mg/dL (9-23); Calcium 9.2 mg/dL (8.7-10.4); Carbon Dioxide 20 mmol/L (20-30); Chloride 110 mmol/L (98-107); Glucose 104 mg/dL (74-106); Lipase 22 U/L (12-53); Potassium 3.8 mmol/L (3.5-5.1); Sodium 141 mmol/L (136-145)
[2023-10-11] MEDS: HYDROmorphone HCL 2 MG/ML VL/or syr IM ONE (16:33)
[2023-10-11 16:34] LABS: Bilirubin, Total 0.2 mg/dL (0.2-1.0); Total Protein 7.6 g/dL (5.7-8.2)
[2023-10-11] MEDS: ONDANSETRON HCL 4 MG/2 ML VIAL IM ONE (16:38)
[2023-10-11 16:43] LABS: Platelet Estimate Adequate
[2023-10-11] MEDS: diphenhdrAMINE HCL 50 MG/1 ML VL IV ONE (16:53)
[2023-10-11] MEDS: ONDANSETRON HCL 4 MG/2 ML VIAL IV ONE (17:07)
[2023-10-11] MEDS: ASPirin 81 mg TAB PO ONE (17:57)
[2023-10-11] MEDS: HEPARIN SODIUM (PORCINE) 5000 UNITS/ML 1ML VIAL IV ONE (17:57)
[2023-10-11] MEDS: HEPARIN SODIUM (PORCINE) 5000 UNITS/ML 1ML VIAL ONE (17:58)
[2023-10-11] MEDS: ANGIOMAX 250 MG VIAL IV ONE (18:14)
[2023-10-11] MEDS: fentaNYL CITRATE 100 MCG/2 ML VL ONE ×2 (18:14→19:33)
[2023-10-11] MEDS: MIDAZOLAM HCL 2MG/2ML 2ml VIAL (1mg/ml) ONE ×2 (18:15→19:33)
[2023-10-11] MEDS: SODIUM CHL 0.9% 50 ML ONE (18:15)
[2023-10-11] MEDS: IODIXANOL 320MG/ML 100ML BTL IV ONE ×2 (18:28→18:51)
[2023-10-11] MEDS ORDERED: NITROGLYCERIN 0.4 MG SL TAB SL PRN (18:30)
[2023-10-11] MEDS ORDERED: ONDANSETRON HCL 4 MG/2 ML VIAL IV PRN (18:30)
[2023-10-11] MEDS ORDERED: MORPHINE SULFATE INJ 2 MG/ml SYRG IV PRN (18:30)
[2023-10-11] MEDS ORDERED: ACETAMINOPHEN 325 MG TAB PO PRN (18:30)
[2023-10-11] MEDS ORDERED: SODIUM CHLORIDE 0.9% 1,000 ML IV SCH (18:30)
[2023-10-11] MEDS ORDERED: TEMAZEPAM 15 MG CAP PO PRN (18:30)
[2023-10-11] MEDS: LIDOCAINE 2%HCL (LOCAL ANESTH.) INJ 20ML MDV ONE (18:51)
[2023-10-11] MEDS: MORPHINE SULFATE INJ 2 MG/ml SYRG IV PRN (22:11)
[2023-10-12] VITALS (7 sets, daily range): BP systolic 99–169; BP diastolic 64–114; PULSE 67–99; RESP 16–20; TEMP 97.8–98.6; O2SAT 99–100
[2023-10-12] MEDS: HYDROcodone-ACET 5/325MG TAB PO PRN (00:23)
[2023-10-12] MEDS: diphenhdrAMINE HCL 25 MG CAP PO PRN (05:39)
[2023-10-12 07:10] LABS: Basophils # (auto) 0 10 ^3/uL (0-0.2); Mean Corpuscular Hemoglobin 25.8 pg (28.0-32.0)
[2023-10-12 07:13] LABS: Basophils % (auto) 0.7 % (0.0-2.0); Eosinophils # (auto) 0.2 10 ^3/uL (0-0.8); Hemoglobin 9.6 g/dL (12.2-16.2); Lymphocytes # (auto) 1.6 10 ^3/uL (0.4-5.4); Lymphocytes % (auto) 28.4 % (10.0-50.0); Mean Corpuscular Volume 83.3 fL (80.0-100.0); Monocytes # (auto) 0.4 10 ^3/uL (0-1.3); Monocytes % (auto) 7.4 % (0.0-12.0); Neutrophils # (auto) 3.4 10 ^3/uL (1.6-8.6); Neutrophils % (auto) 59.5 % (37.0-80.0); Nucleated Red Blood Cells % 0.1 %; Red Blood Cells 3.72 10^6/uL (4.0-5.20); Red Cell Distribution Width 19.8 % (11.8-14.3); White Blood Cell 5.8 10^3/uL (4.4-10.8)
[2023-10-12 07:35] LABS: Alanine Aminotransferase 12 U/L (7-40); Albumin 3.6 g/dL (3.2-4.8); Alkaline Phosphatase 83 U/L (46-116); Anion Gap 7 (5-15); Aspartate Aminotransferase 17 U/L (13-40); BUN/Creatinine Ratio 10.6 (10.0-20.0); Blood Urea Nitrogen 9 mg/dL (9-23); Calcium 8.4 mg/dL (8.7-10.4); Carbon Dioxide 21 mmol/L (20-30); Chloride 113 mmol/L (98-107); Glucose 113 mg/dL (74-106); Potassium 3.7 mmol/L (3.5-5.1); Sodium 141 mmol/L (136-145)
[2023-10-12 07:36] LABS: Bilirubin, Total < 0.2 mg/dL (0.2-1.0); Total Protein 6.1 g/dL (5.7-8.2)
[2023-10-12] MEDS: diphenhdrAMINE HCL 50 MG/1 ML VL IV PRN (13:21)
[2023-10-12] MEDS: OXYCODONE W/ ACETAMINOPHEN 5/325MG TABLET PO PRN (13:22)
[2023-10-12] MEDS: SUCRALFATE 1 GM TAB PO SCH (16:29)
[2023-10-12] MEDS: SODIUM CHLORIDE 0.9% 1,000 ML IV SCH (17:18)
[2023-10-12] MEDS: cloNIDine HCL 0.1 MG TAB PO SCH (22:00)
[2023-10-13 01:26] VITALS: BP 116/86; PULSE 87; RESP 19; TEMP 98; O2SAT 99
[2023-10-13 05:00] VITALS: BP 114/76; PULSE 71; RESP 19; TEMP 98.3; O2SAT 99
[2023-10-13 06:12] LABS: Albumin 2.9 g/dL (3.2-4.8); Alkaline Phosphatase 63 U/L (46-116); Anion Gap 6 (5-15); Aspartate Aminotransferase 13 U/L (13-40); BUN/Creatinine Ratio 11.9 (10.0-20.0); Blood Urea Nitrogen 10 mg/dL (9-23); Calcium 8.1 mg/dL (8.7-10.4); Carbon Dioxide 24 mmol/L (20-30); Chloride 109 mmol/L (98-107); Glucose 122 mg/dL (74-106); Potassium 4.4 mmol/L (3.5-5.1); Sodium 139 mmol/L (136-145)
[2023-10-13 06:13] LABS: Bilirubin, Total < 0.2 mg/dL (0.2-1.0); Total Protein 5.2 g/dL (5.7-8.2)
[2023-10-13 06:15] LABS: Alanine Aminotransferase < 9 U/L (7-40)
[2023-10-13 08:00] VITALS: PULSE 70
[2023-10-13] MEDS: PANTOPRAZOLE 40 MG TAB PO SCH (08:27)
[2023-10-13 09:00] VITALS: BP 132/80; PULSE 71; RESP 19; TEMP 97.9; O2SAT 99
[2023-10-13 11:31] LABS: Urine Bacteria None Seen /hpf (None Seen); Urine WBC None Seen /hpf (0 - 5)
[2023-10-13 11:55] LABS: Urine Blood Negative /uL (Negative); Urine Clarity Clear (Clear); Urine Color Colorless (Yellow); Urine Protein, UAD Negative (Negative); Urine Specific Gravity 1.009 (1.001-1.035); Urine Urobilinogen Normal (Negative); Urine pH 5.5 (5.0-9.0)
[2023-10-13 12:16] LABS: Amphetamine Screen, Urine Neg (NEGATIVE); Barbiturate Scree,Urine Neg (NEGATIVE); Benzodiazephine Screen, Urine Neg (NEGATIVE); Cannabinoid Screen, Urine Neg (NEGATIVE); Cocaine Screen, Urine Neg (NEGATIVE); Opiate Scree,Urine Pos (NEGATIVE); Phencyclidine Screen, Urine Neg (NEGATIVE)
[2023-10-13 13:00] VITALS: BP 152/94; PULSE 85; RESP 17; TEMP 98.5; O2SAT 100
[2023-10-13] MEDS ORDERED: HYDR-4902 PO (15:47)
[2023-10-13 17:00] VITALS: BP 157/89; PULSE 77; RESP 19; TEMP 97.6; O2SAT 98
== END 2023-10-13 20:30 | disposition home or self-care (01) | DRG 190 ==
LOC: EDBD 13:26 → ER 13:26 → TELE 18:30 → TELE-CENTR 20:47
PROVIDERS: ADMIT Nurse Practitioner; ATTEND Nurse Practitioner
PROC: 4A023N7 Measurement of Cardiac Sampling and Pressure, Left Heart, Percutaneous Approach (ICD-10-PCS; principal; 2023-10-11)
PROC: B211YZZ Fluoroscopy of Multiple Coronary Arteries using Other Contrast (ICD-10-PCS; 2023-10-11)
PROC: B215YZZ Fluoroscopy of Left Heart using Other Contrast (ICD-10-PCS; 2023-10-11)
DX: I21.29 ST elevation (STEMI) myocardial infarction involving other sites (principal); I51.81 Takotsubo syndrome; K86.1 Other chronic pancreatitis; F17.210 Nicotine dependence, cigarettes, uncomplicated; K21.9 Gastro-esophageal reflux disease without esophagitis; K27.9 Peptic ulcer, site unspecified, unspecified as acute or chronic, without hemorrhage or perforation; F11.20 Opioid dependence, uncomplicated; Z87.442 Personal history of urinary calculi; Z90.49 Acquired absence of other specified parts of digestive tract; Z88.0 Allergy status to penicillin; Z83.3 Family history of diabetes mellitus; Z82.49 Family history of ischemic heart disease and other diseases of the circulatory system; Z79.899 Other long term (current) drug therapy; I10 Essential (primary) hypertension
CPT/HCPCS: 36415; 74176; 80053; 80307; 81001; 83605; 83690; 84484; 84702; 85025; 85379; 93005; 93306; 93458; 96361; 96372; 96374; 96375; 99152; C1894; G0378; J2250; J2405; Q9967

== ENCOUNTER 2023-11-20 16:43 | Emergency (ER) | payer OTHER ==
[~2023-11-20] VITALS: Ht 160 cm; Wt 41.3 kg
[~2023-11-20 16:43] MED LIST changes: -DIPH25CA66 PO; -PERCOT PO
[2023-11-20 17:20] VITALS: PULSE 81; RESP 19; O2SAT 100
[2023-11-20 18:14] LABS: Basophils # (auto) 0 10 ^3/uL (0-0.2); Eosinophils # (auto) 0.2 10 ^3/uL (0-0.8); Hemoglobin 9.4 g/dL (12.2-16.2); Lymphocytes # (auto) 1.9 10 ^3/uL (0.4-5.4); Monocytes # (auto) 0.4 10 ^3/uL (0-1.3); Neutrophils # (auto) 2.5 10 ^3/uL (1.6-8.6)
[2023-11-20 18:15] LABS: Basophils % (auto) 0.9 % (0.0-2.0); Eosinophils % (auto) 3.8 % (0.0-7.0); Hematocrit 30.2 % (36.0-46.0); Lymphocytes % (auto) 37.7 % (10.0-50.0); Mean Corpuscular Hemoglobin 25.3 pg (28.0-32.0); Mean Corpuscular Hgb Conc. 31.2 g/dL (32.0-36.0); Mean Corpuscular Volume 81.1 fL (80.0-100.0); Monocytes % (auto) 7.4 % (0.0-12.0); Neutrophils % (auto) 50.2 % (37.0-80.0); Nucleated Red Blood Cells % 0.2 %; Platelet Count (auto) 214 10^3/uL (140-450); Red Blood Cells 3.73 10^6/uL (4.0-5.20); Red Cell Distribution Width 18.7 % (11.8-14.3)
[2023-11-20 18:31] LABS: Alanine Aminotransferase 18 U/L (7-40); Albumin 4.3 g/dL (3.2-4.8); Alkaline Phosphatase 93 U/L (46-116); Anion Gap 8 (5-15); Aspartate Aminotransferase 27 U/L (13-40); BUN/Creatinine Ratio 8.9 (10.0-20.0); Blood Urea Nitrogen 8 mg/dL (9-23); Carbon Dioxide 17 mmol/L (20-30); Chloride 113 mmol/L (98-107); Glucose 92 mg/dL (74-106); Lipase 17 U/L (12-53); Potassium 3.8 mmol/L (3.5-5.1); Sodium 138 mmol/L (136-145)
[2023-11-20 18:32] LABS: Bilirubin, Total 0.2 mg/dL (0.2-1.0); Total Protein 7.2 g/dL (5.7-8.2)
[2023-11-20] MEDS: MORPHINE SULFATE 4 MG/ML SYR/VIAL IV ONE (18:39)
[2023-11-20 19:30] VITALS: BP 187/103; PULSE 96; RESP 14; TEMP 98
[2023-11-20 19:42] VITALS: O2SAT 100
[2023-11-20 20:01] LABS: COVID19 ANTIGEN SOFIA FIA NEGATIVE (NEGATIVE); Rapid Influenza A Negative (Negative); Rapid Influenza B Negative (Negative)
[2023-11-20 20:13] LABS: Urine Bacteria None Seen /hpf (None Seen)
[2023-11-20 20:34] LABS: Urine Blood 3+ /uL (Negative); Urine Clarity Clear (Clear); Urine Color Colorless (Yellow); Urine Protein, UAD Negative (Negative); Urine Specific Gravity 1.009 (1.001-1.035); Urine Urobilinogen Normal (Negative); Urine WBC 36 /hpf (0 - 5); Urine pH 5.5 (5.0-9.0)
[2023-11-20 20:40] LABS: Amphetamine Screen, Urine Neg (NEGATIVE)
[2023-11-20 20:41] LABS: Barbiturate Scree,Urine Neg (NEGATIVE); Benzodiazephine Screen, Urine Neg (NEGATIVE); Cannabinoid Screen, Urine Neg (NEGATIVE); Cocaine Screen, Urine Neg (NEGATIVE); Opiate Scree,Urine Pos (NEGATIVE); Phencyclidine Screen, Urine Neg (NEGATIVE)
== END 2023-11-20 20:29 | disposition left against medical advice (07) ==
LOC: ER 16:43
DX: I16.1 Hypertensive emergency (principal); I10 Essential (primary) hypertension; R10.84 Generalized abdominal pain; F17.210 Nicotine dependence, cigarettes, uncomplicated; K21.9 Gastro-esophageal reflux disease without esophagitis; R51.9 Headache, unspecified; R10.2 Pelvic and perineal pain; Z90.49 Acquired absence of other specified parts of digestive tract; Z87.442 Personal history of urinary calculi; Z79.899 Other long term (current) drug therapy; Z20.822 Contact with and (suspected) exposure to COVID-19; Z88.0 Allergy status to penicillin
CPT/HCPCS: 36415; 70450; 74176; 80053; 80307; 81001; 83605; 83690; 84484; 84702; 85025; 87426; 87804; 93005; 96374; 99285; J2270

== ENCOUNTER 2023-12-16 19:03 | Inpatient (IN) | payer OTHER ==
[~2023-12-16] VITALS: Ht 160 cm; Wt 45.5 kg
[2023-12-16] MEDS ORDERED: HYDROmorphone HCL 2 MG/ML VL/or syr IV ONE (20:15)
[2023-12-16] MEDS: PROCHLORPERAZINE EDISYLATE 5 MG/ML 2ML VIAL IV ONE (20:24)
[2023-12-16] MEDS: MORPHINE SULFATE 4 MG/ML SYR/VIAL IV ONE ×2 (20:27→21:50)
[2023-12-16 20:54] LABS: Basophils # (auto) 0 10 ^3/uL (0-0.2); Basophils % (auto) 0.6 % (0.0-2.0); Eosinophils # (auto) 0.3 10 ^3/uL (0-0.8); Eosinophils % (auto) 3.5 % (0.0-7.0); Hematocrit 29.5 % (36.0-46.0); Hemoglobin 9.1 g/dL (12.2-16.2); Lymphocytes % (auto) 12.8 % (10.0-50.0); Mean Corpuscular Hemoglobin 25.2 pg (28.0-32.0); Mean Corpuscular Hgb Conc. 30.8 g/dL (32.0-36.0); Monocytes # (auto) 0.4 10 ^3/uL (0-1.3); Monocytes % (auto) 4.9 % (0.0-12.0); Neutrophils # (auto) 6.4 10 ^3/uL (1.6-8.6); Neutrophils % (auto) 78.2 % (37.0-80.0); Platelet Count (auto) 250 10^3/uL (140-450); Red Blood Cells 3.59 10^6/uL (4.0-5.20); Red Cell Distribution Width 19.5 % (11.8-14.3); White Blood Cell 8.2 10^3/uL (4.4-10.8)
[2023-12-16] MEDS: diphenhdrAMINE HCL 50 MG/1 ML VL IV ONE (21:01)
[2023-12-16] MEDS: FAMOTIDINE (10MG/ML) 2ML VL IV ONE (21:02)
[2023-12-16 21:18] LABS: Alanine Aminotransferase 15 U/L (7-40); Albumin 4.8 g/dL (3.2-4.8); Alkaline Phosphatase 63 U/L (46-116); Anion Gap 9 (5-15); Aspartate Aminotransferase 21 U/L (13-40); BUN/Creatinine Ratio 8.7 (10.0-20.0); Bilirubin, Total < 0.2 mg/dL (0.2-1.0); Blood Urea Nitrogen 10 mg/dL (9-23); Calcium 9.8 mg/dL (8.7-10.4); Carbon Dioxide 18 mmol/L (20-31); Chloride 114 mmol/L (98-107); Glucose 110 mg/dL (74-106); Lipase 25 U/L (12-53); Potassium 3.7 mmol/L (3.5-5.1); Sodium 141 mmol/L (136-145); Total Protein 7.8 g/dL (5.7-8.2)
[2023-12-16] MEDS: IOHEXOL 300 MG/ML 100ML BOTTLE IJ ONE (21:39)
[2023-12-17] MEDS: diphenhdrAMINE HCL 50 MG/1 ML VL IV PRN (01:43)
[2023-12-17 07:45] VITALS: PULSE 65; RESP 13; O2SAT 100
[2023-12-17] MEDS ORDERED: ACETAMINOPHEN 325 MG TAB PO PRN (08:00)
[2023-12-17] MEDS ORDERED: TEMAZEPAM 15 MG CAP PO PRN (08:00)
[2023-12-17] MEDS ORDERED: NITROGLYCERIN 0.4 MG SL TAB SL PRN (08:00)
[2023-12-17] MEDS ORDERED: MORPHINE SULFATE INJ 2 MG/ml SYRG IV PRN (08:00)
[2023-12-17] MEDS ORDERED: hydrALAZINE HCL 20 MG/ML VL IV PRN (08:15)
[2023-12-17] MEDS ORDERED: ONDANSETRON HCL 4 MG/2 ML VIAL IV PRN (08:15)
[2023-12-17] MEDS: GASTROGRAFIN 120 ML SOL ONE (08:42)
[2023-12-17] MEDS: ENOXAPARIN SOD 40 MG/0.4 ML SYRINGE SC SCH (10:00)
[2023-12-17] MEDS: ONDANSETRON HCL 4 MG/2 ML VIAL IV PRN (10:24)
[2023-12-17] MEDS: MORPHINE SULFATE 4 MG/ML SYR/VIAL IV PRN (10:25)
[2023-12-17] MEDS: SODIUM CHLORIDE 0.9% 1,000 ML IV ONE (10:35)
[2023-12-17] MEDS: cloNIDine HCL 0.1 MG TAB PO SCH (10:35)
[2023-12-17 20:38] VITALS: PULSE 65; RESP 17; O2SAT 100
[2023-12-17 21:10] VITALS: BP 151/79; PULSE 80; RESP 16; TEMP 98.2; O2SAT 94
[2023-12-17 21:30] VITALS: RESP 18
[2023-12-17] MEDS ORDERED: SUCR1SUS26 PO (22:53)
[2023-12-17] MEDS ORDERED: PANC1CAP53 PO (22:53)
[2023-12-17] MEDS: HYDROcodone-ACET 5/325MG TAB PO PRN (23:11)
[2023-12-18 00:45] VITALS: BP 108/64; PULSE 60; RESP 16; TEMP 98.2; O2SAT 98
[2023-12-18 05:00] VITALS: BP 110/56; PULSE 60; RESP 16; TEMP 98.4; O2SAT 97
[2023-12-18 07:16] LABS: Albumin 3.5 g/dL (3.2-4.8); Alkaline Phosphatase 57 U/L (46-116); Anion Gap 6 (5-15); Aspartate Aminotransferase 15 U/L (13-40); BUN/Creatinine Ratio 10.3 (10.0-20.0); Bilirubin, Total < 0.2 mg/dL (0.2-1.0); Blood Urea Nitrogen 9 mg/dL (9-23); Calcium 8.6 mg/dL (8.7-10.4); Carbon Dioxide 20 mmol/L (20-31); Chloride 116 mmol/L (98-107); Glucose 129 mg/dL (74-106); Potassium 4.4 mmol/L (3.5-5.1); Sodium 142 mmol/L (136-145); Total Protein 5.7 g/dL (5.7-8.2)
[2023-12-18 07:18] LABS: Alanine Aminotransferase 9 U/L (7-40)
[2023-12-18 07:43] LABS: Basophils # (auto) 0 10 ^3/uL (0-0.2); Basophils % (auto) 0.6 % (0.0-2.0); Eosinophils # (auto) 0.3 10 ^3/uL (0-0.8); Eosinophils % (auto) 7.5 % (0.0-7.0); Hematocrit 24.8 % (36.0-46.0); Hemoglobin 7.6 g/dL (12.2-16.2); Lymphocytes # (auto) 1.7 10 ^3/uL (0.4-5.4); Lymphocytes % (auto) 48.3 % (10.0-50.0); Mean Corpuscular Hemoglobin 25.8 pg (28.0-32.0); Mean Corpuscular Hgb Conc. 30.8 g/dL (32.0-36.0); Mean Corpuscular Volume 83.9 fL (80.0-100.0); Monocytes # (auto) 0.2 10 ^3/uL (0-1.3); Monocytes % (auto) 6.6 % (0.0-12.0); Neutrophils # (auto) 1.3 10 ^3/uL (1.6-8.6); Nucleated Red Blood Cells % 0.2 %; Platelet Count (auto) 175 10^3/uL (140-450); Red Blood Cells 2.95 10^6/uL (4.0-5.20); Red Cell Distribution Width 19.4 % (11.8-14.3); White Blood Cell 3.5 10^3/uL (4.4-10.8)
[2023-12-18 09:00] VITALS: BP 132/76; PULSE 57; RESP 15; TEMP 97.9; O2SAT 100
[2023-12-18 11:39] LABS: Urine Bacteria FEW /hpf (None Seen); Urine Blood Negative /uL (Negative); Urine Clarity Clear (Clear); Urine Color Light-Yellow (Yellow); Urine Protein, UAD Negative (Negative); Urine Specific Gravity 1.022 (1.001-1.035); Urine Urobilinogen Normal (Negative); Urine WBC 34 /hpf (0 - 5); Urine pH 5.5 (5.0-9.0)
[2023-12-18 13:00] VITALS: BP 154/89; PULSE 58; RESP 16; TEMP 98.3; O2SAT 99
[2023-12-18 17:00] VITALS: BP 126/77; PULSE 59; RESP 16; TEMP 98.3; O2SAT 98
[2023-12-18 21:26] VITALS: BP 129/81; PULSE 63; RESP 12; TEMP 97.5; O2SAT 96
[2023-12-19 00:34] VITALS: BP 122/75; PULSE 66; RESP 14; TEMP 97.1; O2SAT 100
[2023-12-19 04:54] VITALS: BP 147/78; PULSE 52; RESP 14; TEMP 97.9; O2SAT 98
== END 2023-12-19 07:28 | disposition left against medical advice (07) | DRG 247 ==
LOC: ER 19:03 → WEST WING 12-17 08:00 → OVERFLOW 12-17 08:00 → WEST WING 12-17 21:10
PROVIDERS: ADMIT Nurse Practitioner; ATTEND Nurse Practitioner
PROC: 0D9670Z Drainage of Stomach with Drainage Device, Via Natural or Artificial Opening (ICD-10-PCS; principal; 2023-12-17)
DX: K56.609 Unspecified intestinal obstruction, unspecified as to partial versus complete obstruction (principal); K92.0 Hematemesis; F17.210 Nicotine dependence, cigarettes, uncomplicated; I10 Essential (primary) hypertension; K21.9 Gastro-esophageal reflux disease without esophagitis; K31.84 Gastroparesis; K86.1 Other chronic pancreatitis; Z53.29 Procedure and treatment not carried out because of patient's decision for other reasons; Z88.0 Allergy status to penicillin; Z88.8 Allergy status to other drugs, medicaments and biological substances; Z87.11 Personal history of peptic ulcer disease; Z87.442 Personal history of urinary calculi; Z90.49 Acquired absence of other specified parts of digestive tract; Z82.49 Family history of ischemic heart disease and other diseases of the circulatory system; Z83.3 Family history of diabetes mellitus
CPT/HCPCS: 36415; 74177; 74250; 76705; 80053; 81001; 83690; 85025; G0378; J2405; J3490

== ENCOUNTER 2023-12-23 18:22 | Emergency (ER) | payer OTHER ==
[~2023-12-23] VITALS: Ht 160 cm; Wt 48.6 kg
[~2023-12-23 18:22] MED LIST changes: +PANC1CAP53 PO; -PANT40TA2; +SUCR1SUS26 PO; -SUCR1TAB31 OR
[2023-12-23 18:48] VITALS: PULSE 84; RESP 14; O2SAT 100
[2023-12-23] MEDS: ONDANSETRON HCL 4 MG/2 ML VIAL IV ONE ×2 (19:28→21:42)
[2023-12-23] MEDS: MORPHINE SULFATE 4 MG/ML SYR/VIAL IV ONE (19:29)
[2023-12-23 19:30] VITALS: TEMP 98.1
[2023-12-23 19:41] LABS: Basophils # (auto) 0 10 ^3/uL (0-0.2); Eosinophils # (auto) 0.2 10 ^3/uL (0-0.8); Hemoglobin 9.5 g/dL (12.2-16.2); Lymphocytes # (auto) 1.5 10 ^3/uL (0.4-5.4); Monocytes # (auto) 0.5 10 ^3/uL (0-1.3); Neutrophils # (auto) 2.4 10 ^3/uL (1.6-8.6); White Blood Cell 4.6 10^3/uL (4.4-10.8)
[2023-12-23 19:43] LABS: Basophils % (auto) 0.9 % (0.0-2.0); Eosinophils % (auto) 3.7 % (0.0-7.0); Hematocrit 30.5 % (36.0-46.0); Lymphocytes % (auto) 32.6 % (10.0-50.0); Mean Corpuscular Hemoglobin 25.1 pg (28.0-32.0); Mean Corpuscular Hgb Conc. 31.2 g/dL (32.0-36.0); Mean Corpuscular Volume 80.5 fL (80.0-100.0); Neutrophils % (auto) 52.8 % (37.0-80.0); Platelet Count (auto) 222 10^3/uL (140-450); Red Blood Cells 3.79 10^6/uL (4.0-5.20); Red Cell Distribution Width 19.1 % (11.8-14.3)
[2023-12-23 19:52] LABS: Alanine Aminotransferase 15 U/L (7-40); Albumin 4.3 g/dL (3.2-4.8); Alkaline Phosphatase 77 U/L (46-116); Anion Gap 9 (5-15); Aspartate Aminotransferase 17 U/L (13-40); BUN/Creatinine Ratio 13.4 (10.0-20.0); Blood Urea Nitrogen 17 mg/dL (9-23); Calcium 8.9 mg/dL (8.7-10.4); Carbon Dioxide 22 mmol/L (20-31); Chloride 109 mmol/L (98-107); Glucose 115 mg/dL (74-106); Lipase 23 U/L (12-53); Potassium 4.2 mmol/L (3.5-5.1); Sodium 140 mmol/L (136-145)
[2023-12-23 19:53] LABS: Bilirubin, Total 0.2 mg/dL (0.2-1.0); Total Protein 7.1 g/dL (5.7-8.2)
[2023-12-23] MEDS: IOHEXOL 300 MG/ML 100ML BOTTLE IJ ONE (20:15)
[2023-12-23] MEDS: cloNIDine HCL 0.1 MG TAB PO ONE (20:53)
[2023-12-23] MEDS: hydrALAZINE HCL 20 MG/ML VL IV ONE (22:30)
[2023-12-23] MEDS: diphenhdrAMINE HCL 50 MG/1 ML VL IV ONE (22:30)
[2023-12-23] MEDS: LIDOCAINE VISCOUS 2% 15ML UD MT ONE (23:20)
[2023-12-23] MEDS: MAALOX PLUS or MAALOX 30 ML PO ONE (23:20)
[2023-12-24] VITALS: BP 165/91; PULSE 76; RESP 14; O2SAT 99
[2023-12-24] MEDS ORDERED: ZOFR4T PO (00:40)
== END 2023-12-24 00:51 | disposition home or self-care (01) ==
LOC: ER 18:22 → EDBD 18:22 → ER 12-24 00:49
DX: I16.1 Hypertensive emergency (principal); K29.70 Gastritis, unspecified, without bleeding; K62.5 Hemorrhage of anus and rectum; K21.9 Gastro-esophageal reflux disease without esophagitis; F17.210 Nicotine dependence, cigarettes, uncomplicated; Z90.49 Acquired absence of other specified parts of digestive tract; Z88.0 Allergy status to penicillin; Z88.8 Allergy status to other drugs, medicaments and biological substances; Z79.899 Other long term (current) drug therapy
CPT/HCPCS: 36415; 74177; 80053; 83690; 85025; 96374; 96375; 96376; 99285; J0360; J1200; J2270; J2405; Q9967

== ENCOUNTER 2023-12-25 17:26 | Inpatient (IN) | payer OTHER ==
[~2023-12-25] VITALS: Ht 160 cm; Wt 50.6 kg
[2023-12-25] MEDS: MORPHINE SULFATE 4 MG/ML SYR/VIAL IM ONE (18:52)
[2023-12-25] MEDS: ONDANSETRON ODT 4 MG TAB PO ONE (18:52)
[2023-12-25] MEDS: hydrALAZINE HCL 10 MG TAB PO ONE (19:14)
[2023-12-25 19:50] LABS: Basophils # (auto) 0 10 ^3/uL (0-0.2); Basophils % (auto) 0.3 % (0.0-2.0); Eosinophils # (auto) 0.3 10 ^3/uL (0-0.8); Eosinophils % (auto) 4.1 % (0.0-7.0); Hematocrit 33.2 % (36.0-46.0); Hemoglobin 10.2 g/dL (12.2-16.2); Lymphocytes # (auto) 1.7 10 ^3/uL (0.4-5.4); Lymphocytes % (auto) 26.6 % (10.0-50.0); Mean Corpuscular Hemoglobin 25.4 pg (28.0-32.0); Mean Corpuscular Hgb Conc. 30.7 g/dL (32.0-36.0); Mean Corpuscular Volume 82.6 fL (80.0-100.0); Monocytes # (auto) 0.5 10 ^3/uL (0-1.3); Neutrophils # (auto) 3.8 10 ^3/uL (1.6-8.6); Platelet Count (auto) 209 10^3/uL (140-450); Red Blood Cells 4.02 10^6/uL (4.0-5.20); Red Cell Distribution Width 19.4 % (11.8-14.3); White Blood Cell 6.2 10^3/uL (4.4-10.8)
[2023-12-25] MEDS: diphenhdrAMINE HCL 50 MG/1 ML VL IV ONE (19:55)
[2023-12-25 20:06] LABS: Alanine Aminotransferase 15 U/L (7-40); Albumin 4.5 g/dL (3.2-4.8); Alkaline Phosphatase 92 U/L (46-116); Anion Gap 8 (5-15); Aspartate Aminotransferase 20 U/L (13-40); BUN/Creatinine Ratio 9.4 (10.0-20.0); Blood Urea Nitrogen 9 mg/dL (9-23); Calcium 9.4 mg/dL (8.7-10.4); Carbon Dioxide 18 mmol/L (20-31); Chloride 110 mmol/L (98-107); Glucose 104 mg/dL (74-106); Lipase 26 U/L (12-53); Potassium 4.2 mmol/L (3.5-5.1); Sodium 136 mmol/L (136-145)
[2023-12-25 20:07] LABS: Bilirubin, Total 0.2 mg/dL (0.2-1.0); Total Protein 7.6 g/dL (5.7-8.2)
[2023-12-25] MEDS: ENALAPRILAT 1.25 MG/ML-1ML VIAL IV ONE (20:31)
[2023-12-25] MEDS: PANTOPRAZOLE 40 MG/10 ML VIAL INJ IV ONE (20:31)
[2023-12-25 21:23] VITALS: PULSE 92; RESP 18; O2SAT 96
[2023-12-25] MEDS: MORPHINE SULFATE 4 MG/ML SYR/VIAL IV ONE (21:39)
[2023-12-25] MEDS: methylPREDNISolone SOD SUCC 125 MG/2 ML VL ONE (22:55)
[2023-12-25] MEDS: methylPREDNISolone SOD SUCC 125 MG/2 ML VL IV ONE (22:55)
[2023-12-26] MEDS: NITROGLYCERIN 2% OINT 1GM PKG TD ONE (00:15)
[2023-12-26] MEDS: FAMOTIDINE (10MG/ML) 2ML VL IV ONE (00:36)
[2023-12-26] MEDS: diphenhdrAMINE HCL 50 MG/1 ML VL IV ONE (00:37)
[2023-12-26] MEDS: cloNIDine HCL 0.1 MG TAB PO ONE ×2 (00:47→11:33)
[2023-12-26] MEDS: D5W/SOD CHL 0.45% 1,000 ML IV ONE (01:19)
[2023-12-26 01:29] LABS: Urine Bacteria FEW /hpf (None Seen); Urine Blood Negative /uL (Negative); Urine Clarity Clear (Clear); Urine Color Light-Yellow (Yellow); Urine Protein, UAD Negative (Negative); Urine Specific Gravity 1.012 (1.001-1.035); Urine Urobilinogen Normal (Negative); Urine WBC 2 /hpf (0 - 5)
[2023-12-26] MEDS: MORPHINE SULFATE 4 MG/ML SYR/VIAL IV ONE ×2 (02:51→08:16)
[2023-12-26] MEDS: ONDANSETRON HCL 4 MG/2 ML VIAL IV ONE ×2 (02:52→08:17)
[2023-12-26] MEDS ORDERED: PROCHLORPERAZINE EDISYLATE 5 MG/ML 2ML VIAL IV PRN (08:30)
[2023-12-26] MEDS ORDERED: ONDANSETRON HCL 4 MG/2 ML VIAL IV PRN (08:30)
[2023-12-26] MEDS: SODIUM CHLORIDE 0.9% 1,000 ML IV SCH (08:53)
[2023-12-26] MEDS ORDERED: NITROGLYCERIN 0.4 MG SL TAB SL PRN (09:15)
[2023-12-26] MEDS ORDERED: MORPHINE SULFATE INJ 2 MG/ml SYRG IV PRN (09:15)
[2023-12-26] MEDS ORDERED: amLODIPine BESYLATE 5 MG TAB PO SCH (10:00)
[2023-12-26] MEDS: PANTOPRAZOLE 40 MG/10 ML VIAL INJ IV SCH (11:32)
[2023-12-26] MEDS: LISINOPRIL 20 MG TAB PO SCH (11:33)
[2023-12-26] MEDS: diphenhdrAMINE HCL 50 MG/1 ML VL IV PRN (11:34)
[2023-12-26 12:45] VITALS: PULSE 92; RESP 18; O2SAT 96
[2023-12-26 16:07] VITALS: BP 134/71; PULSE 62; RESP 18; TEMP 98.4; O2SAT 98
[2023-12-26 17:00] VITALS: BP 134/71; PULSE 62; RESP 18; TEMP 98.4; O2SAT 98
[2023-12-26] MEDS: MORPHINE SULFATE 4 MG/ML SYR/VIAL IV PRN (17:40)
[2023-12-26] MEDS: HYDROcodone-ACET 5/325MG TAB PO PRN (19:56)
[2023-12-26 20:00] VITALS: PULSE 67; PULSE 71; RESP 18; O2SAT 100
[2023-12-26 21:00] VITALS: BP 159/79; PULSE 86; RESP 18; TEMP 97.2; O2SAT 100
[2023-12-26] MEDS: MORPHINE SULF 15mg ER tab PO SCH (22:12)
[2023-12-27] VITALS (8 sets, daily range): BP systolic 123–161; BP diastolic 70–92; PULSE 50–100; RESP 17–20; TEMP 97.9–98.6; O2SAT 98–100
[2023-12-27 06:53] LABS: Basophils # (auto) 0 10 ^3/uL (0-0.2); Hemoglobin 8.9 g/dL (12.2-16.2); Lymphocytes # (auto) 1.5 10 ^3/uL (0.4-5.4); Monocytes # (auto) 0.3 10 ^3/uL (0-1.3); Neutrophils # (auto) 2.5 10 ^3/uL (1.6-8.6); White Blood Cell 4.4 10^3/uL (4.4-10.8)
[2023-12-27 06:54] LABS: Basophils % (auto) 0.5 % (0.0-2.0); Eosinophils # (auto) 0 10 ^3/uL (0-0.8); Eosinophils % (auto) 0.9 % (0.0-7.0); Hematocrit 29.5 % (36.0-46.0); Lymphocytes % (auto) 33.7 % (10.0-50.0); Mean Corpuscular Hemoglobin 24.8 pg (28.0-32.0); Mean Corpuscular Hgb Conc. 30.3 g/dL (32.0-36.0); Mean Corpuscular Volume 81.9 fL (80.0-100.0); Neutrophils % (auto) 56.9 % (37.0-80.0); Nucleated Red Blood Cells % 0.2 %; Platelet Count (auto) 157 10^3/uL (140-450); Red Cell Distribution Width 18.9 % (11.8-14.3)
[2023-12-27 07:02] LABS: Alkaline Phosphatase 69 U/L (46-116); Anion Gap 7 (5-15); BUN/Creatinine Ratio 10.8 (10.0-20.0); Blood Urea Nitrogen 9 mg/dL (9-23); Calcium 8.7 mg/dL (8.7-10.4); Carbon Dioxide 21 mmol/L (20-31); Chloride 114 mmol/L (98-107); Glucose 133 mg/dL (74-106); Potassium 4.3 mmol/L (3.5-5.1); Sodium 142 mmol/L (136-145)
[2023-12-27 07:03] LABS: Alanine Aminotransferase 9 U/L (7-40); Albumin 3.3 g/dL (3.2-4.8); Aspartate Aminotransferase < 8 U/L (13-40); Bilirubin, Total 0.2 mg/dL (0.2-1.0); Total Protein 5.8 g/dL (5.7-8.2)
[2023-12-27] MEDS: cloNIDine HCL 0.1 MG TAB PO ONE (11:42)
[2023-12-27] MEDS: MORPHINE SULFATE INJ 2 MG/ml SYRG IV ONE (14:32)
[2023-12-27] MEDS: DOCUSATE SOD 100 MG CAP PO PRN (18:43)
[2023-12-27] MEDS: PROCHLORPERAZINE EDISYLATE 5 MG/ML 2ML VIAL IV PRN (18:43)
[2023-12-27] MEDS: SUCRALFATE 1 GM/10 ML ORAL SUSP GT SCH (21:44)
[2023-12-27] MEDS: cloNIDine HCL 0.1 MG TAB PO SCH (22:00)
[2023-12-28] VITALS (8 sets, daily range): BP systolic 124–178; BP diastolic 71–99; PULSE 55–78; RESP 16–20; TEMP 97.5–98.2; O2SAT 92–100
[2023-12-28] MEDS: PANCREATIC ENZYMES 4200 UNIT CAP PO SCH (08:00)
[2023-12-28 10:21] LABS: Basophils # (auto) 0 10 ^3/uL (0-0.2); Basophils % (auto) 0.5 % (0.0-2.0); Eosinophils # (auto) 0.1 10 ^3/uL (0-0.8); Eosinophils % (auto) 3.8 % (0.0-7.0); Hematocrit 31.2 % (36.0-46.0); Hemoglobin 9.3 g/dL (12.2-16.2); Lymphocytes % (auto) 25.1 % (10.0-50.0); Mean Corpuscular Hemoglobin 25.1 pg (28.0-32.0); Mean Corpuscular Hgb Conc. 29.8 g/dL (32.0-36.0); Mean Corpuscular Volume 84.1 fL (80.0-100.0); Monocytes # (auto) 0.3 10 ^3/uL (0-1.3); Monocytes % (auto) 6.5 % (0.0-12.0); Neutrophils # (auto) 2.5 10 ^3/uL (1.6-8.6); Neutrophils % (auto) 64.1 % (37.0-80.0); Nucleated Red Blood Cells % 0.2 %; Platelet Count (auto) 150 10^3/uL (140-450); Red Blood Cells 3.71 10^6/uL (4.0-5.20); Red Cell Distribution Width 18.8 % (11.8-14.3); White Blood Cell 3.9 10^3/uL (4.4-10.8)
[2023-12-28 10:42] LABS: Chloride 109 mmol/L (98-107); Potassium 4.6 mmol/L (3.5-5.1); Sodium 137 mmol/L (136-145)
[2023-12-28 10:43] LABS: Anion Gap 7 (5-15); Carbon Dioxide 21 mmol/L (20-31)
[2023-12-28 10:44] LABS: Calcium 9.1 mg/dL (8.7-10.4)
[2023-12-28 10:48] LABS: BUN/Creatinine Ratio 9.1 (10.0-20.0); Blood Urea Nitrogen 8 mg/dL (9-23); Glucose 176 mg/dL (74-106)
[2023-12-28 11:07] LABS: Amphetamine Screen, Urine Neg (NEGATIVE); Barbiturate Scree,Urine Neg (NEGATIVE); Benzodiazephine Screen, Urine Neg (NEGATIVE); Cocaine Screen, Urine Neg (NEGATIVE); Opiate Scree,Urine Pos (NEGATIVE)
[2023-12-28 11:08] LABS: Cannabinoid Screen, Urine Neg (NEGATIVE); Phencyclidine Screen, Urine Neg (NEGATIVE)
[2023-12-29] VITALS (8 sets, daily range): BP systolic 122–149; BP diastolic 63–80; PULSE 59–81; RESP 15–22; TEMP 97.6–98.8; O2SAT 98–100
[2023-12-29] MEDS: MORPHINE SULFATE INJ 2 MG/ml SYRG IM ONE (00:57)
[2023-12-29] MEDS: diphenhdrAMINE HCL 50 MG/1 ML VL IM ONE (00:58)
[2023-12-29 06:16] LABS: Basophils # (auto) 0 10 ^3/uL (0-0.2); Basophils % (auto) 0.4 % (0.0-2.0); Eosinophils # (auto) 0.2 10 ^3/uL (0-0.8); Lymphocytes # (auto) 1.4 10 ^3/uL (0.4-5.4); Monocytes # (auto) 0.3 10 ^3/uL (0-1.3); Neutrophils # (auto) 1.6 10 ^3/uL (1.6-8.6); Nucleated Red Blood Cells % 0.1 %; White Blood Cell 3.5 10^3/uL (4.4-10.8)
[2023-12-29 06:20] LABS: Eosinophils % (auto) 4.8 % (0.0-7.0); Hematocrit 29.7 % (36.0-46.0); Hemoglobin 9.3 g/dL (12.2-16.2); Lymphocytes % (auto) 39.8 % (10.0-50.0); Mean Corpuscular Hemoglobin 25.5 pg (28.0-32.0); Mean Corpuscular Hgb Conc. 31.2 g/dL (32.0-36.0); Mean Corpuscular Volume 81.8 fL (80.0-100.0); Platelet Count (auto) 148 10^3/uL (140-450); Red Blood Cells 3.63 10^6/uL (4.0-5.20); Red Cell Distribution Width 18.8 % (11.8-14.3)
[2023-12-29 06:46] LABS: Alanine Aminotransferase 10 U/L (7-40); Alkaline Phosphatase 63 U/L (46-116); Anion Gap 6 (5-15); Blood Urea Nitrogen 12 mg/dL (9-23); Calcium 9.4 mg/dL (8.7-10.4); Carbon Dioxide 26 mmol/L (20-31); Chloride 107 mmol/L (98-107); Glucose 149 mg/dL (74-106); Potassium 4.4 mmol/L (3.5-5.1); Sodium 139 mmol/L (136-145)
[2023-12-29 06:47] LABS: Albumin 3.7 g/dL (3.2-4.8); Aspartate Aminotransferase 16 U/L (13-40)
[2023-12-29 06:48] LABS: Bilirubin, Total 0.2 mg/dL (0.2-1.0); Total Protein 6.2 g/dL (5.7-8.2)
[2023-12-29] MEDS: LIDOCAINE 5% TOPICAL PATCH TOP SCH (10:00)
[2023-12-30] VITALS (7 sets, daily range): BP systolic 106–171; BP diastolic 65–97; PULSE 59–75; RESP 15–22; TEMP 98–98.6; O2SAT 98–100
== END 2023-12-30 16:53 | disposition home or self-care (01) | DRG 243 ==
LOC: ER 17:34 → TELE 12-26 09:06 → TELE-CENTR 12-26 15:33
PROVIDERS: ADMIT Nurse Practitioner Family; ATTEND Nurse Practitioner
DX: K21.9 Gastro-esophageal reflux disease without esophagitis (principal); R64 Cachexia; E44.1 Mild protein-calorie malnutrition; D63.8 Anemia in other chronic diseases classified elsewhere; K92.0 Hematemesis; K29.70 Gastritis, unspecified, without bleeding; F11.20 Opioid dependence, uncomplicated; F17.210 Nicotine dependence, cigarettes, uncomplicated; I10 Essential (primary) hypertension; K59.00 Constipation, unspecified; K86.1 Other chronic pancreatitis; G89.29 Other chronic pain; Z87.11 Personal history of peptic ulcer disease; Z87.442 Personal history of urinary calculi; Z88.0 Allergy status to penicillin; Z88.8 Allergy status to other drugs, medicaments and biological substances; Z90.49 Acquired absence of other specified parts of digestive tract; Z83.3 Family history of diabetes mellitus; Z82.49 Family history of ischemic heart disease and other diseases of the circulatory system; Z79.899 Other long term (current) drug therapy; Z68.1 Body mass index [BMI] 19.9 or less, adult
CPT/HCPCS: 36415; 72148; 74176; 80048; 80053; 80307; 81001; 82962; 83036; 83690; 84702; 85025; 87081; G0378; J2405; J2470; J3490; Q0162

== ENCOUNTER 2024-03-04 08:25 | Inpatient (IN) | payer OTHER ==
[~2024-03-04] VITALS: Ht 160 cm; Wt 45.2 kg
--- NOTE | 2024-03-04 09:03 | ED.PDOC ---
GI ASSESSMENT HPI Comments 43 year old female presents to the ED with chief complaint of abdominal pain. Patient reports that she has been experiencing abdominal pain with associated chest pain and left arm pain since 3am today. Patient relays that she has had similar symptoms 2 months ago and was seen in [facility], following up with her PCP since then. Patient states that her PCP has not been able to follow up on her symptoms as she was normal at the time when following up. Patient denies any N/V/D, dizziness, fever, SOB, chills, or headache. Chief Complaint: Abdominal Pain Time Seen by MD: 08:58 Primary Care Provider: GABE Reviewed Notes: Nurses Notes, Medications, Allergies Allergies: Coded Allergies: Penicillins (Verified Allergy, Severe, anaphylactic, 10/05/23) Hydralazine (Verified Allergy, Intermediate, RN CONFIRMED CAN TOLERATE- IF ITCHING WILL TAKE BENADRYL, 04/15/23) Amlodipine (Verified Allergy, Unknown, 01/22/22) ITCHING Labetalol (Verified Adverse Reaction, Intermediate, ITCHINESS, 08/10/21) Home Meds Active Scripts Ondansetron Odt 4MG Tab (ZOFRAN PO) 4 Mg Tb, 4 MG PO Q6HP PRN, #20 TAB ODT TAB-DISSOLVE IN MOUTH, THEN SWALLOW Prov:SREEKANTH ORTIZ 12/24/23 Reported Medications Sucralfate (CARAFATE SUSP) 1 Gm/10 Ml Ss, 10 ML PO BID 12/17/23 Pancrelipase (Lipase-Protease- (Creon) 6,000 Unit Cap, 6000 UNITS PO TID 12/17/23 Clonidine Hydrochloride (Clonidine Hcl) 0.1 Mg Tab, 0.2 MG PO BID for 30 Days, MG 10/05/23 Hydrocodone-Acetaminophen (Hydrocodone Bitartrate/AC 5-325 mg) 1 Tab Tab, 1 TAB PO BID PRN 04/17/23 Information Source: Patient Mode of Arrival: Ambulatory Timing: Hours Duration: Since onset Prehospital treatment: None Quality: None Vomitus: None Stool: Normal Severity: Moderate Recent: None Recent Hx of: None Pain Location: Diffuse Modifying Factors: Nothing Associated sign and symptoms: Abdominal Pain, Other (Chest pain) Past Medical History PAST MEDICAL HISTORY: GERD, HTN, Kidney Stones, PUD Past Medical History (Other): Pancreatitis Surgical History: 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, PUBLIC RELATIONS ASSISTANT History: No Pertinent PUBLIC RELATIONS ASSISTANT History, Other Family History Family History: Reviewed,noncontributory to illness, Family hx of DM, Family hx of HTN Social History Smoker: Cigarettes, Less Than 1 Pack/Day Alcohol: Denies ETOH Use Drugs: Denies Drug Use Lives In: Home Constitutional: denies: chills, diaphoresis, fatigue, fever, malaise, sweats, weakness, others EENTM: denies: blurred vision, double vision, ear bleeding, ear discharge, ear drainage, ear pain, ear ringing, eye pain, eye redness, hearing loss, mouth pain, mouth swelling, nasal discharge, nose bleeding, nose congestion, nose pain, photophobia, tearing, throat pain, throat swelling, voice changes, others Respiratory: denies: cough, hemoptysis, orthopnea, SOB at rest, shortness of breath, SOB with excertion, stridor, wheezing, others Cardiovascular: reports: chest pain, left arm pain; denies: dizzy spells, diaphoresis, Dyspnea on exertion, edema, irregular heart beat, lightheadedness, palpitations, PND, syncope, others Gastrointestinal: reports: abdominal pain; denies: abdomen distended, blood streaked bowels, constipated, diarrhea, dysphagia, difficulty swallowing, hematemesis, melena, nausea, poor appetite, poor fluid intake, rectal bleeding, rectal pain, vomiting, others Genitourinary: denies: abnormal vagina bleeding, burning, dyspareunia, dysuria, flank pain, frequency, hematuria, incontinence, pain, , vagina discharge, urgency, others Neurological: denies: dizziness, fainting, headache, left sided numbness, left sided weakness, numbness, paresthesia, pre-existing deficit, right sided numbness, right sided weakness, seizure, speech problems, tingling, tremors, weakness, others Musculoskeletal: denies: back pain, gout, joint pain, joint swelling, muscle pain, muscle stiffness, neck pain, others Integumetry: denies: bruises, change in color, change in hair/nails, dryness, laceration, lesions, lumps, rash, wounds, others Allergic/Immunocompromised: denies: Difficulty Healing, Frequent Infections, Hi ves, Itching, others Hematologic/Lymphatic: denies: anemia, blood clots, easy bleeding, easy bruising, swollen glands, others Endocrine: denies: excessive hunger, excessive sweating, excessive thirst, excessive urination, flushing, intolerance to cold, intolerance to heat, unexplained weight gain, unexplained weight loss, others Psychiatric: denies: anxiety, bipolar disorder, depression, hopeless, panic disorder, schizophrenia, sleepless, suicidal, others All Other Systems: Reviewed and Negative Physical Exam General Appearance: Moderate Distress, Thin HEENT: Normal ENT Inspection, PERRL/EOMI Neck: Full Range of Motion, Non-Tender, Normal, Normal Inspection Respiratory: Chest Non-Tender, Lungs Clear, No Accessory Muscle Use, No Respiratory Distress, Normal Breath Sounds Cardiovascular: No Edema, No JVD, No Murmur, No Gallop, Normal Peripheral Pulses, Regular Rate/Rhythm Breast Exam: Deferred Gastrointestinal: No Organomegaly, No Pulsatile Mass, Normal Bowel Sounds, Soft Genitalia: Deferred Pelvic: Deferred Rectal: Deferred Extremities: No calf tenderness, Normal capillary refill, Normal inspection, Normal range of motion, Non-tender, No pedal edema Musculoskeletal : Apperance: Normal Neurologic: Alert, street light servicer helper II-XII nml as Tested, No Motor Deficits, Normal Affect, Normal Mood, No Sensory Deficits Cerebellar Function: Normal Reflexes: Normal Skin: Dry, Normal Color, Warm Peripheral Pulses: 3+ Radial (R), 3+ Radial (L) Lymphatic: No Adenopathy Was a procedure done? Was a procedure done?: No GI differential Dx Differential Diagnosis: Constipation, Diverticular disease, Esophagitis, Gas tritis/PUD, Gastroenteritis X-Ray, Labs, Meds, VS Vital Signs Date Time Temp Pulse Resp B/P (MAP) Pulse Ox O2 Delivery O2 Flow Rate FiO2 03/04/24 13:00 Room Air* 0 21 03/04/24 12:09 98.1 70 18 139/74 (95) 100 98.1 03/04/24 11:52 69 18 97 Room Air 03/04/24 11:51 69 18 147/90 (109) 97 03/04/24 11:49 69 18 147/90 (109) 97 03/04/24 11:48 69 18 147/90 03/04/24 11:04 79 20 123/81 03/04/24 10:22 98.1 79 20 123/81 (95) 99 98.1 03/04/24 08:44 68 03/04/24 08:43 97.3 84 16 163/78 (106) 100 Lab Test 03/04/24 13:35 03/04/24 10:52 03/04/24 08:41 Range/Units Sodium Level 143 136-145 mmol/L Potassium Level 4.1 3.5-5.1 mmol/L Chloride Level 116 H 98-107 mmol/L Carbon Dioxide Level 17 L 20-31 mmol/L Anion Gap 10 5-15 Blood Urea Nitrogen 12 9-23 mg/dL Creatinine 0.67 0.550-1.02 mg/dL Glomerular Filtration Rate Calc 110 >90 mL/min BUN/Creatinine Ratio 17.9 10.0-20.0 Serum Glucose 70 L 74-106 mg/dL Calcium Level 8.7 8.7-10.4 mg/dL Troponin I High Sensitivity 12 </=34 ng/L Lipase 14 12-53 U/L White Blood Count 4.4 4.4-10.8 10^3/uL Red Blood Count 3.71 L 4.0-5.20 10^6/uL Hemoglobin 9.4 L 12.2-16.2 g/dL Hematocrit 30.5 L 36.0-46.0 % Mean Corpuscular Volume 82.4 80.0-100.0 fL Mean Corpuscular Hemoglobin 25.5 L 28.0-32.0 pg Mean Corpuscular Hemoglobin Concent 30.9 L 32.0-36.0 g/dL Red Cell Distribution Width 21.7 H 11.8-14.3 % Platelet Count 246 140-450 10^3/uL Mean Platelet Volume 9.1 6.9-10.8 fL Neutrophils (%) (Auto) 60.8 37.0-80.0 % Lymphocytes (%) (Auto) 28.7 10.0-50.0 % Monocytes (%) (Auto) 6.5 0.0-12.0 % Eosinophils (%) (Auto) 3.5 0.0-7.0 % Basophils (%) (Auto) 0.5 0.0-2.0 % Neutrophils # (Auto) 2.7 1.6-8.6 10 ^3/uL Lymphocytes # (Auto) 1.3 0.4-5.4 10 ^3/uL Monocytes # (Auto) 0.3 0-1.3 10 ^3/uL Eosinophils # (Auto) 0.2 0-0.8 10 ^3/uL Basophils # (Auto) 0 0-0.2 10 ^3/uL Nucleated Red Blood Cells 0.0 % Urine Color Yellow Yellow Urine Clarity Clear Clear Urine pH 5.5 5.0-9.0 Urine Specific [place] 1.025 1.001-1.035 Urine Protein Negative Negative Urine Ketones Negative Negative Urine Blood Negative Negative /uL Urine Nitrite Negative Negative Urine Bilirubin Negative Negative Urine Urobilinogen Normal Negative mg/dL Urine Leukocyte Esterase Negative Negative /uL Urine RBC <1 0 - 4 /hpf Urine WBC <1 0 - 5 /hpf Urine Squamous Epithelial Cells Few <5 /hpf Urine Bacteria None seen None Seen /hpf Urine Glucose Normal Normal mg/dL Urine Opiates Screen Pos NEGATIVE Urine Fentanyl Screen Neg NEGATIVE Urine Barbiturates Screen Neg NEGATIVE Urine Phencyclidine Screen Neg NEGATIVE Urine Amphetamines Screen Neg NEGATIVE Urine Benzodiazepines Screen Neg NEGATIVE Urine Cocaine Screen Neg NEGATIVE Urine Cannabinoids Screen Neg NEGATIVE Current Medications Medications (Trade) Dose Ordered Sig/Yeison Route Start Time Stop Time Status Last Admin Morphine Sulfate 2 mg ONCE ONCE IV 03/04/24 09:45 03/04/24 09:46 DC 03/04/24 11:04 Ondansetron HCl (Zofran) 4 mg ONCE ONCE IV 03/04/24 09:45 03/04/24 09:46 DC 03/04/24 11:03 Sodium Chloride 1,000 ml @ 1,000 mls/hr Q1H ONCE IV 03/04/24 09:45 03/04/24 10:44 DC 03/04/24 11:08 Diphenhydramine HCl (Benadryl Injection) 25 mg ONCE ONCE IV 03/04/24 11:15 03/04/24 11:16 DC 03/04/24 11:14 Patient alert. Complaining of abdominal pain. Blood pressure elevated. Vitals stable. Blood pressure from pain. Continues to smoke cigarettes. Counseled patient on effects of smoking cigarettes for 15 minutes. Establish intravenous access. Was given fluids. Was given pain medication. Reviewed her previous visit. Explained to the patient. Continue cardiac monitoring. Time of 1ST Reevaluation: 09:58 Reevaluation 1ST: Unchanged Patient Education/Counseling: Diagnosis, Treatment Family Education/Counseling: No Family Present Additional Information I reviewed the following notes from patient's past medical encounters: 10/11/24 for abdominal pain The following tests were ordered, and results were reviewed by me: EKG, Troponin, Lipase, BMP, Drug Screen, UA, CBC I discussed treatment and results with medical personnel. Departure 1 Departure Time of Disposition: 09:32 Impression: Primary Impression: Abdominal pain of unknown etiology Additional Impression: Accelerated hypertension Disposition: ADMITTED INPATIENT Admit to: Med Surg Condition: Guarded Critical Care Note Critical Care Time?: Yes (45 min-critical care time only) Stability Stability form required: No Heart Score Heart Score: Heart Score Response (Comments) Value History N/A 0 EKG N/A 0 Age N/A 0 Risk Factors N/A 0 Troponin N/A 0 Total 0 I personally scribed for JIM STANLEY MD ([email or web address]) on 03/04/24 at 09:03. Electronically submitted by Cristino Oscar ([email or web address]). I personally scribed for JIM STANLEY MD ([email or web address]) on 03/04/24 at 16:04. Electronically submitted by Cristino Oscar ([email or web address]). JIM STANLEY MD Mar 04, 2024 09:03
[2024-03-04] MEDS: ONDANSETRON HCL 4 MG/2 ML VIAL IV ONE (11:03)
[2024-03-04] MEDS: MORPHINE SULFATE INJ 2 MG/ml SYRG IV ONE (11:04)
[2024-03-04 11:06] LABS: Basophils # (auto) 0 10 ^3/uL (0-0.2); Basophils % (auto) 0.5 % (0.0-2.0); Eosinophils # (auto) 0.2 10 ^3/uL (0-0.8); Eosinophils % (auto) 3.5 % (0.0-7.0); Lymphocytes # (auto) 1.3 10 ^3/uL (0.4-5.4); Monocytes # (auto) 0.3 10 ^3/uL (0-1.3); Red Cell Distribution Width 21.7 % (11.8-14.3); White Blood Cell 4.4 10^3/uL (4.4-10.8)
[2024-03-04 11:08] LABS: Hematocrit 30.5 % (36.0-46.0); Hemoglobin 9.4 g/dL (12.2-16.2); Lymphocytes % (auto) 28.7 % (10.0-50.0); Mean Corpuscular Hemoglobin 25.5 pg (28.0-32.0); Mean Corpuscular Hgb Conc. 30.9 g/dL (32.0-36.0); Mean Corpuscular Volume 82.4 fL (80.0-100.0); Monocytes % (auto) 6.5 % (0.0-12.0); Neutrophils # (auto) 2.7 10 ^3/uL (1.6-8.6); Neutrophils % (auto) 60.8 % (37.0-80.0); Platelet Count (auto) 246 10^3/uL (140-450); Red Blood Cells 3.71 10^6/uL (4.0-5.20)
[2024-03-04] MEDS: SODIUM CHLORIDE 0.9% 1,000 ML IV ONE (11:08)
[2024-03-04] MEDS: diphenhdrAMINE HCL 50 MG/1 ML VL IV ONE (11:13)
[2024-03-04 11:35] LABS: Urine Bacteria None Seen /hpf (None Seen)
[2024-03-04 11:56] LABS: Cannabinoid Screen, Urine Neg (NEGATIVE)
[2024-03-04 11:59] LABS: Urine Blood Negative /uL (Negative); Urine Clarity Clear (Clear); Urine Color Yellow (Yellow); Urine Protein, UAD Negative (Negative); Urine Specific Gravity 1.025 (1.001-1.035); Urine Squamous Epithelial Cell FEW /hpf (<5); Urine Urobilinogen Normal (Negative); Urine WBC <1 /hpf (0 - 5); Urine pH 5.5 (5.0-9.0)
[2024-03-04 12:02] LABS: Amphetamine Screen, Urine Neg (NEGATIVE); Barbiturate Scree,Urine Neg (NEGATIVE); Benzodiazephine Screen, Urine Neg (NEGATIVE); Cocaine Screen, Urine Neg (NEGATIVE); Opiate Scree,Urine Pos (NEGATIVE); Phencyclidine Screen, Urine Neg (NEGATIVE)
--- NOTE | 2024-03-04 13:40 | DVHHP2 ---
Admitting Diagnosis: Abdominal pain History of Present Illness 43 yo female patient c/o abdominal pain. Patient also sts to have chest pain and left arm pain. Patient denies any other symptoms. While in the emergency department the patient was evaluated by the provider, As per provider: Labs, vital signs, and imagining monitored. Patient will be admitted for further evaluation and treatment. I discussed admission with the patient/family and is in agreement to treatment plan. Patient Family History: Hypertension G8 MOTHER G8 FATHER, Onset:Unknown Allergies: Coded Allergies: Penicillins (Verified Allergy, Severe, anaphylactic, 10/05/23) Hydralazine (Verified Allergy, Intermediate, RN CONFIRMED CAN TOLERATE- IF ITCHING WILL TAKE BENADRYL, 04/15/23) Amlodipine (Verified Allergy, Unknown, 01/22/22) ITCHING Labetalol (Verified Adverse Reaction, Intermediate, ITCHINESS, 08/10/21) Home Meds Active Scripts Ondansetron Odt 4MG Tab (ZOFRAN PO) 4 Mg Tb, 4 MG PO Q6HP PRN, #20 TAB ODT TAB-DISSOLVE IN MOUTH, THEN SWALLOW Prov:SREEKANTH ORTIZ 12/24/23 Reported Medications Sucralfate (CARAFATE SUSP) 1 Gm/10 Ml Ss, 10 ML PO BID 12/17/23 Pancrelipase (Lipase-Protease- (Creon) 6,000 Unit Cap, 6000 UNITS PO TID 12/17/23 Clonidine Hydrochloride (Clonidine Hcl) 0.1 Mg Tab, 0.2 MG PO BID for 30 Days, MG 10/05/23 Hydrocodone-Acetaminophen (Hydrocodone Bitartrate/AC 5-325 mg) 1 Tab Tab, 1 TAB PO BID PRN 04/17/23 Current Medications Current Medications Medications (Trade) Dose Ordered Sig/Yeison Route PRN Reason Start Time Stop Time Status Last Admin Sodium Chloride 1,000 ml @ 120 mls/hr Q8H20M IV 03/04/24 13:45 03/04/24 22:05 Ondansetron HCl (Zofran) 4 mg Q4HP PRN IV NAUSEA / VOMITING 03/04/24 13:45 Acetaminophen (Tylenol Tablet) 650 mg Q6HP PRN PO PAIN SCALE 1-3 OR TEMP>100.4 03/04/24 13:45 Enoxaparin Sodium (Lovenox) 30 mg DAILY SC 03/05/24 10:00 Hydromorphone HCl (Dilaudid Injection) 0.5 mg Q3HP PRN IV PAIN SCALE 7 THRU 10 03/04/24 13:45 03/04/24 22:49 Pantoprazole Sodium (Protonix) 40 mg DAILY@BREAKFAST IV 03/05/24 08:00 Nitroglycerin (Ntrostat Sublingual) 0.4 mg Q5MINP PRN SL FOR CHEST PAIN 03/04/24 13:45 Morphine Sulfate 2 mg Q30M PRN IV FOR CHEST PAIN 03/04/24 13:45 Clonidine HCl (Catapres Tablet) 0.2 mg BID PO 03/04/24 22:00 Sucralfate (Carafate Susp) 1 gm BID PO 03/04/24 22:00 03/04/24 22:49 Patient Own Medication 6,000 units TIDWM PO 03/04/24 18:00 Diphenhydramine HCl (Benadryl Injection) 25 mg Q6HP PRN IV FOR ITCHING 03/04/24 16:45 03/04/24 17:59 Review of Systems Constitutional: denies chills, denies fever, denies malaise Eyes: denies eye pain, denies vision change ENT: denies ear pain, denies headache, denies nasal congestion, denies painful swallowing, denies voice change Cardiovascular: denies chest pain, denies edema, denies orthopnea, denies palpitations, denies paroxysmal nocturnal dyspnea Respiratory: denies cough, denies shortness of breath Gastrointestinal: denies constipation, denies diarrhea, denies nausea, denies vomiting Genitourinary: denies dysuria, denies frequent urination, denies urethral disc harge Musculoskeletal: denies back pain, denies joint pain, denies muscle pain Skin: denies bruising, denies itching, denies rash Neurological: denies focal weakness, denies headache, denies sensory changes Psychiatric: denies anxiety, denies depression Endocrine: denies polydipsia, denies polyuria Hematologic/Lymphatic: denies easy bleeding, denies easy bruising, denies enlar ged lymph nodes Allergic/Immunologic: denies allergy, denies hives Vital Signs Vital Signs Date Time Temp Pulse Resp B/P (MAP) Pulse Ox O2 Delivery O2 Flow Rate FiO2 03/04/24 22:49 66 16 108/66 03/04/24 22:44 100 03/04/24 16:09 97.8 97.8 03/04/24 13:00 Room Air* 0 21 Physical Exam General Appearance: alert, no distress HEENT: EOMI, PERRLA, normal external inspect of ears, no icterus, no nasal drainage Neck: no carotid bruit, no jugular venous distention (JVD), no lymphadenopathy Chest: normal thorax Respiratory: clear to auscultation, normal air movement Cardiovascular: regular rate and rhythm, no diastolic murmur, no jugular venous distention (JVD), no rub, no systolic murmur Abdominal: soft, no hepatomegaly, no mass, no splenomegaly, no tenderness Genitourinary: grossly normal external Musculoskeletal: no joint tenderness, no swelling Extremities: normal pulses, no calf tenderness, no clubbing, no cyanosis, no edema Skin: no bruising, no jaundice, no rash Neurological: alert, No focal deficit Results Labs Test 03/04/24 13:35 03/04/24 10:52 03/04/24 08:41 Range/Units Sodium Level 143 136-145 mmol/L Potassium Level 4.1 3.5-5.1 mmol/L Chloride Level 116 H 98-107 mmol/L Carbon Dioxide Level 17 L 20-31 mmol/L Anion Gap 10 5-15 Blood Urea Nitrogen 12 9-23 mg/dL Creatinine 0.67 0.550-1.02 mg/dL Glomerular Filtration Rate Calc 110 >90 mL/min BUN/Creatinine Ratio 17.9 10.0-20.0 Serum Glucose 70 L 74-106 mg/dL Calcium Level 8.7 8.7-10.4 mg/dL Troponin I High Sensitivity 12 </=34 ng/L Lipase 14 12-53 U/L White Blood Count 4.4 4.4-10.8 10^3/uL Red Blood Count 3.71 L 4.0-5.20 10^6/uL Hemoglobin 9.4 L 12.2-16.2 g/dL Hematocrit 30.5 L 36.0-46.0 % Mean Corpuscular Volume 82.4 80.0-100.0 fL Mean Corpuscular Hemoglobin 25.5 L 28.0-32.0 pg Mean Corpuscular Hemoglobin Concent 30.9 L 32.0-36.0 g/dL Red Cell Distribution Width 21.7 H 11.8-14.3 % Platelet Count 246 140-450 10^3/uL Mean Platelet Volume 9.1 6.9-10.8 fL Neutrophils (%) (Auto) 60.8 37.0-80.0 % Lymphocytes (%) (Auto) 28.7 10.0-50.0 % Monocytes (%) (Auto) 6.5 0.0-12.0 % Eosinophils (%) (Auto) 3.5 0.0-7.0 % Basophils (%) (Auto) 0.5 0.0-2.0 % Neutrophils # (Auto) 2.7 1.6-8.6 10 ^3/uL Lymphocytes # (Auto) 1.3 0.4-5.4 10 ^3/uL Monocytes # (Auto) 0.3 0-1.3 10 ^3/uL Eosinophils # (Auto) 0.2 0-0.8 10 ^3/uL Basophils # (Auto) 0 0-0.2 10 ^3/uL Nucleated Red Blood Cells 0.0 % Urine Color Yellow Yellow Urine Clarity Clear Clear Urine pH 5.5 5.0-9.0 Urine Specific [place] 1.025 1.001-1.035 Urine Protein Negative Negative Urine Ketones Negative Negative Urine Blood Negative Negative /uL Urine Nitrite Negative Negative Urine Bilirubin Negative Negative Urine Urobilinogen Normal Negative mg/dL Urine Leukocyte Esterase Negative Negative /uL Urine RBC <1 0 - 4 /hpf Urine WBC <1 0 - 5 /hpf Urine Squamous Epithelial Cells Few <5 /hpf Urine Bacteria None seen None Seen /hpf Urine Glucose Normal Normal mg/dL Urine Opiates Screen Pos NEGATIVE Urine Fentanyl Screen Neg NEGATIVE Urine Barbiturates Screen Neg NEGATIVE Urine Phencyclidine Screen Neg NEGATIVE Urine Amphetamines Screen Neg NEGATIVE Urine Benzodiazepines Screen Neg NEGATIVE Urine Cocaine Screen Neg NEGATIVE Urine Cannabinoids Screen Neg NEGATIVE Plan 1. Chest pain Monitor EKG, cardiology consult 2. Abdominal pain Monitor, GI consult 3. Accelerated hypertension Monitor, antihypertensives 4. Chronic pancreatitis Monitor, creon, clear liquid diet, Carafate, PPI, IV fluids 5. Anemia of chronic disease Monitor Plan discussed with: Patient, Other RICKIE REYNA NP Mar 04, 2024 13:40
[2024-03-04] MEDS: SODIUM CHLORIDE 0.9% 1,000 ML IV SCH (13:45)
[2024-03-04] MEDS ORDERED: ACETAMINOPHEN 325 MG TAB PO PRN (13:45)
[2024-03-04] MEDS ORDERED: NITROGLYCERIN 0.4 MG SL TAB SL PRN (13:45)
[2024-03-04] MEDS ORDERED: MORPHINE SULFATE INJ 2 MG/ml SYRG IV PRN (13:45)
[2024-03-04] MEDS: HYDROmorphone HCL 2 MG/ML VL/or syr IV PRN (14:24)
[2024-03-04 14:29] LABS: Potassium 4.1 mmol/L (3.5-5.1); Sodium 143 mmol/L (136-145)
[2024-03-04 14:30] LABS: Anion Gap 10 (5-15)
[2024-03-04 14:31] LABS: Calcium 8.7 mg/dL (8.7-10.4)
[2024-03-04 14:32] LABS: Carbon Dioxide 17 mmol/L (20-31); Chloride 116 mmol/L (98-107)
[2024-03-04 14:36] LABS: Lipase 14 U/L (12-53)
[2024-03-04 14:39] LABS: Glucose 70 mg/dL (74-106)
[2024-03-04 14:54] LABS: BUN/Creatinine Ratio 17.9 (10.0-20.0); Blood Urea Nitrogen 12 mg/dL (9-23)
--- NOTE | 2024-03-04 17:44 | DVHINCON2 ---
Date of service: Mar 04, 2024 History of Present Illness HPI Patient is a 43-year-old female who presented to the hospital with an episode of bilateral arm pain radiating to the chest and down to the belly. The discomfort focused on the belly and was accompanied by involuntary bowel movements. She did not become short of breath. There was no loss of consciousness. She denies palpitations. Cardiology is involved for cardiac aspects of care. Patient mentions that she had similar episode few months back when she was admitted to the hospital and later was diagnosed to have takotsubo cardiomyopathy. She does not follow with any Cardiology as outpatient. Her outside medication includes only clonidine for high blood pressure. She does have history of chronic pancreatitis (going back for years). Her other history includes kidney stones. She has had stents in the kidney and bile duct previously. Home Meds Active Scripts Ondansetron Odt 4MG Tab (ZOFRAN PO) 4 Mg Tb, 4 MG PO Q6HP PRN, #20 TAB ODT TAB-DISSOLVE IN MOUTH, THEN SWALLOW Prov:SREEKANTH ORTIZ 12/24/23 Reported Medications Sucralfate (CARAFATE SUSP) 1 Gm/10 Ml Ss, 10 ML PO BID 12/17/23 Pancrelipase (Lipase-Protease- (Creon) 6,000 Unit Cap, 6000 UNITS PO TID 12/17/23 Clonidine Hydrochloride (Clonidine Hcl) 0.1 Mg Tab, 0.2 MG PO BID for 30 Days, MG 10/05/23 Hydrocodone-Acetaminophen (Hydrocodone Bitartrate/AC 5-325 mg) 1 Tab Tab, 1 TAB PO BID PRN 04/17/23 Past Medical History Others Past medical history includes chronic pancreatitis going back for many years (as per patient, secondary to gallstone), takotsubo cardiomyopathy (September 2023), nonischemic cardiomyopathy, hypertension, GERD, old history of kidney stone, history of stent in the kidney/bile ducts, peptic ulcer disease, narcotic dependence, history of bowel obstruction, history of cholecystectomy/ and history of noncompliance. She does smoke cigarettes. Says that she stopped alcohol any years ago. Does take [place] every day for pain. Family History: No pertinent Hx Patient Family History: Hypertension G8 MOTHER G8 FATHER, Onset:Unknown Smoker: Positive Lives with: With family Review of Systems Constitutional: Weakness Ears, Nose, & Throat: No symptom reported Eyes: No symptom reported Cardiovascular: Chest Pain Gastrointestinal: Abdominal Pain, Diarrhea All Other Systems 14 point review of system was performed. Relevant findings as per above and as per HPI. Otherwise negative. H&P Exam Vital Signs Vital Signs Date Time Temp Pulse Resp B/P (MAP) Pulse Ox O2 Delivery O2 Flow Rate FiO2 03/04/24 16:09 97.8 68 18 149/86 (107) 98 97.8 03/04/24 13:00 Room Air* 0 21 General Appeara: Well developed, Mild distress Eye Exam: bilateral eye PERRL Mouth: Normal Inspection Pulmonary/Respiratory: Normal inspection, Lungs clear Cardiovascular/Chest: Normal inspection, Regular rate, Systolic murmur Peripheral Pulses: 2+ carotid (R), 2+ carotid (L), 2+ femoral (R), 2+ femoral (L), 2+ dorsalis pedis (R), 2+ dorsalis pedis (L), 2+ Radial (R), 2+ Radial (L) Abdominal Exam: Other (Distended, mid abdominal tenderness) Neuro/Mental St: Alert, Oriented Appearance: Appropriate appearance Eye contact/ Speech: Cooperative Labs/Xrays Labs Test 03/04/24 13:35 03/04/24 10:52 03/04/24 08:41 Range/Units Sodium Level 143 136-145 mmol/L Potassium Level 4.1 3.5-5.1 mmol/L Chloride Level 116 H 98-107 mmol/L Carbon Dioxide Level 17 L 20-31 mmol/L Anion Gap 10 5-15 Blood Urea Nitrogen 12 9-23 mg/dL Creatinine 0.67 0.550-1.02 mg/dL Glomerular Filtration Rate Calc 110 >90 mL/min BUN/Creatinine Ratio 17.9 10.0-20.0 Serum Glucose 70 L 74-106 mg/dL Calcium Level 8.7 8.7-10.4 mg/dL Troponin I High Sensitivity 12 </=34 ng/L Lipase 14 12-53 U/L White Blood Count 4.4 4.4-10.8 10^3/uL Red Blood Count 3.71 L 4.0-5.20 10^6/uL Hemoglobin 9.4 L 12.2-16.2 g/dL Hematocrit 30.5 L 36.0-46.0 % Mean Corpuscular Volume 82.4 80.0-100.0 fL Mean Corpuscular Hemoglobin 25.5 L 28.0-32.0 pg Mean Corpuscular Hemoglobin Concent 30.9 L 32.0-36.0 g/dL Red Cell Distribution Width 21.7 H 11.8-14.3 % Platelet Count 246 140-450 10^3/uL Mean Platelet Volume 9.1 6.9-10.8 fL Neutrophils (%) (Auto) 60.8 37.0-80.0 % Lymphocytes (%) (Auto) 28.7 10.0-50.0 % Monocytes (%) (Auto) 6.5 0.0-12.0 % Eosinophils (%) (Auto) 3.5 0.0-7.0 % Basophils (%) (Auto) 0.5 0.0-2.0 % Neutrophils # (Auto) 2.7 1.6-8.6 10 ^3/uL Lymphocytes # (Auto) 1.3 0.4-5.4 10 ^3/uL Monocytes # (Auto) 0.3 0-1.3 10 ^3/uL Eosinophils # (Auto) 0.2 0-0.8 10 ^3/uL Basophils # (Auto) 0 0-0.2 10 ^3/uL Nucleated Red Blood Cells 0.0 % Urine Color Yellow Yellow Urine Clarity Clear Clear Urine pH 5.5 5.0-9.0 Urine Specific Mathews 1.025 1.001-1.035 Urine Protein Negative Negative Urine Ketones Negative Negative Urine Blood Negative Negative /uL Urine Nitrite Negative Negative Urine Bilirubin Negative Negative Urine Urobilinogen Normal Negative mg/dL Urine Leukocyte Esterase Negative Negative /uL Urine RBC <1 0 - 4 /hpf Urine WBC <1 0 - 5 /hpf Urine Squamous Epithelial Cells Few <5 /hpf Urine Bacteria None seen None Seen /hpf Urine Glucose Normal Normal mg/dL Urine Opiates Screen Pos NEGATIVE Urine Fentanyl Screen Neg NEGATIVE Urine Barbiturates Screen Neg NEGATIVE Urine Phencyclidine Screen Neg NEGATIVE Urine Amphetamines Screen Neg NEGATIVE Urine Benzodiazepines Screen Neg NEGATIVE Urine Cocaine Screen Neg NEGATIVE Urine Cannabinoids Screen Neg NEGATIVE Assessment/Plan Plan Patient is a 43-year-old female who presented to the hospital with an episode of bilateral arm pain radiating to the chest and down to the belly. The discomfort focused on the belly and was accompanied by involuntary bowel movements. She did not become short of breath. There was no loss of consciousness. She denies palpitations. Cardiology is involved for cardiac aspects of care. Patient mentions that she had similar episode few months back when she was admitted to the hospital and later was diagnosed to have takotsubo cardiomyopathy. She does not follow with any Cardiology as outpatient. Her outside medication includes only clonidine for high blood pressure. She does have history of chronic pancreatitis (going back for years). Her other history includes kidney stones. She has had stents in the kidney and bile duct previously. Not in acute distress. Sitting in chair. Complaining of some abdominal discomfort at the time of evaluation. No JVD. Mucosa is pink and wet. No carotid bruit. Lungs are clear to auscultation. Not using accessory muscles of breathing. Cardiac: Regular, no thrill/gallop. Systolic murmur 3/6 in the apex is heard. Abdomen: Soft. Somehow distended. Bowel sound is positive. Periumbilical tenderness is elicited. There is no rebound tenderness. Extremities reveal 1+ edema bilaterally. Dorsalis pedis is 2+ bilateral. Past medical history includes chronic pancreatitis going back for many years (as per patient, secondary to gallstone), takotsubo cardiomyopathy (September 2023), nonischemic cardiomyopathy, hypertension, GERD, old history of kidney stone, history of stent in the kidney/bile ducts, peptic ulcer disease, narcotic dependence, history of bowel obstruction, history of cholecystectomy/ and history of noncompliance. She does smoke cigarettes. Says that she stopped alcohol any years ago. Does take [place] every day for pain. Echocardiogram of October 04, 2023 had revealed ejection fraction of 20% with akinetic apex/IBS Left heart catheterization of October 11, 2023 had revealed open and normal coronaries Hemoglobin: 9.4 Creatinine: 0.67 Troponin (high sensitive): 12 Lipase: 14 Urine toxicology was positive for opiates EKG revealed sinus rhythm, no specific ST-T changes Tele reveals sinus rhythm Patient is a 43-year-old female who presented with bilateral arm pain radiating to the chest and down to the belly. Discomfort focused on abdomen and was accompanied by bowel incontinence. Presentation is not in favor of acute coronary syndrome. EKG has been nonrevealing and high sensitive troponin was negative. It is of note that patient does have history of takotsubo cardiomyopathy which was diagnosed in September 2023. As per patient, she is not taking any medications for heart failure. 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 It is of note that the patient does have history of chronic pancreatitis which could present as abdominal pain. At the time of evaluation does have abdominal discomfort and some distention. Abdominal pain Bowel incontinence Atypical chest discomfort History of systolic heart failure History of takotsubo cardiomyopathy, Nonischemic cardiomyopathy History of narcotic dependence History of bowel obstruction History of stent in bile duct and kidneys Cardiac suggestion for management: Manage on telemetry Follow-up electrolytes and kidney function tests and correct abnormalities. Keep potassium above 4 and magnesium above 2 For now, aspirin: 81 mg daily suggested Request for Echocardiogram Request for chest x-ray If Echocardiogram reveals reduced left ventricular systolic function, guideline directed medical therapy for systolic heart failure is suggested Abdominal imaging is suggested (consider abdominal sonogram at this point) GI evaluation for history of pancreatitis and abdominal pain is suggested Lifestyle and risk factor modification is advised Patient was counseled to avoid substance abuse Patient was advised to stop smoking Further evaluation and management depends on the above and clinical course Thank you for consultation A total of 75 minutes was spent reviewing the patient record, examining the patient, making a diagnostic and therapeutic plan, discussing this plan with medical personnel, following up on diagnostic studies and following the patient for clinical stability excluding any and all procedures. At least 50% of this time was spent in direct, [id number] contact. Thank you for allowing me to participate in this patient's care. Further recommendations will depend on patient's clinical course. Please do not hesitate to contact me if you have any questions or concerns. This medical document was created using electronic medical record system with [employer] computerized dictation system. Although this document has been carefully reviewed, there may still be some phonetic and typographical errors. These area s are purely typographical due to the imperfection of the software programs, and do not reflect any compromise in the patient's medical care. Plan discussed with: Patient, Other (nurse) ROSALIO DAVILA MD Mar 04, 2024 17:44
[2024-03-04] MEDS: diphenhdrAMINE HCL 50 MG/1 ML VL IV PRN (17:59)
--- NOTE | 2024-03-04 18:26 | DVH ---
EXAMINATION: PA and lateral chest radiographs CLINICAL HISTORY: sob COMPARISON: XY CHEST TWO VIEWS ROUTINE on DOS: 08/27/23 FINDINGS: Lead wires overlie the thorax. No dominant consolidations. The visualized costophrenic angles appear clear. No sizable pleural effus ion or pneumothorax identified. The cardiomediastinal silhouette appears within normal limits. IMPRESSION: No acute cardiopulmonary findings.
[2024-03-04] MEDS: CREON 6000 UNIT PO SCH (18:44)
--- NOTE | 2024-03-04 18:59 | DVH ---
RIGHT UPPER QUADRANT ABDOMINAL ULTRASOUND CLINICAL HISTORY: HX OF PANCREATITIS COMPARISON: CT dated 12/25/2023. US GALLBLADDER on 12/16/23 TECHNIQUE: Grayscale and color Doppler ultrasound imaging of the right upper quadrant is performed. FINDINGS: Pancreas: Cured by artifact from bowel gas. Liver: Increased parenchymal echogenicity. No discrete hepatic lesions as visualized. The portal vein appears patent. Gallbladder: Surgically absent. Common bile duct: Nondilated. Right Kidney: Measures 9.2 cm in length. No hydronephrosis. Right upper quadrant Inferior vena cava: Visualized portions appear grossly patent. IMPRESSION: Pancreas is obscured by artifact from bowel gas. Increased hepatic parenchymal echogenicity which is most commonly secondary to fatty infiltration. Ot her diffusely infiltrative processes not excluded. Please correlate clinically. 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.
[2024-03-04] MEDS: cloNIDine HCL 0.1 MG TAB PO SCH (22:00)
[2024-03-04] MEDS: SUCRALFATE 1 GM/10 ML ORAL SUSP PO SCH (22:49)
[2024-03-04 23:20] VITALS: BP 157/79; PULSE 101; RESP 13; TEMP 98.1; O2SAT 98
[2024-03-04 23:41] VITALS: BP 143/72; PULSE 95; RESP 100; RESP 16; TEMP 98.1; O2SAT 100
[2024-03-05] VITALS (9 sets, daily range): BP systolic 117–197; BP diastolic 70–107; PULSE 60–98; RESP 13–20; TEMP 98–99.2; O2SAT 97–100
--- NOTE | 2024-03-05 06:05 | DVHPN2 ---
Progress Note - Dictate Date Seen: Mar 05, 2024 Medical Necessity Reason Pt with a Central, PICC or Fol: No vital signs Vital Sign Date Time Temp Pulse Resp B/P (MAP) Pulse Ox O2 Delivery O2 Flow Rate FiO2 03/05/24 05:00 98.0 98 16 155/70 (98) 100 98.0 03/04/24 23:41 Room Air* 0 21 Total Intake and Output 03/04/24 03/04/24 03/05/24 15:00 23:00 07:00 Intake Total 1000 ml 240 ml Output Total 730 ml Balance 1000 ml -490 ml medications Current Medications Medications Dose Ordered Sig/Yeison Route Start Time Stop Time Status Last Admin Dose Admin Sodium Chloride 1,000 ml @ 120 mls/hr Q8H20M IV 03/04/24 13:45 03/04/24 22:05 120 MLS/HR Ondansetron HCl 4 mg Q4HP PRN IV 03/04/24 13:45 Acetaminophen 650 mg Q6HP PRN PO 03/04/24 13:45 Enoxaparin Sodium 30 mg DAILY SC 03/05/24 10:00 Hydromorphone HCl 0.5 mg Q3HP PRN IV 03/04/24 13:45 03/05/24 04:34 0.5 MG Pantoprazole Sodium 40 mg DAILY@BREAKFAST IV 03/05/24 08:00 Nitroglycerin 0.4 mg Q5MINP PRN SL 03/04/24 13:45 Morphine Sulfate 2 mg Q30M PRN IV 03/04/24 13:45 Clonidine HCl 0.2 mg BID PO 03/04/24 22:00 Sucralfate 1 gm BID PO 03/04/24 22:00 03/04/24 22:49 1 GM Patient Own Medication 6,000 units TIDWM PO 03/04/24 18:00 Diphenhydramine HCl 25 mg Q6HP PRN IV 03/04/24 16:45 03/05/24 00:32 25 MG laboratory and microbiology Test 03/05/24 05:19 Range/Units Serum Glucose Pending Assessment/Plan Patient is a 43-year-old female who presented to the hospital with an episode of bilateral arm pain radiating to the chest and down to the belly. The discomfort focused on the belly and was accompanied by involuntary bowel movements. She did not become short of breath. There was no loss of consciousness. She denies palpitations. Cardiology is involved for cardiac aspects of care. Patient mentions that she had similar episode few months back when she was admitted to the hospital and later was diagnosed to have takotsubo cardiomyopathy. She does not follow with any Cardiology as outpatient. Her outside medication includes only clonidine for high blood pressure. She does have history of chronic pancreatitis (going back for years). Her other history includes kidney stones. She has had stents in the kidney and bile duct previously. Not in acute distress. Sitting in chair. Complaining of some abdominal discomfort at the time of evaluation. No JVD. Mucosa is pink and wet. No carotid bruit. Lungs are clear to auscultation. Not using accessory muscles of breathing. Cardiac: Regular, no thrill/gallop. Systolic murmur 3/6 in the apex is heard. Abdomen: Soft. Somehow distended. Bowel sound is positive. Periumbilical tenderness is elicited. There is no rebound tenderness. Extremities reveal 1+ edema bilaterally. Dorsalis pedis is 2+ bilateral. Past medical history includes chronic pancreatitis going back for many years (as per patient, secondary to gallstone), takotsubo cardiomyopathy (September 2023), nonischemic cardiomyopathy, hypertension, GERD, old history of kidney stone, history of stent in the kidney/bile ducts, peptic ulcer disease, narcotic dependence, history of bowel obstruction, history of cholecystectomy/ and history of noncompliance. She does smoke cigarettes. Says that she stopped alcohol any years ago. Does take [place]ne[place] every day for pain. Echocardiogram of October 04, 2023 had revealed ejection fraction of 20% with akinetic apex/IBS Left heart catheterization of October 11, 2023 had revealed open and normal coronaries Hemoglobin: 9.4 - 8.6 Creatinine: 0.67 - 0.82 Troponin (high sensitive): 12 Lipase: 14 Urine toxicology was positive for opiates chest xry reported: IMPRESSION: No acute cardiopulmonary findings Right upper quadrant abdominal sonogram revealed: IMPRESSION: Pancreas is obscured by artifact from bowel gas. Increased hepatic parenchymal echogenicity which is most commonly secondary to fatty infiltration. Other diffusely infiltrative processes not excluded. Please correlate clinically. 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. EKG revealed sinus rhythm, no specific ST-T changes Tele reveals sinus rhythm Patient is a 43-year-old female who presented with bilateral arm pain radiating to the chest and down to the belly. Discomfort focused on abdomen and was accompanied by bowel incontinence. Presentation is not in favor of acute coronary syndrome. EKG has been nonrevealing and high sensitive troponin was negative. It is of note that patient does have history of takotsubo cardiomyopathy which was diagnosed in September 2023. As per patient, she is not taking any medications for heart failure. 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 It is of note that the patient does have history of chronic pancreatitis which could present as abdominal pain. At the time of evaluation does have abdominal discomfort and some distention. Abdominal pain Bowel incontinence Atypical chest discomfort History of systolic heart failure History of takotsubo cardiomyopathy, Nonischemic cardiomyopathy History of narcotic dependence History of bowel obstruction History of stent in bile duct and kidneys Cardiac suggestion for management: Manage on telemetry Follow-up electrolytes and kidney function tests and correct abnormalities. Keep potassium above 4 and magnesium above 2 For now, aspirin: 81 mg daily suggested Request for Echocardiogram Consider CTA of Aorta (chest / abdomen) If Echocardiogram reveals reduced left ventricular systolic function, guideline directed medical therapy for systolic heart failure is suggested Abdominal imaging is suggested (consider abdominal sonogram at this point) GI evaluation for history of pancreatitis and abdominal pain is suggested Lifestyle and risk factor modification is advised Patient was counseled to avoid substance abuse Patient was advised to stop smoking Further evaluation and management depends on the above and clinical course A total of 55 minutes was spent reviewing the patient record, examining the patient, making a diagnostic and therapeutic plan, discussing this plan with medical personnel, following up on diagnostic studies and following the patient for clinical stability excluding any and all procedures. At least 50% of this time was spent in direct, [id number] contact. Thank you for allowing me to participate in this patient's care. Further recommendations will depend on patient's clinical course. Please do not hesitate to contact me if you have any questions or concerns. This medical document was created using electronic medical record system with [employer] dictation system. Although this document has been carefully reviewed, there may still be some phonetic and typographical errors. These areas are purely typographical due to the imperfection of the software programs, and do not reflect any compromise in the patient's medical care. Plan discussed with: Patient, Other (nurse) ROSALIO DAVILA MD Mar 05, 2024 06:05
[2024-03-05 06:09] LABS: Basophils # (auto) 0 10 ^3/uL (0-0.2); Eosinophils # (auto) 0.2 10 ^3/uL (0-0.8); Lymphocytes # (auto) 1.1 10 ^3/uL (0.4-5.4); Mean Corpuscular Hemoglobin 25.8 pg (28.0-32.0); Monocytes # (auto) 0.5 10 ^3/uL (0-1.3); White Blood Cell 4.9 10^3/uL (4.4-10.8)
[2024-03-05 06:14] LABS: Basophils % (auto) 0.3 % (0.0-2.0); Eosinophils % (auto) 3.7 % (0.0-7.0); Hemoglobin 8.6 g/dL (12.2-16.2); Lymphocytes % (auto) 22.6 % (10.0-50.0); Mean Corpuscular Hgb Conc. 30.9 g/dL (32.0-36.0); Mean Corpuscular Volume 83.4 fL (80.0-100.0); Monocytes % (auto) 10.6 % (0.0-12.0); Neutrophils % (auto) 62.8 % (37.0-80.0); Platelet Count (auto) 153 10^3/uL (140-450); Red Blood Cells 3.35 10^6/uL (4.0-5.20); Red Cell Distribution Width 20.3 % (11.8-14.3)
[2024-03-05 06:17] LABS: Albumin 3.3 g/dL (3.2-4.8); Alkaline Phosphatase 61 U/L (46-116); Anion Gap 4 (5-15); Aspartate Aminotransferase 19 U/L (13-40); BUN/Creatinine Ratio 8.5 (10.0-20.0); Glucose 106 mg/dL (74-106); Potassium 4.2 mmol/L (3.5-5.1); Sodium 140 mmol/L (136-145)
[2024-03-05 06:30] LABS: Alanine Aminotransferase < 9 U/L (7-40); Bilirubin, Total < 0.2 mg/dL (0.2-1.0); Blood Urea Nitrogen 7 mg/dL (9-23); Calcium 8.5 mg/dL (8.7-10.4); Carbon Dioxide 19 mmol/L (20-31); Chloride 117 mmol/L (98-107); Total Protein 5.6 g/dL (5.7-8.2)
--- NOTE | 2024-03-05 06:38 | ECG ---
[facility] Test Date: 2024-03-04 Test Time: 08:44:19 Pat Name: JAQUELINE WHITE Department: ER Room: [address] [place] [address] 7 Gender: F Operating Room Technician: DR FREEMAN: [id number] Requested By: JIM STANLEY Order Number: [id number] Reading MD: Luke Cook Measurements Intervals [place] Rate: 68 P: 57 MN: 147 QRS: 38 QRSD: 82 T: 24 QT: 433 QTc: 461 Interpretive Statements Sinus rhythm Borderline T wave abnormalities Electronically Signed On 03-05-2024 10:30:06 PST by Luke Cook Please click the below link to view image of tracing.
[2024-03-05] MEDS ORDERED: IOHEXOL 350 MG/ML 100ML IJ ONE (08:42)
[2024-03-05] MEDS: PANTOPRAZOLE 40 MG/10 ML VIAL INJ IV SCH (08:56)
--- NOTE | 2024-03-05 09:59 | DVH ---
CTA Chest with intravenous contrast INDICATION: chest pain COMPARISON: None TECHNIQUE: Multidetector spiral CTA of the chest was performed of the chest with intravenous contrast . PULMONARY ANGIOGRAPHY PROTOCOL was utilized using a bolus-tracking technique centered on the main p ulmonary artery. Axial, coronal and sagittal multiplanar and MIP reformats were performed. CONTRAST: Type of contrast: Omni 350 Contrast injected: 1 L ml Radiation dose : Chest: CTDI volume is 11 mGy. Dose-length product is 184.7 mGy*cm The dose indicators for CT are the volume computed Tomography (CT) dose Index (CTDIvol) and the dose Length product (DLP), and are measured in units of mGy and mGy-cm, respectively. These indicators are not patient dose, but values generated from the CT scanner acquisition factors. The report includes radiation exposure data for exposures received during this examination. Findings: Pulmonary artery: No pulmonary embolism Lower neck: Normal thyroid. Lungs: Mild ground-glass opacity in the lingula. Atelectasis and scarring in the lung bases. Heart/Vascular Structures: Normal heart size. No pericardial effusion. Lymph Nodes: Subcentimeter bilateral axillary lymph nodes noted. Pleura: No pleural effusion or significant pneumothorax. Musculoskeletal: No acute osseous abnormality. Soft tissues: Normal. Upper abdomen: Hepatic cysts. Pneumobilia. IMPRESSION: 1. No pulmonary embolism. 2. Nonspecific ground-glass opacity in the lingula. Could be infectious / inflammatory. Clinical cor relation and continued follow-up is recommended. HS:Y
[2024-03-05] MEDS: ENOXAPARIN SOD 30 MG/0.3 ML SYRINGE SC SCH (10:00)
--- NOTE | 2024-03-05 12:52 | DVHINCON2 ---
GI Consult Consult Note GI consult note Date of Consultation: 03/05/2024 Chief Complaint: Chronic pancreatitis Referring Physician:Conner SABILLON H&P: 43-year-old female presented to ER with chief complaint of abdominal pain Patient complains of upper abdominal pain and chest pain. Undergoing cardiac evaluation No nausea or vomiting. No hematemesis Patient has history of chronic pancreatitis, and is waiting to be established with GI in an outpatient basis SP EGD/colonoscopy two years ago Past Medical History: GERD, HTN, Kidney Stones, PUD Pancreatitis Past Surgical History: 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, Social History: +smoking, no drinking ETOH and use of illegal drugs. Family History: Noncontributory Review of Systems: Constitutional: no fever, chill, weight loss HEENT: no eye pain, no hearing loss, no oral lesion, no scleral icterus Heart: no chest pain, no chest pressure Lung: no cough, no dyspnea with exertion Abdomen: see HPI Physical exam: General: NAD, AAOX3 Chest: lung juarez clear to auscultation Heart: RRR, no murmur Abdomen: non-distended, mild upper abdominal tenderness to palpation, +BS Labs: Labs Test 03/05/24 05:19 03/04/24 13:35 03/04/24 08:41 Range/Units White Blood Count 4.9 4.4-10.8 10^3/uL Red Blood Count 3.35 L 4.0-5.20 10^6/uL Hemoglobin 8.6 L 12.2-16.2 g/dL Hematocrit 28.0 L 36.0-46.0 % Mean Corpuscular Volume 83.4 80.0-100.0 fL Mean Corpuscular Hemoglobin 25.8 L 28.0-32.0 pg Mean Corpuscular Hemoglobin Concent 30.9 L 32.0-36.0 g/dL Red Cell Distribution Width 20.3 H 11.8-14.3 % Platelet Count 153 140-450 10^3/uL Mean Platelet Volume 8.8 6.9-10.8 fL Neutrophils (%) (Auto) 62.8 37.0-80.0 % Lymphocytes (%) (Auto) 22.6 10.0-50.0 % Monocytes (%) (Auto) 10.6 0.0-12.0 % Eosinophils (%) (Auto) 3.7 0.0-7.0 % Basophils (%) (Auto) 0.3 0.0-2.0 % Neutrophils # (Auto) 3.0 1.6-8.6 10 ^3/uL Lymphocytes # (Auto) 1.1 0.4-5.4 10 ^3/uL Monocytes # (Auto) 0.5 0-1.3 10 ^3/uL Eosinophils # (Auto) 0.2 0-0.8 10 ^3/uL Basophils # (Auto) 0 0-0.2 10 ^3/uL Nucleated Red Blood Cells 0.0 % Sodium Level 140 136-145 mmol/L Potassium Level 4.2 3.5-5.1 mmol/L Chloride Level 117 H 98-107 mmol/L Carbon Dioxide Level 19 L 20-31 mmol/L Anion Gap 4 L 5-15 Blood Urea Nitrogen 7 L 9-23 mg/dL Creatinine 0.82 0.550-1.02 mg/dL Glomerular Filtration Rate Calc 90 >90 mL/min BUN/Creatinine Ratio 8.5 L 10.0-20.0 Serum Glucose 106 74-106 mg/dL Calcium Level 8.5 L 8.7-10.4 mg/dL Total Bilirubin < 0.2 L 0.2-1.0 mg/dL Aspartate Amino Transferase (AST) 19 13-40 U/L Alanine Aminotransferase (ALT) < 9 7-40 U/L Alkaline Phosphatase 61 46-116 U/L Total Protein 5.6 L 5.7-8.2 g/dL Albumin 3.3 3.2-4.8 g/dL Troponin I High Sensitivity 12 </=34 ng/L Lipase 14 12-53 U/L Urine Color Yellow Yellow Urine Clarity Clear Clear Urine pH 5.5 5.0-9.0 Urine Specific Constantia 1.025 1.001-1.035 Urine Protein Negative Negative Urine Ketones Negative Negative Urine Blood Negative Negative /uL Urine Nitrite Negative Negative Urine Bilirubin Negative Negative Urine Urobilinogen Normal Negative mg/dL Urine Leukocyte Esterase Negative Negative /uL Urine RBC <1 0 - 4 /hpf Urine WBC <1 0 - 5 /hpf Urine Squamous Epithelial Cells Few <5 /hpf Urine Bacteria None seen None Seen /hpf Urine Glucose Normal Normal mg/dL Urine Opiates Screen Pos NEGATIVE Urine Fentanyl Screen Neg NEGATIVE Urine Barbiturates Screen Neg NEGATIVE Urine Phencyclidine Screen Neg NEGATIVE Urine Amphetamines Screen Neg NEGATIVE Urine Benzodiazepines Screen Neg NEGATIVE Urine Cocaine Screen Neg NEGATIVE Urine Cannabinoids Screen Neg NEGATIVE Imaging: Abdominal ultrasound IMPRESSION: Pancreas is obscured by artifact from bowel gas. Increased hepatic parenchymal echogenicity which is most commonly secondary to fatty infiltration. Other diffusely infiltrative processes not excluded. Please correlate clinically. 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. Assessment: Abdominal pain History of chronic pancreatitis Chest pain Plan: Discussed with Dr. Ybarra Recommend supportive care at this time Soft diet advance as tolerated Outpatient GI follow-up recommended Thank you for this consult Date of Service: Mar 05, 2024 Billing Provider: ANNELIESE ACOSTA Common Visit Codes: CONSULT ONLY Consultation Codes: [id number] CONSULT <45MIN ANNELIESE ACOSTA Mar 05, 2024 12:52
--- NOTE | 2024-03-05 15:32 | DVHSR ---
APPROVED REPORT EXAM: Two-dimensional and M-mode echocardiogram with Doppler and color Doppler. Blood Pressure: 148/86 mmHg INDICATION Heart Failure RISK FACTORS Height: 5'3", Weight: 98 DIMENSIONS LVDd4.4 (3.8-5.7cm)LA (2D)3.5 (1.9-4.0cm)Aortic Root3.0 (2.0-3.7cm) LVDs2.5 (2.5-4.0cm)LA (MM) (1.9-4.0cm)Aortic Cusp Exc1.7 (1.5-2.0cm) EF (%) 73.0 (55-70%)Rt. Atrium3.4 (1.9-4.0cm)Asc. Aorta2.6 cm IVSd1.1 (0.7-1.1cm)RV (D)3.6 (1.8-2.4cm) PWd0.8 (0.7-1.1cm) Mitral Valve MitralMitral Stenosis E wave0.75m/sMV Mean GR.mmHg A wave0.97m/sMV Peak GR.mmHg E/A ratio0.82D MVAcm2 DECEL [id number] 1/2 Timems Aortic Valve Aortic ValveAortic Stenosis V10.96m/Kevin Mean GR.5mmHg V21.44m/Kevin Peak GR.8mmHg LVOT Diameter2.0 (1.8-2.4cm)Doppler AVA2.09cm2 Pulmonic Valve V20.75m/s Conclusion Left ventricle: Left ventricle is normal sized with normal systolic function. LVEF was around 66%. There was no gross wall motion abnormality. Diastolic function was considered normal. Right ventricle was normal sized with normal systolic function. Both atria were normal sized. Aortic valve: Aortic valve was trileaflet. There was no aortic insufficiency/stenosis. There was tr ivial mitral/tricuspid/pulmonary valve insufficiency. As there was no tricuspid regurgitation jet, right ventricular systolic pressure could not be estimat ed. There was no pericardial effusion.
--- NOTE | 2024-03-05 19:25 | DVHPN2 ---
Progress Note Date Seen: Mar 05, 2024 Medical Necessity Reason Pt with a Central, PICC or Fol: No Subjective Review of Systems: CVS:Normal, RESPIRATORY:Normal, GI:Normal, NEURO:Normal Objective vital signs Vital Sign Date Time Temp Pulse Resp B/P (MAP) Pulse Ox O2 Delivery O2 Flow Rate FiO2 03/05/24 17:00 98.1 67 17 146/84 (104) 98 98.1 03/04/24 23:41 Room Air* 0 21 Total Intake and Output 03/04/24 03/04/24 03/05/24 15:00 23:00 07:00 Intake Total 1000 ml 240 ml Output Total 730 ml Balance 1000 ml -490 ml medications Current Medications Medications Dose Ordered Sig/Yeison Route Start Time Stop Time Status Last Admin Dose Admin Sodium Chloride 1,000 ml @ 120 mls/hr Q8H20M IV 03/04/24 13:45 03/05/24 16:17 120 MLS/HR Ondansetron HCl 4 mg Q4HP PRN IV 03/04/24 13:45 Acetaminophen 650 mg Q6HP PRN PO 03/04/24 13:45 Enoxaparin Sodium 30 mg DAILY SC 03/05/24 10:00 Hydromorphone HCl 0.5 mg Q3HP PRN IV 03/04/24 13:45 03/05/24 16:14 0.5 MG Pantoprazole Sodium 40 mg DAILY@BREAKFAST IV 03/05/24 08:00 03/05/24 08:56 40 MG Nitroglycerin 0.4 mg Q5MINP PRN SL 03/04/24 13:45 Morphine Sulfate 2 mg Q30M PRN IV 03/04/24 13:45 Clonidine HCl 0.2 mg BID PO 03/04/24 22:00 03/05/24 10:17 0.2 MG Sucralfate 1 gm BID PO 03/04/24 22:00 03/05/24 10:16 1 GM Patient Own Medication 6,000 units TIDWM PO 03/04/24 18:00 Diphenhydramine HCl 25 mg Q6HP PRN IV 03/04/24 16:45 03/05/24 18:40 25 MG Examination: GENERAL:Normal, LUNGS:Normal, CVS:Normal, ABDOMEN:Normal, SKIN:Normal, NEURO:Normal laboratory and microbiology Laboratory Tests 03/05/24 05:19 Test 03/05/24 05:19 Range/Units Serum Glucose 106 74-106 mg/dL Labs and/or images reviewed: Labs reviewed by me, Image(s) reviewed by me Problem List/Assessment/Plan Problem List/Assessment/Plan 1. Chest pain Monitor EKG, cardiology consult 2. Abdominal pain likely chronic pancreatitis Monitor, GI consult 3. Accelerated hypertension Monitor, antihypertensives 4. Chronic pancreatitis Monitor, creon, clear liquid diet, Carafate, PPI, IV fluids 5. Anemia of chronic disease Subjective: Patient is awake and alert Objective: Patient was admitted for chest pain, patient was seen by net mender Dr. Cottrell, had echo done which was normal. Patient has history of chronic pancreatitis as chronic abdominal pain. Patient was continued on Creon and Carafate. Diet was advanced to mechanical soft by GI. Program Strategist has ordered CTA to rule out aortic dissection. Plan: Cardiac consult appreciated, pending CTA for aortic dissection, GI consult appreciated, continue supportive care Plan discussed with: Patient My Orders My Orders Orders - DAVIS SMITH Procedure Category Date Status Time *Consult Dr. Traore CONS 03/05/24 Transmitted Tate 12:50 Date of Service: Mar 05, 2024 Billing Provider: HAKAN RAYMOND MD Common Visit Codes: [id number] INP/OBS CARE (MOD) DAVIS SMITH Mar 05, 2024 19:25
[2024-03-06] VITALS (9 sets, daily range): BP systolic 133–223; BP diastolic 76–98; PULSE 61–89; RESP 16–20; TEMP 98–98.9; O2SAT 96–100
[2024-03-06 07:14] LABS: Eosinophils # (auto) 0.1 10 ^3/uL (0-0.8); Lymphocytes # (auto) 1.1 10 ^3/uL (0.4-5.4); Neutrophils # (auto) 2.2 10 ^3/uL (1.6-8.6); Platelet Count (auto) 143 10^3/uL (140-450); White Blood Cell 3.8 10^3/uL (4.4-10.8)
[2024-03-06 07:17] LABS: Basophils # (auto) 0 10 ^3/uL (0-0.2); Basophils % (auto) 0.2 % (0.0-2.0); Eosinophils % (auto) 3.2 % (0.0-7.0); Hematocrit 31.2 % (36.0-46.0); Hemoglobin 9.6 g/dL (12.2-16.2); Mean Corpuscular Hemoglobin 25.5 pg (28.0-32.0); Mean Corpuscular Hgb Conc. 30.7 g/dL (32.0-36.0); Mean Corpuscular Volume 83.1 fL (80.0-100.0); Monocytes # (auto) 0.4 10 ^3/uL (0-1.3); Monocytes % (auto) 9.5 % (0.0-12.0); Neutrophils % (auto) 59.1 % (37.0-80.0); Nucleated Red Blood Cells % 0.1 %; Red Blood Cells 3.76 10^6/uL (4.0-5.20); Red Cell Distribution Width 20.5 % (11.8-14.3)
[2024-03-06 07:19] LABS: Anion Gap 5 (5-15); Calcium 9.6 mg/dL (8.7-10.4); Carbon Dioxide 23 mmol/L (20-31); Potassium 4.6 mmol/L (3.5-5.1); Sodium 140 mmol/L (136-145)
[2024-03-06 07:25] LABS: Glucose 102 mg/dL (74-106)
[2024-03-06 07:26] LABS: Blood Urea Nitrogen 8 mg/dL (9-23); Chloride 112 mmol/L (98-107); Magnesium 1.9 mg/dL (1.6-2.6)
--- NOTE | 2024-03-06 11:18 | DVHPN2 ---
Progress Note - Dictate Date Seen: Mar 06, 2024 Medical Necessity Reason Pt with a Central, PICC or Fol: No vital signs Vital Sign Date Time Temp Pulse Resp B/P (MAP) Pulse Ox O2 Delivery O2 Flow Rate FiO2 03/06/24 09:27 64 18 150/90 03/06/24 09:00 98.2 99 98.2 03/06/24 08:00 Room Air* 0 21 Total Intake and Output 03/05/24 03/05/24 03/06/24 15:00 23:00 07:00 Intake Total 120 ml 214 ml Balance 120 ml 214 ml medications Current Medications Medications Dose Ordered Sig/Yeison Route Start Time Stop Time Status Last Admin Dose Admin Sodium Chloride 1,000 ml @ 120 mls/hr Q8H20M IV 03/04/24 13:45 03/05/24 16:17 120 MLS/HR Ondansetron HCl 4 mg Q4HP PRN IV 03/04/24 13:45 Acetaminophen 650 mg Q6HP PRN PO 03/04/24 13:45 Enoxaparin Sodium 30 mg DAILY SC 03/05/24 10:00 Hydromorphone HCl 0.5 mg Q3HP PRN IV 03/04/24 13:45 03/06/24 09:27 0.5 MG Pantoprazole Sodium 40 mg DAILY@BREAKFAST IV 03/05/24 08:00 03/06/24 08:25 40 MG Nitroglycerin 0.4 mg Q5MINP PRN SL 03/04/24 13:45 Morphine Sulfate 2 mg Q30M PRN IV 03/04/24 13:45 Clonidine HCl 0.2 mg BID PO 03/04/24 22:00 03/06/24 08:27 0.2 MG Sucralfate 1 gm BID PO 03/04/24 22:00 03/06/24 09:28 1 GM Patient Own Medication 6,000 units TIDWM PO 03/04/24 18:00 Diphenhydramine HCl 25 mg Q6HP PRN IV 03/04/24 16:45 03/06/24 10:18 25 MG laboratory and microbiology Laboratory Tests 03/06/24 06:06 Test 03/06/24 06:06 Range/Units Serum Glucose 102 74-106 mg/dL Assessment/Plan Patient is a 43-year-old female who presented to the hospital with an episode of bilateral arm pain radiating to the chest and down to the belly. The discomfort focused on the belly and was accompanied by involuntary bowel movements. She did not become short of breath. There was no loss of consciousness. She denies palpitations. Cardiology is involved for cardiac aspects of care. Patient mentions that she had similar episode few months back when she was admitted to the hospital and later was diagnosed to have takotsubo cardiomyopathy. She does not follow with any Cardiology as outpatient. Her outside medication includes only clonidine for high blood pressure. She does have history of chronic pancreatitis (going back for years). Her other history includes kidney stones. She has had stents in the kidney and bile duct previously. Not in acute distress. Sitting in chair. Complaining of some abdominal discomfort at the time of evaluation. No JVD. Mucosa is pink and wet. No carotid bruit. Lungs are clear to auscultation. Not using accessory muscles of breathing. Cardiac: Regular, no thrill/gallop. Systolic murmur 3/6 in the apex is heard. Abdomen: Soft. Somehow distended. Bowel sound is positive. Periumbilical tenderness is elicited. There is no rebound tenderness. Extremities reveal 1+ edema bilaterally. Dorsalis pedis is 2+ bilateral. Past medical history includes chronic pancreatitis going back for many years (as per patient, secondary to gallstone), takotsubo cardiomyopathy (September 2023), nonischemic cardiomyopathy, hypertension, GERD, old history of kidney stone, history of stent in the kidney/bile ducts, peptic ulcer disease, narcotic dependence, history of bowel obstruction, history of cholecystectomy/ and history of noncompliance. She does smoke cigarettes. Says that she stopped alcohol any years ago. Does take [place] every day for pain. Echocardiogram of October 04, 2023 had revealed ejection fraction of 20% with akinetic apex/IBS Left heart catheterization of October 11, 2023 had revealed open and normal coronaries Hemoglobin: 9.4 - 8.6 - 9.6 Creatinine: 0.67 - 0.82 - 0.89 Troponin (high sensitive): 12 Lipase: 14 Urine toxicology was positive for opiates chest xry reported: IMPRESSION: No acute cardiopulmonary findings Right upper quadrant abdominal sonogram revealed: IMPRESSION: Pancreas is obscured by artifact from bowel gas. Increased hepatic parenchymal echogenicity which is most commonly secondary to fatty infiltration. Other diffusely infiltrative processes not excluded. Please correlate clinically. 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. CTA of chest revealed: IMPRESSION: 1. No pulmonary embolism. 2. Nonspecific ground-glass opacity in the lingula. Could be infectious / inflammatory. Clinical correlation and continued follow-up is recommended. EKG revealed sinus rhythm, no specific ST-T changes Tele reveals sinus rhythm Echocardiogram reported: Left ventricle: Left ventricle is normal sized with normal systolic function. LVEF was around 66%. There was no gross wall motion abnormality. Diastolic function was considered normal. Right ventricle was normal sized with normal systolic function. Both atria were normal sized. Aortic valve: Aortic valve was trileaflet. There was no aortic insufficiency/stenosis. There was trivial mitral/tricuspid/pulmonary valve insufficiency. As there was no tricuspid regurgitation jet, right ventricular systolic pressure could not be estimated. There was no pericardial effusion. Patient is a 43-year-old female who presented with bilateral arm pain radiating to the chest and down to the belly. Discomfort focused on abdomen and was accompanied by bowel incontinence. Presentation is not in favor of acute coronary syndrome. EKG has been nonrevealing and high sensitive troponin was negative. It is of note that patient does have history of takotsubo cardiomyopathy which was diagnosed in September 2023. As per patient, she is not taking any medications for heart failure. She does not follow with warp starter as outpatient. It is of note that the patient does have history of chronic pancreatitis which could present as abdominal pain. Echo revealed preserved LVEF and it looks like that the systolic dysfunction related to previous Takotsubo is resolved. Abdominal pain Bowel incontinence Atypical chest discomfort History of systolic heart failure History of takotsubo cardiomyopathy, Nonischemic cardiomyopathy History of narcotic dependence History of bowel obstruction History of stent in bile duct and kidneys Cardiac suggestion for management: Manage on telemetry Follow-up electrolytes and kidney function tests and correct abnormalities. Keep potassium above 4 and magnesium above 2 Consider CTA of Aorta (chest / abdomen) Further Abdominal imaging as per GI GI follow up is suggested Lifestyle and risk factor modification is advised Patient was counseled to avoid substance abuse Patient was advised to stop smoking Cardiac owens, can be followed as outpatient Further evaluation and management depends on the above and clinical course A total of 55 minutes was spent reviewing the patient record, examining the patient, making a diagnostic and therapeutic plan, discussing this plan with medical personnel, following up on diagnostic studies and following the patient for clinical stability excluding any and all procedures. At least 50% of this time was spent in direct, [id number] contact. Thank you for allowing me to participate in this patient's care. Further recommendations will depend on patient's clinical course. Please do not hesitate to contact me if you have any questions or concerns. This medical document was created using electronic medical record system with [employer] computerized dictation system. Although this document has been carefully reviewed, there may still be some phonetic and typographical errors. These areas are purely typographical due to the imperfection of the software programs, and do not reflect any compromise in the patient's medical care. Plan discussed with: Patient, Other (nurse) ROSALIO DAVILA MD Mar 06, 2024 11:18
[2024-03-06] MEDS: CARVEDILOL 12.5 MG TAB PO ONE (12:15)
[2024-03-06] MEDS: NIFEdipine ER 30 MG TAB PO ONE (12:25)
[2024-03-06] MEDS ORDERED: IOHEXOL 350 MG/ML 100ML IJ ONE ×2 (15:29→17:04)
--- NOTE | 2024-03-06 16:47 | DVHPN2 ---
Progress Note Date Seen: Mar 06, 2024 Medical Necessity Reason Pt with a Central, PICC or Fol: No Subjective Review of Systems: CVS:Normal, RESPIRATORY:Normal Objective vital signs Vital Sign Date Time Temp Pulse Resp B/P (MAP) Pulse Ox O2 Delivery O2 Flow Rate FiO2 03/06/24 14:44 67 18 158/89 03/06/24 13:00 98.0 100 98.0 03/06/24 08:00 Room Air* 0 21 Total Intake and Output 03/05/24 03/05/24 03/06/24 15:00 23:00 07:00 Intake Total 120 ml 214 ml Balance 120 ml 214 ml medications Current Medications Medications Dose Ordered Sig/Yeison Route Start Time Stop Time Status Last Admin Dose Admin Sodium Chloride 1,000 ml @ 120 mls/hr Q8H20M IV 03/04/24 13:45 03/05/24 16:17 120 MLS/HR Ondansetron HCl 4 mg Q4HP PRN IV 03/04/24 13:45 Acetaminophen 650 mg Q6HP PRN PO 03/04/24 13:45 Enoxaparin Sodium 30 mg DAILY SC 03/05/24 10:00 Hydromorphone HCl 0.5 mg Q3HP PRN IV 03/04/24 13:45 03/06/24 14:44 0.5 MG Pantoprazole Sodium 40 mg DAILY@BREAKFAST IV 03/05/24 08:00 03/06/24 08:25 40 MG Nitroglycerin 0.4 mg Q5MINP PRN SL 03/04/24 13:45 Morphine Sulfate 2 mg Q30M PRN IV 03/04/24 13:45 Clonidine HCl 0.2 mg BID PO 03/04/24 22:00 03/06/24 08:27 0.2 MG Sucralfate 1 gm BID PO 03/04/24 22:00 03/06/24 09:28 1 GM Patient Own Medication 6,000 units TIDWM PO 03/04/24 18:00 Diphenhydramine HCl 25 mg Q6HP PRN IV 03/04/24 16:45 03/06/24 10:18 25 MG Nifedipine 30 mg DAILY PO 03/07/24 10:00 Carvedilol 12.5 mg Q12HR PO 03/06/24 22:00 Examination: GENERAL:Normal, LUNGS:Normal, CVS:Normal, ABDOMEN:Normal, SKIN:Normal laboratory and microbiology Laboratory Tests 03/06/24 06:06 Test 03/06/24 06:06 Range/Units Serum Glucose 102 74-106 mg/dL Labs and/or images reviewed: Labs reviewed by me, Image(s) reviewed by me Problem List/Assessment/Plan Problem List/Assessment/Plan 1. Chest pain Monitor EKG, cardiology consult 2. Abdominal pain likely chronic pancreatitis Monitor, GI consult 3. Accelerated hypertension Monitor, antihypertensives 4. Chronic pancreatitis Monitor, creon, clear liquid diet, Carafate, PPI, IV fluids 5. Anemia of chronic disease Subjective: Patient is awake and alert Objective: Patient was admitted for chest pain, patient was seen by windows infrastructure engineer Dr. Cottrell, had echo done which was normal. Patient has history of chronic pancreatitis as chronic abdominal pain. Patient was continued on Creon and Carafate. Diet was advanced to mechanical soft by GI. CTA was negative for aortic dissection. ACS was ruled out by windows infrastructure engineer. Blood pressure was found to be elevated today in the 180s. Patient has been very resistant to treatment with blood pressure medication. The patient apparently patient is allergic to amlodipine hydralazine labetalol. Patient was given Procardia 30 mg and carvedilol 12.5, blood pressure is currently in the 160s systolic. We will monitor blood pressure overnight and discharge in a.m. Plan: Cardiac consult appreciated, we will continue to monitor blood pressure, discharge in a.m. Plan discussed with: Patient My Orders My Orders Orders - DAVIS SMITH Procedure Category Date Status Time Nifedipine Er PHA 03/07/24 In Process (Procardia Xl 10:00 Carvedilol Tablet PHA 03/06/24 In Process (Coreg Tablet) 22:00 Hydrochlorothiazide PHA 03/07/24 Logged Tablet (Hydrochlorot 10:00 Hydrochlorothiazide PHA 03/06/24 Logged Tablet (Hydrochlorot 16:45 Date of Service: Mar 06, 2024 Billing Provider: HAKAN RAYMOND MD Common Visit Codes: [id number] INP/OBS CARE (MOD) DAVIS SMITH Mar 06, 2024 16:47
[2024-03-06] MEDS: hydroCHLOROthiazide 25 MG TAB PO ONE (17:36)
--- NOTE | 2024-03-06 18:22 | DVH ---
Exam: CT CT CHEST/AB/PL W CON- IV ONLY History: POSSIBLE AORTIC DISSECTION Comparison Study: None available at time of dictation. Technique: Multidetector CT of the chest, abdomen and pelvis was performed from lower neck to pubic s ymphysis. Intravenous contrast was administered during this examination. Axial, coronal and sagittal multiplanar reformats were performed by the technologist on a separate workstation. Radiation Dose Information: CT Dose: CTDI volume is 5.7 mGy. Dose-length product is 380.21 mGy*cm Omnipaque 350: 99 mL. Findings: Lower neck: Thyroid partially visualized and appears normal Lungs: No infiltrates or effusions. Heart/Vascular Structures: No findings to suggest aortic or aneurysm or dissection. Lymph Nodes: No adenopathy Pleura: No pleural thickening. Liver: The liver is normal in size. No focal lesions. Normal hepatic vascular enhancement. Stable he patic cysts. Stable pneumobilia. Gallbladder and Biliary Tree: Gallbladder has been surgically removed. Spleen: Unremarkable Pancreas: Stable prominent pancreatic duct measuring 3-4 mm. Scattered pancreatic calcifications. Th edmar were seen on prior studies and again are consistent with chronic pancreatitis. Adrenal Glands: Unremarkable Kidneys: Kidneys demonstrate normal symmetric enhancement without focal lesions, calculi or hydroneph rosis. Bladder: Urine distended bladder Bowel: The stomach is grossly normal in appearance. Small bowel and colon are normal in caliber and distribution. The appendix is not visualized; however, no secondary findings of acute appendicitis i dentified. Ascites: Absent Lymphadenopathy: No mesenteric, retroperitoneal or periportal lymphadenopathy. Abdominal Wall and Mesentery: Unremarkable. Vasculature: Calcifications throughout the abdominal aorta without aortic dissection or aortic aneury sm. Findings are unchanged from Pelvic Organs: Unremarkable Musculoskeletal: No aggressive focal bony lesions, acute fractures or dislocation. IMPRESSION: 1. No findings of aortic aneurysm or aortic dissection. 2. Patient is status post cholecystectomy. 3. Stable hepatic cysts and pneumobilia. 4. Prominent stool burden in the colon. 5. Urine distended bladder. 6. Calcifications scattered throughout the pancreas consistent with chronic pancreatitis. 7. Findings suggest perigastric and splenic varices. All CT scans at this medical facility are performed using dose modulation techniques as appropriate t o a performed exam including the following: Automated exposure control was utilized; adjustment of th e MA and/or KV according to patient size; and use of iterative reconstruction technique. HS:Y
--- NOTE | 2024-03-06 20:24 | DVHPN2 ---
Progress Note - Dictate Date Seen: Mar 06, 2024 Medical Necessity Reason Pt with a Central, PICC or Fol: No Subjective Patient seen at bedside Resting comfortably Echocardiogram findings are noted Patient has ongoing cardiac evaluation and another test scheduled today vital signs Vital Sign Date Time Temp Pulse Resp B/P (MAP) Pulse Ox O2 Delivery O2 Flow Rate FiO2 03/06/24 18:52 64 19 189/97 03/06/24 17:00 98.0 96 98.0 03/06/24 08:00 Room Air* 0 21 Total Intake and Output 03/05/24 03/05/24 03/06/24 15:00 23:00 07:00 Intake Total 120 ml 214 ml Balance 120 ml 214 ml medications Current Medications Medications Dose Ordered Sig/Yeison Route Start Time Stop Time Status Last Admin Dose Admin Sodium Chloride 1,000 ml @ 120 mls/hr Q8H20M IV 03/04/24 13:45 03/05/24 16:17 120 MLS/HR Ondansetron HCl 4 mg Q4HP PRN IV 03/04/24 13:45 Acetaminophen 650 mg Q6HP PRN PO 03/04/24 13:45 Enoxaparin Sodium 30 mg DAILY SC 03/05/24 10:00 Hydromorphone HCl 0.5 mg Q3HP PRN IV 03/04/24 13:45 03/06/24 18:52 0.5 MG Pantoprazole Sodium 40 mg DAILY@BREAKFAST IV 03/05/24 08:00 03/06/24 08:25 40 MG Nitroglycerin 0.4 mg Q5MINP PRN SL 03/04/24 13:45 Morphine Sulfate 2 mg Q30M PRN IV 03/04/24 13:45 Clonidine HCl 0.2 mg BID PO 03/04/24 22:00 03/06/24 08:27 0.2 MG Sucralfate 1 gm BID PO 03/04/24 22:00 03/06/24 09:28 1 GM Patient Own Medication 6,000 units TIDWM PO 03/04/24 18:00 Diphenhydramine HCl 25 mg Q6HP PRN IV 03/04/24 16:45 03/06/24 17:37 25 MG Nifedipine 30 mg DAILY PO 03/07/24 10:00 Carvedilol 12.5 mg Q12HR PO 03/06/24 22:00 Hydrochlorothiazide 12.5 mg DAILY PO 03/07/24 10:00 objective General: NAD, AAOX3 Chest: lung juarez clear to auscultation Heart: RRR, no murmur Abdomen: non-distended, mild upper abdominal tenderness to palpation, +BS laboratory and microbiology Laboratory Tests 03/06/24 06:06 Test 03/06/24 06:06 Range/Units Serum Glucose 102 74-106 mg/dL CT SCAN ABD PELVIS IMPRESSION: 1. No findings of aortic aneurysm or aortic dissection. 2. Patient is status post cholecystectomy. 3. Stable hepatic cysts and pneumobilia. 4. Prominent stool burden in the colon. 5. Urine distended bladder. 6. Calcifications scattered throughout the pancreas consistent with chronic pancreatitis. 7. Findings suggest perigastric and splenic varices. Problems(with codes): (1) Abdominal pain of unknown etiology (2) Accelerated hypertension (3) Chronic pancreatitis (4) Gastritis (5) Abdominal pain Plan discussed with: Patient, Other (Nurse) HORTENSIA MONTOYA MD Mar 06, 2024 20:24
[2024-03-06] MEDS: CARVEDILOL 12.5 MG TAB PO SCH (22:00)
[2024-03-07 01:00] VITALS: BP 165/90; PULSE 57; RESP 17; TEMP 98.5; O2SAT 94
[2024-03-07] MEDS: ONDANSETRON HCL 4 MG/2 ML VIAL IV PRN (01:31)
[2024-03-07 05:00] VITALS: BP 137/76; PULSE 56; RESP 18; TEMP 97.5; O2SAT 98
[2024-03-07] MEDS: CARVEDILOL 12.5 MG TAB PO SCH (07:00)
[2024-03-07 07:50] VITALS: BP 161/84; PULSE 53; RESP 17; TEMP 98.5; O2SAT 95
[2024-03-07 08:00] VITALS: PULSE 52; RESP 17; O2SAT 100
--- NOTE | 2024-03-07 08:11 | DVHPN2 ---
Progress Note - Dictate Date Seen: Mar 07, 2024 Medical Necessity Reason Pt with a Central, PICC or Fol: No vital signs Vital Sign Date Time Temp Pulse Resp B/P (MAP) Pulse Ox O2 Delivery O2 Flow Rate FiO2 03/07/24 07:50 98.5 53 17 161/84 (109) 95 98.5 03/06/24 20:00 Room Air* 0 21 Total Intake and Output 03/06/24 03/06/24 03/07/24 15:00 23:00 07:00 Intake Total 676 ml 660 ml Balance 676 ml 660 ml medications Current Medications Medications Dose Ordered Sig/Yeison Route Start Time Stop Time Status Last Admin Dose Admin Sodium Chloride 1,000 ml @ 120 mls/hr Q8H20M IV 03/04/24 13:45 03/05/24 16:17 120 MLS/HR Ondansetron HCl 4 mg Q4HP PRN IV 03/04/24 13:45 03/07/24 01:31 4 MG Acetaminophen 650 mg Q6HP PRN PO 03/04/24 13:45 Enoxaparin Sodium 30 mg DAILY SC 03/05/24 10:00 Hydromorphone HCl 0.5 mg Q3HP PRN IV 03/04/24 13:45 03/07/24 04:52 0.5 MG Pantoprazole Sodium 40 mg DAILY@BREAKFAST IV 03/05/24 08:00 03/06/24 08:25 40 MG Nitroglycerin 0.4 mg Q5MINP PRN SL 03/04/24 13:45 Morphine Sulfate 2 mg Q30M PRN IV 03/04/24 13:45 Clonidine HCl 0.2 mg BID PO 03/04/24 22:00 03/06/24 22:21 0.2 MG Sucralfate 1 gm BID PO 03/04/24 22:00 03/06/24 22:21 1 GM Patient Own Medication 6,000 units TIDWM PO 03/04/24 18:00 Diphenhydramine HCl 25 mg Q6HP PRN IV 03/04/24 16:45 03/07/24 06:11 25 MG Nifedipine 30 mg DAILY PO 03/07/24 10:00 Hydrochlorothiazide 12.5 mg DAILY PO 03/07/24 10:00 Carvedilol 6.25 mg Q12HR PO 03/07/24 07:00 laboratory and microbiology Laboratory Tests 03/06/24 06:06 Test 03/06/24 06:06 Range/Units Serum Glucose 102 74-106 mg/dL Assessment/Plan Patient is a 43-year-old female who presented to the hospital with an episode of bilateral arm pain radiating to the chest and down to the belly. The discomfort focused on the belly and was accompanied by involuntary bowel movements. She did not become short of breath. There was no loss of consciousness. She denies palpitations. Cardiology is involved for cardiac aspects of care. Patient mentions that she had similar episode few months back when she was admitted to the hospital and later was diagnosed to have takotsubo cardiomyopathy. She does not follow with any Cardiology as outpatient. Her outside medication includes only clonidine for high blood pressure. She does have history of chronic pancreatitis (going back for years). Her other history includes kidney stones. She has had stents in the kidney and bile duct previously. Not in acute distress. Sitting in chair. Complaining of some abdominal discomfort at the time of evaluation. No JVD. Mucosa is pink and wet. No carotid bruit. Lungs are clear to auscultation. Not using accessory muscles of breathing. Cardiac: Regular, no thrill/gallop. Systolic murmur 3/6 in the apex is heard. Abdomen: Soft. Somehow distended. Bowel sound is positive. Periumbilical tenderness is elicited. There is no rebound tenderness. Extremities reveal 1+ edema bilaterally. Dorsalis pedis is 2+ bilateral. Past medical history includes chronic pancreatitis going back for many years (as per patient, secondary to gallstone), takotsubo cardiomyopathy (September 2023), nonischemic cardiomyopathy, hypertension, GERD, old history of kidney stone, history of stent in the kidney/bile ducts, peptic ulcer disease, narcotic dependence, history of bowel obstruction, history of cholecystectomy/ and history of noncompliance. She does smoke cigarettes. Says that she stopped alcohol any years ago. Does take [place] every day for pain. Echocardiogram of October 04, 2023 had revealed ejection fraction of 20% with akinetic apex/IBS Left heart catheterization of October 11, 2023 had revealed open and normal coronaries Hemoglobin: 9.4 - 8.6 - 9.6 Creatinine: 0.67 - 0.82 - 0.89 Troponin (high sensitive): 12 Lipase: 14 Urine toxicology was positive for opiates chest xry reported: IMPRESSION: No acute cardiopulmonary findings Right upper quadrant abdominal sonogram revealed: IMPRESSION: Pancreas is obscured by artifact from bowel gas. Increased hepatic parenchymal echogenicity which is most commonly secondary to fatty infiltration. Other diffusely infiltrative processes not excluded. Please correlate clinically. 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. CTA of chest revealed: IMPRESSION: 1. No pulmonary embolism. 2. Nonspecific ground-glass opacity in the lingula. Could be infectious / inflammatory. Clinical correlation and continued follow-up is recommended. CTA of Aorta: IMPRESSION: 1. No findings of aortic aneurysm or aortic dissection. 2. Patient is status post cholecystectomy. 3. Stable hepatic cysts and pneumobilia. 4. Prominent stool burden in the colon. 5. Urine distended bladder. 6. Calcifications scattered throughout the pancreas consistent with chronic pancreatitis. 7. Findings suggest perigastric and splenic varices. EKG revealed sinus rhythm, no specific ST-T changes Tele reveals sinus rhythm Echocardiogram reported: Left ventricle: Left ventricle is normal sized with normal systolic function. LVEF was around 66%. There was no gross wall motion abnormality. Diastolic function was considered normal. Right ventricle was normal sized with normal systolic function. Both atria were normal sized. Aortic valve: Aortic valve was trileaflet. There was no aortic insufficiency/stenosis. There was trivial mitral/tricuspid/pulmonary valve insufficiency. As there was no tricuspid regurgitation jet, right ventricular systolic pressure could not be estimated. There was no pericardial effusion. Patient is a 43-year-old female who presented with bilateral arm pain radiating to the chest and down to the belly. Discomfort focused on abdomen and was accompanied by bowel incontinence. Presentation is not in favor of acute coronary syndrome. EKG has been nonrevealing and high sensitive troponin was negative. It is of note that patient does have history of takotsubo cardiomyopathy which was diagnosed in September 2023. As per patient, she is not taking any medications for heart failure. She does not follow with pressurizer as outpatient. It is of note that the patient does have history of chronic pancreatitis which could present as abdominal pain. Echo revealed preserved LVEF and it looks like that the systolic dysfunction related to previous Takotsubo is resolved. Aortic dissection was ruled out by CTA. Abdominal pain Bowel incontinence Atypical chest discomfort History of systolic heart failure History of takotsubo cardiomyopathy, Nonischemic cardiomyopathy History of narcotic dependence History of bowel obstruction History of stent in bile duct and kidneys Cardiac suggestion for management: Manage on telemetry Follow-up electrolytes and kidney function tests and correct abnormalities. Keep potassium above 4 and magnesium above 2 GI follow up is suggested Lifestyle and risk factor modification is advised Patient was counseled to avoid substance abuse Patient was advised to stop smoking Cardiac owens, can be followed as outpatient Further evaluation and management depends on the above and clinical course A total of 55 minutes was spent reviewing the patient record, examining the patient, making a diagnostic and therapeutic plan, discussing this plan with medical personnel, following up on diagnostic studies and following the patient for clinical stability excluding any and all procedures. At least 50% of this time was spent in direct, [id number] contact. Thank you for allowing me to participate in this patient's care. Further recommendations will depend on patient's clinical course. Please do not hesitate to contact me if you have any questions or concerns. This medical document was created using electronic medical record system with [employer] computerized dictation system. Although this document has been carefully reviewed, there may still be some phonetic and typographical errors. These areas are purely typographical due to the imperfection of the software programs, and do not reflect any compromise in the patient's medical care. Plan discussed with: Patient, Other (nurse) ROSALIO DAVILA MD Mar 07, 2024 08:11
[2024-03-07] MEDS: hydroCHLOROthiazide 25 MG TAB PO SCH (08:20)
[2024-03-07] MEDS: NIFEdipine ER 30 MG TAB PO SCH (10:43)
[2024-03-07] MEDS ORDERED: HYDR25TA5 PO ×2 (10:57)
[2024-03-07] MEDS ORDERED: NIFE1TAB31 PO ×2 (10:57)
[2024-03-07] MEDS ORDERED: CARV-216 PO ×2 (10:57)
--- NOTE | 2024-03-07 10:58 | DVHDS2 ---
Discharge Summary Date of Admission Mar 04, 2024 at 13:35 Date of Discharge: Mar 07, 2024 Admitting Diagnosis Chest pain rule out ACS Labs/Diagnostic Data: Laboratory Results Test 03/06/24 06:06 03/05/24 05:19 03/04/24 13:35 03/04/24 08:41 White Blood Count 3.8 10^3/uL (4.4-10.8) Red Blood Count 3.76 10^6/uL (4.0-5.20) Hemoglobin 9.6 g/dL (12.2-16.2) Hematocrit 31.2 % (36.0-46.0) Mean Corpuscular Volume 83.1 fL (80.0-100.0) Mean Corpuscular Hemoglobin 25.5 pg (28.0-32.0) Mean Corpuscular Hemoglobin Concent 30.7 g/dL (32.0-36.0) Red Cell Distribution Width 20.5 % (11.8-14.3) Platelet Count 143 10^3/uL (140-450) Mean Platelet Volume 8.7 fL (6.9-10.8) Neutrophils (%) (Auto) 59.1 % (37.0-80.0) Lymphocytes (%) (Auto) 28.0 % (10.0-50.0) Monocytes (%) (Auto) 9.5 % (0.0-12.0) Eosinophils (%) (Auto) 3.2 % (0.0-7.0) Basophils (%) (Auto) 0.2 % (0.0-2.0) Neutrophils # (Auto) 2.2 10 ^3/uL (1.6-8.6) Lymphocytes # (Auto) 1.1 10 ^3/uL (0.4-5.4) Monocytes # (Auto) 0.4 10 ^3/uL (0-1.3) Eosinophils # (Auto) 0.1 10 ^3/uL (0-0.8) Basophils # (Auto) 0 10 ^3/uL (0-0.2) Nucleated Red Blood Cells 0.1 % Sodium Level 140 mmol/L (136-145) Potassium Level 4.6 mmol/L (3.5-5.1) Chloride Level 112 mmol/L (98-107) Carbon Dioxide Level 23 mmol/L (20-31) Anion Gap 5 (5-15) Blood Urea Nitrogen 8 mg/dL (9-23) Creatinine 0.89 mg/dL (0.550-1.02) Glomerular Filtration Rate Calc 82 mL/min (>90) BUN/Creatinine Ratio 9.0 (10.0-20.0) Serum Glucose 102 mg/dL (74-106) Calcium Level 9.6 mg/dL (8.7-10.4) Magnesium Level 1.9 mg/dL (1.6-2.6) Total Bilirubin < 0.2 mg/dL (0.2-1.0) Aspartate Amino Transferase (AST) 19 U/L (13-40) Alanine Aminotransferase (ALT) < 9 U/L (7-40) Alkaline Phosphatase 61 U/L (46-116) Total Protein 5.6 g/dL (5.7-8.2) Albumin 3.3 g/dL (3.2-4.8) Troponin I High Sensitivity 12 ng/L (</=34) Lipase 14 U/L (12-53) Urine Color Yellow (Yellow) Urine Clarity Clear (Clear) Urine pH 5.5 (5.0-9.0) Urine Specific [place] 1.025 (1.001-1.035) Urine Protein Negative (Negative) Urine Ketones Negative (Negative) Urine Blood Negative /uL (Negative) Urine Nitrite Negative (Negative) Urine Bilirubin Negative (Negative) Urine Urobilinogen Normal mg/dL (Negative) Urine Leukocyte Esterase Negative /uL (Negative) Urine RBC <1 /hpf (0 - 4) Urine WBC <1 /hpf (0 - 5) Urine Squamous Epithelial Cells Few /hpf (<5) Urine Bacteria None seen /hpf (None Seen) Urine Glucose Normal mg/dL (Normal) Urine Opiates Screen Pos (NEGATIVE) Urine Fentanyl Screen Neg (NEGATIVE) Urine Barbiturates Screen Neg (NEGATIVE) Urine Phencyclidine Screen Neg (NEGATIVE) Urine Amphetamines Screen Neg (NEGATIVE) Urine Benzodiazepines Screen Neg (NEGATIVE) Urine Cocaine Screen Neg (NEGATIVE) Urine Cannabinoids Screen Neg (NEGATIVE) Other Laboratory Tests 03/06/24 06:06 Brief Hx & Hospital Course: Patient was admitted for chest pain ACS was ruled out. Chest pain likely musculoskeletal. Patient had echo done and had EF of 66%. High sensitivity troponin was negative. 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 Patient also has some abdominal pain related to chronic pancreatitis. Patient was seen by GI and was also cleared. Patient had elevated blood pressure and was placed on Procardia 30 mg, carvedilol 6.25 b.i.d. and hydrochlorothiazide 12.5 patient was sent home with prescriptions and is to follow up with PCP within one week of discharge Condition at Discharge: Fair Final Diagnosis/Problems List 1. Chest pain, ACS R.O 2. Abdominal pain likely chronic pancreatitis 3. Accelerated hypertension 4. Chronic pancreatitis 5. Anemia of chronic disease Discharge Disposition: Home Discharge Instruct/Medications Diet: Cardiac 2g Na,low cholest Activity: No Restrictions, As Tolerated Follow Up/Referral: GI as outpt within 2 weeks PCP within 1 week Discharge Statement: "Patient was advised to return to the ER or call 911 if any headaches, dizziness, shortness of breath, chest pain, abdominal pain, bleeding, fevers, or worsening of medical condition. Patient was counseled about treatment plan, medications, possible side effects, patientverbalized understanding. All questions were answered to the best of my ability. This discharge took greater then 30 minutes in planning, reviewing documentation, counseling the patient, and discussing with other team members." ASSESSMENT ASSESSMENT Assessment 1. Chest pain, ACS R.O 2. Abdominal pain likely chronic pancreatitis 3. Accelerated hypertension 4. Chronic pancreatitis 5. Anemia of chronic disease DAVIS SMITH POLISHER IMPLANT Mar 07, 2024 10:58
[2024-03-07 12:03] VITALS: BP 159/84; PULSE 56; RESP 19; TEMP 98.7; O2SAT 96
[2024-03-07 12:14] VITALS: BP 148/82; PULSE 59; RESP 18; TEMP 37.1; O2SAT 95
== END 2024-03-07 13:07 | disposition home or self-care (01) | DRG 203 ==
LOC: ER 08:25 → TELE 13:35 → TELE-E-ADS 23:27
PROVIDERS: ADMIT Nurse Practitioner; ATTEND Nurse Practitioner
DX: R07.89 Other chest pain (principal); D63.8 Anemia in other chronic diseases classified elsewhere; I42.8 Other cardiomyopathies; I50.22 Chronic systolic (congestive) heart failure; I11.0 Hypertensive heart disease with heart failure; I16.0 Hypertensive urgency; K86.1 Other chronic pancreatitis; F17.210 Nicotine dependence, cigarettes, uncomplicated; K21.9 Gastro-esophageal reflux disease without esophagitis; Z88.0 Allergy status to penicillin; Z90.49 Acquired absence of other specified parts of digestive tract; Z79.82 Long term (current) use of aspirin; Z87.11 Personal history of peptic ulcer disease; Z87.442 Personal history of urinary calculi; Z82.49 Family history of ischemic heart disease and other diseases of the circulatory system; Z91.199 Patient's noncompliance with other medical treatment and regimen due to unspecified reason; Z88.8 Allergy status to other drugs, medicaments and biological substances; Z79.899 Other long term (current) drug therapy
CPT/HCPCS: 36415; 71046; 71260; 71275; 74177; 76705; 80048; 80053; 80307; 81001; 83690; 83735; 84484; 85025; 93005; 93306; 96361; 96374; 99291; G0378; J2405; J2470

== ENCOUNTER 2024-03-20 08:08 | Emergency (ER) | payer OTHER ==
[~2024-03-20] VITALS: Ht 160 cm; Wt 42.9 kg
[~2024-03-20 08:08] MED LIST changes: +CARV-216 PO; +HYDR25TA5 PO; +NIFE1TAB31 PO
--- NOTE | 2024-03-20 08:55 | ED.PDOC ---
GI ASSESSMENT HPI Comments 43 y.o female with PMHx of pancreatitis and HTN, presents to the ED for a chief complaint of diffused abdominal pain associated with nausea, vomiting and hematuria that started 2 days ago. Patient describes pain as sharp, constant, rating a 10/10 on the pain scale and states no modifying factors. Patient is unable to keep anything down including medication and presents to the ED with blood pressure of 164/120. Patient denies any fever, chills, flank pain, chest pain, SOB. Chief Complaint: Abdominal Pain Time Seen by MD: 08:46 Primary Care Provider: NIYA Reviewed Notes: Nurses Notes, Medications, Allergies Allergies: Coded Allergies: Penicillins (Verified Allergy, Severe, anaphylactic, 10/05/23) Hydralazine (Verified Allergy, Intermediate, RN CONFIRMED CAN TOLERATE- IF ITCHING WILL TAKE BENADRYL, 04/15/23) Amlodipine (Verified Allergy, Unknown, 01/22/22) ITCHING Labetalol (Verified Adverse Reaction, Intermediate, ITCHINESS, 08/10/21) Home Meds Active Scripts Carvedilol (COREG) 12.5 Mg Tab, 6.25 MG PO Q12HR for 30 Days, #30 TAB Prov:DAVIS SMITH [facility] 03/07/24 Nifedipine (Nifedipine Er) 30 Mg Tab, 30 MG PO DAILY for 30 Days, #30 TAB Prov:DAVIS SMITH [facility] 03/07/24 Hctz (Hydrochlorothiazide) 25 Mg Tab, 12.5 MG PO DAILY for 30 Days, #15 TAB Prov:DAVIS SMITH [facility] 03/07/24 Ondansetron Odt 4MG Tab (ZOFRAN PO) 4 Mg Tb, 4 MG PO Q6HP PRN, #20 TAB ODT TAB-DISSOLVE IN MOUTH, THEN SWALLOW Prov:SREEKANTH ORTIZ [facility] 12/24/23 Reported Medications Sucralfate (CARAFATE SUSP) 1 Gm/10 Ml Ss, 10 ML PO BID 12/17/23 Pancrelipase (Lipase-Protease- (Creon) 6,000 Unit Cap, 6000 UNITS PO TID 12/17/23 Clonidine Hydrochloride (Clonidine Hcl) 0.1 Mg Tab, 0.2 MG PO BID for 30 Days, MG 10/05/23 Hydrocodone-Acetaminophen (Hydrocodone Bitartrate/AC 5-325 mg) 1 Tab Tab, 1 TAB PO BID PRN 04/17/23 Information Source: Patient Mode of Arrival: Ambulatory Timing: Days (2) Duration: Since onset Quality: Sharp Vomitus: Hard Stool: Normal Severity: Moderate Recent: None Recent Hx of: None Pain Location: Diffuse Modifying Factors: Nothing Associated sign and symptoms: Nausea, Vomiting, Abdominal Pain Past Medical History PAST MEDICAL HISTORY: GERD, HTN, Kidney Stones, PUD Surgical History: 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, 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, Other Family History Family History: Reviewed,noncontributory to illness, Family hx of DM, Family hx of HTN Social History Smoker: Cigarettes, Less Than 1 Pack/Day Alcohol: Denies ETOH Use Drugs: Denies Drug Use Lives In: Home Constitutional: denies: chills, diaphoresis, fatigue, fever, malaise, sweats, weakness, others EENTM: denies: blurred vision, double vision, ear bleeding, ear discharge, ear drainage, ear pain, ear ringing, eye pain, eye redness, hearing loss, mouth pain, mouth swelling, nasal discharge, nose bleeding, nose congestion, nose pain, photophobia, tearing, throat pain, throat swelling, voice changes, others Respiratory: denies: cough, hemoptysis, orthopnea, SOB at rest, shortness of breath, SOB with excertion, stridor, wheezing, others Cardiovascular: denies: chest pain, dizzy spells, diaphoresis, Dyspnea on exertion, edema, irregular heart beat, left arm pain, lightheadedness, palpitations, PND, syncope, others Gastrointestinal: reports: abdominal pain, nausea, vomiting; denies: abdomen distended, blood streaked bowels, constipated, diarrhea, dysphagia, difficulty swallowing, hematemesis, melena, poor appetite, poor fluid intake, rectal bleeding, rectal pain, others Genitourinary: reports: hematuria; denies: abnormal vagina bleeding, burning, dyspareunia, dysuria, flank pain, frequency, incontinence, pain, , vagina discharge, urgency, others Neurological: denies: dizziness, fainting, headache, left sided numbness, left sided weakness, numbness, paresthesia, pre-existing deficit, right sided numbness, right sided weakness, seizure, speech problems, tingling, tremors, weakness, others Musculoskeletal: denies: back pain, gout, joint pain, joint swelling, muscle pain, muscle stiffness, neck pain, others Integumetry: denies: bruises, change in color, change in hair/nails, dryness, laceration, lesions, lumps, rash, wounds, others Allergic/Immunocompromised: denies: Difficulty Healing, Frequent Infections, Hives, Itching, others Hematologic/Lymphatic: denies: anemia, blood clots, easy bleeding, easy bruising, swollen glands, others Endocrine: denies: excessive hunger, excessive sweating, excessive thirst, excessive urination, flushing, intolerance to cold, intolerance to heat, unexplained weight gain, unexplained weight loss, others Psychiatric: denies: anxiety, bipolar disorder, depression, hopeless, panic disorder, schizophrenia, sleepless, suicidal, others All Other Systems: Reviewed and Negative Physical Exam General Appearance: Moderate Distress HEENT: Normal ENT Inspection, Pharynx Normal, TMs Normal Neck: Full Range of Motion, Non-Tender, Normal, Normal Inspection Respiratory: Chest Non-Tender, Lungs Clear, No Accessory Muscle Use, No Respiratory Distress, Normal Breath Sounds Cardiovascular: No Edema, No JVD, No Murmur, No Gallop, Normal Peripheral Pulses, Regular Rate/Rhythm Breast Exam: Deferred Gastrointestinal: No Organomegaly, Non Tender, No Pulsatile Mass, Normal Bowel Sounds, Soft Genitalia: Deferred Pelvic: Deferred Rectal: Deferred Extremities: No calf tenderness, Normal capillary refill, Normal inspection, Normal range of motion, Non-tender, No pedal edema Musculoskeletal : Apperance: Normal Neurologic: Alert, architecture faculty member II-XII nml as Tested, No Motor Deficits, Normal Affect, Normal Mood, No Sensory Deficits Cerebellar Function: Normal Reflexes: Normal Skin: Dry, Normal Color, Warm Peripheral Pulses: 3+ Radial (R), 3+ Radial (L) Lymphatic: No Adenopathy Was a procedure done? Was a procedure done?: No GI differential Dx Differential Diagnosis: Constipation, Diverticular disease, Esophagitis, Gastritis/PUD, Gastroenteritis, Inflammatory BD, Ovarian cyst/torsion, Pancreat itis, UTI, Electrolyte Imbalance X-Ray, Labs, Meds, VS Vital Signs Date Time Temp Pulse Resp B/P (MAP) Pulse Ox O2 Delivery O2 Flow Rate FiO2 03/20/24 12:06 98.3 84 20 153/105 (121) 97 98.3 1/4/25 12:06 84 20 97 Room Air 03/20/24 12:00 153/105 03/20/24 08:20 98.5 83 16 164/120 (135) 98 Lab Test 03/20/24 09:04 03/20/24 08:54 Range/Units White Blood Count 5.5 4.4-10.8 10^3/uL Red Blood Count 4.39 4.0-5.20 10^6/uL Hemoglobin 11.1 L 12.2-16.2 g/dL Hematocrit 36.3 36.0-46.0 % Mean Corpuscular Volume 82.8 80.0-100.0 fL Mean Corpuscular Hemoglobin 25.3 L 28.0-32.0 pg Mean Corpuscular Hemoglobin Concent 30.6 L 32.0-36.0 g/dL Red Cell Distribution Width 19.9 H 11.8-14.3 % Platelet Count 291 140-450 10^3/uL Mean Platelet Volume 8.7 6.9-10.8 fL Neutrophils (%) (Auto) 65.1 37.0-80.0 % Lymphocytes (%) (Auto) 25.4 10.0-50.0 % Monocytes (%) (Auto) 6.4 0.0-12.0 % Eosinophils (%) (Auto) 2.6 0.0-7.0 % Basophils (%) (Auto) 0.5 0.0-2.0 % Neutrophils # (Auto) 3.6 1.6-8.6 10 ^3/uL Lymphocytes # (Auto) 1.4 0.4-5.4 10 ^3/uL Monocytes # (Auto) 0.4 0-1.3 10 ^3/uL Eosinophils # (Auto) 0.1 0-0.8 10 ^3/uL Basophils # (Auto) 0 0-0.2 10 ^3/uL Nucleated Red Blood Cells 0.1 % Sodium Level 138 136-145 mmol/L Potassium Level 4.5 3.5-5.1 mmol/L Chloride Level 111 H 98-107 mmol/L Carbon Dioxide Level 19 L 20-31 mmol/L Anion Gap 8 5-15 Blood Urea Nitrogen 14 9-23 mg/dL Creatinine 0.89 0.550-1.02 mg/dL Glomerular Filtration Rate Calc 82 >90 mL/min BUN/Creatinine Ratio 15.7 10.0-20.0 Serum Glucose 118 H 74-106 mg/dL Calcium Level 9.4 8.7-10.4 mg/dL Lipase 24 12-53 U/L Urine Color Yellow Yellow Urine Clarity Turbid H Clear Urine pH 5.5 5.0-9.0 Urine Specific [place] 1.041 H 1.001-1.035 Urine Protein 1+ H Negative Urine Ketones Trace Negative Urine Blood 3+ H Negative /uL Urine Nitrite Negative Negative Urine Bilirubin Negative Negative Urine Urobilinogen 3 H Negative mg/dL Urine Leukocyte Esterase Negative Negative /uL Urine RBC 3 0 - 4 /hpf Urine WBC 2 0 - 5 /hpf Urine Squamous Epithelial Cells Many <5 /hpf Urine Bacteria None seen None Seen /hpf Urine Mucus Few None Seen Urine Glucose Normal Normal mg/dL Current Medications Medications (Trade) Dose Ordered Sig/Yeison Route Start Time Stop Time Status Last Admin Clonidine HCl (Catapres Tablet) 0.2 mg ONCE ONCE PO 03/20/24 11:15 03/20/24 11:16 DC 03/20/24 12:00 Acetaminophen/ Hydrocodone Bitart ([place] 10/325MG Tab) 1 tab ONCE ONCE PO 03/20/24 11:45 03/20/24 11:46 DC 03/20/24 12:01 Patient alert. Complaining of abdominal pain. Abdomen is soft nontender. Vitals stable. Ambulating. WBC within normal limits. She comes here frequently. Blood pressure elevated. Was given Norvasc. Reviewed her previous visit. Abdomen is soft nontender on re-evaluation. Lipase within normal limits. States that she is feeling much better. Explained to the patient. Was told to follow up with her primary care physician. Was told to come back if there is any problem. Time of 1ST Reevaluation: 08:54 Reevaluation 1ST: Unchanged Time of 2ND Reevaluation: 12:40 Reevaluation 2ND: Improved Patient Education/Counseling: Diagnosis, Treatment, Prognosis Family Education/Counseling: No Family Present Additional Information I reviewed the following notes from patient's past medical encounters: 03/04/24- abdominal chronic pancreatitis The following tests were ordered, and results were reviewed by me: Lipase, CBC, CMP, UA, PHA Additional Information was gathered from interviewing the following independent historians: None I reviewed and agreed with the following test results read by other providers: None I discussed treatment and results with medical personnel Departure 1 Departure Time of Disposition: 11:10 Impression: Primary Impression: Accelerated hypertension Disposition: 01 HOME / SELF CARE / HOMELESS Condition: Good Discharged With: Self Critical Care Note Critical Care Time?: No Stability Stability form required: No I personally scribed for JIM STANLEY MD ([email or web address]) on 03/20/24 at 08:55. Electronically submitted by Ellen Neal ([facility]). JIM STANLEY MD Mar 20, 2024 08:55
[2024-03-20 08:56] LABS: Urine Bacteria None Seen /hpf (None Seen)
[2024-03-20] MEDS: ONDANSETRON HCL 4 MG/2 ML VIAL IV ONE (09:00)
[2024-03-20] MEDS ORDERED: HYDROmorphone HCL 2 MG/ML VL/or syr IV ONE (09:00)
[2024-03-20 09:04] LABS: Urine Blood 3+ /uL (Negative); Urine Clarity Turbid (Clear); Urine Color Yellow (Yellow); Urine Mucus FEW (None Seen); Urine Protein, UAD 1+ (Negative); Urine Specific Gravity 1.041 (1.001-1.035); Urine Squamous Epithelial Cell MANY /hpf (<5); Urine Urobilinogen 3 mg/dL (Negative); Urine WBC 2 /hpf (0 - 5); Urine pH 5.5 (5.0-9.0)
[2024-03-20 09:15] LABS: Lymphocytes # (auto) 1.4 10 ^3/uL (0.4-5.4); Monocytes # (auto) 0.4 10 ^3/uL (0-1.3); Nucleated Red Blood Cells % 0.1 %
[2024-03-20 09:16] LABS: Basophils # (auto) 0 10 ^3/uL (0-0.2); Basophils % (auto) 0.5 % (0.0-2.0); Eosinophils # (auto) 0.1 10 ^3/uL (0-0.8); Eosinophils % (auto) 2.6 % (0.0-7.0); Hematocrit 36.3 % (36.0-46.0); Hemoglobin 11.1 g/dL (12.2-16.2); Lymphocytes % (auto) 25.4 % (10.0-50.0); Mean Corpuscular Hemoglobin 25.3 pg (28.0-32.0); Mean Corpuscular Hgb Conc. 30.6 g/dL (32.0-36.0); Mean Corpuscular Volume 82.8 fL (80.0-100.0); Monocytes % (auto) 6.4 % (0.0-12.0); Neutrophils # (auto) 3.6 10 ^3/uL (1.6-8.6); Neutrophils % (auto) 65.1 % (37.0-80.0); Platelet Count (auto) 291 10^3/uL (140-450); Red Blood Cells 4.39 10^6/uL (4.0-5.20); Red Cell Distribution Width 19.9 % (11.8-14.3); White Blood Cell 5.5 10^3/uL (4.4-10.8)
[2024-03-20 09:26] LABS: Potassium 4.5 mmol/L (3.5-5.1); Sodium 138 mmol/L (136-145)
[2024-03-20 09:27] LABS: Anion Gap 8 (5-15); Calcium 9.4 mg/dL (8.7-10.4)
[2024-03-20 09:32] LABS: BUN/Creatinine Ratio 15.7 (10.0-20.0); Blood Urea Nitrogen 14 mg/dL (9-23)
[2024-03-20 10:20] LABS: Carbon Dioxide 19 mmol/L (20-31); Chloride 111 mmol/L (98-107); Glucose 118 mg/dL (74-106)
[2024-03-20] MEDS ORDERED: amLODIPine BESYLATE 5 MG TAB PO ONE (11:15)
[2024-03-20 11:23] LABS: Lipase 24 U/L (12-53)
[2024-03-20] MEDS: cloNIDine HCL 0.1 MG TAB PO ONE (12:00)
[2024-03-20] MEDS: HYDROcodone-ACET 10/325MG TAB PO ONE (12:01)
[2024-03-20 13:41] VITALS: BP 170/96; PULSE 84; RESP 20; TEMP 98.8; O2SAT 96
== END 2024-03-20 13:43 | disposition home or self-care (01) ==
LOC: ER 08:08
DX: I10 Essential (primary) hypertension (principal); F17.210 Nicotine dependence, cigarettes, uncomplicated; K21.9 Gastro-esophageal reflux disease without esophagitis; Z88.0 Allergy status to penicillin; Z88.8 Allergy status to other drugs, medicaments and biological substances; Z79.899 Other long term (current) drug therapy; Z90.49 Acquired absence of other specified parts of digestive tract; Z98.890 Other specified postprocedural states
CPT/HCPCS: 36415; 80048; 81001; 83690; 85025

== ENCOUNTER 2024-07-02 01:25 | Emergency (ER) | payer OTHER ==
[~2024-07-02] VITALS: Ht 160 cm; Wt 44.7 kg
[2024-07-02] MEDS: SODIUM CHLORIDE 0.9% 1,000 ML IV ONE (01:45)
--- NOTE | 2024-07-02 01:50 | ED.PDOC ---
GI ASSESSMENT HPI Comments 44-year-old female that came to ER for abdominal pain. Patient has history of hypertension and chronic pancreatitis, status post cholecystectomy. Patient being followed up at [facility], scheduled for Whipple's procedure this July 12. Patient however started experiencing epigastric abdominal pain again, associated bouts of nausea and vomiting. Blood pressure upon arrival was 216/134 mmHg Chief Complaint: Abdominal Pain Time Seen by MD: 01:49 Primary Care Provider: NIYA Reviewed Notes: Nurses Notes Allergies: Coded Allergies: Nifedipine (Verified Allergy, Severe, 07/02/24) Penicillins (Verified Allergy, Severe, anaphylactic, 10/05/23) Hydralazine (Verified Allergy, Intermediate, RN CONFIRMED CAN TOLERATE- IF ITCHING WILL TAKE BENADRYL, 04/15/23) Amlodipine (Verified Allergy, Unknown, 01/22/22) ITCHING Labetalol (Verified Adverse Reaction, Intermediate, ITCHINESS, 08/10/21) Home Meds Active Scripts Carvedilol (COREG) 12.5 Mg Tab, 6.25 MG PO Q12HR for 30 Days, #30 TAB Prov:DAVIS SMITH [facility] 03/07/24 Nifedipine (Nifedipine Er) 30 Mg Tab, 30 MG PO DAILY for 30 Days, #30 TAB Prov:DAVIS SMITH [facility] 03/07/24 Hctz (Hydrochlorothiazide) 25 Mg Tab, 12.5 MG PO DAILY for 30 Days, #15 TAB Prov:DAVIS SMITH [facility] 03/07/24 Ondansetron Odt 4MG Tab (ZOFRAN PO) 4 Mg Tb, 4 MG PO Q6HP PRN, #20 TAB ODT TAB-DISSOLVE IN MOUTH, THEN SWALLOW Prov:SREEKANTH ORTIZ [facility] 12/24/23 Reported Medications Sucralfate (CARAFATE SUSP) 1 Gm/10 Ml Ss, 10 ML PO BID 12/17/23 Pancrelipase (Lipase-Protease- (Creon) 6,000 Unit Cap, 6000 UNITS PO TID 12/17/23 Clonidine Hydrochloride (Clonidine Hcl) 0.1 Mg Tab, 0.2 MG PO BID for 30 Days, MG 10/05/23 Hydrocodone-Acetaminophen (Hydrocodone Bitartrate/AC 5-325 mg) 1 Tab Tab, 1 TAB PO BID PRN 04/17/23 Information Source: Patient Mode of Arrival: Ambulatory Timing: Hours Duration: Since onset Prehospital treatment: None Quality: Sharp, Stabbing Vomitus: Watery Stool: Normal Severity: Moderate Recent: None Recent Hx of: Abdominal Surgery Pain Location: Epigastric Modifying Factors: Nothing Associated sign and symptoms: Nausea, Vomiting, Abdominal Pain Past Medical History PAST MEDICAL HISTORY: GERD, HTN, Kidney Stones, PUD Past Medical History (Other): Chronic pancreatitis Surgical 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: 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, 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, Other Family History Family History: Reviewed,noncontributory to illness, Family hx of DM, Family hx of HTN Social History Smoker: Cigarettes, Less Than 1 Pack/Day Alcohol: Denies ETOH Use Drugs: Denies Drug Use Lives In: Home Constitutional: denies: chills, diaphoresis, fatigue, fever, malaise, sweats, weakness, others EENTM: denies: blurred vision, double vision, ear bleeding, ear discharge, ear drainage, ear pain, ear ringing, eye pain, eye redness, hearing loss, mouth pain, mouth swelling, nasal discharge, nose bleeding, nose congestion, nose pain, photophobia, tearing, throat pain, throat swelling, voice changes, others Respiratory: denies: cough, hemoptysis, orthopnea, SOB at rest, shortness of breath, SOB with excertion, stridor, wheezing, others Cardiovascular: denies: chest pain, dizzy spells, diaphoresis, Dyspnea on exertion, edema, irregular heart beat, left arm pain, lightheadedness, palpitations, PND, syncope, others Gastrointestinal: reports: abdominal pain, nausea, vomiting; denies: abdomen distended, blood streaked bowels, constipated, diarrhea, dysphagia, difficulty swallowing, hematemesis, melena, poor appetite, poor fluid intake, rectal bleeding, rectal pain, others Genitourinary: denies: abnormal vagina bleeding, burning, dyspareunia, dysuria, flank pain, frequency, hematuria, incontinence, pain, , vagina discharge, urgency, others Neurological: denies: dizziness, fainting, headache, left sided numbness, left sided weakness, numbness, paresthesia, pre-existing deficit, right sided numbness, right sided weakness, seizure, speech problems, tingling, tremors, weakness, others Musculoskeletal: denies: back pain, gout, joint pain, joint swelling, muscle pain, muscle stiffness, neck pain, others Integumetry: denies: bruises, change in color, change in hair/nails, dryness, laceration, lesions, lumps, rash, wounds, others Allergic/Immunocompromised: denies: Difficulty Healing, Frequent Infections, Hives, Itching, others Hematologic/Lymphatic: denies: anemia, blood clots, easy bleeding, easy bruising, swollen glands, others Endocrine: denies: excessive hunger, excessive sweating, excessive thirst, excessive urination, flushing, intolerance to cold, intolerance to heat, unexplained weight gain, unexplained weight loss, others Psychiatric: denies: anxiety, bipolar disorder, depression, hopeless, panic disorder, schizophrenia, sleepless, suicidal, others Physical Exam General Appearance: No Apparent Distress, Normal HEENT: Normal ENT Inspection, Pharynx Normal, TMs Normal Neck: Full Range of Motion, Non-Tender, Normal, Normal Inspection Respiratory: Chest Non-Tender, Lungs Clear, No Accessory Muscle Use, No Respiratory Distress, Normal Breath Sounds Cardiovascular: No Edema, No JVD, No Murmur, No Gallop, Normal Peripheral Pulses, Regular Rate/Rhythm Breast Exam: Deferred Gastrointestinal: No Organomegaly, Non Tender, No Pulsatile Mass, Normal Bowel Sounds, Soft Genitalia: Deferred Pelvic: Deferred Rectal: Deferred Extremities: No calf tenderness, Normal capillary refill, Normal inspection, Normal range of motion, Non-tender, No pedal edema Musculoskeletal : Apperance: Normal Neurologic: Alert, injection operator II-XII nml as Tested, No Motor Deficits, Normal Affect, Normal Mood, No Sensory Deficits Cerebellar Function: Normal Reflexes: Normal Skin: Dry, Normal Color, Warm Lymphatic: No Adenopathy Was a procedure done? Was a procedure done?: No GI differential Dx Differential Diagnosis: Constipation, Diverticular disease, Gastritis/PUD, Gastroenteritis, Pancreatitis, UTI, Urolithiasis X-Ray, Labs, Meds, VS Vital Signs Date Time Temp Pulse Resp B/P (MAP) Pulse Ox O2 Delivery O2 Flow Rate FiO2 07/02/24 03:01 80 22 203/113 07/02/24 02:59 203/113 07/02/24 02:07 97.3 80 22 203/113 (143) 99 97.3 07/02/24 01:41 98.9 86 20 217/103 (141) 99 98.9 Lab Test 07/02/24 01:54 Range/Units White Blood Count 5.5 4.4-10.8 10^3/uL Red Blood Count 3.76 L 4.0-5.20 10^6/uL Hemoglobin 9.2 L 12.2-16.2 g/dL Hematocrit 30.3 L 36.0-46.0 % Mean Corpuscular Volume 80.5 80.0-100.0 fL Mean Corpuscular Hemoglobin 24.6 L 28.0-32.0 pg Mean Corpuscular Hemoglobin Concent 30.5 L 32.0-36.0 g/dL Red Cell Distribution Width 20.5 H 11.8-14.3 % Platelet Count 245 140-450 10^3/uL Mean Platelet Volume 8.5 6.9-10.8 fL Neutrophils (%) (Auto) 68.7 37.0-80.0 % Lymphocytes (%) (Auto) 20.6 10.0-50.0 % Monocytes (%) (Auto) 7.3 0.0-12.0 % Eosinophils (%) (Auto) 2.8 0.0-7.0 % Basophils (%) (Auto) 0.6 0.0-2.0 % Neutrophils # (Auto) 3.8 1.6-8.6 10 ^3/uL Lymphocytes # (Auto) 1.1 0.4-5.4 10 ^3/uL Monocytes # (Auto) 0.4 0-1.3 10 ^3/uL Eosinophils # (Auto) 0.2 0-0.8 10 ^3/uL Basophils # (Auto) 0 0-0.2 10 ^3/uL Nucleated Red Blood Cells 0.0 % Sodium Level 143 136-145 mmol/L Potassium Level 4.0 3.5-5.1 mmol/L Chloride Level 116 H 98-107 mmol/L Carbon Dioxide Level 18 L 20-31 mmol/L Anion Gap 9 5-15 Blood Urea Nitrogen 10 9-23 mg/dL Creatinine 0.85 0.550-1.02 mg/dL Glomerular Filtration Rate Calc 86 >90 mL/min BUN/Creatinine Ratio 11.8 10.0-20.0 Serum Glucose 137 H 74-106 mg/dL Lactic Acid Level 1.0 0.4-2.0 mmol/L Calcium Level 8.9 8.7-10.4 mg/dL Total Bilirubin < 0.2 L 0.2-1.0 mg/dL Aspartate Amino Transferase (AST) 10 L 13-40 U/L Alanine Aminotransferase (ALT) 12 7-40 U/L Alkaline Phosphatase 112 46-116 U/L Total Protein 7.2 5.7-8.2 g/dL Albumin 4.3 3.2-4.8 g/dL Lipase 28 12-53 U/L Current Medications Medications (Trade) Dose Ordered Sig/Yeison Route Start Time Stop Time Status Last Admin Sodium Chloride 1,000 ml @ 1,000 mls/hr Q1H ONCE IV 07/02/24 01:45 07/02/24 02:44 DC 07/02/24 01:45 Ondansetron HCl (Zofran) 4 mg ONCE ONCE IV 07/02/24 01:45 07/02/24 01:46 DC 07/02/24 03:01 Morphine Sulfate 4 mg ONCE ONCE IV 07/02/24 01:45 07/02/24 01:46 DC 07/02/24 03:01 Nitroglycerin (Ntrostat Sublingual) 0.4 mg ONCE ONCE SL 07/02/24 03:00 07/02/24 03:01 DC 07/02/24 02:59 Diphenhydramine HCl (Benadryl Capsule) 25 mg ONCE ONCE PO 07/02/24 03:00 07/02/24 03:01 DC 07/02/24 03:02 Time of 1ST Reevaluation: 01:44 Reevaluation 1ST: Unchanged Patient Education/Counseling: Diagnosis, Treatment Family Education/Counseling: No Family Present Departure 1 Departure Time of Disposition: 04:43 (Patient presented with abdominal pain that was concerning for possible appendicits, gastritis, cholecystitis, colitis, gastroenteritis, sbo, or orther possible surgical emergency. Data: 1. I ordered and reviewed the result of at least 3 labs including a CBC, BMP, and Urinalysis. 2. I independently interpreted the following tests: CT Abdoment and Pelvis is concerning for chronic pancreatitis .Risk:This patient has a high risk of morbidity due to further diagnostic testing or treatment and may suffer from an acute abdominal process disorder. Workup reveals chronic pancreatitis and patient should be admitted for further workup. and possible expert consultation. ) Impression: Primary Impression: Chronic pancreatitis Qualified Codes: K86.1 - Other chronic pancreatitis Additional Impression: Intractable abdominal pain Disposition: ADMITTED INPATIENT Admit to: Med Surg Condition: Serious Critical Care Note Critical Care Time?: Yes Critical care comment: Intractable Abdominal Pain Authorized and Performed by: Latricia Eugene MD Total critical care time: Approximately 39 minutes Due to a high probability of clinically significant, life threatening deterioration, the patient required my highest level of preparedness to intervene emergently and I personally spent this critical care time directly and personally managing the patient. This critical care time included obtaining a history; examining the patient; pulse oximetry; ordering and review of studies; arranging urgent treatment with development of a management plan; evaluation of patient's response to treatment; frequent reassessment; and, discussions with other providers. This critical care time was performed to assess and manage the high probability of imminent, life-threatening deterioration that could result in multi-organ failure. It was exclusive of separately billable procedures and treating other patients and teaching time. Please see my other sections and the rest of the note for further information on patient assessment and treatment. Stability Stability form required: No Heart Score Heart Score: Heart Score Response (Comments) Value History N/A 0 EKG N/A 0 Age N/A 0 Risk Factors N/A 0 Troponin N/A 0 Total 0 I personally scribed for LATRICIA EUGENE MD ([email or web address]) on 07/02/24 at 01:50. Electronically submitted by Simba Chandler ([email or web address]). LATRICIA EUGENE MD Jul 02, 2024 01:50
[2024-07-02 02:05] LABS: Basophils # (auto) 0 10 ^3/uL (0-0.2); Eosinophils # (auto) 0.2 10 ^3/uL (0-0.8); Eosinophils % (auto) 2.8 % (0.0-7.0); Hemoglobin 9.2 g/dL (12.2-16.2); Lymphocytes # (auto) 1.1 10 ^3/uL (0.4-5.4); Neutrophils # (auto) 3.8 10 ^3/uL (1.6-8.6); Red Cell Distribution Width 20.5 % (11.8-14.3); White Blood Cell 5.5 10^3/uL (4.4-10.8)
[2024-07-02 02:07] VITALS: TEMP 97.3
[2024-07-02 02:07] LABS: Basophils % (auto) 0.6 % (0.0-2.0); Hematocrit 30.3 % (36.0-46.0); Lymphocytes % (auto) 20.6 % (10.0-50.0); Mean Corpuscular Hemoglobin 24.6 pg (28.0-32.0); Mean Corpuscular Hgb Conc. 30.5 g/dL (32.0-36.0); Mean Corpuscular Volume 80.5 fL (80.0-100.0); Monocytes # (auto) 0.4 10 ^3/uL (0-1.3); Monocytes % (auto) 7.3 % (0.0-12.0); Neutrophils % (auto) 68.7 % (37.0-80.0); Platelet Count (auto) 245 10^3/uL (140-450); Red Blood Cells 3.76 10^6/uL (4.0-5.20)
[2024-07-02 02:21] LABS: Alanine Aminotransferase 12 U/L (7-40); Albumin 4.3 g/dL (3.2-4.8); Alkaline Phosphatase 112 U/L (46-116); Anion Gap 9 (5-15); BUN/Creatinine Ratio 11.8 (10.0-20.0); Blood Urea Nitrogen 10 mg/dL (9-23); Calcium 8.9 mg/dL (8.7-10.4); Lipase 28 U/L (12-53); Sodium 143 mmol/L (136-145); Total Protein 7.2 g/dL (5.7-8.2)
[2024-07-02 02:22] LABS: Aspartate Aminotransferase 10 U/L (13-40); Bilirubin, Total < 0.2 mg/dL (0.2-1.0); Carbon Dioxide 18 mmol/L (20-31); Chloride 116 mmol/L (98-107); Glucose 137 mg/dL (74-106)
[2024-07-02] MEDS: NITROGLYCERIN 0.4 MG SL TAB SL ONE (02:59)
[2024-07-02] MEDS: ONDANSETRON HCL 4 MG/2 ML VIAL IV ONE (03:01)
[2024-07-02] MEDS: MORPHINE SULFATE 4 MG/ML SYR/VIAL IV ONE (03:01)
[2024-07-02] MEDS: diphenhdrAMINE HCL 25 MG CAP PO ONE (03:02)
[2024-07-02] MEDS: IOHEXOL 300 MG/ML 100ML BOTTLE IJ ONE (03:45)
--- NOTE | 2024-07-02 04:37 | DVH ---
Exam: CT CT AB PEL WITH IV CON ONLY History: intractable abdominal pain Comparison Study: CT scan of the abdomen pelvis performed on 03/20/2024 Contrast: Type of contrast: Omnipaque 300 Contrast injected: 100 mL Contrast wasted: 0 TECHNIQUE: A digital basketball scout image was obtained. During the uneventful, intravenous administration of c ontrast material, multislice data acquisition was obtained through the abdomen and pelvis. The data s et was subsequently reconstructed into axial images. Images were reviewed on a work station using a c ombination of axial and multiplanar using a variety of window levels and settings. Radiation Dose Information: CT Dose: CTDI volume is 5.1 mGy. Dose-length product is 267.1 mGy*cm FINDINGS: Lung Bases: No acute or significant lung base finding. Normal heart size. No pleural or pericardial effusion. Liver: The liver is normal in size. Low attenuating lesions in the liver compatible with cysts. Norm al hepatic vascular enhancement. Gallbladder and Biliary Tree: 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. Pneumobilia. Spleen: Unremarkable Pancreas: Calcifications throughout the pancreatic parenchyma consistent with sequelae of chronic barr creatitis. No inflammatory changes surrounding the pancreas. No pancreatic ductal dilatation. Adrenal Glands: Unremarkable Kidneys: Kidneys demonstrate normal symmetric enhancement without focal lesions, calculi or hydroneph rosis. Bladder: Unremarkable Bowel: The stomach is grossly normal in appearance. Fluid in small bowel loops without abnormal diste ntion or wall thickening. Scattered stool throughout the colon. Gaseous distention throughout the res t of the colon. The appendix is not visualized; however, no secondary findings of acute appendicitis identified. Intraperitoneal cavity: No pneumoperitoneum. No ascites. Lymphadenopathy: No mesenteric, retroperitoneal or periportal lymphadenopathy. Abdominal Wall and Mesentery: Unremarkable. Vasculature: The visualized abdominal aorta is normal in size and caliber. Abdominal and pelvic vess els demonstrate normal enhancement. Pelvic Organs: Uterus and adnexal structures grossly unremarkable. Musculoskeletal: No aggressive focal bony lesions, acute fractures or dislocation. Soft tissues: Unremarkable. IMPRESSION: 1. Copious stool throughout colon which may indicate fecal retention. Otherwise nonspecific bowel-gas pattern. 2. 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 pneumobilia, stable. 3. Sequelae of chronic pancreatitis. No acute inflammatory changes surrounding the pancreas. All CT scans at this medical facility are performed using dose modulation techniques as appropriate t o a performed exam including the following: Automated exposure control was utilized; adjustment of th e MA and/or KV according to patient size; and use of iterative reconstruction technique.
[2024-07-02 04:48] VITALS: PULSE 79; O2SAT 99
[2024-07-02 05:09] LABS: Urine Bacteria FEW /hpf (None Seen); Urine Blood Negative /uL (Negative); Urine Clarity Clear (Clear); Urine Color Colorless (Yellow); Urine Protein, UAD Negative (Negative); Urine Specific Gravity 1.023 (1.001-1.035); Urine Squamous Epithelial Cell FEW /hpf (<5); Urine Urobilinogen Normal (Negative); Urine WBC < 1 /HPF (0-5); Urine pH 6.5 (5.0-9.0)
[2024-07-02 05:14] VITALS: PULSE 79; RESP 19
[2024-07-02] MEDS: HYDROcodone-ACET 5/325MG TAB PO ONE (06:49)
[2024-07-02] MEDS: LISINOPRIL 5 MG TAB PO ONE (06:49)
[2024-07-02 07:00] VITALS: BP 221/119
[2024-07-02] MEDS: NITROGLYCERIN 50MG/250ML 250 ML IV ONE (07:00)
== END 2024-07-02 06:59 | disposition left against medical advice (07) ==
LOC: ER 01:25
DX: K86.1 Other chronic pancreatitis (principal); R10.13 Epigastric pain; I10 Essential (primary) hypertension; R11.2 Nausea with vomiting, unspecified; F17.210 Nicotine dependence, cigarettes, uncomplicated; Z90.49 Acquired absence of other specified parts of digestive tract; Z87.11 Personal history of peptic ulcer disease; Z79.899 Other long term (current) drug therapy; Z88.0 Allergy status to penicillin; Z88.8 Allergy status to other drugs, medicaments and biological substances
CPT/HCPCS: 36415; 74177; 80053; 81001; 83605; 83690; 84484; 85025; 96361; 96374; 96375; 99285; J2270; J2405; J7030; Q9967

== ENCOUNTER 2025-02-27 07:35 | Inpatient (IN) | payer OTHER ==
[~2025-02-27] VITALS: Ht 160 cm; Wt 97.7 kg
--- NOTE | 2025-02-27 07:52 | ECG ---
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
[2025-02-27 08:10] VITALS: PULSE 82; RESP 16; O2SAT 100
[2025-02-27] MEDS: IOHEXOL 300 MG/ML 100ML BOTTLE IJ ONE (08:44)
--- NOTE | 2025-02-27 08:49 | ECG ---
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
--- NOTE | 2025-02-27 09:04 | ED.PDOC ---
History of Present Illness HPI Comments Presents to the ER with prior medical history of GERD, hypertension, kidney stones, PUD, chronic pancreatic: Surgical history of cholecystectomy, x3, stent in bowel duct two years ago and was removed and a chief complaint of abdominal pain. Reports on having had abdominal and back pain for the past six days associated with N/V/D, and notes on having a sudden onset of chest pain this morning. Triage reports on the patient having a blood pressure of 208/143 and while the patient was in her bed, the blood pressure was 224/144. Denies any other symptoms at this time. Denies chills, fever, SOB. No other associated symptoms, modifiers, recent injuries or sick contacts present at this time. Chief Complaint: Abdominal Pain Time Seen by MD: 09:00 Primary Care Provider: NIYA Reviewed Notes: Nurses Notes, Medications, Allergies Allergies: Coded Allergies: Nifedipine (Verified Allergy, Severe, 07/02/24) Penicillins (Verified Allergy, Severe, anaphylactic, 10/05/23) Hydralazine (Verified Allergy, Intermediate, RN CONFIRMED CAN TOLERATE- IF ITCHING WILL TAKE BENADRYL, 04/15/23) Amlodipine (Verified Allergy, Unknown, 01/22/22) ITCHING Labetalol (Verified Adverse Reaction, Intermediate, ITCHINESS, 08/10/21) Home Meds Active Scripts Carvedilol (COREG) 12.5 Mg Tab, 6.25 MG PO Q12HR for 30 Days, #30 TAB Prov:DAVIS SMITH [facility] 03/07/24 Nifedipine (Nifedipine Er) 30 Mg Tab, 30 MG PO DAILY for 30 Days, #30 TAB Prov:DAVIS SMITH [facility] 03/07/24 Hctz (Hydrochlorothiazide) 25 Mg Tab, 12.5 MG PO DAILY for 30 Days, #15 TAB Prov:DAVIS SMITH [facility] 03/07/24 Ondansetron Odt 4MG Tab (ZOFRAN PO) 4 Mg Tb, 4 MG PO Q6HP PRN, #20 TAB ODT TAB-DISSOLVE IN MOUTH, THEN SWALLOW Prov:SREEKANTH MARTINEZ [facility] 12/24/23 Reported Medications Sucralfate (CARAFATE SUSP) 1 Gm/10 Ml Ss, 10 ML PO BID 12/17/23 Pancrelipase (Lipase-Protease- (Creon) 6,000 Unit Cap, 6000 UNITS PO TID 12/17/23 Clonidine Hydrochloride (Clonidine Hcl) 0.1 Mg Tab, 0.2 MG PO BID for 30 Days, MG 10/05/23 Hydrocodone-Acetaminophen (Hydrocodone Bitartrate/AC 5-325 mg) 1 Tab Tab, 1 TAB PO BID PRN 04/17/23 Information Source: Patient Mode of Arrival: Ambulatory Severity: Moderate Timing: Days Duration: Since onset, Days Prehospital treatment: None Past Medical History PAST MEDICAL HISTORY: GERD, HTN, Kidney Stones, PUD Past Medical History (Other): Chronic pancreatic Surgical History: 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, (X3) Surgical History (Other): Stent in bowel duct surgery two years ago and was removed KENNEL HAND History: No Pertinent KENNEL HAND History, Other Family History Family History: Reviewed,noncontributory to illness, Unknown Social History Smoker: Cigarettes, Less Than 1 Pack/Day Alcohol: Denies ETOH Use Drugs: Denies Drug Use Lives In: Home Constitutional: denies: chills, diaphoresis, fatigue, fever, malaise, sweats, weakness, others EENTM: denies: blurred vision, double vision, ear bleeding, ear discharge, ear drainage, ear pain, ear ringing, eye pain, eye redness, hearing loss, mouth pain, mouth swelling, nasal discharge, nose bleeding, nose congestion, nose pain, photophobia, tearing, throat pain, throat swelling, voice changes, others Respiratory: denies: cough, hemoptysis, orthopnea, SOB at rest, shortness of breath, SOB with excertion, stridor, wheezing, others Cardiovascular: denies: chest pain, dizzy spells, diaphoresis, Dyspnea on exertion, edema, irregular heart beat, left arm pain, lightheadedness, palpitations, PND, syncope, others Gastrointestinal: reports: abdominal pain, diarrhea, nausea, vomiting; denies: abdomen distended, blood streaked bowels, constipated, dysphagia, difficulty swallowing, hematemesis, melena, poor appetite, poor fluid intake, rectal bleeding, rectal pain, others Genitourinary: denies: abnormal vagina bleeding, burning, dyspareunia, dysuria, flank pain, frequency, hematuria, incontinence, pain, , vagina discharge, urgency, others Neurological: denies: dizziness, fainting, headache, left sided numbness, left sided weakness, numbness, paresthesia, pre-existing deficit, right sided numbness, right sided weakness, seizure, speech problems, tingling, tremors, weakness, others Musculoskeletal: reports: back pain; denies: gout, joint pain, joint swelling, muscle pain, muscle stiffness, neck pain, others Integumetry: denies: bruises, change in color, change in hair/nails, dryness, laceration, lesions, lumps, rash, wounds, others Allergic/Immunocompromised: denies: Difficulty Healing, Frequent Infections, Hives, Itching, others Hematologic/Lymphatic: denies: anemia, blood clots, easy bleeding, easy bruising, swollen glands, others Endocrine: denies: excessive hunger, excessive sweating, excessive thirst, excessive urination, flushing, intolerance to cold, intolerance to heat, unexplained weight gain, unexplained weight loss, others Psychiatric: denies: anxiety, bipolar disorder, depression, hopeless, panic disorder, schizophrenia, sleepless, suicidal, others All Other Systems: Reviewed and Negative Physical Exam Exam Comments Appears uncomfortable, diffuse abdominal tenderness General Appearance: No Apparent Distress, Normal HEENT: Normal ENT Inspection, Pharynx Normal, TMs Normal Neck: Full Range of Motion, Non-Tender, Normal, Normal Inspection Respiratory: Chest Non-Tender, Lungs Clear, No Accessory Muscle Use, No Respiratory Distress, Normal Breath Sounds Cardiovascular: No Edema, No JVD, No Murmur, No Gallop, Normal Peripheral Pulses, Regular Rate/Rhythm Breast Exam: Deferred Gastrointestinal: No Organomegaly, Non Tender, No Pulsatile Mass, Normal Bowel Sounds, Soft Genitalia: Deferred Pelvic: Deferred Rectal: Deferred Extremities: No calf tenderness, Normal capillary refill, Normal inspection, Normal range of motion, Non-tender, No pedal edema Musculoskeletal : Apperance: Normal Neurologic: Alert, board catcher II-XII nml as Tested, No Motor Deficits, Normal Affect, Normal Mood, No Sensory Deficits Cerebellar Function: Normal Reflexes: Normal Skin: Dry, Normal Color, Warm Lymphatic: No Adenopathy Was a procedure done? Was a procedure done?: No EKG EKG : Pulse Rate (adult): 78 [place]: Normal Cardiac Rhythm: NSR Block: None Hypertrophy: None ST: Normal Differential Dx Considerations may include: Gastroenteritis, colitis, viral syndrome, UTI X-Ray, Labs, Meds, VS Vital Signs Date Time Temp Pulse Resp B/P (MAP) Pulse Ox O2 Delivery O2 Flow Rate FiO2 02/27/25 10:42 76 02/27/25 10:26 98.0 68 16 182/110 (134) 98 98.0 02/27/25 10:20 78 12 182/110 02/27/25 09:48 71 12 197/121 02/27/25 09:30 79 16 197/121 (146) 96 02/27/25 09:03 78 02/27/25 08:48 70 02/27/25 08:10 82 16 100 Room Air* 0 21 02/27/25 08:00 97.9 82 16 224/144 (170) 100 97.9 02/27/25 07:48 78 02/27/25 07:37 98.2 97 18 208/143 100 98.2 Lab Test 02/27/25 10:36 02/27/25 09:05 Range/Units Troponin I High Sensitivity 16 15 </=34 ng/L White Blood Count Pending Red Blood Count Pending Hemoglobin Pending Hematocrit Pending Mean Corpuscular Volume Pending Mean Corpuscular Hemoglobin Pending Mean Corpuscular Hemoglobin Concent Pending Red Cell Distribution Width Pending Platelet Count Pending Mean Platelet Volume Pending Neutrophils (%) (Auto) Pending Lymphocytes (%) (Auto) Pending Monocytes (%) (Auto) Pending Basophils (%) (Auto) Pending Neutrophils # (Auto) Pending Lymphocytes # (Auto) Pending Monocytes # (Auto) Pending Sodium Level 135 L 136-145 mmol/L Potassium Level 4.1 3.5-5.1 mmol/L Chloride Level 103 98-107 mmol/L Carbon Dioxide Level 18 L 20-31 mmol/L Anion Gap 14 5-15 Blood Urea Nitrogen 10 9-23 mg/dL Creatinine 0.72 0.550-1.02 mg/dL Glomerular Filtration Rate Calc 105 >90 mL/min BUN/Creatinine Ratio 13.9 10.0-20.0 Serum Glucose 87 74-106 mg/dL Lactic Acid Level 1.2 0.4-2.0 mmol/L Calcium Level 8.9 8.7-10.4 mg/dL Total Bilirubin 0.8 0.2-1.0 mg/dL Aspartate Amino Transferase (AST) 56 H 13-40 U/L Alanine Aminotransferase (ALT) 16 7-40 U/L Alkaline Phosphatase 82 46-116 U/L B-Type Natriuretic Peptide Pending Total Protein 6.5 5.7-8.2 g/dL Albumin 3.5 3.2-4.8 g/dL Lipase 20 12-53 U/L Current Medications Medications (Trade) Dose Ordered Sig/Yeison Route Start Time Stop Time Status Last Admin Morphine Sulfate 4 mg ONCE ONCE IV 02/27/25 09:45 02/27/25 09:46 DC 02/27/25 09:48 Pantoprazole Sodium (Protonix) 40 mg ONCE ONCE IV 02/27/25 09:45 02/27/25 09:46 DC 02/27/25 09:48 Ondansetron HCl (Zofran) 4 mg ONCE ONCE IV 02/27/25 09:45 02/27/25 09:46 DC 02/27/25 09:48 Diphenhydramine HCl (Benadryl Injection) 25 mg ONCE ONCE IV 02/27/25 10:00 02/27/25 10:01 DC 02/27/25 10:03 Cefazolin Sodium/ Dextrose 50 ml @ 50 mls/hr ONCE ONCE IV 02/27/25 11:45 02/27/25 12:44 02/27/25 12:13 Metronidazole 100 ml @ 100 mls/hr ONCE ONCE IV 02/27/25 11:45 02/27/25 12:44 02/27/25 12:13 Sodium Chloride 2,000 ml @ 1,000 mls/hr Q2H ONCE IV 02/27/25 11:45 02/27/25 13:44 02/27/25 12:18 Time of 1ST Reevaluation: 09:30 Reevaluation 1ST: Unchanged Patient Education/Counseling: Diagnosis, Treatment, Prognosis Family Education/Counseling: No Family Present SEPSIS Sepsis Screen Date sepsis recognized/suspect: Feb 27, 2025 Time Sepsis recognized/suspect: 804 Recent Procedure: No On Antibiotic Therapy: No Respiratory Rate >20: No Heart Rate >90: No Temp<36 C (96.8 F) or >38.3 C: No SBP <90 or MAP <65 mmHG: No New Acute Mental Status Change: No Is the patient on CPAP, BIPAP,: No Physician Orders B-Type Natriuretic Peptide (02/27/25 08:17) Complete Blood Count (02/27/25 08:17) Urinalysis (02/27/25 08:17) Chest Portable (02/27/25 08:17) Ct Ab Pel With Iv Con Only (02/27/25 08:17) Troponin-I Hs (02/27/25 11:17) Cefazolin 2 Gm/H3x18zc (Ancef) (02/27/25 11:45) Metronidazole 500mg/100ml (Flagyl 500mg/ (02/27/25 11:45) Sodium Chloride 0.9% (02/27/25 11:45) Vital Signs Date Time Temp Pulse Resp B/P (MAP) Pulse Ox O2 Delivery O2 Flow Rate FiO2 02/27/25 10:42 76 02/27/25 10:26 98.0 68 16 182/110 (134) 98 98.0 02/27/25 10:20 78 12 182/110 02/27/25 09:48 71 12 197/121 02/27/25 09:30 79 16 197/121 (146) 96 02/27/25 09:03 78 02/27/25 08:48 70 02/27/25 08:10 82 16 100 Room Air* 0 21 02/27/25 08:00 97.9 82 16 224/144 (170) 100 97.9 02/27/25 07:48 78 02/27/25 07:37 98.2 97 18 208/143 100 98.2 Laboratory Tests Test 02/27/25 09:05 Lactic Acid Level 1.2 mmol/L (0.4-2.0) White Blood Count Pending Medications Medications Dose Ordered Sig/Yeison Route Start Time Stop Time Status Last Admin Dose Admin Cefazolin Sodium/ Dextrose 50 ml @ 50 mls/hr ONCE ONCE IV 02/27/25 11:45 02/27/25 12:44 02/27/25 12:13 Diphenhydramine HCl 25 mg ONCE ONCE IV 02/27/25 10:00 02/27/25 10:01 DC 02/27/25 10:03 Metronidazole 100 ml @ 100 mls/hr ONCE ONCE IV 02/27/25 11:45 02/27/25 12:44 02/27/25 12:13 Morphine Sulfate 4 mg ONCE ONCE IV 02/27/25 09:45 02/27/25 09:46 DC 02/27/25 09:48 Ondansetron HCl 4 mg ONCE ONCE IV 02/27/25 09:45 02/27/25 09:46 DC 02/27/25 09:48 Pantoprazole Sodium 40 mg ONCE ONCE IV 02/27/25 09:45 02/27/25 09:46 DC 02/27/25 09:48 Sodium Chloride 2,000 ml @ 1,000 mls/hr Q2H ONCE IV 02/27/25 11:45 02/27/25 13:44 02/27/25 12:18 Departure 1 Departure Time of Disposition: 12:22 (Patient presented with abdominal pain that was concerning for possible appendicits, gastritis, cholecystitis, colitis, gastroenteritis, sbo, or orther possible surgical emergency. Data: 1. I ordered and reviewed the result of at least 3 labs including a CBC, BMP, and Urinalysis. 2. I independently interpreted the following tests: CT Abdomen and Pelvis is concerning for colitis .Risk:This patient has a high risk of morbidity due to further diagnostic testing or treatment and may suffer from an acute abdominal process disorder. Workup reveals colitis and patient should be admitted for further workup. and possible expert consultation. ) Impression: Primary Impression: Non-specific colitis Additional Impression: Intractable abdominal pain Disposition: ADMITTED INPATIENT Admit to: Med Surg Condition: Serious Critical Care Note Critical Care Time?: Yes Critical care comment: Intractable abdominal pain Authorized and Performed by: Latricia Richey MD Total critical care time: Approximately 39 minutes Due to a high probability of clinically significant, life threatening deterioration, the patient required my highest level of preparedness to intervene emergently and I personally spent this critical care time directly and personally managing the patient. This critical care time included obtaining a history; examining the patient; pulse oximetry; ordering and review of studies; arranging urgent treatment with development of a management plan; evaluation of patient's response to treatment; frequent reassessment; and, discussions with other providers. This critical care time was performed to assess and manage the high probability of imminent, life-threatening deterioration that could result in multi-organ failure. It was exclusive of separately billable procedures and treating other patients and teaching time. Please see my other sections and the rest of the note for further information on patient assessment and treatment. Stability Stability form required: No I personally scribed for LATRICIA RICHEY MD ([email or web address]) on 02/27/25 at 09:03. Electronically submitted by Trevon Lemon ([email or web address]). LATRICIA RICHEY MD Feb 27, 2025 09:03
[2025-02-27] MEDS: PANTOPRAZOLE 40 MG/10 ML VIAL INJ IV ONE ×2 (09:48→13:34)
[2025-02-27] MEDS: MORPHINE SULFATE 4 MG/ML SYR/VIAL IV ONE ×2 (09:48→12:22)
[2025-02-27] MEDS: ONDANSETRON HCL 4 MG/2 ML VIAL IV ONE ×2 (09:48→12:19)
[2025-02-27 09:52] LABS: Alanine Aminotransferase 16 U/L (7-40); Albumin 3.5 g/dL (3.2-4.8); Alkaline Phosphatase 82 U/L (46-116); Anion Gap 14 (5-15); BUN/Creatinine Ratio 13.9 (10.0-20.0); Bilirubin, Total 0.8 mg/dL (0.2-1.0); Blood Urea Nitrogen 10 mg/dL (9-23); Calcium 8.9 mg/dL (8.7-10.4); Chloride 103 mmol/L (98-107); Glucose 87 mg/dL (74-106); Potassium 4.1 mmol/L (3.5-5.1); Total Protein 6.5 g/dL (5.7-8.2)
[2025-02-27 09:54] LABS: Carbon Dioxide 18 mmol/L (20-31); Sodium 135 mmol/L (136-145)
[2025-02-27] MEDS: diphenhydrAMINE HCL 50 MG/1 ML VL IV ONE ×2 (10:03→20:48)
--- NOTE | 2025-02-27 10:36 | DVH ---
CHEST RADIOGRAPH INDICATION: abdominal pain TECHNIQUE: Single frontal view of the chest was obtained COMPARISON: XR CHEST 1 VIEW on DOS: 10/06/24, XY CHEST PORTABLE on DOS: 06/19/23, XR CHEST 1 VIEW on DOS: 03/12/23, XY CHEST PORTABLE on DOS: 09/20/22, CXRP on DOS: 03/23/22 FINDINGS: Lines and Tubes: None Lungs: No focal consolidation. Pleura: No effusion. No pneumothorax. Cardiomediastinal contours: Unremarkable Bones: No acute osseous abnormality. IMPRESSION: 1. No acute cardiopulmonary disease.
--- NOTE | 2025-02-27 10:44 | ECG ---
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
[2025-02-27 11:00] LABS: Lipase 20 U/L (12-53)
--- NOTE | 2025-02-27 11:04 | DVH ---
EXAM: CT CT AB PEL WITH IV CON ONLY History: abdominal pain COMPARISON: CT ABD/PEL on DOS: 10/10/24, CT CT AB PEL WITH IV CON ONLY on DOS: 07/02/24, CT ABD/PEL on DOS: 03/20/24, CT CT CHEST/AB/PL W CON- IV ONLY on DOS: 03/06/24, CT ABD/PEL W - IV on DOS: 01/21/24 TECHNIQUE: Multidetector spiral CT of the abdomen and pelvis was performed from lung bases to pubic symphysis. Intravenous contrast was administered during this examination. Portal venous imaging was obtained. Axial, coronal and sagittal multiplanar reformats were performed by the technologist on a separate workstation. Radiation Dose : 1. Abdomen/Pelvis: CTDIvol 5.07mGy, DLP 241.98 mGy*cm. CONTRAST: Type of contrast: Omnipaque 300 Contrast injected: 100 ml FINDINGS: Lung Bases: No acute or significant lung base finding. Normal heart size. No pleural or pericardial effusion. Liver: The liver is normal in size. No focal lesions. Normal hepatic vascular enhancement. Diffuse steatosis. Gallbladder and Biliary Tree: Gallbladder is surgically absent. Left-sided pneumobilia is seen, likely from prior instrumentation Spleen: Unremarkable Pancreas: Coarse calcifications are seen throughout the pancreatic head, likely sequelae of chronic pancreatitis. Adrenal Glands: Unremarkable Kidneys: No hydronephrosis. Bladder: Unremarkable Bowel: The stomach is grossly normal in appearance. Concentric wall thickening throughout the descending colon is suggestive of infectious/inflammatory colitis. The appendix is not visualized; however, no secondary findings of acute appendicitis identified. Ascites: Absent Lymphadenopathy: No mesenteric, retroperitoneal or periportal lymphadenopathy. Abdominal Wall and Mesentery: Unremarkable. Vasculature: The visualized abdominal aorta is normal in size and caliber. Abdominal and pelvic vessels demonstrate normal enhancement. Pelvic Organs: Unremarkable Musculoskeletal: No aggressive focal bony lesions, acute fractures or dislocation. IMPRESSION: 1. Concentric wall thickening throughout the descending colon is suggestive of infectious/inflammatory colitis. 2. Coarse calcifications are seen throughout the pancreatic head, likely sequelae of chronic pancreatitis. 3. Hepatic steatosis. Radiation optimization: All CT scans at this facility use at least one of these dose optimization techniques: automated exposure control mA and/or kV adjustment per patient size (includes targeted exams where dose is matched to clinical indication) or iterative reconstruction.
[2025-02-27] MEDS: ceFAZolin 2 GM/D5W50ml 50 ML IV ONE (12:13)
[2025-02-27] MEDS: SODIUM CHLORIDE 0.9% 2,000 ML IV ONE (12:18)
[2025-02-27 12:35] LABS: Hematocrit 36.7 % (36.0-46.0); Hemoglobin 12.1 g/dL (12.2-16.2); Mean Corpuscular Hemoglobin 30.0 pg (28.0-32.0); Mean Corpuscular Volume 91.1 fL (80.0-100.0); Nucleated Red Blood Cells % 0.2 %
[2025-02-27 13:09] LABS: Urine Protein, UAD 1+ (Negative)
[2025-02-27] MEDS ORDERED: DEXTROSE (50%) 50ML SYRG IV PRN (13:15)
--- NOTE | 2025-02-27 13:31 | DVHHPRES ---
History of Present Illness Resident Creating Document: SCAR FALL RESIDENT History of Present Illness 44-year-old female with past medical history of GERD, hypertension, kidney stones, chronic pancreatitis, peptic ulcer disease presented with complaints of abdominal pain radiating to back for five days. Patient mentioned that five days ago she started having abdominal pain which is sharp, radiating to back, associated with vomiting and nausea. Patient says she has been vomiting for last 5-6 days. She also mentioned associated melena which is on and off, black and coffee colored. She mentioned she also has chest pain in left side and radiating to left hypochondrium. She also mentioned associated shortness of breath which is now improved. Patient has been admitted previously in the hospital for pancreatitis and was transferred to [place] for biliary stent placement. Patient mentioned that one year ago her stent was removed. Patient also noticed that her blood pressure was elevated. Patient only takes clonidine which she mentioned she took every day but had vomited frequently for last 5-6 days. She denied any complaints of headache, dizziness, leg pain, fever, chills, palpitations. Past medical history GERD, hypertension, kidney stones, chronic pancreatitis, peptic ulcer disease Past surgical history CBD stent removal one year ago at [place] Allergic history Amlodipine, hydralazine, labetalol, nifedipine, penicillin Medication history [place] Clonidine Zofran Family history Nonsignificant to the above illness Social history Patient smokes four cigarettes every day since the age of 27 Quit alcohol two years ago Denied marijuana or any other drug intake Review of Systems Review of Systems As described in the HPI Allergies: Coded Allergies: Nifedipine (Verified Allergy, Severe, 07/02/24) Penicillins (Verified Allergy, Severe, anaphylactic, 10/05/23) Hydralazine (Verified Allergy, Intermediate, RN CONFIRMED CAN TOLERATE- IF ITCHING WILL TAKE BENADRYL, 04/15/23) Amlodipine (Verified Allergy, Unknown, 01/22/22) ITCHING Labetalol (Verified Adverse Reaction, Intermediate, ITCHINESS, 08/10/21) Medications Current Medications Medications Dose Ordered Sig/Yeison Route Start Time Stop Time Status Last Admin Dose Admin Morphine Sulfate 4 mg Q4HPRN PRN IV 02/27/25 13:15 Pantoprazole Sodium 40 mg DAILY IV 02/28/25 10:00 Ceftriaxone Sodium/Dextrose 50 ml @ 50 mls/hr DAILY IV 02/28/25 10:00 UNV Diagnostic Test (Pha) 1 strip Q6HR 02/27/25 18:00 Insulin Human Regular Q6HR SC 02/27/25 18:00 Dextrose 50 ml UD PRN IV 02/27/25 13:15 Metronidazole 100 ml @ 100 mls/hr Q8HR IV 02/27/25 14:00 Exam Vital Signs Vital Signs Date Time Temp Pulse Resp B/P (MAP) Pulse Ox O2 Delivery O2 Flow Rate FiO2 02/27/25 13:00 70 13 222/128 02/27/25 12:59 98 02/27/25 10:26 98.0 98.0 02/27/25 08:10 Room Air* 0 21 Exam Examination General Appearance: Alert, Oriented X3, Cooperative, No acute distress HEENT: EOMI Respiratory: Clear to auscultation, Normal air movement Cardiovascular: Regular rate, Normal S1, Normal S2 Abdominal: Rebound tenderness Extremities: No cyanosis, No edema, Normal pulses, No tenderness/swelling Skin: No rashes, No breakdown Neuro: Normal speech and tone Labs/Xrays Labs Test 02/27/25 12:38 02/27/25 12:14 02/27/25 09:05 Range/Units Urine Color Yellow Yellow Urine Clarity Clear Clear Urine pH 6.0 5.0-9.0 Urine Specific [place] > 1.035 H 1.001-1.035 Urine Protein 1+ H Negative Urine Ketones 1+ H Negative Urine Blood Negative Negative /uL Urine Nitrite Negative Negative Urine Bilirubin Negative Negative Urine Urobilinogen Normal Negative mg/dL Urine Leukocyte Esterase Negative Negative /uL Urine RBC 3 0 - 4 /hpf Urine Microscopic WBC 2 0-5 /HPF Urine Squamous Epithelial Cells Few <5 /hpf Urine Bacteria Few H None Seen /hpf Urine Glucose Normal Normal mg/dL White Blood Count 4.0 L 4.4-10.8 10^3/uL Red Blood Count 4.03 4.0-5.20 10^6/uL Hemoglobin 12.1 L 12.2-16.2 g/dL Hematocrit 36.7 36.0-46.0 % Mean Corpuscular Volume 91.1 80.0-100.0 fL Mean Corpuscular Hemoglobin 30.0 28.0-32.0 pg Mean Corpuscular Hemoglobin Concent 32.9 32.0-36.0 g/dL Red Cell Distribution Width 16.6 H 11.8-14.3 % Platelet Count 173 140-450 10^3/uL Mean Platelet Volume 7.7 6.9-10.8 fL Neutrophils (%) (Auto) 55.5 37.0-80.0 % Lymphocytes (%) (Auto) 38.3 10.0-50.0 % Monocytes (%) (Auto) 4.9 0.0-12.0 % Eosinophils (%) (Auto) 0.7 0.0-7.0 % Basophils (%) (Auto) 0.6 0.0-2.0 % Neutrophils # (Auto) 2.2 1.6-8.6 10 ^3/uL Lymphocytes # (Auto) 1.5 0.4-5.4 10 ^3/uL Monocytes # (Auto) 0.2 0-1.3 10 ^3/uL Eosinophils # (Auto) 0 0-0.8 10 ^3/uL Basophils # (Auto) 0 0-0.2 10 ^3/uL Nucleated Red Blood Cells 0.2 % Troponin I High Sensitivity 18 </=34 ng/L B-Type Natriuretic Peptide 72.52 0-100 pg/mL Sodium Level 135 L 136-145 mmol/L Potassium Level 4.1 3.5-5.1 mmol/L Chloride Level 103 98-107 mmol/L Carbon Dioxide Level 18 L 20-31 mmol/L Anion Gap 14 5-15 Blood Urea Nitrogen 10 9-23 mg/dL Creatinine 0.72 0.550-1.02 mg/dL Glomerular Filtration Rate Calc 105 >90 mL/min BUN/Creatinine Ratio 13.9 10.0-20.0 Serum Glucose 87 74-106 mg/dL Lactic Acid Level 1.2 0.4-2.0 mmol/L Calcium Level 8.9 8.7-10.4 mg/dL Total Bilirubin 0.8 0.2-1.0 mg/dL Aspartate Amino Transferase (AST) 56 H 13-40 U/L Alanine Aminotransferase (ALT) 16 7-40 U/L Alkaline Phosphatase 82 46-116 U/L Total Protein 6.5 5.7-8.2 g/dL Albumin 3.5 3.2-4.8 g/dL Lipase 20 12-53 U/L SEPSIS Sepsis Screen Date sepsis recognized/suspect: Feb 27, 2025 Time Sepsis recognized/suspect: 804 Recent Procedure: No On Antibiotic Therapy: No Respiratory Rate >20: No Heart Rate >90: No Temp<36 C (96.8 F) or >38.3 C: No SBP <90 or MAP <65 mmHG: No New Acute Mental Status Change: No Is the patient on CPAP, BIPAP,: No Physician Orders Chest Portable (02/27/25 08:17) Ct Ab Pel With Iv Con Only (02/27/25 08:17) Sodium Chloride 0.9% (02/27/25 11:45) Admit (02/27/25 13:02) Code Status (02/27/25 13:02) Venous Blood Gas (02/27/25 13:02) Drug Screen (02/27/25 13:02) Mrsa Screen (02/27/25 13:02) Oxygen By Nasal Cannula (02/27/25 13:02) Stat Ekg For Chest Pain (02/27/25 13:02) Notify Md Of Changes From Base (02/27/25 13:02) Retail Account Executive For 24 Hours (02/27/25 13:02) Emergency Dysrhythmia Protocol (02/27/25 13:02) Rhythm Strips Once Every Shift (02/27/25 13:02) Morphine Sulfate Injection (02/27/25 13:15) Pantoprazole (Protonix) (02/28/25 10:00) Magnesium (02/27/25 13:02) Stool Occult Blood (02/27/25 13:02) Stool Bacterial Culture (02/27/25 13:02) Stool Wbc (02/27/25 13:02) Clostridium Difficile Toxin (02/27/25 13:02) Lactic Acid W/ Reflex Order (02/27/25 13:02) Blood Culture (02/27/25 13:02) Ceftriaxone 2gm/50ml (Rocephin 2gm/50ml) (02/27/25 13:15) Ceftriaxone 2gm/50ml (Rocephin 2gm/50ml) (02/28/25 10:00) Fecal Fat Qualitative (02/27/25 13:02) Glucose Blood (Accu-Chek Comfort Curve T (02/27/25 18:00) Insulin R (Human) (Insulin R) (02/27/25 18:00) Dextrose 50% Syringe (02/27/25 13:15) Thyroid Stimulating Hormone (02/27/25 13:02) Comprehensive Metabolic Panel (02/28/25 04:00) Complete Blood Count (02/28/25 04:00) Magnesium (02/28/25 04:00) Hepatitis B Surface Antigen (02/27/25 13:02) Hepatitis C Antibody (02/27/25 13:02) Echo 2d Mode Cardiac Dop (02/27/25 13:02) Renin Activity And Aldosterone (02/27/25 13:02) Urine Protein/Creatinine Ratio (02/27/25 ) Metronidazole 500mg/100ml (Flagyl 500mg/ (02/27/25 14:00) Vital Signs Date Time Temp Pulse Resp B/P (MAP) Pulse Ox O2 Delivery O2 Flow Rate FiO2 02/27/25 13:00 70 13 222/128 02/27/25 12:59 83 17 222/128 (159) 98 02/27/25 12:22 69 13 182/101 02/27/25 10:42 76 02/27/25 10:26 98.0 68 16 182/110 (134) 98 98.0 02/27/25 10:20 78 12 182/110 02/27/25 09:48 71 12 197/121 02/27/25 09:30 79 16 197/121 (146) 96 02/27/25 09:03 78 02/27/25 08:48 70 02/27/25 08:10 82 16 100 Room Air* 0 21 02/27/25 08:00 97.9 82 16 224/144 (170) 100 97.9 02/27/25 07:48 78 02/27/25 07:37 98.2 97 18 208/143 100 98.2 Laboratory Tests Test 02/27/25 09:05 02/27/25 12:14 Lactic Acid Level 1.2 mmol/L (0.4-2.0) White Blood Count 4.0 10^3/uL (4.4-10.8) L Medications Medications Dose Ordered Sig/Yeison Route Start Time Stop Time Status Last Admin Dose Admin Cefazolin Sodium/ Dextrose 50 ml @ 50 mls/hr ONCE ONCE IV 02/27/25 11:45 02/27/25 12:44 DC 02/27/25 12:13 50 MLS/HR Diphenhydramine HCl 25 mg ONCE ONCE IV 02/27/25 10:00 02/27/25 10:01 DC 02/27/25 10:03 25 MG Metronidazole 100 ml @ 100 mls/hr ONCE ONCE IV 02/27/25 11:45 02/27/25 12:44 DC 02/27/25 12:13 100 MLS/HR Morphine Sulfate 4 mg ONCE ONCE IV 02/27/25 09:45 02/27/25 09:46 DC 02/27/25 09:48 4 MG Morphine Sulfate 4 mg ONCE ONCE IV 02/27/25 11:45 02/27/25 12:03 DC 02/27/25 12:22 4 MG Ondansetron HCl 4 mg ONCE ONCE IV 02/27/25 09:45 02/27/25 09:46 DC 02/27/25 09:48 4 MG Ondansetron HCl 4 mg ONCE ONCE IV 02/27/25 11:45 02/27/25 12:03 DC 02/27/25 12:19 4 MG Pantoprazole Sodium 40 mg ONCE ONCE IV 02/27/25 09:45 02/27/25 09:46 DC 02/27/25 09:48 40 MG Sodium Chloride 2,000 ml @ 1,000 mls/hr Q2H ONCE IV 02/27/25 11:45 02/27/25 13:44 02/27/25 12:18 1,000 MLS/HR Assessment/Plan Assessment/Plan Assessment/plan # hypertensive crisis Chest x-ray EKG Tropes BNP Echo IV enalaprilat Resume home meds Urine studies including urine protein to creatinine ratio Renin angiotensin levels # prolonged QTC on geochemist on telemetry Ordered magnesium level Avoid Zofran and other QTC prolonging agent # intractable abdominal pain # chest pain likely referred pain from epigastric pain # inflammatory/infectious colitis # chronic pancreatitis # upper GI bleed # history of peptic ulcer disease # history of biliary stent placement # history of cholecystectomy # GERD NPO except medication next IV Protonix CT abdomen pelvis GI consult IV ceftriaxone plus Flagyl Stool studies IV fluids given in the ER # non-anion gap metabolic acidosis likely due to GI losses -monitor with VBG # DVT prophylaxis Lovenox On hold because of GI bleed Code status discussed with the patient for greater than 21 minutes, full code Case discussion with Dr. Okeefe Plan discussed with: Patient, Other My Orders Orders - SCAR FALL RESIDENT Procedure Category Date Status Time Admit ADMIT 02/27/25 Transmitted 13:02 Code Status CODE 02/27/25 Transmitted 13:02 Venous Blood Gas RT 02/27/25 Logged 13:02 Drug Screen LAB 02/27/25 Logged 13:02 Mrsa Screen EYAL 02/27/25 Logged 13:02 Oxygen By Nasal RT 02/27/25 Transmitted Cannula 13:02 Stat Ekg For Chest JAYJAY 02/27/25 In Process Pain 13:02 Notify Md Of Changes JAYJAY 02/27/25 In Process From Base 13:02 Retail Account Executive For JAYJAY 02/27/25 In Process 24 Hours 13:02 Emergency Dysrhythmia JAYJAY 02/27/25 In Process Protocol 13:02 Rhythm Strips Once [facility] 02/27/25 In Process Every Shift 13:02 Morphine Sulfate PHA 02/27/25 In Process Injection 13:15 Pantoprazole PHA 02/28/25 In Process (Protonix) 10:00 Magnesium LAB 02/27/25 Logged 13:02 Stool Occult Blood LAB 02/27/25 Logged 13:02 Stool Bacterial EYAL 02/27/25 Logged Culture 13:02 Stool Wbc LAB 02/27/25 Logged 13:02 Clostridium Difficile EYAL 02/27/25 Logged Toxin 13:02 Lactic Acid W/ Reflex LAB 02/27/25 Logged Order 13:02 Blood Culture EYAL 02/27/25 Logged 13:02 Ceftriaxone 2gm/50ml PHA 02/27/25 Logged (Rocephin 2gm/50ml) 13:15 Ceftriaxone 2gm/50ml PHA 02/28/25 Logged (Rocephin 2gm/50ml) 10:00 Fecal Fat Qualitative LAB 02/27/25 Logged 13:02 Glucose Blood PHA 02/27/25 In Process (Accu-Chek Comfort 18:00 Insulin R (Human) PHA 02/27/25 In Process (Insulin R) 18:00 Dextrose 50% Syringe PHA 02/27/25 In Process 13:15 Thyroid Stimulating LAB 02/27/25 Logged Hormone 13:02 Comprehensive LAB 02/28/25 Verified Metabolic Panel 04:00 Complete Blood Count LAB 02/28/25 Verified 04:00 Magnesium LAB 02/28/25 Verified 04:00 Hepatitis B Surface LAB 02/27/25 Logged Antigen 13:02 Hepatitis C Antibody LAB 02/27/25 Logged 13:02 Echo 2d Mode Cardiac US 02/27/25 Logged DOP 13:02 Renin Activity And LAB 02/27/25 Logged Aldosterone 13:02 Urine LAB 02/27/25 Logged Protein/Creatinine Metronidazole PHA 02/27/25 In Process 500mg/100ml (Flagyl 14:00 Visit Coding STANDARD RES Billing Provider: LIBAN OKEEFE MD Date of Service if different f: Feb 27, 2025 Common Visit Codes: [id number] INP/OBS CARE (HIGH) Secondary Visit Codes: [id number] CARE PLAN 30 MINUTES SCAR FALL RESIDENT Feb 27, 2025 13:31
[2025-02-27] MEDS: ENALAPRILAT 1.25 MG/ML-1ML VIAL IV ONE (13:34)
[2025-02-27 14:03] LABS: Triglycerides 116 mg/dL (< 150)
[2025-02-27 14:05] LABS: Cholesterol 175 mg/dL (< 200)
[2025-02-27 14:09] LABS: HDL Cholesterol 92 mg/dL (40-59)
[2025-02-27] MEDS: MORPHINE SULFATE 4 MG/ML SYR/VIAL IV PRN (14:55)
[2025-02-27] MEDS: LISINOPRIL 5 MG TAB PO ONE (15:52)
[2025-02-27] MEDS: HYDROmorphone HCL 2 MG/ML VL/or syr IV PRN (17:46)
[2025-02-27] MEDS: InsuLIN REG 1unit/0.01ml Soln (100units/ml) SC SCH (18:00)
[2025-02-27] MEDS: ACCU-CHEK COMFORT CURVE STRIP VI SCH (18:03)
--- NOTE | 2025-02-27 18:09 | DVHSR ---
APPROVED REPORT EXAM: Two-dimensional and M-mode echocardiogram with Doppler and color Doppler. Blood Pressure: 222/128 mmHg INDICATION Hypertensive Crisis RISK FACTORS Height: 5' 3", Weight: 78 DIMENSIONS LVDd 3.3 (3.8-5.7cm) LA (2D) 2.6 (1.9-4.0cm) Aortic Root 3.0 (2.0-3.7cm) LVDs 2.3 (2.5-4.0cm) LA (MM) (1.9-4.0cm) Aortic Cusp Exc 1.8 (1.5-2.0cm) EF (%) 60.0 (55-70%) Rt. Atrium 3.1 (1.9-4.0cm) Asc. Aorta cm IVSd 1.2 (0.7-1.1cm) RV (D) (1.8-2.4cm) PWd 1.2 (0.7-1.1cm) Mitral Valve Mitral Mitral Stenosis E wave 0.50m/s MV Mean GR. mmHg A wave 0.70m/s MV Peak GR. mmHg E/A ratio 0.7 2D MVA cm2 Aortic Valve Aortic Valve Aortic Stenosis V1 0.90m/s AO Mean GR. 5mmHg V2 1.40m/s AO Peak GR. 8mmHg LVOT Diameter 2.1 (1.8-2.4cm) Doppler CHELSEA 2.23cm2 Pulmonic Valve V2 0.50m/s Conclusion MILD LVH AND MILD LV DIASTOLIC DYSFUNCTION LV EF IS 65% NORMAL VALVES NORMAL RV FUNCTION NO EFFUSION
[2025-02-27 19:19] VITALS: PULSE 68; RESP 16; O2SAT 100
[2025-02-27] MEDS: ceFAZolin 2 GM/D5W50ml 50 ML IV SCH (20:27)
[2025-02-27 21:10] LABS: Protein, Urine 25.1 mg/dL (1-14)
[2025-02-27 21:14] LABS: Amphetamine Screen, Urine Neg (NEGATIVE); Barbiturate Scree,Urine Neg (NEGATIVE); Benzodiazephine Screen, Urine Neg (NEGATIVE); Cannabinoid Screen, Urine Neg (NEGATIVE); Cocaine Screen, Urine Neg (NEGATIVE); Opiate Scree,Urine Pos (NEGATIVE); Phencyclidine Screen, Urine Neg (NEGATIVE)
[2025-02-27 21:55] VITALS: BP 111/74; PULSE 64; RESP 16; TEMP 97.2; O2SAT 97
[2025-02-27] MEDS ORDERED: diphenhydrAMINE HCL 50 MG/1 ML VL IM ONE (22:00)
[2025-02-28] VITALS (8 sets, daily range): BP systolic 105–182; BP diastolic 72–132; PULSE 53–80; RESP 17–18; TEMP 97.4–99.6; O2SAT 97–100
[2025-02-28] MEDS: diphenhydrAMINE HCL 50 MG/1 ML VL IV ONE (04:36)
[2025-02-28] MEDS: LISINOPRIL 5 MG TAB PO SCH (09:32)
[2025-02-28] MEDS: PANTOPRAZOLE 40 MG/10 ML VIAL INJ IV SCH (09:33)
[2025-02-28 11:27] LABS: Hematocrit 34.3 % (36.0-46.0); Hemoglobin 10.9 g/dL (12.2-16.2); Mean Corpuscular Hemoglobin 29.7 pg (28.0-32.0); Mean Corpuscular Volume 93.7 fL (80.0-100.0); Nucleated Red Blood Cells % 0.3 %
[2025-02-28 11:52] LABS: Alanine Aminotransferase 11 U/L (7-40); Alkaline Phosphatase 61 U/L (46-116); Anion Gap 9 (5-15); Magnesium 1.6 mg/dL (1.6-2.6); Potassium 3.7 mmol/L (3.5-5.1); Sodium 139 mmol/L (136-145)
[2025-02-28 11:57] LABS: Albumin 2.8 g/dL (3.2-4.8); BUN/Creatinine Ratio 5.6 (10.0-20.0); Bilirubin, Total 0.3 mg/dL (0.2-1.0); Blood Urea Nitrogen < 5 mg/dL (9-23); Calcium 8.2 mg/dL (8.7-10.4); Carbon Dioxide 19 mmol/L (20-31); Chloride 111 mmol/L (98-107); Glucose 126 mg/dL (74-106); Total Protein 5.5 g/dL (5.7-8.2)
[2025-02-28] MEDS: diphenhydrAMINE HCL 50 MG/1 ML VL IV PRN (12:50)
[2025-02-28 12:55] LABS: Hepatitis B Surface Antigen Negative (Negative)
[2025-02-28 13:20] LABS: Hepatitis C Antibody Negative (Negative)
--- NOTE | 2025-02-28 14:26 | DVHINCON2 ---
GI Consult Consult Note GI consult note Date of Consultation: 02/28/2025 Chief Complaint: Melena Referring Physician: Dr. Granados H&P: 44-year-old female with past medical history of GERD, hypertension, kidney stones, chronic pancreatitis, PUD presented with complains of abdominal pain radiating to her back for the past one-week. Mostly pain in her left side according to patient and has a feeling of weakness Also has nausea and vomiting. No hematemesis. Had black stool about two days ago. But since then patient has had a bowel movement which has been soft and pale in color Patient has been seen by Many times and has had multiple EGDs and a colonoscopy in past also Past Medical History: GERD, hypertension, kidney stones, chronic pancreatitis, peptic ulcer disease Past Surgical History: CBD stent removal one year ago at [place] Social History: NO smoking, drinking ETOH and use of illegal drugs. Family History: Noncontributory Review of Systems: Constitutional: no fever, chill, weight loss HEENT: no eye pain, no hearing loss, no oral lesion, no scleral icterus Heart: no chest pain, no chest pressure Lung: no cough, no dyspnea with exertion Abdomen: see HPI Physical exam: General: NAD, AAOX3 Chest: lung juarez clear to auscultation Heart: RRR, no murmur Abdomen: non-distended, + left-sided tenderness to palpation, +BS Labs: Labs Test 02/28/25 12:29 02/28/25 10:56 02/27/25 14:00 02/27/25 13:39 Range/Units POC Glucose 167 H 70-106 mg/dl White Blood Count 4.2 L 4.4-10.8 10^3/uL Red Blood Count 3.67 L 4.0-5.20 10^6/uL Hemoglobin 10.9 L 12.2-16.2 g/dL Hematocrit 34.3 L 36.0-46.0 % Mean Corpuscular Volume 93.7 80.0-100.0 fL Mean Corpuscular Hemoglobin 29.7 28.0-32.0 pg Mean Corpuscular Hemoglobin Concent 31.7 L 32.0-36.0 g/dL Red Cell Distribution Width 17.0 H 11.8-14.3 % Platelet Count 140 140-450 10^3/uL Mean Platelet Volume 7.9 6.9-10.8 fL Neutrophils (%) (Auto) 70.3 37.0-80.0 % Lymphocytes (%) (Auto) 21.9 10.0-50.0 % Monocytes (%) (Auto) 6.4 0.0-12.0 % Eosinophils (%) (Auto) 1.0 0.0-7.0 % Basophils (%) (Auto) 0.4 0.0-2.0 % Neutrophils # (Auto) 2.9 1.6-8.6 10 ^3/uL Lymphocytes # (Auto) 0.9 0.4-5.4 10 ^3/uL Monocytes # (Auto) 0.3 0-1.3 10 ^3/uL Eosinophils # (Auto) 0 0-0.8 10 ^3/uL Basophils # (Auto) 0 0-0.2 10 ^3/uL Nucleated Red Blood Cells 0.3 % Sodium Level 139 136-145 mmol/L Potassium Level 3.7 3.5-5.1 mmol/L Chloride Level 111 H 98-107 mmol/L Carbon Dioxide Level 19 L 20-31 mmol/L Anion Gap 9 5-15 Blood Urea Nitrogen < 5 L 9-23 mg/dL Creatinine 0.89 0.550-1.02 mg/dL Glomerular Filtration Rate Calc 81 >90 mL/min BUN/Creatinine Ratio 5.6 L 10.0-20.0 Serum Glucose 126 H 74-106 mg/dL Calcium Level 8.2 L 8.7-10.4 mg/dL Magnesium Level 1.6 1.6-2.6 mg/dL Total Bilirubin 0.3 0.2-1.0 mg/dL Aspartate Amino Transferase (AST) 32 13-40 U/L Alanine Aminotransferase (ALT) 11 7-40 U/L Alkaline Phosphatase 61 46-116 U/L Total Protein 5.5 L 5.7-8.2 g/dL Albumin 2.8 L 3.2-4.8 g/dL Blood Gas Specimen Type Venous Blood Gas Sample Site Vbg - n/a Blood Gas Patient Temperature 37.0 Arterial Blood Date Drawn [id number] Abram Test N/a Venous Blood pH 7.284 L 7.320-7.430 Venous Blood pCO2 at Patient Temp 30.5 L 38.0-54.0 mmHg Venous Blood pO2 at Patient Temp < 36.5 23.0-48.0 mmHg Venous Blood HCO3 14.1 L 22.0-29.0 mmol/L Venous Blood Base Excess -11.1 L -2.0-3.0 mmol/L Blood Gas Modality Room air FiO2 % 21.0 Specimen Drawn By preet felix rn Lactic Acid Level 1.1 0.4-2.0 mmol/L Test 02/27/25 12:38 02/27/25 12:14 02/27/25 09:05 Range/Units Urine Color Yellow Yellow Urine Clarity Clear Clear Urine pH 6.0 5.0-9.0 Urine Specific [place] > 1.050 H 1.001-1.035 Urine Protein 1+ H Negative Urine Ketones 1+ H Negative Urine Blood Negative Negative /uL Urine Nitrite Negative Negative Urine Bilirubin Negative Negative Urine Urobilinogen Normal Negative mg/dL Urine Leukocyte Esterase Negative Negative /uL Urine RBC 3 0 - 4 /hpf Urine Microscopic WBC 2 0-5 /HPF Urine Squamous Epithelial Cells Few <5 /hpf Urine Bacteria Few H None Seen /hpf Urine Creatinine 82.16 30.0-125.0 mg/dL Urine Protein/Creatinine Ratio 0.31 Urine Glucose Normal Normal mg/dL Urine Total Protein 25.1 H 1-14 mg/dL Urine Opiates Screen Pos NEGATIVE Urine Fentanyl Screen Neg NEGATIVE Urine Barbiturates Screen Neg NEGATIVE Urine Phencyclidine Screen Neg NEGATIVE Urine Amphetamines Screen Neg NEGATIVE Urine Benzodiazepines Screen Neg NEGATIVE Urine Cocaine Screen Neg NEGATIVE Urine Cannabinoids Screen Neg NEGATIVE Hemoglobin A1c 5.4 <5.7 % A1C Troponin I High Sensitivity 18 </=34 ng/L B-Type Natriuretic Peptide 72.52 0-100 pg/mL Triglycerides Level 116 < 150 mg/dL Cholesterol Level 175 < 200 mg/dL LDL Cholesterol 64 < 100 mg/dL HDL Cholesterol 92 H 40-59 mg/dL Thyroid Stimulating Hormone (TSH) 2.65 0.55-4.78 uIU/mL Lipase 20 12-53 U/L Hepatitis B Surface Antigen Negative Negative Hepatitis C Antibody Negative Negative Microbiology Date/Time Source Procedure Growth Status 02/27/25 13:39 Blood Blood Culture - Preliminary NO GROWTH AFTER 24 HOURS OF INCUBATION. Resulted Imaging: CT abdomen pelvis IMPRESSION: 1. Concentric wall thickening throughout the descending colon is suggestive of infectious/inflammatory colitis. 2. Coarse calcifications are seen throughout the pancreatic head, likely sequelae of chronic pancreatitis. 3. Hepatic steatosis. Assessment: Abdominal pain Possible GI bleed Abdominal CT findings of possible infectious/inflammatory colitis History of chronic pancreatitis Hepatic steatosis History of gastritis Plan: Discussed with Dr. Ybarra Protonix and Carafate Pain management per hospitalist Diet as tolerated We will continue to monitor patient Plan discussed with patient and RN Thank you for this consult Date of Service: Feb 28, 2025 Billing Provider: ANNELIESE ACOSTA Common Visit Codes: CONSULT ONLY Consultation Codes: [id number] CONSULT <60MIN ANNELIESE ACOSTA Feb 28, 2025 14:26
--- NOTE | 2025-02-28 14:41 | DVHPN2 ---
Subjective Having some belly pain and itching Reviewed: H&P Changes from previous H/P or p: No Changes Objective Vitals Vital Signs Date Time Temp Pulse Resp B/P (MAP) Pulse Ox O2 Delivery O2 Flow Rate FiO2 02/28/25 13:03 182/114 02/28/25 11:13 70 17 02/28/25 09:00 98.5 99 98.5 02/28/25 08:00 Room Air* 0 21 Intake/Output Intake and Output 02/28/25 07:00 Intake Total 1350 ml Balance 1350 ml Intake IV Total 1350 ml # Voids 2 General Appearance: Alert, Oriented X3 HEENT: Atraumatic Cardiovascular: Regular rate, Normal S1, Normal S2 Abdomen: Normal bowel sounds Medications Current Medications Medications Dose Ordered Sig/Yeison Route Start Time Stop Time Status Last Admin Dose Admin Pantoprazole Sodium 40 mg DAILY IV 02/28/25 10:00 02/28/25 09:33 40 MG Diagnostic Test (Pha) 1 strip Q6HR 02/27/25 18:00 02/28/25 12:00 1 STRIP Insulin Human Regular Q6HR SC 02/27/25 18:00 Dextrose 50 ml UD PRN IV 02/27/25 13:15 Metronidazole 100 ml @ 100 mls/hr Q8HR IV 02/27/25 14:00 02/28/25 14:16 100 MLS/HR Cefazolin Sodium/ Dextrose 50 ml @ 50 mls/hr Q8H IV 02/27/25 20:00 02/28/25 12:50 50 MLS/HR Hydromorphone HCl 0.25 mg Q4HPRN PRN IV 02/27/25 15:45 02/28/25 10:43 0.25 MG Lisinopril 5 mg DAILY PO 02/28/25 10:00 02/28/25 13:03 5 MG Diphenhydramine HCl 25 mg Q6HP PRN IV 02/28/25 12:45 02/28/25 12:50 25 MG Laboratory Results Laboratory Tests 02/28/25 10:56 Chemistry Test 02/28/25 10:56 Albumin 2.8 g/dL (3.2-4.8) L Calcium Level 8.2 mg/dL (8.7-10.4) L Magnesium Level 1.6 mg/dL (1.6-2.6) Total Protein 5.5 g/dL (5.7-8.2) L LFT Test 02/28/25 10:56 Alanine Aminotransferase (ALT) 11 U/L (7-40) Alkaline Phosphatase 61 U/L (46-116) Aspartate Amino Transferase (AST) 32 U/L (13-40) Total Bilirubin 0.3 mg/dL (0.2-1.0) Urinalysis Test 02/27/25 12:38 Urine Color Yellow (Yellow) Urine Clarity Clear (Clear) Urine pH 6.0 (5.0-9.0) Urine Specific [place] > 1.050 (1.001-1.035) Urine Protein 1+ (Negative) H Urine Ketones 1+ (Negative) H Urine Blood Negative /uL (Negative) Urine Nitrite Negative (Negative) Urine Bilirubin Negative (Negative) Urine Urobilinogen Normal mg/dL (Negative) Urine Leukocyte Esterase Negative /uL (Negative) Urine RBC 3 /hpf (0 - 4) Urine Microscopic WBC 2 /HPF (0-5) Urine Squamous Epithelial Cells Few /hpf (<5) Urine Bacteria Few /hpf (None Seen) H Urine Creatinine 82.16 mg/dL (30.0-125.0) Urine Protein/Creatinine Ratio 0.31 Urine Glucose Normal mg/dL (Normal) Urine Total Protein 25.1 mg/dL (1-14) H Microbiology Microbiology Date/Time Source Procedure Growth Status 02/27/25 13:39 Blood Blood Culture - Preliminary NO GROWTH AFTER 24 HOURS OF INCUBATION. 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 Ordered magnesium level Avoid Zofran and other QTC prolonging agent # intractable abdominal pain # chest pain likely referred pain from epigastric pain # inflammatory/infectious colitis # chronic pancreatitis # upper GI bleed # history of peptic ulcer disease # history of biliary stent placement # history of cholecystectomy # GERD GI consulted Carafate and PPI Monitor H and H Plan discussed with: Patient My Orders Orders - DEYSI MAYORGA MD Procedure Category Date Status Time Diphenhydramine PHA 02/28/25 In Process Injection (Benadryl 12:45 Date of Service: Feb 28, 2025 Billing Provider: DEYSI MAYORGA MD Common Visit Codes: [id number] INP/OBS CARE(HIGH) DESYI MAYORGA MD Feb 28, 2025 14:41
[2025-03-01] VITALS (9 sets, daily range): BP systolic 143–181; BP diastolic 97–109; PULSE 63–76; RESP 17–18; TEMP 97.1–98.9; O2SAT 98–100
--- NOTE | 2025-03-01 09:07 | DVHPN2 ---
Subjective Having some belly pain and itching Reviewed: H&P Changes from previous H/P or p: No Changes Objective Vitals Vital Signs Date Time Temp Pulse Resp B/P (MAP) Pulse Ox O2 Delivery O2 Flow Rate FiO2 03/01/25 08:23 75 18 172/109 03/01/25 05:00 97.3 100 97.3 02/28/25 20:00 Room Air* 0 21 Intake/Output Intake and Output 03/01/25 07:00 Intake Total 1740 ml Balance 1740 ml Intake Oral 1490 ml IV Total 250 ml # Voids 4 # Bowel Movements 1 General Appearance: Alert, Oriented X3 HEENT: Atraumatic Cardiovascular: Regular rate, Normal S1, Normal S2 Abdomen: Normal bowel sounds Medications Current Medications Medications Dose Ordered Sig/Yeison Route Start Time Stop Time Status Last Admin Dose Admin Pantoprazole Sodium 40 mg DAILY IV 02/28/25 10:00 03/01/25 08:21 40 MG Diagnostic Test (Pha) 1 strip Q6HR 02/27/25 18:00 03/01/25 06:21 1 STRIP Insulin Human Regular Q6HR SC 02/27/25 18:00 Dextrose 50 ml UD PRN IV 02/27/25 13:15 Metronidazole 100 ml @ 100 mls/hr Q8HR IV 02/27/25 14:00 02/28/25 21:14 100 MLS/HR Cefazolin Sodium/ Dextrose 50 ml @ 50 mls/hr Q8H IV 02/27/25 20:00 02/28/25 20:04 50 MLS/HR Hydromorphone HCl 0.25 mg Q4HPRN PRN IV 02/27/25 15:45 03/01/25 08:23 0.25 MG Lisinopril 5 mg DAILY PO 02/28/25 10:00 03/01/25 08:22 5 MG Diphenhydramine HCl 25 mg Q6HP PRN IV 02/28/25 12:45 03/01/25 08:23 25 MG Amlodipine Besylate 10 mg DAILY PO 02/28/25 14:45 UNV Laboratory Results Laboratory Tests 02/28/25 10:56 Chemistry Test 02/28/25 10:56 Albumin 2.8 g/dL (3.2-4.8) L Calcium Level 8.2 mg/dL (8.7-10.4) L Magnesium Level 1.6 mg/dL (1.6-2.6) Total Protein 5.5 g/dL (5.7-8.2) L LFT Test 02/28/25 10:56 Alanine Aminotransferase (ALT) 11 U/L (7-40) Alkaline Phosphatase 61 U/L (46-116) Aspartate Amino Transferase (AST) 32 U/L (13-40) Total Bilirubin 0.3 mg/dL (0.2-1.0) Urinalysis Test 02/27/25 12:38 Urine Color Yellow (Yellow) Urine Clarity Clear (Clear) Urine pH 6.0 (5.0-9.0) Urine Specific [place] > 1.050 (1.001-1.035) Urine Protein 1+ (Negative) H Urine Ketones 1+ (Negative) H Urine Blood Negative /uL (Negative) Urine Nitrite Negative (Negative) Urine Bilirubin Negative (Negative) Urine Urobilinogen Normal mg/dL (Negative) Urine Leukocyte Esterase Negative /uL (Negative) Urine RBC 3 /hpf (0 - 4) Urine Microscopic WBC 2 /HPF (0-5) Urine Squamous Epithelial Cells Few /hpf (<5) Urine Bacteria Few /hpf (None Seen) H Urine Creatinine 82.16 mg/dL (30.0-125.0) Urine Protein/Creatinine Ratio 0.31 Urine Glucose Normal mg/dL (Normal) Urine Total Protein 25.1 mg/dL (1-14) H Microbiology Microbiology Date/Time Source Procedure Growth Status 02/27/25 19:04 Nose MRSA Screen - Final Complete 02/27/25 13:39 Blood Blood Culture - Preliminary NO GROWTH AFTER 24 HOURS OF INCUBATION. Resulted Assessment/Plan Assessment/Plan # hypertensive crisis BP still in the 170s systolic increase lisinopril today # prolonged QTC on procurement specialist on telemetry Ordered magnesium level Avoid Zofran and other QTC prolonging agent # intractable abdominal pain # chest pain likely referred pain from epigastric pain # inflammatory/infectious colitis # chronic pancreatitis # upper GI bleed # history of peptic ulcer disease # history of biliary stent placement # history of cholecystectomy # GERD GI consulted Carafate and PPI Monitor H and H Dispo: Still having pain and melena, pending improvement Plan discussed with: Patient My Orders Orders - DEYSI MAYORGA MD Procedure Category Date Status Time Diphenhydramine PHA 02/28/25 In Process Injection (Benadryl 12:45 Complete Blood Count LAB 03/01/25 Verified 09:04 Basic Metabolic Panel LAB 03/01/25 Verified 09:04 Complete Blood Count LAB 03/02/25 Verified 05:00 Complete Blood Count LAB 03/03/25 Verified 05:00 Date of Service: Mar 01, 2025 Billing Provider: DEYSI MAYORGA MD Common Visit Codes: [id number] INP/OBS CARE(HIGH) DEYSI MAYORGA MD Mar 01, 2025 09:07
[2025-03-01 11:14] LABS: Hematocrit 32.3 % (36.0-46.0); Hemoglobin 10.3 g/dL (12.2-16.2); Mean Corpuscular Hemoglobin 29.9 pg (28.0-32.0); Mean Corpuscular Volume 93.7 fL (80.0-100.0); Nucleated Red Blood Cells % 0.3 %
[2025-03-01 11:15] LABS: Potassium 3.8 mmol/L (3.5-5.1); Sodium 140 mmol/L (136-145)
[2025-03-01 11:16] LABS: Anion Gap 10 (5-15); Carbon Dioxide 22 mmol/L (20-31)
[2025-03-01 11:17] LABS: Calcium 8.0 mg/dL (8.7-10.4); Chloride 108 mmol/L (98-107)
[2025-03-01 11:21] LABS: BUN/Creatinine Ratio 6.8 (10.0-20.0)
[2025-03-01 11:22] LABS: Blood Urea Nitrogen 6 mg/dL (9-23); Glucose 169 mg/dL (74-106)
[2025-03-01] MEDS: LISINOPRIL 5 MG TAB PO SCH (12:01)
[2025-03-01] MEDS: HYDROcodone-ACET 10/325MG TAB PO PRN (12:03)
--- NOTE | 2025-03-01 15:11 | DVHPN2 ---
Progress Note - Dictate Date Seen: Mar 01, 2025 Medical Necessity Reason Pt with a Central, PICC or Fol: No Subjective No new complaints Patient is being noncompliant with medications She is going out to smoke Patient is seeking narcotic pain medications Patient has a chronic pain syndrome Patient has history of hypertensive crisis and uncontrolled hypertension I have reviewed Ms. Petrona Hector's records from our local multiple hospitals over the last 2 years where I have involved been involved in her care I did not have access to records from [place] and other hospitals down [facility] or any records prior to 2018 I do know that in the past several years she has also had multiple procedures done by Dr. Lancaster and myself but the records of these are not available EGD by Dr. Montoya March 26, [address] Kulwant Ruiz on August 11, [address] Kulwant Ruiz on June 05, [address] Ruiz on 06/27/[address] Ruiz on 03/04/2019 [facility] E[facility] Dr[facility] Ruiz June [address] Garcia October [address] Jocelyn Montoya January 07, [address] Kulwant Ruiz on January 15, 20[facility] E[facility] Dr[address] Jocelyn Montoya November [address] Emmett Walton December [address] Michael Okeefe January [address] Michael Okeefe on August 31, 2022 ( LAST MONTH) EGD findings have ranged from a normal exam to mild gastritis and mild gastroparesis with no active bleeding Colonoscopy findings have shown mild diverticulosis; 1+ internal and external hemorrhoids and on 1 procedure on January 07, 2022 I removed a small polyp from her colon Patient had a lap naye done in January 2019 vital signs Vital Sign Date Time Temp Pulse Resp B/P (MAP) Pulse Ox O2 Delivery O2 Flow Rate FiO2 03/01/25 13:24 65 18 163/96 03/01/25 13:00 97.1 100 97.1 03/01/25 08:00 Room Air* 0 21 Total Intake and Output 02/28/25 02/28/25 03/01/25 15:00 23:00 07:00 Intake Total 100 ml 950 ml 690 ml Balance 100 ml 950 ml 690 ml medications Current Medications Medications Dose Ordered Sig/Yeison Route Start Time Stop Time Status Last Admin Dose Admin Pantoprazole Sodium 40 mg DAILY IV 02/28/25 10:00 03/01/25 08:21 40 MG Diagnostic Test (Pha) 1 strip Q6HR 02/27/25 18:00 03/01/25 11:53 1 STRIP Insulin Human Regular Q6HR SC 02/27/25 18:00 Dextrose 50 ml UD PRN IV 02/27/25 13:15 Metronidazole 100 ml @ 100 mls/hr Q8HR IV 02/27/25 14:00 03/01/25 13:22 100 MLS/HR Cefazolin Sodium/ Dextrose 50 ml @ 50 mls/hr Q8H IV 02/27/25 20:00 03/01/25 12:02 50 MLS/HR Hydromorphone HCl 0.25 mg Q4HPRN PRN IV 02/27/25 15:45 03/01/25 13:24 0.25 MG Diphenhydramine HCl 25 mg Q6HP PRN IV 02/28/25 12:45 03/01/25 14:53 25 MG Amlodipine Besylate 10 mg DAILY PO 02/28/25 14:45 UNV Lisinopril 10 mg DAILY PO 03/01/25 09:15 03/01/25 12:05 10 MG Clonidine HCl 0.2 mg BID PO 03/01/25 22:00 Acetaminophen/ Hydrocodone Bitart 1 tab Q4HP PRN PO 03/01/25 11:15 03/01/25 12:03 1 TAB objective General: NAD, AAOX3 Chest: lung juarez clear to auscultation Heart: RRR, no murmur Abdomen: non-distended, soft mild diffuse tenderness Extremities without clubbing cyanosis or laboratory and microbiology Laboratory Tests 03/01/25 10:46 Test 03/01/25 10:46 Range/Units Serum Glucose 169 H 74-106 mg/dL CT SCAN ABD PELVIS IMPRESSION: 1. Concentric wall thickening throughout the descending colon is suggestive of infectious/inflammatory colitis. 2. Coarse calcifications are seen throughout the pancreatic head, likely sequelae of chronic pancreatitis. 3. Hepatic steatosis. Problems(with codes): (1) Abnormal finding on GI tract imaging (2) Accelerated hypertension (3) Chronic pancreatitis (4) Abdominal pain Prognosis PLAN Protonix and Carafate Pain management per hospitalist Diet as tolerated We will continue to monitor patient Plan discussed with patient and RN Conservative management from GI point of view Patient can follow up in my office as an outpatient for elective colonoscopy Plan discussed with: Patient, Other (Faye Arzate) HORTENSIA MONTOYA MD Mar 01, 2025 15:11
[2025-03-02 01:00] VITALS: BP 162/100; PULSE 74; RESP 17; TEMP 98.2; O2SAT 94
[2025-03-02 05:00] VITALS: BP 142/93; PULSE 70; RESP 17; TEMP 98.1; O2SAT 97
[2025-03-02 05:59] LABS: Hematocrit 32.0 % (36.0-46.0); Hemoglobin 10.1 g/dL (12.2-16.2); Mean Corpuscular Hemoglobin 29.8 pg (28.0-32.0); Mean Corpuscular Volume 94.2 fL (80.0-100.0); Nucleated Red Blood Cells % 0.1 %
[2025-03-02 06:21] LABS: Chloride 106 mmol/L (98-107); Potassium 4.6 mmol/L (3.5-5.1); Sodium 140 mmol/L (136-145)
[2025-03-02 06:22] LABS: Anion Gap 7 (5-15); Carbon Dioxide 27 mmol/L (20-31)
[2025-03-02 06:27] LABS: BUN/Creatinine Ratio 6.8 (10.0-20.0)
[2025-03-02 06:29] LABS: Blood Urea Nitrogen 7 mg/dL (9-23); Calcium 8.2 mg/dL (8.7-10.4); Glucose 211 mg/dL (74-106)
[2025-03-02 08:00] VITALS: PULSE 63; RESP 18
[2025-03-02 09:14] VITALS: BP 166/111; PULSE 63; RESP 18; TEMP 97.9; O2SAT 100
--- NOTE | 2025-03-02 10:39 | DVHPN2 ---
Reviewed: H&P Objective Vitals Vital Signs Date Time Temp Pulse Resp B/P (MAP) Pulse Ox O2 Delivery O2 Flow Rate FiO2 03/02/25 09:14 97.9 63 18 166/111 (129) 100 97.9 03/02/25 08:00 Room Air* 0 21 Intake/Output Intake and Output 03/02/25 07:00 Intake Total 2840 ml Balance 2840 ml Intake Oral 2540 ml IV Total 300 ml # Voids 9 # Bowel Movements 1 General Appearance: Alert, Oriented X3 HEENT: Atraumatic Cardiovascular: Regular rate, Normal S1, Normal S2 Abdomen: Normal bowel sounds Medications Current Medications Medications Dose Ordered Sig/Yeison Route Start Time Stop Time Status Last Admin Dose Admin Pantoprazole Sodium 40 mg DAILY IV 02/28/25 10:00 03/02/25 08:12 40 MG Diagnostic Test (Pha) 1 strip Q6HR 02/27/25 18:00 03/02/25 06:20 1 STRIP Insulin Human Regular Q6HR SC 02/27/25 18:00 Dextrose 50 ml UD PRN IV 02/27/25 13:15 Metronidazole 100 ml @ 100 mls/hr Q8HR IV 02/27/25 14:00 03/02/25 06:24 100 MLS/HR Cefazolin Sodium/ Dextrose 50 ml @ 50 mls/hr Q8H IV 02/27/25 20:00 03/02/25 05:03 50 MLS/HR Hydromorphone HCl 0.25 mg Q4HPRN PRN IV 02/27/25 15:45 03/02/25 08:13 0.25 MG Diphenhydramine HCl 25 mg Q6HP PRN IV 02/28/25 12:45 03/02/25 05:03 25 MG Amlodipine Besylate 10 mg DAILY PO 02/28/25 14:45 UNV Lisinopril 10 mg DAILY PO 03/01/25 09:15 03/02/25 08:13 10 MG Clonidine HCl 0.2 mg BID PO 03/01/25 22:00 03/02/25 08:14 0.2 MG Acetaminophen/ Hydrocodone Bitart 1 tab Q4HP PRN PO 03/01/25 11:15 03/01/25 12:03 1 TAB Laboratory Results Laboratory Tests 03/02/25 05:00 Chemistry Test 03/01/25 10:46 03/02/25 05:00 Calcium Level 8.0 mg/dL (8.7-10.4) L 8.2 mg/dL (8.7-10.4) L Urinalysis Test 02/27/25 12:38 Urine Color Yellow (Yellow) Urine Clarity Clear (Clear) Urine pH 6.0 (5.0-9.0) Urine Specific [place] > 1.050 (1.001-1.035) Urine Protein 1+ (Negative) H Urine Ketones 1+ (Negative) H Urine Blood Negative /uL (Negative) Urine Nitrite Negative (Negative) Urine Bilirubin Negative (Negative) Urine Urobilinogen Normal mg/dL (Negative) Urine Leukocyte Esterase Negative /uL (Negative) Urine RBC 3 /hpf (0 - 4) Urine Microscopic WBC 2 /HPF (0-5) Urine Squamous Epithelial Cells Few /hpf (<5) Urine Bacteria Few /hpf (None Seen) H Urine Creatinine 82.16 mg/dL (30.0-125.0) Urine Protein/Creatinine Ratio 0.31 Urine Glucose Normal mg/dL (Normal) Urine Total Protein 25.1 mg/dL (1-14) H Microbiology Microbiology Date/Time Source Procedure Growth Status 02/27/25 19:04 Nose MRSA Screen - Final Complete 02/27/25 13:39 Blood Blood Culture - Preliminary NO GROWTH AFTER 48 HOURS OF INCUBATION. Resulted LIBAN GHOTRA MD Mar 02, 2025 10:39
[2025-03-02] MEDS ORDERED: METR-344 PO ×2 (10:42→11:34)
[2025-03-02] MEDS ORDERED: LEVO500T91 PO ×2 (10:42→11:34)
--- NOTE | 2025-03-02 10:44 | DVHDS2 ---
Discharge Summary Date of Admission Feb 27, 2025 at 13:02 Date of Discharge: Mar 02, 2025 Admitting Diagnosis # hypertensive crisis # prolonged QTC on EKG # intractable abdominal pain # chest pain likely referred pain from epigastric pain # inflammatory/infectious colitis # chronic pancreatitis # upper GI bleed # history of peptic ulcer disease # history of biliary stent placement # history of cholecystectomy # GERD # chronic pancreatitis Labs/Diagnostic Data: Laboratory Results Test 03/02/25 06:27 03/02/25 05:00 02/28/25 15:50 02/28/25 10:56 POC Glucose 172 mg/dl (70-106) White Blood Count 3.5 10^3/uL (4.4-10.8) Red Blood Count 3.39 10^6/uL (4.0-5.20) Hemoglobin 10.1 g/dL (12.2-16.2) Hematocrit 32.0 % (36.0-46.0) Mean Corpuscular Volume 94.2 fL (80.0-100.0) Mean Corpuscular Hemoglobin 29.8 pg (28.0-32.0) Mean Corpuscular Hemoglobin Concent 31.7 g/dL (32.0-36.0) Red Cell Distribution Width 16.6 % (11.8-14.3) Platelet Count 122 10^3/uL (140-450) Mean Platelet Volume 8.5 fL (6.9-10.8) Neutrophils (%) (Auto) 62.8 % (37.0-80.0) Lymphocytes (%) (Auto) 26.6 % (10.0-50.0) Monocytes (%) (Auto) 8.2 % (0.0-12.0) Eosinophils (%) (Auto) 2.2 % (0.0-7.0) Basophils (%) (Auto) 0.2 % (0.0-2.0) Neutrophils # (Auto) 2.2 10 ^3/uL (1.6-8.6) Lymphocytes # (Auto) 0.9 10 ^3/uL (0.4-5.4) Monocytes # (Auto) 0.3 10 ^3/uL (0-1.3) Eosinophils # (Auto) 0.1 10 ^3/uL (0-0.8) Basophils # (Auto) 0 10 ^3/uL (0-0.2) Nucleated Red Blood Cells 0.1 % Sodium Level 140 mmol/L (136-145) Potassium Level 4.6 mmol/L (3.5-5.1) Chloride Level 106 mmol/L (98-107) Carbon Dioxide Level 27 mmol/L (20-31) Anion Gap 7 (5-15) Blood Urea Nitrogen 7 mg/dL (9-23) Creatinine 1.03 mg/dL (0.550-1.02) Glomerular Filtration Rate Calc 68 mL/min (>90) BUN/Creatinine Ratio 6.8 (10.0-20.0) Serum Glucose 211 mg/dL (74-106) Calcium Level 8.2 mg/dL (8.7-10.4) Magnesium Level 1.6 mg/dL (1.6-2.6) Total Bilirubin 0.3 mg/dL (0.2-1.0) Aspartate Amino Transferase (AST) 32 U/L (13-40) Alanine Aminotransferase (ALT) 11 U/L (7-40) Alkaline Phosphatase 61 U/L (46-116) Total Protein 5.5 g/dL (5.7-8.2) Albumin 2.8 g/dL (3.2-4.8) Test 02/27/25 14:00 02/27/25 13:39 02/27/25 12:38 02/27/25 12:14 Blood Gas Specimen Type Venous Blood Gas Sample Site Vbg - n/a Blood Gas Patient Temperature 37.0 Arterial Blood Date Drawn [id number] Abram Test N/a Venous Blood pH 7.284 (7.320-7.430) Venous Blood pCO2 at Patient Temp 30.5 mmHg (38.0-54.0) Venous Blood pO2 at Patient Temp < 36.5 mmHg (23.0-48.0) Venous Blood HCO3 14.1 mmol/L (22.0-29.0) Venous Blood Base Excess -11.1 mmol/L (-2.0-3.0) Blood Gas Modality Room air FiO2 % 21.0 Specimen Drawn By preet felix rn Lactic Acid Level 1.1 mmol/L (0.4-2.0) Urine Color Yellow (Yellow) Urine Clarity Clear (Clear) Urine pH 6.0 (5.0-9.0) Urine Specific [place] > 1.050 (1.001-1.035) Urine Protein 1+ (Negative) Urine Ketones 1+ (Negative) Urine Blood Negative /uL (Negative) Urine Nitrite Negative (Negative) Urine Bilirubin Negative (Negative) Urine Urobilinogen Normal mg/dL (Negative) Urine Leukocyte Esterase Negative /uL (Negative) Urine RBC 3 /hpf (0 - 4) Urine Microscopic WBC 2 /HPF (0-5) Urine Squamous Epithelial Cells Few /hpf (<5) Urine Bacteria Few /hpf (None Seen) Urine Creatinine 82.16 mg/dL (30.0-125.0) Urine Protein/Creatinine Ratio 0.31 Urine Glucose Normal mg/dL (Normal) Urine Total Protein 25.1 mg/dL (1-14) Urine Opiates Screen Pos (NEGATIVE) Urine Fentanyl Screen Neg (NEGATIVE) Urine Barbiturates Screen Neg (NEGATIVE) Urine Phencyclidine Screen Neg (NEGATIVE) Urine Amphetamines Screen Neg (NEGATIVE) Urine Benzodiazepines Screen Neg (NEGATIVE) Urine Cocaine Screen Neg (NEGATIVE) Urine Cannabinoids Screen Neg (NEGATIVE) Hemoglobin A1c 5.4 % A1C (<5.7) Troponin I High Sensitivity 18 ng/L (</=34) B-Type Natriuretic Peptide 72.52 pg/mL (0-100) Triglycerides Level 116 mg/dL (< 150) Cholesterol Level 175 mg/dL (< 200) LDL Cholesterol 64 mg/dL (< 100) HDL Cholesterol 92 mg/dL (40-59) Thyroid Stimulating Hormone (TSH) 2.65 uIU/mL (0.55-4.78) Test 02/27/25 09:05 Lipase 20 U/L (12-53) Hepatitis B Surface Antigen Negative (Negative) Hepatitis C Antibody Negative (Negative) Other Laboratory Tests 03/02/25 05:00 Brief Hx & Hospital Course: This is a 44 years old female with past medical history of GERD, hypertension, kidney stone, chronic pancreatitis, peptic ulcer disease come to emergency department because severe abdominal pain radiating to the back for five days. The patient also vomited and nausea for 5-6 day. Patient had melena on and off and chest pain on the left side. Patient was admitted. GI evaluated the patient and recommend outpatient workup. Her hemoglobin stable. Patient was found to have colitis on CT scan. The patient was put on antibiotic with Rocephin and Flagyl. The patient will be discharged home today. Continuing antibiotic for 10 more days. Advised her to follow up with Dr. Ybarra, GI specialist as outpatient. Follow up with primary care physician 1-2 weeks. Activity as tolerated. Diet per home diet. Also we add an extra hypertensive medication to her regimen lisinopril come 10 mg p.o. daily. Physical exam: HEENT: Normocephalic atraumatic pupils equal react to light and accommodation. Extraocular muscles intact, conjunctiva pink, oropharynx moist, no thrush, no exudate. Lymphatic: No lymphadenopathy Cardiovascular exam: S1, S2 was heard. No murmurs, rubs, gallops Lung: Clear on auscultation bilaterally, no wheeze, rale, rhonchi. GI: Abdominal soft, nondistended, nontenderness, positive bowel sounds. Extremity: No crepitus, cyanosis, edema. Pedal pulses present bilateral. Full range of motion. Skin: Normal turgor, no rash. Psych: Alert, oriented x3. Neurology: No focal deficits, cranial nerve II to XII grossly intact. This medical document was created using an electronic medical record system with [employer] computerized dictation system. Although this document has been carefully reviewed, there may still be some phonetic and typographical errors. These areas are purely typographical due to imperfections of the software programs, and do not reflect any compromise in the patient's medical care. Condition at Discharge: Stable Final Diagnosis/Problems List # hypertensive crisis # prolonged QTC on EKG # intractable abdominal pain # chest pain likely referred pain from epigastric pain # inflammatory/infectious colitis # chronic pancreatitis # upper GI bleed # history of peptic ulcer disease # history of biliary stent placement # history of cholecystectomy # GERD # chronic pancreatitis Discharge Disposition: Home Discharge Instruct/Medications Diet: Regular Activity: No Restrictions, As Tolerated Follow Up/Referral: pcp 1-2 weeks GI specialist, Dr Ybarra per schedule. Medications: See med list Scheduled Carvedilol (Coreg), 6.25 MG PO Q12HR Clonidine Hydrochloride (Clonidine Hcl), 0.2 MG PO BID, (Reported) Hctz (Hydrochlorothiazide), 12.5 MG PO DAILY Levofloxacin Hemihydrate (Levaquin 500 Mg), 1 TAB PO DAILY Lisinopril (Lisinopril), 0.5 TAB PO DAILY Metronidazole (Flagyl), 1 TAB PO TID Nifedipine (Nifedipine Er), 30 MG PO DAILY Pancrelipase (Lipase-Protease- (Creon), 6,000 UNITS PO TID, (Reported) Sucralfate (Carafate Susp), 10 ML PO BID, (Reported) Scheduled PRN Ondansetron Odt 4MG Tab (Zofran Po), 4 MG PO Q6HP PRN Oxycodone W/ Acetaminophen (Percocet 5/325MG), 1 TAB PO TID PRN Discontinued Medications Hydrocodone-Acetaminophen (Hydrocodone Bitartrate/AC 5-325 mg), 1 TAB PO BID PRN, (Reported) Discharge Statement: "Patient was advised to return to the ER or call 911 if any headaches, dizziness, shortness of breath, chest pain, abdominal pain, bleeding, fevers, or worsening of medical condition. Patient was counseled about treatment plan, medications, possible side effects, patientverbalized understanding. All questions were answered to the best of my ability. This discharge took greater then 30 minutes in planning, reviewing documentation, counseling the patient, and discussing with other team members." ASSESSMENT ASSESSMENT Assessment Colitis Date of Service: Mar 02, 2025 Billing Provider: LIBAN GHOTRA MD Common Visit Codes: [id number] DISCH DAY >30min LIBAN GHOTRA MD Mar 02, 2025 10:44
[2025-03-02] MEDS ORDERED: PERCOT PO (11:34)
[2025-03-02] MEDS ORDERED: LISI20TA56 PO (11:36)
[2025-03-02 11:43] VITALS: BP 166/111; TEMP 36.6
== END 2025-03-02 12:32 | disposition home or self-care (01) | DRG 249 ==
LOC: ER 07:35 → OVERFLOW 13:02 → TELE-EAST 21:55
PROVIDERS: ADMIT Internal Medicine; ATTEND Internal Medicine
DX: A09 Infectious gastroenteritis and colitis, unspecified (principal); E87.20 Acidosis, unspecified; K92.2 Gastrointestinal hemorrhage, unspecified; I16.9 Hypertensive crisis, unspecified; K76.0 Fatty (change of) liver, not elsewhere classified; K86.1 Other chronic pancreatitis; K21.9 Gastro-esophageal reflux disease without esophagitis; I10 Essential (primary) hypertension; F17.210 Nicotine dependence, cigarettes, uncomplicated; R94.31 Abnormal electrocardiogram [ECG] [EKG]; Z87.442 Personal history of urinary calculi; Z87.11 Personal history of peptic ulcer disease; Z90.49 Acquired absence of other specified parts of digestive tract; Z88.5 Allergy status to narcotic agent; Z88.0 Allergy status to penicillin; Z88.8 Allergy status to other drugs, medicaments and biological substances
CPT/HCPCS: 36415; 36600; 71045; 74177; 80048; 80053; 80061; 80307; 81001; 82088; 82570; 82705; 82805; 82962; 83036; 83605; 83690; 83735; 83880; 84156; 84244; 84443; 84484; 85025; 86803; 87040; 87081; 87340; 93005; 93306; 99291; G0378; J1815; J2405; J2470; J3490